=== PATIENT | female | born 1950 | race Caucasian/White ===

== ENCOUNTER 2016-11-19 14:45 | Inpatient (IN) ==
[2016-11-19 16:55] LABS: Basophils % 0.1 %; Eosinophils # 0.1 K/mcL (0.0-0.6); Eosinophils % 0.4 %; Hematocrit 26.4 % (35.3-44.9); Hemoglobin 8.8 g/dL (11.5-15.4); Immature Granulocytes % 0.5 % (0-4); Lymphocytes # 0.4 K/mcL (0.6-4.6); Lymphocytes % 2.2 %; Mean Corpuscular HGB Conc 33.3 g/dL (31.6-35.5); Mean Corpuscular Hemoglobin 26.6 pg (28.0-33.3); Mean Corpuscular Volume 79.8 fL (83.0-100.0); Mean Platelet Volume 9.3 fL (9.4-12.4); Monocytes # 0.6 K/mcL (0.0-1.3); Monocytes % 3.8 %; Platelet Count 163 K/mcL (140-400); Red Blood Count 3.31 M/mcL (3.82-4.97); Red Cell Distribution Width 14.1 % (11.5-14.5)
[2016-11-19 17:07] LABS: Albumin 3.2 g/dL (3.5-5.0); Albumin/Globulin Ratio 0.9 (1.1-2.2); Bilirubin,Direct 0.5 mg/dL (0.0-0.5); Bilirubin,Indirect 0.3 mg/dL (0.0-1.2); Bilirubin,Total 0.8 mg/dL (0.2-1.2); Calcium 9.2 mg/dL (8.6-10.8); Globulin 3.6 g/dL (2.4-3.5); Potassium 5.1 mEq/L (3.5-4.5); Total Protein 6.8 g/dL (6.0-8.3)
[2016-11-19] MEDS ORDERED: 0.9 % Sodium Chloride 1,000 ML IVC ONE (17:43)
[2016-11-19] MEDS ORDERED: Azithromycin 500 MG in D5% in Water 250 ML IVPB ONE (18:18)
--- NOTE | 2016-11-19 18:22 | Emergency Department Note ---
Disposition Clinical Impression: Community acquired pneumonia Qualifiers: Laterality: left Lung location: upper lobe of lung Qualified Code(s): J18.1 - Lobar pneumonia, unspecified organism Disposition: Admitted As Inpatient Condition: Good Referrals: Man Eubanks MD [Primary Care Provider] - Forms: ED Satisfaction Letter, Work/School Release General Adult HPI - General Chief complaint: ED Abdominal Pain Stated complaint: LLQ pain Time Seen by Provider: 11/19/16 16:48 Source: patient, EMS Mode of arrival: EMS Limitations: no limitations Nursing Notes Reviewed: Yes Vital Signs Reviewed: Yes - History of Present Illness HPI Narrative: 66-year-old female was asked to the ER with a chief complaint of cough, shortness of breath and abdominal pain. Patient states she has not felt well for the last 3 days. She states that she called her primary care provider but they were unable to call anything in for her. She states that she has had a cough without productive sputum during this time. States that she also started having left-sided abdominal pain during this time. She has had nausea but no vomiting or diarrhea. Reports a history of one bowel obstruction in the past from adhesions. No fevers at home. Has had left-sided chest pain worse with coughing. No other complaints. Pt Subjective Complaint: Abdominal pain, cough, shortness of breath Onset (ago): day(s) Location: chest, abdomen Radiation: non-radiation Pain Severity: moderate Pain Scale: 5 Quality: aching Consistency: intermittent Improves with: nothing Worsens with: other Associated symptoms: Reports: chest pain, cough, nausea/vomiting, shortness of breath. Denies: fever/chills Treatments Prior to Arrival: none - Related Data Home Medications Medication Instructions Recorded Confirmed Folic Acid 1 mg PO DAILY 09/24/14 11/19/16 Insulin ASPART [Novolog Flexpen] 0 unit SQ ACHS PRN 09/24/14 11/19/16 Lisinopril [Zestril] 20 mg PO DAILY PRN 09/24/14 11/19/16 Loratadine [Claritin] 10 mg PO DAILY 09/24/14 11/19/16 Nitroglycerin [Nitrostat] 0.4 mg SL Q5M PRN 09/24/14 11/19/16 Omeprazole [Prilosec] 40 mg PO BID 09/24/14 11/19/16 Oxycodone HCl 5 - 10 mg PO QID PRN 09/24/14 11/19/16 Oxygen 2 l NS AD 09/24/14 11/19/16 Polyethylene Glycol 3350 [Miralax] 17 gm PO DAILY 09/24/14 11/19/16 Simvastatin [Zocor] 20 mg PO HS 09/24/14 11/19/16 cloNIDine HCl [CloNIDine HCl] 0.1 mg PO HS 08/19/15 11/19/16 Albuterol Sulfate [Albuterol 2 puff IH QID PRN 08/20/15 11/19/16 Inhaler] Cholecalciferol (Vitamin D3) 10,000 unit PO QWEEK 08/20/15 11/19/16 [Vitamin D3] Cyclobenzaprine [Flexeril] 10 mg PO QID PRN 08/20/15 11/19/16 Fenofibrate [Lofibra] 160 mg PO DAILY 08/20/15 11/19/16 Insulin Glargine,Hum.rec.anlog 25 unit SQ BID 08/20/15 11/19/16 [Lantus Solostar] Levothyroxine [Synthroid] 25 mcg PO QAM 08/20/15 11/19/16 Mometasone Furoate [Asmanex] 220 mcg IH QPM 08/20/15 11/19/16 Montelukast [Singulair] 10 mg PO QPM 08/20/15 11/19/16 Temazepam [Restoril] 15 mg PO HS 08/20/15 11/19/16 Calcium Carbonate [Tums] 1,000 mg PO BID 06/11/16 11/19/16 Guaifenesin [Mucinex] 600 mg PO BID PRN 06/11/16 11/19/16 Albuterol Neb [Proventil Neb] 2.5 mg IH Q6H PRN 11/19/16 11/19/16 Ascorbic Acid [Vitamin C] 500 mg PO DAILY 11/19/16 11/19/16 Carvedilol [Coreg] 6.25 mg PO BIDWM 11/19/16 11/19/16 Cyanocobalamin (Vitamin B-12) 1,000 mcg PO DAILY 11/19/16 11/19/16 [Vitamin B12] EPINEPHrine [Epipen] 0.3 mg IM ONCE PRN 11/19/16 11/19/16 Ipratropium/Albuterol Sulfate 2 puff IH QID 11/19/16 11/19/16 [Combivent Respimat Inhal [place]] Allergies Allergy/AdvReac Type Severity Reaction Status Date / Time baclofen Allergy Hallucinati Verified 11/19/16 14:55 ng cilostazol [From Pletal] Allergy Hallucinati Verified 11/19/16 14:55 ng All systems ED: reviewed and negative except as stated. Constitutional: Reports: weakness. Denies: fever Cardiovascular: Reports: chest pain (With coughing) Respiratory: Reports: cough, dyspnea. Denies: wheezes Gastrointestinal: Reports: abdominal pain, nausea. Denies: vomiting, diarrhea Past Medical History - Past Medical History Attestation: Yes The following information was validated with the patient. Source: patient Medical history: Reports: asthma, COPD, coronary artery disease, CVA, GERD, hepatitis, hypertension, liver disease, myocardial infarction, renal disease, other Surgical history: Reports: appendectomy, , cholecystectomy, coronary bypass (CABG), hysterectomy, other (heart stent placement x2) Psychiatric history: Reports: no psych history - Social History Smoking Status: Former smoker Smokeless Tobacco Status: No Alcohol use: Reports: none Drug use: Reports: none Physical Exam - General Limitations: no limitations General appearance: alert, in no apparent distress - Head Head exam: atraumatic, normocephalic, normal inspection - Eye Eye exam: Present: normal appearance, EOMI - ENT ENT exam: normal exam - Neck Neck exam: Present: normal inspection, full ROM - Chest Chest inspection: Present: normal inspection, symmetric chest wall rise - Respiratory Respiratory exam: Present: normal lung sounds bilaterally - Cardiovascular Cardiovascular exam: Present: regular rate, normal rhythm, normal heart sounds - Abdominal Exam Abdominal exam: Present: soft, tenderness (Mild left sided abdominal pain in the left upper quadrant without rigidity guarding or distention.). Absent: distention, guarding, rigidity - Extremities Exam Extremities exam: Present: normal inspection, full ROM - Expanded Upper Extremity Exam Shoulder exam: Present: normal inspection, full ROM Arm exam: Present: normal inspection, full ROM Elbow exam: Present: normal inspection, full ROM Forearm/Wrist exam: Present: normal inspection, full ROM Hand exam: Present: normal inspection, full ROM Vascular exam: Normal: radial pulse - Expanded Lower Extremity Exam Hip/Pelvis exam: Present: normal inspection, full ROM Upper leg exam: Present: normal inspection, full ROM Knee exam: Present: normal inspection, full ROM Lower leg exam: Present: normal inspection, full ROM Ankle exam: Present: normal inspection, full ROM Foot/toe exam: Present: normal inspection, full ROM Neurovascular/Tendon exam: Absent: motor deficit, sensory deficit - Neurological Exam Neurological exam: Present: alert, other (GCS 15. Nonfocal neurologic exam.) - Psychiatric Psychiatric exam: Present: normal affect, normal mood - Skin Skin exam: Present: warm, dry, intact, normal color Course Course Narrative: Patient seen and examined. We will obtain an EKG, chest x-ray as well as a CT scan of the abdomen and pelvis with labs and urinalysis. - Reevaluation(s) Reevaluation #1: Patient updated of imaging and labs. She will be admitted for community- acquired pneumonia. Vital Signs Temperature 99.4 F 11/19/16 14:52 Pulse Rate 105 11/19/16 14:52 Respiratory Rate 18 11/19/16 14:52 Blood Pressure 107/56 11/19/16 14:52 O2 Sat by Pulse Oximetry 100 11/19/16 14:52 Temperature 99.4 F 11/19/16 14:52 Pulse Rate 99 11/19/16 18:48 Respiratory Rate 20 11/19/16 18:48 Blood Pressure 125/61 11/19/16 18:48 O2 Sat by Pulse Oximetry 99 11/19/16 18:48 Oxygen Delivery Oxygen Delivery Room Air Medical Decision Making - [facility] Narrative Medical decision making narrative: 66-year-old female presents to the ER due to weakness cough shortness of breath and abdominal pain for 3 days. X-ray here shows concern for developing left sided pneumonia. Her white count is 16. Her EKG is nonischemic. She has baseline CK D. Patient given a liter of fluids as well as Rocephin and Zithromax. Lactate normal. Blood cultures obtained. Admitted to the hospitalist service. - Lab Data Lab results reviewed: Yes I reviewed the patient's lab results. Result diagrams: 11/19/16 16:39 11/19/16 16:39 Lab Results 11/19/16 11/19/16 11/19/16 Range/Units 16:39 16:39 16:39 WBC 16.1 H (4.3-11.1) K/mcL RBC 3.31 L (3.82-4.97) M/mcL Hgb 8.8 L (11.5-15.4) g/dL Hct 26.4 L (35.3-44.9) % MCV 79.8 L (83.0-100.0) fL MCH 26.6 L (28.0-33.3) pg MCHC 33.3 (31.6-35.5) g/dL RDW 14.1 (11.5-14.5) % Plt Count 163 (140-400) K/mcL MPV 9.3 L (9.4-12.4) fL Immature Gran % 0.5 (0-4) % Seg Neutrophils % 93.0 % Lymphocytes % 2.2 % Monocytes % 3.8 % Eosinophils % 0.4 % Basophils % 0.1 % Neutrophils # 15.0 H (1.6-8.9) K/mcL Lymphocytes # 0.4 L (0.6-4.6) K/mcL Monocytes # 0.6 (0.0-1.3) K/mcL Eosinophils # 0.1 (0.0-0.6) K/mcL Basophils # 0.0 (0.0-0.2) K/mcL Sodium 127 L (136-145) mEq/L Potassium 5.1 H (3.5-4.5) mEq/L Chloride 92 L (98-109) mEq/L Carbon Dioxide 29 (19-29) mEq/L BUN 28 H (7-20) mg/dL Creatinine 1.39 H (0.57-1.11) mg/dL Est GFR ( Amer) 46 L (> 60) Est GFR (Non-Af Amer) 38 L (> 60) BUN/Creatinine Ratio 20 (6-26) Glucose 144 H (70-99) mg/dL Calculated Osmolality 272 L (280-300) Lactic Acid (0.5-2.2) mmol/L Calcium 9.2 (8.6-10.8) mg/dL Total Bilirubin 0.8 (0.2-1.2) mg/dL Direct Bilirubin 0.5 (0.0-0.5) mg/dL Indirect Bilirubin 0.3 (0.0-1.2) mg/dL AST 28 (5-34) Units/L ALT 16 (0-55) Units/L Alkaline Phosphatase 91 (38-126) Units/L Troponin I 0.01 (0-0.03) ng/mL B-Natriuretic Peptide (0-100) pg/mL Serum Total Protein 6.8 (6.0-8.3) g/dL Albumin 3.2 L (3.5-5.0) g/dL Globulin 3.6 H (2.4-3.5) g/dL Albumin/Globulin Ratio 0.9 L (1.1-2.2) Lipase 34 (8-78) Units/L 11/19/16 11/19/16 Range/Units 16:39 17:56 WBC (4.3-11.1) K/mcL RBC (3.82-4.97) M/mcL Hgb (11.5-15.4) g/dL Hct (35.3-44.9) % MCV (83.0-100.0) fL MCH (28.0-33.3) pg MCHC (31.6-35.5) g/dL RDW (11.5-14.5) % Plt Count (140-400) K/mcL MPV (9.4-12.4) fL Immature Gran % (0-4) % Seg Neutrophils % % Lymphocytes % % Monocytes % % Eosinophils % % Basophils % % Neutrophils # (1.6-8.9) K/mcL Lymphocytes # (0.6-4.6) K/mcL Monocytes # (0.0-1.3) K/mcL Eosinophils # (0.0-0.6) K/mcL Basophils # (0.0-0.2) K/mcL Sodium (136-145) mEq/L Potassium (3.5-4.5) mEq/L Chloride (98-109) mEq/L Carbon Dioxide (19-29) mEq/L BUN (7-20) mg/dL Creatinine (0.57-1.11) mg/dL Est GFR ( Amer) (> 60) Est GFR (Non-Af Amer) (> 60) BUN/Creatinine Ratio (6-26) Glucose (70-99) mg/dL Calculated Osmolality (280-300) Lactic Acid 0.8 (0.5-2.2) mmol/L Calcium (8.6-10.8) mg/dL Total Bilirubin (0.2-1.2) mg/dL Direct Bilirubin (0.0-0.5) mg/dL Indirect Bilirubin (0.0-1.2) mg/dL AST (5-34) Units/L ALT (0-55) Units/L Alkaline Phosphatase (38-126) Units/L Troponin I (0-0.03) ng/mL B-Natriuretic Peptide 138 H (0-100) pg/mL Serum Total Protein (6.0-8.3) g/dL Albumin (3.5-5.0) g/dL Globulin (2.4-3.5) g/dL Albumin/Globulin Ratio (1.1-2.2) Lipase (8-78) Units/L - Radiology Data Radiology results reviewed: Yes I reviewed the patient's radiology results. Abdomen/Pelvis CT 11/19/16 16:49 IMPRESSION: Hepatic cirrhosis with hepatosplenomegaly and mild right upper quadrant lymphadenopathy. Bilateral renal cortical cysts. Severe atherosclerotic disease. Right lower lobe pulmonary micronodule. RECOMMENDATIONS: Fleischner Society guidelines for follow-up and management of pulmonary nodules: Nodule size less than or equal to 4 mm In a low-risk patient, no follow-up needed. In a high-risk patient, follow-up CT at 12 months; if unchanged, no further follow-up. Nodule size equals 4-6 mm In a low-risk patient, follow-up CT at 12 months; if unchanged, no further follow-up. In a high-risk patient, initial follow-up CT at 6-12 months then at 18-24 months if no change. Nodule size equals 6-8 mm In a low-risk patient, initial follow-up CT at 6-12 months then at 18-24 months if no change. In a high-risk patient, initial follow-up CT at 3-6 months then at 9-12 months and 24 months if no change. Nodule size greater than 8 mm In low-risk and high-risk patients follow-up CT at around 3, 9, and 24 months, dynamic contrast-enhanced CT, PET, and/or biopsy. Low risk patients include individuals with minimal or absent history of smoking and other known risk factors. High risk patients include individuals with a history of smoking or other known risk factors. Radiology 2005; [id number] D/ / Kristian Champion MD / Kristian Champion MD Interpreting Provider: Kristian Champion MD Chest X-Ray 11/19/16 16:49 IMPRESSION: Patchy consolidation within the left midlung, suggestive of pneumonia. That must be followed to resolution. D/ / Meir Kirkpatrick MD / Meir Kirkpatrick MD Interpreting Provider: Meir Kirkpatrick MD - EKG Data EKG #1 EKG attestation: Yes I reviewed and interpreted this EKG. EKG results narrative: EKG demonstrates sinus rhythm with a rate of 94 bpm. Normal axis. Normal intervals. Normal R-wave progression. No gross ST elevations or depressions. No acute ischemic findings. S.B.A.R. - S.B.A.R. Situation: Demographics, MOA Background: Presenting Complaint, Relevant PMH, Meds, & Allergies Assessment: Vital Signs, Course and respsone to treatment, Exam Concerns, Patient/Family Expectation, Pertinant Lab Results, Outstanding Labs Recommendation: Barrier(s) to disposition, Recommendation based on pending studies, treatments, or consults S.B.A.R. Report Given to: Dr. Potter Attestation Statement - Attestation Attestation: I examined this patient and my medical decision-making was reviewed with the Resident Physician, Dr. Joseph. I agree with the documented findings, disposition and treatment plan as described except to the extent set forth below. Patient is a 66-year-old white female with a history of COPD on 2 L nasal cannula oxygen at all times he presents to the emergency department with occasional nonproductive cough gradually worsening shortness of breath over the last 3 days and left chest wall pain gets worse with deep breathing. Patient denies any fevers or chills but does complain of generalized fatigue to the point that she has not been able to get around at home due to overwhelming generalized weakness. Patient denies any posttussive emesis or nausea vomiting. Patient denies any chest pain pressure or heaviness. Patient arrives with mild tachycardia but no signs of increased work of breathing or respiratory distress. I agree with patient's physical exam findings as documented. EKG was normal sinus rhythm at 94 bpm with no acute ST or T-wave changes. There is no old EKG for comparison. Patient had a two-view chest x-ray obtained which showed left mid lobe consolidation consistent with pneumonia. Due to the left-sided pain CT abdomen and pelvis was also obtained which is unremarkable. Patient had antibiotics initiated for community-acquired pneumonia and has been on 3 L nasal cannula oxygen with stable room air sats. Patient is currently receiving IV fluids and lactate has been ordered. History was discussed with hospitalist B she will be admitted for community acquired pneumonia mild exacerbation of COPD.
[2016-11-19] MEDS ORDERED: MOM Conc 10 ML UD.LIQ PO PRN (22:37)
[2016-11-19] MEDS ORDERED: *HR* Promethazine 25 MG/ML VIAL IVP PRN (22:37)
[2016-11-19] MEDS ORDERED: Acetaminophen 325 MG TABLET PO PRN (22:37)
[2016-11-19] MEDS ORDERED: Naloxone 0.4 MG/ML INJ IVP PRN (22:37)
[2016-11-19] MEDS ORDERED: Ondansetron 4 MG/2 ML VIAL IVP PRN (22:37)
[2016-11-19] MEDS ORDERED: Nitroglycerin 0.4 MG TAB.SUBL SL PRN (22:39)
[2016-11-19] MEDS ORDERED: Lisinopril 20 MG TABLET PO PRN (22:39)
[2016-11-19] MEDS ORDERED: *HR* Dextrose 50 % in Water (Syg) 50 ML SYRINGE IVP PRN (22:43)
[2016-11-19] MEDS ORDERED: D5% in Water 1,000 ML IVC PRN (22:43)
[2016-11-19] MEDS ORDERED: Dextrose Gel 15 GM PO PRN ×2 (22:43)
--- NOTE | 2016-11-19 22:53 | Internal Med History&Physical ---
Date of Encounter: 11/19/16 Time of Encounter: 21:20 Assessment and Plan (1) SIRS (systemic inflammatory response syndrome) Current visit: Yes Status: Acute Will admit the pt into Med Surg Does meet SIRS criteria with elevated WBC source of inf as PNA Cont empirical abx Rocephin and Zithromycin (2) CAP (community acquired pneumonia) Current visit: Yes Status: Acute Mostly bacterial reviewed CXR by myself - showing infiltrates in LLL, jason bronchial thickening sent for sputum cx Cont empirical abx Rocephin + Azithromycin Duoneb + O2 No need of steroids Qualifiers: Laterality: left Lung location: upper lobe of lung Qualified Code(s): J18.1 - Lobar pneumonia, unspecified organism (3) Hyponatremia Current visit: No Status: Acute Mild hyponatremia Mostly due to dehydration cont gentle IV hydration cont close monitoring (4) CKD (chronic kidney disease), stage III Current visit: No Status: Acute stable (5) Dehydration Current visit: No Status: Acute due to sepsis started on gentle IV hydration (6) CAD (coronary artery disease) Current visit: No Status: Chronic Resumed all home meds Qualifiers: Qualified Code(s): I25.10 - Atherosclerotic heart disease of [place] coronary artery without angina pectoris (7) COPD (chronic obstructive pulmonary disease) Current visit: No Status: Chronic Not in exacerbation cont Duoneb and O2 No need of IV steroids at this point Qualifiers: COPD type: unspecified COPD Qualified Code(s): J44.9 - Chronic obstructive pulmonary disease, unspecified (8) Chronic respiratory failure with hypoxia Current visit: Yes Status: Chronic stable (9) Cirrhosis Current visit: No Status: Chronic Due to Hep C need out pt f/u with Heme Onc Qualifiers: Hepatic cirrhosis type: unspecified hepatic cirrhosis Ascites presence: without ascites Qualified Code(s): K74.60 - Unspecified cirrhosis of liver (10) DM2 (diabetes mellitus, type 2) Current visit: No Status: Chronic Placed her on ISS medium + Levemir 15U BID Qualifiers: Diabetes mellitus complication status: with kidney complications Diabetes mellitus complication detail: with chronic kidney disease Diabetes mellitus terminal operations manager insulin use: with terminal operations manager use Chronic kidney disease stage: stage 3 (moderate) Qualified Code(s): E11.22 - Type 2 diabetes mellitus with diabetic chronic kidney disease; N18.3 - Chronic kidney disease, stage 3 ( moderate); Z79.4 - group home (current) use of insulin Internal Medicine - H&P: HPI Chief complaint: Cough with Expectoration, SOB Admitted From: Emergency Dept Plans for Post Hospital Care: Home History of present illness: Ms. Kimble is a 66 year old female with past medical hx of COPD, Diastolic CHF, CAD, s/p CABG, PR, CVA, cirrhosis of liver due to Hep C, CKD (III), Iron defeciency anemia, DM2, chronic hypoxic resp failure on home O2 dependent at 2 lit presented to ER c/o worsening SOB and Cough since y/d. She does have cough with yellowish expectoration. Aslo c/o generalized body pains, weak and lethargic. Denied any CP . 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 She is alert, awake and Ox 3. Denied any sick contacts at home or recent travel history Past Med Surg Social Fam HX - Past Medical History Medical history: asthma, COPD, coronary artery disease, CVA, GERD, hepatitis, hypertension, liver disease, myocardial infarction, renal disease, other Psychiatric history: no psych history - Past Surgical History Surgical History: appendectomy, , cholecystectomy, coronary bypass ( CABG), hysterectomy, other - Social History Smoking Status: Former smoker Smokeless Tobacco Status: No Alcohol use: none Drug use: none - Family History Mother Living Status: Hx Family Cardiac Disorders: Yes (triple bypass) Hx Family Endocrine Disorder: Yes Father Living Status: Hx Family Cardiac Disorders: Yes Hx Family Endocrine Disorder: Yes Internal Medicine - H&P: Meds Folic Acid 1 mg PO DAILY 09/24/14 [History] Insulin ASPART [Novolog Flexpen] 0 unit SQ ACHS PRN 09/24/14 [History] Lisinopril [Zestril] 20 mg PO DAILY PRN 09/24/14 [History] Loratadine [Claritin] 10 mg PO DAILY 09/24/14 [History] Nitroglycerin [Nitrostat] 0.4 mg SL Q5M PRN 09/24/14 [History] Omeprazole [Prilosec] 40 mg PO BID 09/24/14 [History] Oxycodone HCl 5 - 10 mg PO QID PRN 09/24/14 [History] Oxygen 2 l NS AD 09/24/14 [History] Polyethylene Glycol 3350 [Miralax] 17 gm PO DAILY 09/24/14 [History] Simvastatin [Zocor] 20 mg PO HS 09/24/14 [History] cloNIDine HCl [CloNIDine HCl] 0.1 mg PO HS 08/19/15 [History] Albuterol Sulfate [Albuterol Inhaler] 2 puff IH QID PRN 08/20/15 [History] Cholecalciferol (Vitamin D3) [Vitamin D3] 10,000 unit PO QWEEK 08/20/15 [History ] Cyclobenzaprine [Flexeril] 10 mg PO QID PRN 08/20/15 [History] Fenofibrate [Lofibra] 160 mg PO DAILY 08/20/15 [History] Insulin Glargine,Hum.rec.anlog [Lantus Solostar] 25 unit SQ BID 08/20/15 [ History] Levothyroxine [Synthroid] 25 mcg PO QAM 08/20/15 [History] Mometasone Furoate [Asmanex] 220 mcg IH QPM 08/20/15 [History] Montelukast [Singulair] 10 mg PO QPM 08/20/15 [History] Temazepam [Restoril] 15 mg PO HS 08/20/15 [History] Calcium Carbonate [Tums] 1,000 mg PO BID 06/11/16 [History] Guaifenesin [Mucinex] 600 mg PO BID PRN 06/11/16 [History] Albuterol Neb [Proventil Neb] 2.5 mg IH Q6H PRN 11/19/16 [History] Ascorbic Acid [Vitamin C] 500 mg PO DAILY 11/19/16 [History] Carvedilol [Coreg] 6.25 mg PO BIDWM 11/19/16 [History] Cyanocobalamin (Vitamin B-12) [Vitamin B12] 1,000 mcg PO DAILY 11/19/16 [History ] EPINEPHrine [Epipen] 0.3 mg IM ONCE PRN 11/19/16 [History] Ipratropium/Albuterol Sulfate [Combivent Respimat Inhal [place]] 2 puff IH QID 07/01 [History] 3 Allergy/AdvReac Type Severity Reaction Status Date / Time baclofen Allergy Hallucinati Verified 11/19/16 14:55 ng cilostazol [From Pletal] Allergy Hallucinati Verified 11/19/16 14:55 ng All Systems PM: A 10-system review of systems was performed and is negative for pertinent findings except as documented above in the HPI. Review of systems: All the systems are reviewed everything is benign except the systems and symptoms I mentioned in the history of present illness - Constitutional Vitals: Temp Pulse Resp BP Pulse Ox 98.4 F 88 15 120/71 100 11/19/16 22:45 11/19/16 22:45 11/19/16 22:45 11/19/16 22:45 11/19/16 22:45 General appearance: Present: A&O X 3, no acute distress (able to finish all sentences with out any pause), answers questions appropriately - Head Head exam: Present: atraumatic, normal inspection - Respiratory Respiratory exam: Present: decreased breath sounds, rhonchi (mild rhonchi and corase BS b/l). Absent: rales, respiratory distress, wheezes - Cardiovascular Cardiovascular exam: Present: RRR, +S1, +S2. Absent: systolic murmur - GI/Abdominal GI/Abdominal exam: Present: normal bowel sounds, soft. Absent: distended, rebound, rigid, tenderness - Extremities Exam Extremities exam: Absent: calf tenderness, pedal edema, tenderness - Back Exam Back exam: Absent: CVA tenderness (L), CVA tenderness (R) - Neurological Exam Neurological exam: Present: alert, oriented X3 - Psychiatric Psychiatric exam: Present: normal affect, normal mood Internal Med - H&P Results - Labs CBC & Chem 7: 11/19/16 16:39 11/19/16 16:39
[2016-11-19] MEDS: 0.9 % Sodium Chloride 1,000 ML IVC SCH (23:10)
[2016-11-19] MEDS: cloNIDine HCl 0.1 MG TABLET PO SCH (23:10)
[2016-11-19] MEDS: Insulin LISPRO 300 UNITS/3 ML VIAL SQ SCH (23:11)
[2016-11-19] MEDS: Ipratropium/Albuterol Neb 3 ML IH SCH (23:25)
[2016-11-19] MEDS: *HR* HYDROcodone/Acet 5/325 mg TABLET PO PRN (23:28)
[2016-11-20] MEDS: Ipratropium/Albuterol Neb 3 ML IH SCH ×6 (03:42→23:47)
[2016-11-20 04:42] LABS: Basophils % 0.2 %; Eosinophils # 0.1 K/mcL (0.0-0.6); Eosinophils % 1.2 %; Hematocrit 25.3 % (35.3-44.9); Hemoglobin 8.3 g/dL (11.5-15.4); Immature Granulocytes % 0.2 % (0-4); Lymphocytes # 0.7 K/mcL (0.6-4.6); Lymphocytes % 6.4 %; Mean Corpuscular HGB Conc 32.8 g/dL (31.6-35.5); Mean Corpuscular Hemoglobin 26.8 pg (28.0-33.3); Mean Corpuscular Volume 81.6 fL (83.0-100.0); Mean Platelet Volume 9.7 fL (9.4-12.4); Monocytes # 0.9 K/mcL (0.0-1.3); Monocytes % 8.1 %; Neutrophils # 8.9 K/mcL (1.6-8.9); Platelet Count 162 K/mcL (140-400); Red Cell Distribution Width 14.3 % (11.5-14.5); Segmented Neutrophils % 83.9 %
[2016-11-20 04:49] LABS: Hemoglobin A1C 5.9 %
[2016-11-20 04:54] LABS: Potassium 4.2 mEq/L (3.5-4.5)
[2016-11-20 04:55] LABS: Albumin/Globulin Ratio 0.9 (1.1-2.2); Bilirubin,Total 0.7 mg/dL (0.2-1.2); Calcium 8.8 mg/dL (8.6-10.8); Chol/HDL Ratio 3.3 (0-4.9); Globulin 3.4 g/dL (2.4-3.5); Magnesium 1.6 mg/dL (1.6-2.6); Total Protein 6.4 g/dL (6.0-8.3)
[2016-11-20] MEDS: Levothyroxine 25 MCG TABLET PO SCH (06:37)
[2016-11-20] MEDS: *HR* Heparin 5,000 UNIT/ML VIAL SQ SCH ×2 (06:37→17:01)
[2016-11-20] MEDS: Insulin LISPRO 300 UNITS/3 ML VIAL SQ SCH ×4 (07:43→22:13)
[2016-11-20] MEDS: Cholecalciferol (D-3) 1,000 UNIT TABLET PO SCH (09:13)
[2016-11-20] MEDS: Fenofibrate 54 MG TABLET PO SCH (09:13)
[2016-11-20] MEDS: Cyanocobalamin (B-12) 1,000 MCG TABLET PO SCH (09:13)
[2016-11-20] MEDS: Ascorbic Acid 500 MG TABLET PO SCH (09:14)
[2016-11-20] MEDS: Loratadine 10 MG TABLET PO SCH (09:14)
[2016-11-20] MEDS: 0.9 % Sodium Chloride 1,000 ML IVC SCH ×2 (09:14→21:56)
[2016-11-20] MEDS: *HR* HYDROcodone/Acet 5/325 mg TABLET PO PRN ×3 (09:24→22:01)
[2016-11-20 11:04] LABS: Adenovirus Not Detected (Not Detect); Bordetella Pertussis Not Detected (Not Detect); Chlamydophila pneumoniae Not Detected (Not Detect); Coronavirus 229E Not Detected (Not Detect); Coronavirus HKU1 Not Detected (Not Detect); Coronavirus NL63 Not Detected (Not Detect); Coronavirus OC43 Not Detected (Not Detect); Human Metapneumovirus Not Detected (Not Detect); Human Rhinovirus/Enterovirus Not Detected (Not Detect); Influenza A Subtype 2009 H1 Not Detected (Not Detect); Influenza A Untypeable Not Detected (Not Detect); Influenza B Not Detected (Not Detect); Mycoplasma pneumoniae Not Detected (Not Detect); Parainfluenza Virus 1 Not Detected (Not Detect); Parainfluenza Virus 2 Not Detected (Not Detect); Parainfluenza Virus 3 Not Detected (Not Detect); Parainfluenza Virus 4 Not Detected (Not Detect); Respiratory Syncytial Virus Not Detected (Not Detect)
[2016-11-20] MEDS: Insulin DETEMIR 100 UNIT/ML X5UNITS SQ SCH ×2 (11:35→22:00)
[2016-11-20] MEDS: MethylPREDNISolone 40 MG/ML VIAL IVP SCH ×2 (11:54→17:01)
[2016-11-20] MEDS: *HR* Morphine 2 MG/ML SYRINGE IVP PRN (11:54)
[2016-11-20] MEDS: Azithromycin 500 MG in D5% in Water 250 ML IVPB SCH (11:54)
--- NOTE | 2016-11-20 16:49 | Internal Med Progress Note ---
Date of Encounter: 11/20/16 Time of Encounter: 16:47 - Assessment and plan (1) CAP (community acquired pneumonia) Current Visit: Yes Status: Acute Assessment and plan: Mounika Kimble is a 66-year-old female with past medical history COPD on home O2 , CAD, diabetes and hypothyroidism who presented to [facility] 11/19/2016 with complaints of worsening shortness of breath and cough. She was placed in observation status for suspected pneumonia. 1. Community-acquired pneumonia: Presented with worsening shortness of breath and cough. Chest x-ray with left mid lung consolidation, concerning for pneumonia. Cont IV azithromycin, Rocephin started in ED. Urinary antigens, sputum culture, respiratory PCR pending. 2. Acute COPD exacerbation: Wears O2 at at bedtime at home. Now requiring oxygen [id number] and with diffuse wheezing on exam. Start steroids, scheduled nebs, continue O2. 3. SIRS: With elevated WBC and suspected pneumonia. Lactic acid normal. Continue treating pneumonia and COPD exacerbation as noted above 4. Hyponatremia: Na 127 on arrival. Suspect prerenal with dehydration. Na improved with IV fluids. Intermittently monitor. 5. CKD: per hx. Cr 1.12 which appears improved from baseline. Avoid nephrotoxic agents as able. Intermittently monitor renal function. 6. CAD: per hx. asymptomatic, denies chest pain. Not on ASA or any other antiplatelet therapy due to previous history of bleeding. Continue BB, statin 7. DVT prophylaxis: Heparin Qualifiers: Laterality: left Lung location: upper lobe of lung Qualified Code(s): J18.1 - Lobar pneumonia, unspecified organism (2) Chronic respiratory failure with hypoxia Current Visit: Yes Status: Chronic (3) COPD (chronic obstructive pulmonary disease) Current Visit: No Status: Chronic Qualifiers: COPD type: unspecified COPD Qualified Code(s): J44.9 - Chronic obstructive pulmonary disease, unspecified (4) DM2 (diabetes mellitus, type 2) Current Visit: No Status: Chronic Qualifiers: Diabetes mellitus complication status: with kidney complications Diabetes mellitus complication detail: with chronic kidney disease Diabetes mellitus manager terminal insulin use: with manager terminal use Chronic kidney disease stage: stage 3 (moderate) Qualified Code(s): E11.22 - Type 2 diabetes mellitus with diabetic chronic kidney disease; N18.3 - Chronic kidney disease, stage 3 ( moderate); Z79.4 - retirement (current) use of insulin (5) SIRS (systemic inflammatory response syndrome) Current Visit: Yes Status: Acute (6) DVT prophylaxis Current Visit: Yes Status: Acute - Subjective Interval history: Eczema bedside, patient is new to me. Information obtained from chart review and patient report. Patient says she feels a little better but still short of breath. No chest pain. She does have a cough that is productive at times. Patient says she wears oxygen at at bedtime at home occasionally during the day if she does strenuous activity, has been wearing oxygen [id number] for the last week prior to admission due to increased shortness of breath. - Constitutional Vitals: Temp Pulse Resp BP Pulse Ox 98.2 F 93 16 137/65 98 11/20/16 15:34 11/20/16 15:34 11/20/16 15:34 11/20/16 15:34 11/20/16 15:34 General appearance: Present: mild distress (Just returned from bathroom and mildly dyspneic), A&O X 3, answers questions appropriately - Head Head exam: Present: atraumatic, normocephalic - Eye Eye exam: Present: PERRL, conjuntiva pink, sclera anicteric Pupils: Present: PERRL - Neck Neck exam general surgery: Present: supple, trachea midline. Absent: lymphadenopathy - Respiratory Respiratory exam: Present: wheezes. Absent: accessory muscle use, rales, rhonchi - Cardiovascular Cardiovascular exam: Present: RRR, +S1, +S2. Absent: diastolic murmur, gallop, rubs, systolic murmur - GI/Abdominal GI/Abdominal exam: Present: normal bowel sounds, soft, no peritoneal signs. Absent: distended, tenderness - Extremities Exam Extremities exam: Present: warm, radial pulses palpable and symmetrical. Absent : calf tenderness, cyanotic, pedal edema - Neurological Exam Neurological exam: Present: CN II-XII intact, oriented X3, no focal deficits. Absent: pronater drift, facial droop, speech deficit - Skin Skin exam: Present: dry, intact Internal Medicine: Result - Labs CBC & Chem 7: 11/20/16 03:58 11/20/16 03:58 Labs: Short CBC 11/20/16 Range/Units 03:58 WBC 10.6 (4.3-11.1) K/mcL Hgb 8.3 L (11.5-15.4) g/dL Hct 25.3 L (35.3-44.9) % Plt Count 162 (140-400) K/mcL Neutrophils # 8.9 (1.6-8.9) K/mcL BMP 11/20/16 03:58 Sodium 131 L Potassium 4.2 Chloride 97 L Carbon Dioxide 29 BUN 25 H Creatinine 1.12 H Glucose 59 L Calcium 8.8 Liver Function 11/20/16 Range/Units 03:58 Total Bilirubin 0.7 (0.2-1.2) mg/dL AST 26 (5-34) Units/L ALT 16 (0-55) Units/L Alkaline Phosphatase 83 (38-126) Units/L Albumin 3.0 L (3.5-5.0) g/dL Consult Discharge Plan - Plan Referrals: Man Eubanks MD [Primary Care Provider] -
[2016-11-20] MEDS ORDERED: Albuterol 2.5 MG/3 ML NEBULIZER IH PRN (17:00)
[2016-11-20] MEDS ORDERED: Beclomethasone 80mcg MDI IH SCH (18:00)
--- NOTE | 2016-11-20 19:07 | Electrocardiograph Report ---
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
[2016-11-20] MEDS: cloNIDine HCl 0.1 MG TABLET PO SCH (22:02)
[2016-11-20] MEDS: Temazepam 15 MG CAPSULE PO SCH (22:02)
[2016-11-21] MEDS: MethylPREDNISolone 40 MG/ML VIAL IVP SCH ×5 (00:39→22:27)
[2016-11-21] MEDS: Ipratropium/Albuterol Neb 3 ML IH SCH ×6 (04:36→23:52)
[2016-11-21] MEDS: Levothyroxine 25 MCG TABLET PO SCH (05:40)
[2016-11-21] MEDS: *HR* Heparin 5,000 UNIT/ML VIAL SQ SCH (05:41)
[2016-11-21] MEDS: *HR* HYDROcodone/Acet 5/325 mg TABLET PO PRN (05:48)
[2016-11-21] MEDS: Insulin LISPRO 300 UNITS/3 ML VIAL SQ SCH ×4 (07:53→21:22)
[2016-11-21] MEDS: Fenofibrate 54 MG TABLET PO SCH (09:31)
[2016-11-21] MEDS: Ascorbic Acid 500 MG TABLET PO SCH (09:32)
[2016-11-21] MEDS: Cholecalciferol (D-3) 1,000 UNIT TABLET PO SCH (09:32)
[2016-11-21] MEDS: Cyanocobalamin (B-12) 1,000 MCG TABLET PO SCH (09:32)
[2016-11-21] MEDS: Loratadine 10 MG TABLET PO SCH (09:32)
[2016-11-21] MEDS: Insulin DETEMIR 100 UNIT/ML X5UNITS SQ SCH ×2 (09:33→21:30)
[2016-11-21] MEDS: Azithromycin 500 MG in D5% in Water 250 ML IVPB SCH (09:40)
[2016-11-21 10:04] LABS: Hematocrit 23.6 % (35.3-44.9); Hemoglobin 7.7 g/dL (11.5-15.4); Mean Corpuscular HGB Conc 32.6 g/dL (31.6-35.5); Mean Corpuscular Hemoglobin 26.5 pg (28.0-33.3); Mean Corpuscular Volume 81.1 fL (83.0-100.0); Mean Platelet Volume 9.7 fL (9.4-12.4); Platelet Count 109 K/mcL (140-400); Red Blood Count 2.91 M/mcL (3.82-4.97); Red Cell Distribution Width 13.6 % (11.5-14.5)
[2016-11-21 10:22] LABS: Albumin 2.8 g/dL (3.5-5.0); Albumin/Globulin Ratio 0.7 (1.1-2.2); Bilirubin,Total 0.4 mg/dL (0.2-1.2); Calcium 8.9 mg/dL (8.6-10.8); Globulin 3.8 g/dL (2.4-3.5); Potassium 4.3 mEq/L (3.5-4.5); Total Protein 6.6 g/dL (6.0-8.3)
[2016-11-21] MEDS: *HR* OxyCODONE Immed Rel 5 MG TABLET PO PRN ×2 (12:52→19:50)
--- NOTE | 2016-11-21 16:43 | Internal Med Progress Note ---
Date of Encounter: 11/21/16 Time of Encounter: 16:48 - Assessment and plan (1) CAP (community acquired pneumonia) Current Visit: Yes Status: Acute Assessment and plan: Mounika Kimble is a 66-year-old female with past medical history COPD on home O2 , CAD, diabetes and hypothyroidism who presented to [facility] 11/19/2016 with complaints of worsening shortness of breath and cough. She was placed in observation status for suspected pneumonia. 1. Community-acquired pneumonia: Presented with worsening shortness of breath and cough. Chest x-ray with left mid lung consolidation, concerning for pneumonia. Cont IV azithromycin, Rocephin started in ED. Urinary antigens and respiratory PCR negative. De-escalate ATB as cultures finalize and/or clinically improves. 2. Chronic iron deficiency anemia: Per history. Has seen GI and Hematology in the past. Hgb dropped to 7.7 on 11/21. Transfuse 1 unit PRBC, check occult stool. If positive will need GI consult. 3. Acute COPD exacerbation: Wears O2 at at bedtime at home. Now requiring oxygen [id number] and with diffuse wheezing on exam. Start steroids, scheduled nebs, continue O2. 4. SIRS: With elevated WBC and suspected pneumonia. Lactic acid normal. Continue treating pneumonia and COPD exacerbation as noted above 5. Hyponatremia: Na 127 on arrival. Chronic per chart review. Neurologically intact. Motor daily CMP's 6. CKD: per hx. Cr 1.12 which appears improved from baseline. Avoid nephrotoxic agents as able. Intermittently monitor renal function. 7. CAD: per hx. asymptomatic, denies chest pain. Not on ASA or any other antiplatelet therapy due to previous history of bleeding. Continue BB, statin 8. Cirrhosis: per hx. ABD CT with hepatic cirrhosis with hepatosplenomegaly. Liver ultrasound without evidence of ascites. LFTs normal. 9. DVT prophylaxis: SCDs with anemia Qualifiers: Laterality: left Lung location: upper lobe of lung Qualified Code(s): J18.1 - Lobar pneumonia, unspecified organism (2) Chronic respiratory failure with hypoxia Current Visit: Yes Status: Chronic (3) COPD (chronic obstructive pulmonary disease) Current Visit: No Status: Chronic Qualifiers: COPD type: unspecified COPD Qualified Code(s): J44.9 - Chronic obstructive pulmonary disease, unspecified (4) DM2 (diabetes mellitus, type 2) Current Visit: No Status: Chronic Qualifiers: Diabetes mellitus complication status: with kidney complications Diabetes mellitus complication detail: with chronic kidney disease Diabetes mellitus shelter insulin use: with manager long term care use Chronic kidney disease stage: stage 3 (moderate) Qualified Code(s): E11.22 - Type 2 diabetes mellitus with diabetic chronic kidney disease; N18.3 - Chronic kidney disease, stage 3 ( moderate); 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 Patient says she feels better and would like to go home if possible. She does complain of abdominal pain and feeling bloated after eating. Still with some shortness of breath but overall improved. Denies chest pain. - Constitutional Vitals: Temp Pulse Resp BP Pulse Ox 98.1 F 99 16 145/69 95 11/21/16 16:12 11/21/16 16:12 11/21/16 16:12 11/21/16 16:12 11/21/16 16:12 General appearance: Present: A&O X 3, answers questions appropriately - Head Head exam: Present: atraumatic, normocephalic - Eye Eye exam: Present: PERRL, conjuntiva pink, sclera anicteric Pupils: Present: PERRL - Neck Neck exam general surgery: Present: supple, trachea midline. Absent: lymphadenopathy - Respiratory Respiratory exam: Present: CTAB. Absent: accessory muscle use, rales, rhonchi, wheezes - Cardiovascular Cardiovascular exam: Present: RRR, +S1, +S2. Absent: diastolic murmur, gallop, rubs, systolic murmur - GI/Abdominal GI/Abdominal exam: Present: normal bowel sounds, soft, no peritoneal signs. Absent: distended, tenderness - Extremities Exam Extremities exam: Present: warm, radial pulses palpable and symmetrical. Absent : calf tenderness, cyanotic, pedal edema - Neurological Exam Neurological exam: Present: CN II-XII intact, oriented X3, no focal deficits. Absent: pronater drift, facial droop, speech deficit - Skin Skin exam: Present: dry, intact, pallor Internal Medicine: Result - Labs CBC & Chem 7: 11/21/16 09:58 11/21/16 09:58 Labs: Short CBC 11/21/16 Range/Units 09:58 WBC 2.4 L D (4.3-11.1) K/mcL Hgb 7.7 L (11.5-15.4) g/dL Hct 23.6 L (35.3-44.9) % Plt Count 109 L (140-400) K/mcL BMP 11/21/16 09:58 Sodium 129 L Potassium 4.3 Chloride 96 L Carbon Dioxide 24 BUN 19 Creatinine 1.11 Glucose 274 H Calcium 8.9 Liver Function 11/21/16 Range/Units 09:58 Total Bilirubin 0.4 (0.2-1.2) mg/dL AST 17 (5-34) Units/L ALT 14 (0-55) Units/L Alkaline Phosphatase 78 (38-126) Units/L Albumin 2.8 L (3.5-5.0) g/dL - Impressions Impressions Liver Ultrasound 11/21/16 14:00 IMPRESSION: Cirrhotic sonographic appearance of the liver. Prominence of the common duct status post cholecystectomy. D/ / Josi Ga Cha, MD / Josi Ga Cha, MD Interpreting Provider: Josi Ga Cha, MD Consult Discharge Plan - Plan Referrals: Man Eubanks MD [Primary Care Provider] -
[2016-11-21] MEDS: 0.9 % Sodium Chloride 1,000 ML IVC SCH (17:30)
[2016-11-21 18:26] LABS: Bilirubin,Urine Negative (Negative); Blood,Urine Negative (Negative); Clarity,Urine Clear (Clear); Color,Urine Yellow (Yellow); Glucose,Urine (UA) 100 mg/dL (Normal); Ketones,Urine Negative (Negative); Leukocyte Esterase,Urine Negative (Negative); Nitrite,Urine Negative (Negative); PH,Urine 6.5 pH Units (5.0-8.0); Protein,Urine 100 mg/dL (Neg-Trace); Specific Gravity,Urine 1.009 (1.010-1.025); Urobilinogen,Urine Normal (Normal)
[2016-11-21 18:27] LABS: Bacteria,Urine None Seen per hpf (None-Few); Hyaline Casts,Urine None Seen per lpf (None-Few); RBC,Urine 0-3 per hpf (0-3); Squamous Epithelial Cell,Urine None Seen per lpf (None-Few); WBC,Urine 0-3 per hpf (0-3)
[2016-11-21] MEDS ORDERED: 0.9 % Sodium Chloride 250 ML ONE (19:32)
[2016-11-21] MEDS: cloNIDine HCl 0.1 MG TABLET PO SCH (19:51)
[2016-11-21] MEDS: Beclomethasone 80mcg MDI IH SCH (21:15)
[2016-11-21] MEDS: Temazepam 15 MG CAPSULE PO SCH (22:27)
[2016-11-22] MEDS: Ipratropium/Albuterol Neb 3 ML IH SCH ×5 (04:54→20:21)
[2016-11-22] MEDS: Levothyroxine 25 MCG TABLET PO SCH (04:57)
[2016-11-22] MEDS: *HR* OxyCODONE Immed Rel 5 MG TABLET PO PRN ×2 (04:57→20:31)
[2016-11-22] MEDS: MethylPREDNISolone 40 MG/ML VIAL IVP SCH ×4 (04:58→23:42)
[2016-11-22 05:51] LABS: Hematocrit 29.3 % (35.3-44.9); Mean Corpuscular HGB Conc 32.8 g/dL (31.6-35.5); Mean Corpuscular Volume 82.5 fL (83.0-100.0); Mean Platelet Volume 9.6 fL (9.4-12.4); Platelet Count 136 K/mcL (140-400); Red Blood Count 3.55 M/mcL (3.82-4.97); Red Cell Distribution Width 13.6 % (11.5-14.5)
[2016-11-22 06:06] LABS: Hemoglobin 9.6 g/dL (11.5-15.4)
[2016-11-22 06:27] LABS: Alanine Aminotransferase 18 Units/L (0-55); Albumin 3.1 g/dL (3.5-5.0); Albumin/Globulin Ratio 0.9 (1.1-2.2); Alkaline Phosphatase 80 Units/L (38-126); Aspartate Amino Transferase 17 Units/L (5-34); BUN/Creatinine Ratio 18 (6-26); Bilirubin,Total 0.5 mg/dL (0.2-1.2); Blood Urea Nitrogen 18 mg/dL (7-20); Calcium 9.2 mg/dL (8.6-10.8); Carbon Dioxide 33 mEq/L (19-29); Chloride 96 mEq/L (98-109); Globulin 3.6 g/dL (2.4-3.5); Glucose 222 mg/dL (70-99); Osmolality,Calculated 285 (280-300); Potassium 4.1 mEq/L (3.5-4.5); Sodium 133 mEq/L (136-145); Total Protein 6.7 g/dL (6.0-8.3); eGFR For African Americans > 60 (> 60); eGFR For Non-African Americans 57 (> 60)
[2016-11-22] MEDS: Ascorbic Acid 500 MG TABLET PO SCH (08:13)
[2016-11-22] MEDS: Fenofibrate 54 MG TABLET PO SCH (08:13)
[2016-11-22] MEDS: Loratadine 10 MG TABLET PO SCH (08:13)
[2016-11-22] MEDS: Cholecalciferol (D-3) 1,000 UNIT TABLET PO SCH (08:14)
[2016-11-22] MEDS: Cyanocobalamin (B-12) 1,000 MCG TABLET PO SCH (08:14)
[2016-11-22] MEDS: Insulin LISPRO 300 UNITS/3 ML VIAL SQ SCH ×4 (08:30→21:15)
[2016-11-22] MEDS: *HR* Morphine 2 MG/ML SYRINGE IVP PRN (10:00)
[2016-11-22] MEDS: Insulin DETEMIR 100 UNIT/ML X5UNITS SQ SCH ×2 (10:04→21:48)
[2016-11-22] MEDS: Azithromycin 500 MG in D5% in Water 250 ML IVPB SCH (10:09)
--- NOTE | 2016-11-22 15:07 | Internal Med Progress Note ---
Date of Encounter: 11/22/16 Time of Encounter: 15:01 - Assessment and plan (1) CAP (community acquired pneumonia) Current Visit: Yes Status: Acute Assessment and plan: Mounika Kimble is a 66-year-old female with past medical history COPD on home O2 , CAD, diabetes and hypothyroidism who presented to [facility] 11/19/2016 with complaints of worsening shortness of breath and cough. She was placed in observation status for suspected pneumonia. 1. Community-acquired pneumonia: Presented with worsening shortness of breath and cough. Chest x-ray with left mid lung consolidation, concerning for pneumonia. Cont IV azithromycin, Rocephin started in ED. Urinary antigens and respiratory PCR negative. De-escalate ATB as cultures finalize and/or clinically improves. 2. Chronic iron deficiency anemia: Per history. Has seen GI and Hematology in the past. Hgb dropped to 7.7 on 11/21. S/p 1 unit PRBC with improvement of Hgb to 9.6. Occult stool positive. Monitor Hgb, transfuse for Hgb less than 8. GI consulted 3. Abdominal pain: Presented with left-sided abdominal pain. History of prior cholecystectomy. With persistent APD pain on exam. Abdominal CT shows questionable filling defect in the distal common duct, possibly retained common duct stone. Lipase normal, LFTs normal. Discussed with Dr. Guzmán. Clear liquids after midnight, may need ERCP. 4. Acute COPD exacerbation: Wears O2 at at bedtime at home. Now requiring oxygen [id number] and with diffuse wheezing on exam. Start steroids, scheduled nebs, continue O2. 5. SIRS: With elevated WBC and suspected pneumonia. Lactic acid normal. Continue treating pneumonia and COPD exacerbation as noted above 6. Hyponatremia: Na 127 on arrival. Chronic per chart review. Neurologically intact. Motor daily CMP's 7. CKD: per hx. Cr 1.12 which appears improved from baseline. Avoid nephrotoxic agents as able. Intermittently monitor renal function. 8. CAD: per hx. asymptomatic, denies chest pain. Not on ASA or any other antiplatelet therapy due to previous history of bleeding. Continue BB, statin 9. Cirrhosis: per hx. ABD CT with hepatic cirrhosis with hepatosplenomegaly. Liver ultrasound without evidence of ascites. LFTs normal. 10. DVT prophylaxis: SCDs with anemia Qualifiers: Laterality: left Lung location: upper lobe of lung Qualified Code(s): J18.1 - Lobar pneumonia, unspecified organism (2) Chronic respiratory failure with hypoxia Current Visit: Yes Status: Chronic (3) COPD (chronic obstructive pulmonary disease) Current Visit: No Status: Chronic Qualifiers: COPD type: unspecified COPD Qualified Code(s): J44.9 - Chronic obstructive pulmonary disease, unspecified (4) DM2 (diabetes mellitus, type 2) Current Visit: No Status: Chronic Qualifiers: Diabetes mellitus complication status: with kidney complications Diabetes mellitus complication detail: with chronic kidney disease Diabetes mellitus director long term care insulin use: with director long term care use Chronic kidney disease stage: stage 3 (moderate) Qualified Code(s): E11.22 - Type 2 diabetes mellitus with diabetic chronic kidney disease; N18.3 - Chronic kidney disease, stage 3 ( moderate); 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 She says breathing is better and feels back to baseline however she now is complaining of left-sided abdominal pain, fullness and bloating. Symptoms worse after eating at times, improved with belching. No loose stool. No chest pain, or shortness of breath. - Constitutional Vitals: Temp Pulse Resp BP Pulse Ox 98.0 F 95 16 175/89 97 11/22/16 11:00 11/22/16 11:00 11/22/16 11:00 11/22/16 11:00 11/22/16 11:00 General appearance: Present: A&O X 3, answers questions appropriately - Head Head exam: Present: atraumatic, normocephalic - Eye Eye exam: Present: PERRL, conjuntiva pink, sclera anicteric Pupils: Present: PERRL - Neck Neck exam general surgery: Present: supple, trachea midline. Absent: lymphadenopathy - Respiratory Respiratory exam: Present: CTAB. Absent: accessory muscle use, rales, rhonchi, wheezes - Cardiovascular Cardiovascular exam: Present: RRR, +S1, +S2. Absent: diastolic murmur, gallop, rubs, systolic murmur - GI/Abdominal GI/Abdominal exam: Present: distended, normal bowel sounds, soft, no peritoneal signs. Absent: tenderness Additional comments: Obese - Extremities Exam Extremities exam: Present: warm, radial pulses palpable and symmetrical. Absent : calf tenderness, cyanotic, pedal edema - Neurological Exam Neurological exam: Present: CN II-XII intact, oriented X3, no focal deficits. Absent: pronater drift, facial droop, speech deficit - Skin Skin exam: Present: dry, intact, pallor Internal Medicine: Result - Labs CBC & Chem 7: 11/22/16 04:55 11/22/16 04:55 Labs: Short CBC 11/22/16 Range/Units 04:55 WBC 2.9 L (4.3-11.1) K/mcL Hgb 9.6 L D (11.5-15.4) g/dL Hct 29.3 L (35.3-44.9) % Plt Count 136 L (140-400) K/mcL BMP 11/22/16 04:55 Sodium 133 L Potassium 4.1 Chloride 96 L Carbon Dioxide 33 H BUN 18 Creatinine 0.98 Glucose 222 H Calcium 9.2 Liver Function 11/22/16 Range/Units 04:55 Total Bilirubin 0.5 (0.2-1.2) mg/dL AST 17 (5-34) Units/L ALT 18 (0-55) Units/L Alkaline Phosphatase 80 (38-126) Units/L Albumin 3.1 L (3.5-5.0) g/dL Urine 11/21/16 Range/Units 18:00 Urine Color Yellow (Yellow) Urine Clarity Clear (Clear) Urine pH 6.5 (5.0-8.0) pH Units Ur Specific Loiza 1.009 L (1.010-1.025) Urine Protein 100 H (Neg-Trace) mg/dL Urine Glucose (UA) 100 H (Normal) mg/dL - Impressions Impressions Abdomen/Pelvis CT 11/22/16 11:30 IMPRESSION: Small pleural effusions with septal thickening at the lung bases, suggesting developing edema -fluid overload Cirrhosis and splenomegaly Questionable filling defect seen in the distal common duct, possibly retained common duct stone D/ / Giacomo Dickerson MD / Giacomo Dickerson MD Interpreting Provider: Giacomo Dickerson MD Consult Discharge Plan - Plan Referrals: Man Eubanks MD [Primary Care Provider] -
[2016-11-22] MEDS: Beclomethasone 80mcg MDI IH SCH (20:21)
[2016-11-22] MEDS: cloNIDine HCl 0.1 MG TABLET PO SCH (20:32)
[2016-11-22] MEDS: Temazepam 15 MG CAPSULE PO SCH (21:48)
[2016-11-23] MEDS: Ipratropium/Albuterol Neb 3 ML IH SCH ×7 (00:43→23:34)
[2016-11-23] MEDS: 0.9 % Sodium Chloride 1,000 ML IVC SCH (00:51)
[2016-11-23 05:10] LABS: Hematocrit 30.7 % (35.3-44.9); Hemoglobin 9.7 g/dL (11.5-15.4); Mean Corpuscular HGB Conc 31.6 g/dL (31.6-35.5); Mean Corpuscular Hemoglobin 25.9 pg (28.0-33.3); Mean Corpuscular Volume 82.1 fL (83.0-100.0); Mean Platelet Volume 9.3 fL (9.4-12.4); Platelet Count 145 K/mcL (140-400); Red Blood Count 3.74 M/mcL (3.82-4.97); Red Cell Distribution Width 13.3 % (11.5-14.5)
[2016-11-23 05:27] LABS: Alanine Aminotransferase 20 Units/L (0-55); Albumin 3.1 g/dL (3.5-5.0); Albumin/Globulin Ratio 0.8 (1.1-2.2); Alkaline Phosphatase 77 Units/L (38-126); Aspartate Amino Transferase 24 Units/L (5-34); BUN/Creatinine Ratio 22 (6-26); Bilirubin,Total 0.4 mg/dL (0.2-1.2); Blood Urea Nitrogen 21 mg/dL (7-20); Calcium 9.5 mg/dL (8.6-10.8); Carbon Dioxide 35 mEq/L (19-29); Chloride 92 mEq/L (98-109); Globulin 3.8 g/dL (2.4-3.5); Glucose 95 mg/dL (70-99); Osmolality,Calculated 277 (280-300); Potassium 4.3 mEq/L (3.5-4.5); Sodium 132 mEq/L (136-145); Total Protein 6.9 g/dL (6.0-8.3); eGFR For African Americans > 60 (> 60); eGFR For Non-African Americans 59 (> 60)
[2016-11-23] MEDS: Levothyroxine 25 MCG TABLET PO SCH (06:02)
[2016-11-23] MEDS: MethylPREDNISolone 40 MG/ML VIAL IVP SCH ×4 (06:03→23:50)
[2016-11-23] MEDS: Furosemide 20 MG/2 ML VIAL IVP SCH ×2 (08:20→17:54)
[2016-11-23 09:12] LABS: INR 1.3; Prothrombin Time 14.5 Seconds (9.4-12.1)
[2016-11-23] MEDS: Azithromycin 500 MG in D5% in Water 250 ML IVPB SCH (10:08)
[2016-11-23] MEDS: Loratadine 10 MG TABLET PO SCH (10:39)
[2016-11-23] MEDS: Insulin DETEMIR 100 UNIT/ML X5UNITS SQ SCH ×2 (10:39→20:18)
[2016-11-23] MEDS: Insulin LISPRO 300 UNITS/3 ML VIAL SQ SCH ×4 (10:39→20:12)
[2016-11-23] MEDS: Cholecalciferol (D-3) 1,000 UNIT TABLET PO SCH (10:41)
[2016-11-23] MEDS: Ascorbic Acid 500 MG TABLET PO SCH (10:41)
[2016-11-23] MEDS: Cyanocobalamin (B-12) 1,000 MCG TABLET PO SCH (10:41)
[2016-11-23] MEDS: Fenofibrate 54 MG TABLET PO SCH (10:41)
[2016-11-23] MEDS: *HR* OxyCODONE Immed Rel 5 MG TABLET PO PRN ×2 (11:00→19:08)
--- NOTE | 2016-11-23 12:21 | Gastroenterology Consult Note ---
<Magy Guzmán - Last Filed: 11/23/16 15:00> Date of Encounter: 11/23/16 Time of Encounter: 14:00 - Time Spent With Patient Total time spent is greater than 50% in coordination of care (as documented) at patient's floor/unit and/or counseling patient: GI History of Present Illness - Data of Consult Requesting Physician: Lindsey Treviño CNP - Consult Narrative History of present illness: Ms. Kimble is a 66 year old female - Constitutional Vitals: Temp Pulse Resp BP Pulse Ox 98.3 F 82 16 176/86 100 11/23/16 14:04 11/23/16 14:04 11/23/16 14:04 11/23/16 14:04 11/23/16 14:04 Results - Labs CBC & Chem 7: 11/23/16 04:18 11/23/16 04:18 Labs: Last Result Calcium 9.5 mg/dL (8.6-10.8) 11/23/16 04:18 Troponin I 0.01 ng/mL (0-0.03) 11/19/16 16:39 Triglycerides 111 mg/dL (< 150) 11/20/16 03:58 Stool Occult Blood Positive (Negative) A 11/22/16 13:20 Entire Visit Hgb 9.7 g/dL (11.5-15.4) L 11/23/16 04:18 Hct 30.7 % (35.3-44.9) L 11/23/16 04:18 PT 14.5 Seconds (9.4-12.1) H 11/23/16 09:00 Total Bilirubin 0.4 mg/dL (0.2-1.2) 11/23/16 04:18 AST 24 Units/L (5-34) 11/23/16 04:18 ALT 20 Units/L (0-55) 11/23/16 04:18 Lipase 34 Units/L (8-78) 11/19/16 16:39 - ABG ABG results: PT/INR, D-dimer PT 14.5 Seconds (9.4-12.1) H 11/23/16 09:00 Consult Discharge Plan - Plan Referrals: Man Eubanks MD [Primary Care Provider] - - Attending Attestation I examined this patient and my medical decision-making was reviewed with the Resident Physician. I agree with the documented findings, disposition and treatment plan as described except to the extent set forth below. !: Pt with cirrhosis, now with anemia. Rec: EGD/colon to rule out esophageal varices/gastric etiologies for her anemia and also for her left upper quadrant abd she will also have a colon today. 2: possible filling defect in the common bile ranjit but her LFTs are normal. Watch for now no need for ERCP <[place] - Last Filed: 11/23/16 15:53> Date of Encounter: 11/23/16 Time of Encounter: 10:15 - Assessment and plan (1) Dilated cbd, acquired Current Visit: Yes Status: Acute Assessment and plan: Pt is having LUQ and LLQ pain not typical for CBD obstruction. CT chest shows possible filling defect of CBD. She may need EUS/ERCP if pain is persistant or worsens. (2) Anemia Current Visit: Yes Status: Chronic Assessment and plan: Pt has chronic iron deficiency anemia. Stool was positive for occult blood. She had anemia with a Hgb 7.7 and was transfused 1 unit PRBCs, will proceed with EGD /colonoscopy tomorrow to evaluate for abdomninal pain and anemia. Qualifiers: Anemia type: iron deficiency Iron deficiency anemia type: unspecified iron deficiency Qualified Code(s): D50.9 - Iron deficiency anemia, unspecified (3) Hepatitis C Current Visit: Yes Status: Acute Assessment and plan: Treated with harvoni, finished 05/31. Labs 09/30 Hep C quant not detected. Qualifiers: Viral hepatitis chronicity: chronic Hepatic coma status: without hepatic coma Qualified Code(s): B18.2 - Chronic viral hepatitis C - Time Spent With Patient Total time spent is greater than 50% in coordination of care (as documented) at patient's floor/unit and/or counseling patient: GI History of Present Illness - Data of Consult Patient: known to practice within the last 3 years Consult date: 11/23/16 Requesting Physician: Lindsey Treviño CNP - Consult Narrative Reason for consult: abdominal pain, possible CBD stone History of present illness: Ms. Kimble is a 66 year old female who presented with COPD exacerbation. 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 Ultrasound of the liver showed nodular and echotexture coarsened compatible with cirrhosis. Common bile duct caliber 1.4 cm, no other abnormalities. CT abdomen showed small pleural effusions with septal thickening at the bases, cirrhosis and splenomegaly, question of filling defect in the distal common duct possibly retained common duct stone. Labs show a hemoglobin of 9.7. WBC 2.7, sodium 132, BUN of 21, creatinine 0.95, platelet count 145, total bilirubin 0.4, AST 24, a LT 20, albumin 3.1, lipase 34. She was anemic with HGB 7.7 and was transfused 1 unit, HGB now 9.7. She complains of paint to left flank radiating around to epigastric area. She denies nausea or vomiting but complains of poor appetite. She reports soft BM this morning, denies any melena , hematochezia or black stools. She denies epigastric or RUQ pain. MELD NA: 15 Colonoscopy: 2008 EGD: 09/30 gastropathy NSAIDS: none Anticoagulants:none Past Med Surg Social Fam HX - Past Medical History Medical history: asthma, COPD, coronary artery disease, CVA, GERD, hepatitis, hypertension, liver disease, myocardial infarction, renal disease, other Psychiatric history: no psych history - Past Surgical History Surgical History: appendectomy, , cholecystectomy, coronary bypass ( CABG), hysterectomy, other - Social History Smoking Status: Former smoker Smokeless Tobacco Status: No Alcohol use: none Drug use: none - Family History Mother Living Status: Hx Family Cardiac Disorders: Yes (triple bypass) Hx Family Endocrine Disorder: Yes Father Living Status: Hx Family Cardiac Disorders: Yes Hx Family Endocrine Disorder: Yes Review of Systems: GI: as per [place] GENERAL: denies fever, has some chills EYES: denies yellow discoloration ENT: denies pain with swallowing or difficulty swallowing CARDIO: denies chest pain, palpitations RESP: chronic Shortness of breath with exertion : denies change in color of urine NEURO: denies any weakness HEME: chronic bruising MS: chronic back and joint pain. DERM: denies rash or itching PSYCH: history of anxiety and depression - Constitutional Vitals: Temp Pulse Resp BP Pulse Ox 98.8 F 85 16 148/85 89 10/09/17 10:47 11/23/16 10:47 11/23/16 10:47 11/23/16 10:47 11/23/16 10:47 Exam: CONSTITUTIONAL:~alert, no acute distress.~HEAD:~normocephalic.~EYES:~no jaundice.~NECK:~no obvious swelling.~HEART:~regular rate and rhythm, no murmurs. ~LUNGS:~fair air exchange bilaterally with occasional wheezes, ~ABDOMEN:~non distended, soft, mild tenderness RUQ, more tender to left upper and lower quadrants, no masses pulpable, no organomegaly.~RECTAL EXAM:~Deferred.~ EXTREMITIES:~no clubbing, cyanosis or edema.~SKIN:~pallor noted, no stigmata of chronic liver disease.~NEUROLOGIC:~no obvious focal defect.~~~~ Results - Labs CBC & Chem 7: 11/23/16 04:18 11/23/16 04:18 Labs: Last Result Calcium 9.5 mg/dL (8.6-10.8) 11/23/16 04:18 Troponin I 0.01 ng/mL (0-0.03) 11/19/16 16:39 Triglycerides 111 mg/dL (< 150) 11/20/16 03:58 Stool Occult Blood Positive (Negative) A 11/22/16 13:20 Entire Visit Hgb 9.7 g/dL (11.5-15.4) L 11/23/16 04:18 Hct 30.7 % (35.3-44.9) L 11/23/16 04:18 PT 14.5 Seconds (9.4-12.1) H 11/23/16 09:00 Total Bilirubin 0.4 mg/dL (0.2-1.2) 11/23/16 04:18 AST 24 Units/L (5-34) 11/23/16 04:18 ALT 20 Units/L (0-55) 11/23/16 04:18 Lipase 34 Units/L (8-78) 11/19/16 16:39 - ABG ABG results: PT/INR, D-dimer PT 14.5 Seconds (9.4-12.1) H 11/23/16 09:00 - Impressions Impressions Abdomen/Pelvis CT 11/22/16 11:30 IMPRESSION: Small pleural effusions with septal thickening at the lung bases, suggesting developing edema -fluid overload Cirrhosis and splenomegaly Questionable filling defect seen in the distal common duct, possibly retained common duct stone D/ / Giacomo Dickerson MD / Giacomo Dickerson MD Interpreting Provider: Giacomo Dickerson MD
--- NOTE | 2016-11-23 16:12 | Internal Med Progress Note ---
Date of Encounter: 11/23/16 Time of Encounter: 16:09 - Assessment and plan (1) CAP (community acquired pneumonia) Current Visit: Yes Status: Acute Assessment and plan: Mounika Kimble is a 66-year-old female with past medical history COPD on home O2 , CAD, diabetes and hypothyroidism who presented to [facility] 11/19/2016 with complaints of worsening shortness of breath and cough. She was placed in observation status for suspected pneumonia. 1. Community-acquired pneumonia: Presented with worsening shortness of breath and cough. Chest x-ray with left mid lung consolidation, concerning for pneumonia. Cont IV azithromycin, Rocephin started in ED. Urinary antigens and respiratory PCR negative. De-escalate ATB as cultures finalize and/or clinically improves. 2. Chronic iron deficiency anemia: Per history. Has seen GI and Hematology in the past. Hgb dropped to 7.7 on 11/21. S/p 1 unit PRBC with improvement of Hgb to 9.6. Occult stool positive. Monitor Hgb, transfuse for Hgb less than 8. GI consulted 3. Abdominal pain: Presented with left-sided abdominal pain. History of prior cholecystectomy. With persistent ABD pain on 11/[address] shows questionable filling defect in the distal common duct, possibly retained common duct stone. Lipase normal, LFTs normal. Evaluated by GI who is recommending and EGD, C scope to rule out esophageal varices/gastric etiologies. 4. Acute COPD exacerbation: Wears O2 at at bedtime at home. Now requiring oxygen [id number] and with diffuse wheezing on exam. Start steroids, scheduled nebs, continue O2. Hypertension: per hx. BP uncontrolled with SBP's in 170s. Increase BB, monitor blood pressure titrate when necessary 5. SIRS: With elevated WBC and suspected pneumonia. Lactic acid normal. Continue treating pneumonia and COPD exacerbation as noted above 6. Hyponatremia: Na 127 on arrival. Chronic per chart review. Neurologically intact. Motor daily CMP's 7. CKD: per hx. Cr 1.12 which appears improved from baseline. Avoid nephrotoxic agents as able. Intermittently monitor renal function 8. CAD: per hx. asymptomatic, denies chest pain. Not on ASA or any other antiplatelet therapy due to previous history of bleeding. Continue BB, statin 9. Cirrhosis: per hx. ABD CT with hepatic cirrhosis with hepatosplenomegaly. Liver ultrasound without evidence of ascites. LFTs normal. 10. DVT prophylaxis: SCDs with anemia Qualifiers: Laterality: left Lung location: upper lobe of lung Qualified Code(s): J18.1 - Lobar pneumonia, unspecified organism (2) Chronic respiratory failure with hypoxia Current Visit: Yes Status: Chronic (3) COPD (chronic obstructive pulmonary disease) Current Visit: No Status: Chronic Qualifiers: COPD type: unspecified COPD Qualified Code(s): J44.9 - Chronic obstructive pulmonary disease, unspecified (4) DM2 (diabetes mellitus, type 2) Current Visit: No Status: Chronic Qualifiers: Diabetes mellitus complication status: with kidney complications Diabetes mellitus complication detail: with chronic kidney disease 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 She says she is feeling about the same. Still with left abdominal pain, bloating, gas. Says breathing is better. No chest pain. - Constitutional Vitals: Temp Pulse Resp BP Pulse Ox 98.3 F 82 16 176/86 98 11/23/16 14:04 11/23/16 14:04 11/23/16 16:02 11/23/16 14:04 11/23/16 16:02 General appearance: Present: A&O X 3, answers questions appropriately - Head Head exam: Present: atraumatic, normocephalic - Eye Eye exam: Present: PERRL, conjuntiva pink, sclera anicteric Pupils: Present: PERRL - Neck Neck exam general surgery: Present: supple, trachea midline. Absent: lymphadenopathy - Respiratory Respiratory exam: Present: CTAB. Absent: accessory muscle use, rales, rhonchi, wheezes - Cardiovascular Cardiovascular exam: Present: RRR, +S1, +S2. Absent: diastolic murmur, gallop, rubs, systolic murmur - GI/Abdominal GI/Abdominal exam: Present: normal bowel sounds, soft, no peritoneal signs. Absent: distended, tenderness - Extremities Exam Extremities exam: Present: warm, radial pulses palpable and symmetrical. Absent : calf tenderness, cyanotic, pedal edema - Neurological Exam Neurological exam: Present: CN II-XII intact, oriented X3, no focal deficits. Absent: pronater drift, facial droop, speech deficit - Skin Skin exam: Present: dry, intact, pallor Internal Medicine: Result - Labs CBC & Chem 7: 11/23/16 04:18 11/23/16 04:18 Labs: Short CBC 11/23/16 Range/Units 04:18 WBC 2.7 L (4.3-11.1) K/mcL Hgb 9.7 L (11.5-15.4) g/dL Hct 30.7 L (35.3-44.9) % Plt Count 145 (140-400) K/mcL BMP 11/23/16 04:18 Sodium 132 L Potassium 4.3 Chloride 92 L Carbon Dioxide 35 H BUN 21 H Creatinine 0.95 Glucose 95 Calcium 9.5 Liver Function 11/23/16 Range/Units 04:18 Total Bilirubin 0.4 (0.2-1.2) mg/dL AST 24 (5-34) Units/L ALT 20 (0-55) Units/L Alkaline Phosphatase 77 (38-126) Units/L Albumin 3.1 L (3.5-5.0) g/dL - ABG Interpretation ABG results: PT/INR, D-dimer PT 14.5 Seconds (9.4-12.1) H 11/23/16 09:00 - Impressions Impressions Echocardiogram 11/23/16 16:13 Impressions: LVEF 60%. Normal LV chamber size, wall thickness and function. Atypical septal motion consistent with post-operative status. Mild left ventricular diastolic dysfunction. Normal right ventricular structure and function. Mild mitral regurgitation, which was somewhat posteriorly directed. No evidence of pulmonary hypertension. Left Ventricular Wall Motion: Rest Echo Findings All wall segments showed normal motion. Findings: Study Quality * Technically adequate exam. ECG Findings * Normal sinus rhythm. Left Ventricle * LVEF 60%. * Normal LV chamber size, wall thickness and function. * Atypical septal motion consistent with post-operative status. * Mild left ventricular diastolic dysfunction. Right Ventricle * Normal right ventricular structure and function. Left Atrium * Mildly dilated left atrium. Right Atrium * Normal right atrial size. Interatrial Septum * Interatrial septum not well evaluated. Aortic Valve * Aortic valve not well visualized. * Grossly, appears to be mildly sclerotic and trileaflet. * No aortic regurgitation. * No aortic stenosis. Mitral Valve * Normal mitral valve structure. The posterior leaflets appears mildly restricted. * Mild mitral regurgitation, which was somewhat posteriorly directed. * No mitral stenosis. Tricuspid Valve * Normal tricuspid valve structure and function. * Trace tricuspid regurgitation. * No evidence of pulmonary hypertension. Pulmonic Valve * Pulmonic valve not well visualized. Aorta * Normally sized aortic root. Pericardium * The pericardium appears normal. IVC * Normal IVC dimensions and inspiratory collapse. Pulmonary Artery * Normal visualized portions of the main pulmonary artery. Consult Discharge Plan - Plan Referrals: Man Eubanks MD [Primary Care Provider] -
[2016-11-23] MEDS ORDERED: SODIUM CHLORIDE/NAHCO3/KCL/PEG 4,000 ML SOLN.RECON PO ONE (18:00)
[2016-11-23] MEDS ORDERED: Polyethylene Glycol 3350 255 GM POWDER PO ONE (18:00)
[2016-11-23] MEDS: Beclomethasone 80mcg MDI IH SCH (19:39)
[2016-11-23] MEDS: Temazepam 15 MG CAPSULE PO SCH (20:10)
[2016-11-23] MEDS: cloNIDine HCl 0.1 MG TABLET PO SCH (20:10)
[2016-11-24] MEDS: Ipratropium/Albuterol Neb 3 ML IH SCH ×4 (03:48→16:07)
[2016-11-24] MEDS: Levothyroxine 25 MCG TABLET PO SCH (05:13)
[2016-11-24] MEDS: MethylPREDNISolone 40 MG/ML VIAL IVP SCH ×2 (05:13→14:26)
[2016-11-24 05:30] LABS: Hematocrit 33.4 % (35.3-44.9); Hemoglobin 11.2 g/dL (11.5-15.4); Mean Corpuscular HGB Conc 33.5 g/dL (31.6-35.5); Mean Corpuscular Hemoglobin 27.3 pg (28.0-33.3); Mean Corpuscular Volume 81.3 fL (83.0-100.0); Mean Platelet Volume 9.1 fL (9.4-12.4); Platelet Count 170 K/mcL (140-400); Red Blood Count 4.11 M/mcL (3.82-4.97); Red Cell Distribution Width 13.2 % (11.5-14.5)
[2016-11-24 05:49] LABS: Alanine Aminotransferase 19 Units/L (0-55); Albumin 3.3 g/dL (3.5-5.0); Albumin/Globulin Ratio 0.9 (1.1-2.2); Alkaline Phosphatase 83 Units/L (38-126); Aspartate Amino Transferase 21 Units/L (5-34); BUN/Creatinine Ratio 25 (6-26); Bilirubin,Total 0.6 mg/dL (0.2-1.2); Blood Urea Nitrogen 23 mg/dL (7-20); Calcium 9.6 mg/dL (8.6-10.8); Carbon Dioxide 36 mEq/L (19-29); Chloride 87 mEq/L (98-109); Globulin 3.8 g/dL (2.4-3.5); Glucose 181 mg/dL (70-99); Osmolality,Calculated 280 (280-300); Potassium 3.5 mEq/L (3.5-4.5); Sodium 131 mEq/L (136-145); Total Protein 7.1 g/dL (6.0-8.3); eGFR For African Americans > 60 (> 60); eGFR For Non-African Americans > 60 (> 60)
[2016-11-24] MEDS: Insulin LISPRO 300 UNITS/3 ML VIAL SQ SCH ×3 (07:26→16:06)
[2016-11-24] MEDS: Cholecalciferol (D-3) 1,000 UNIT TABLET PO SCH (08:09)
[2016-11-24] MEDS: Loratadine 10 MG TABLET PO SCH (08:09)
[2016-11-24] MEDS: Ascorbic Acid 500 MG TABLET PO SCH (08:09)
[2016-11-24] MEDS: Furosemide 20 MG/2 ML VIAL IVP SCH (08:09)
[2016-11-24] MEDS: Fenofibrate 54 MG TABLET PO SCH (08:10)
[2016-11-24] MEDS: Cyanocobalamin (B-12) 1,000 MCG TABLET PO SCH (08:10)
[2016-11-24] MEDS: Azithromycin 500 MG in D5% in Water 250 ML IVPB SCH (08:10)
[2016-11-24] MEDS: *HR* OxyCODONE Immed Rel 5 MG TABLET PO PRN (08:35)
--- NOTE | 2016-11-24 10:06 | Anesthesia Evaluation PreOp ---
Date of Encounter: 11/24/16 Time of Encounter: 12:53 - Past History Planned Operation: EGD/Colonoscopy Cardiac History: TX (x2), CHF (diastolic dysfunction), HTN, Hyperlipidemia, Cardiac Surgery (CABG 1999), Cardiac Stent (stent x1 2006), Other (chronic iron defic anemia) Pulmonary History: Former smoker (quit x 15yrs), Pack/yr (30), COPD (uses O2), Other (CAP) HR GENERALIST History: CVA (no residual) Other Medical History: Hepatic (cirrhosis, Hep C, Portal HTN), Renal (CKD stage 3), Diabetes Type II, GERD, Other (dilated CBD) Anesthesia History: No Prior Anesthetic Complications, Past Anesthesia (appy, CABG,jared, YURIDIA C/S) : No Alcohol Use: none Drug use: none Medications and Allergies Folic Acid 1 mg PO DAILY 09/24/14 [History] Insulin ASPART [Novolog Flexpen] 0 unit SQ ACHS PRN 09/24/14 [History] Lisinopril [Zestril] 20 mg PO DAILY PRN 09/24/14 [History] Loratadine [Claritin] 10 mg PO DAILY 09/24/14 [History] Nitroglycerin [Nitrostat] 0.4 mg SL Q5M PRN 09/24/14 [History] Omeprazole [Prilosec] 40 mg PO BID 09/24/14 [History] Oxycodone HCl 5 - 10 mg PO QID PRN 09/24/14 [History] Oxygen 2 l NS AD 09/24/14 [History] Polyethylene Glycol 3350 [Miralax] 17 gm PO DAILY 09/24/14 [History] Simvastatin [Zocor] 20 mg PO HS 09/24/14 [History] cloNIDine HCl [CloNIDine HCl] 0.1 mg PO HS 08/19/15 [History] Albuterol Sulfate [Albuterol Inhaler] 2 puff IH QID PRN 08/20/15 [History] Cholecalciferol (Vitamin D3) [Vitamin D3] 10,000 unit PO QWEEK 08/20/15 [History ] Cyclobenzaprine [Flexeril] 10 mg PO QID PRN 08/20/15 [History] Fenofibrate [Lofibra] 160 mg PO DAILY 08/20/15 [History] Insulin Glargine,Hum.rec.anlog [Lantus Solostar] 25 unit SQ BID 08/20/15 [ History] Levothyroxine [Synthroid] 25 mcg PO QAM 08/20/15 [History] Mometasone Furoate [Asmanex] 220 mcg IH QPM 08/20/15 [History] Montelukast [Singulair] 10 mg PO QPM 08/20/15 [History] Temazepam [Restoril] 15 mg PO HS 08/20/15 [History] Calcium Carbonate [Tums] 1,000 mg PO BID 06/11/16 [History] Guaifenesin [Mucinex] 600 mg PO BID PRN 06/11/16 [History] Albuterol Neb [Proventil Neb] 2.5 mg IH Q6H PRN 11/19/16 [History] Ascorbic Acid [Vitamin C] 500 mg PO DAILY 11/19/16 [History] Carvedilol [Coreg] 6.25 mg PO BIDWM 11/19/16 [History] Cyanocobalamin (Vitamin B-12) [Vitamin B12] 1,000 mcg PO DAILY 11/19/16 [History ] EPINEPHrine [Epipen] 0.3 mg IM ONCE PRN 11/19/16 [History] Ipratropium/Albuterol Sulfate [Combivent Respimat Inhal [place]] 2 puff IH QID 07/01 [History] 3 Allergy/AdvReac Type Severity Reaction Status Date / Time baclofen Allergy Hallucinati Verified 11/19/16 14:55 ng cilostazol [From Pletal] Allergy Hallucinati Verified 11/19/16 14:55 ng - Meds/Allergy Pre-op Review Medications Reviewed: Yes Allergies Reviewed: Yes Beta Blockers on Current Med List: Yes If Beta Blockers taken, Date/Time (Last Dose taken): today 809 Anesthesia Results - Labs 11/24/16 04:48 11/24/16 04:48 - Imaging Additional studies: echo: Impressions: LVEF 60%. Normal LV chamber size, wall thickness and function. Atypical septal motion consistent with post-operative status. Mild left ventricular diastolic dysfunction. Normal right ventricular structure and function. Mild mitral regurgitation, which was somewhat posteriorly directed. No evidence of pulmonary hypertension. Anesthesia Exam Selected Entries 11/24/16 07:30 Temperature 98.0 F Pulse Rate 82 Respiratory Rate 16 Blood Pressure 185/73 Blood Pressure Position HOB Elevated O2 Sat by Pulse Oximetry 98 Oxygen Flow Rate (LPM) 2 Weight: 55kg - HEENT Pupil (Motor): EOMI Mallampati: II Teeth: Edentulous Oral Opening: Greater than 3 - HR GENERALIST LOC: Oriented HR GENERALIST Motor: Normal RUE, Normal LUE, Normal RLE, Normal LLE, Normal Face HR GENERALIST Sensory: Deficit: RUE, LUE, RLE, LLE - Cardiac Rhythm: Regular Murmur: None - Pulmonary Breath Sounds: bilateral Clear Respiratory Effort: Symmetrical Anesthesia Assess/Plan ASA Score: 4 Modified Sasha Scale for Level of Consciousness: Cooperative, oriented, and tranquil Anesthetic Plan: MAC Monitoring Plan: Standard Monitors Recovery Plan: Other (Discussed MAC agrees to proceed)
[2016-11-24] MEDS: Insulin DETEMIR 100 UNIT/ML X5UNITS SQ SCH (10:30)
[2016-11-24] MEDS ORDERED: FLUARIX QUAD 2017-18 36MOS UP/PF 0.5 ML SYRINGE IM ONE (15:52)
--- NOTE | 2016-11-24 15:52 | Discharge Summary ---
Date of Encounter: 11/24/16 Time of Encounter: 15:52 - Discharge Diagnosis (1) CAP (community acquired pneumonia) Priority: Primary Status: Acute Comments: Mounika Kimble is a 66-year-old female with past medical history COPD on home O2 , CAD, diabetes and hypothyroidism who presented to [facility] 11/19/2016 with complaints of worsening shortness of breath and cough. She was admitted for IV ATB for treatment of pneumonia. Hospital course plover all due to anemia and required blood transfusion. She was discharged home on 11/24/2016 in stable condition with outpatient follow-up. 1. Community-acquired pneumonia: Presented with worsening shortness of breath and cough. Chest x-ray with left mid lung consolidation, concerning for pneumonia. Cont IV azithromycin, Rocephin started in ED. Urinary antigens and respiratory PCR negative. Discharged home on Levaquin (to complete a total course of 7 days). 2. Chronic iron deficiency anemia: Per history. Has seen GI and Hematology in the past. Hgb dropped to 7.7 on 11/21/16. S/p 1 unit PRBC with improvement of Hgb to 9.6. Occult stool positive. 11/24/2016 EGD with small AVM with evidence of recent bleeding status post cauterization. Hgb 11 at discharge. Recommend repeat CBC within 1 week with PCP. Will need to follow-up with hematology, GI as outpatient within 2 weeks 3. Gastroparesis: Presented with left-sided abdominal pain. History of prior cholecystectomy. With persistent ABD pain on 11/22/[address] shows questionable filling defect in the distal common duct, possibly retained common duct stone. Lipase normal, LFTs normal. EGD with AVM as noted above, also with gastroparesis. Possibly contributing to abdominal bloating and pain. Add Reglan TID at discharge. Will need to follow-up with PCP and GI. 4. Esophagitis: 11/24/2016 EGD with evidence of esophagitis. Cont home PPI twice a day. Add Carafate. Need to follow up with GI in 2 weeks 5. Acute COPD exacerbation: Wears O2 at at bedtime at home. Now requiring oxygen [id number] and with diffuse wheezing on exam. Symptoms improved with steroids and nebulizers. Continue home inhalers at discharge 6. Hypertension: per hx. BP uncontrolled with SBP's in 170s. BP variable but overall improved with increasing BB. Recommend BP recheck with PCP within one week 7. Hyponatremia: Na 127 on arrival. Chronic per chart review. Neurologically intact. Recommend repeat CMP with PCP within one week 8. CKD: per hx. Cr 1.12 which appears improved from baseline. Avoid nephrotoxic agents as able. Intermittently monitor renal function. Creatinine 0.9 at discharge 9. CAD: per hx. asymptomatic, denied chest pain. Not on ASA or other antiplatelet therapy due to previous history of bleeding. Continue BB, statin 10. Cirrhosis: per hx. ABD CT with hepatic cirrhosis with hepatosplenomegaly. Liver ultrasound without evidence of ascites. LFTs normal. Follow-up with GI outpatient within 2 weeks 11. Diabetes: Per history. Hgb A1c 5.9%, blood sugars elevated well and patient due to IV steroids. Continue home medication regimen at discharge. Will need to follow-up with PCP Qualifiers: Laterality: left Lung location: upper lobe of lung Qualified Code(s): J18.1 - Lobar pneumonia, unspecified organism (2) Chronic respiratory failure with hypoxia Priority: Primary Status: Chronic (3) COPD (chronic obstructive pulmonary disease) Priority: Primary Status: Chronic Qualifiers: COPD type: unspecified COPD Qualified Code(s): J44.9 - Chronic obstructive pulmonary disease, unspecified (4) DM2 (diabetes mellitus, type 2) Priority: Primary Status: Chronic Qualifiers: Diabetes mellitus complication status: with kidney complications Diabetes mellitus complication detail: with chronic kidney disease Diabetes mellitus residential insulin use: with residential use Chronic kidney disease stage: stage 3 (moderate) Qualified Code(s): E11.22 - Type 2 diabetes mellitus with diabetic chronic kidney disease; N18.3 - Chronic kidney disease, stage 3 ( moderate); Z79.4 - [facility] (current) use of insulin (5) SIRS (systemic inflammatory response syndrome) Priority: Primary Status: Acute - Discharge Medications Prescriptions: Carvedilol [Coreg] 25 mg PO BID #60 tablet Levofloxacin [Levaquin] 750 mg PO DAILY #2 tablet Lidocaine Patch [Lidoderm 5% patch] 1 each TP DAILY #30 adh..patch Metoclopramide [Reglan] 10 mg PO TID #90 tablet Sucralfate [Carafate] 1 gm PO QIDAC #120 tablet Home Medications: Folic Acid 1 mg PO DAILY 09/24/14 [History] Insulin ASPART [Novolog Flexpen] 0 unit SQ ACHS PRN 09/24/14 [History] Lisinopril [Zestril] 20 mg PO DAILY PRN 09/24/14 [History] Loratadine [Claritin] 10 mg PO DAILY 09/24/14 [History] Nitroglycerin [Nitrostat] 0.4 mg SL Q5M PRN 09/24/14 [History] Omeprazole [Prilosec] 40 mg PO BID 09/24/14 [History] Oxycodone HCl 5 - 10 mg PO QID PRN 09/24/14 [History] Oxygen 2 l NS AD 09/24/14 [History] Polyethylene Glycol 3350 [Miralax] 17 gm PO DAILY 09/24/14 [History] Simvastatin [Zocor] 20 mg PO HS 09/24/14 [History] cloNIDine HCl [CloNIDine HCl] 0.1 mg PO HS 08/19/15 [History] Albuterol Sulfate [Albuterol Inhaler] 2 puff IH QID PRN 08/20/15 [History] Cholecalciferol (Vitamin D3) [Vitamin D3] 10,000 unit PO QWEEK 08/20/15 [History ] Cyclobenzaprine [Flexeril] 10 mg PO QID PRN 08/20/15 [History] Fenofibrate [Lofibra] 160 mg PO DAILY 08/20/15 [History] Insulin Glargine,Hum.rec.anlog [Lantus Solostar] 25 unit SQ BID 08/20/15 [ History] Levothyroxine [Synthroid] 25 mcg PO QAM 08/20/15 [History] Mometasone Furoate [Asmanex] 220 mcg IH QPM 08/20/15 [History] Montelukast [Singulair] 10 mg PO QPM 08/20/15 [History] Temazepam [Restoril] 15 mg PO HS 08/20/15 [History] Calcium Carbonate [Tums] 1,000 mg PO BID 06/11/16 [History] Guaifenesin [Mucinex] 600 mg PO BID PRN 06/11/16 [History] Albuterol Neb [Proventil Neb] 2.5 mg IH Q6H PRN 11/19/16 [History] Ascorbic Acid [Vitamin C] 500 mg PO DAILY 11/19/16 [History] Cyanocobalamin (Vitamin B-12) [Vitamin B12] 1,000 mcg PO DAILY 11/19/16 [History ] EPINEPHrine [Epipen] 0.3 mg IM ONCE PRN 11/19/16 [History] Ipratropium/Albuterol Sulfate [Combivent Respimat Inhal [place]] 2 puff IH QID 07/01 [History] Carvedilol [Coreg] 25 mg PO BID #60 tablet 11/24/16 [Rx] Levofloxacin [Levaquin] 750 mg PO DAILY #2 tablet 11/24/16 [Rx] Lidocaine Patch [Lidoderm 5% patch] 1 each TP DAILY #30 adh..patch 11/24/16 [Rx] Metoclopramide [Reglan] 10 mg PO TID #90 tablet 11/24/16 [Rx] Sucralfate [Carafate] 1 gm PO QIDAC #120 tablet 11/24/16 [Rx] Allergies/Adverse Reactions: 3 Allergy/AdvReac Type Severity Reaction Status Date / Time baclofen Allergy Hallucinati Verified 11/19/16 14:55 ng cilostazol [From Pletal] Allergy Hallucinati Verified 11/19/16 14:55 ng Procedures/tests Complete & Pending: Procedures Performed prior 72 hours Category Date Time Status CT abd pelvis wo no iv no oral [CT] Routine Cat Scan 11/22/16 11:30 Completed EV echocardiogram Routine Y 11/23/16 16:13 Completed Date of admission: 11/19/16 22:37 Primary care physician: Man Eubanks MD Consults: 11/23/16 07:40 Consult to Gastroenterology [CONS] Routine Consulting Provider: Gastroenterology Lorri Reason for Consult: possible retained stone and occult stool positive Call Completed: Yes Discharging clinician: Lindsey Treviño Anticipated date of discharge: 11/24/16 - Patient Status Disposition: Home, Self-Care Overall status at discharge: patient is progressing back to baseline - Discharge Instructions Follow Up With: Man Eubanks MD [Primary Care Provider] - Magy Guzmán MD [Partnered Physician] - Gris Bernard MD [Partnered Physician] - - Diet and Activity Activity: ambulate only with your walker Diet: advance to your usual diet Interval History: Seen and examined at bedside, patient says she feels better. She just returned from EGD. She is tolerating clear liquid diet feels like she wants to go home today. at bedside and updated. Discussed case with and will continue with twice a day PPI, add Carafate for esophagitis. Add low-dose Reglan for possible gastroparesis. Patient was advised to return to ER if she notices any black or tarry stool or bright red blood. Hospital course: Assessment and plan for hospital course - Time Spent with Patient Total time spent providing and/or coordinating discharge services: - Constitutional Vitals: Temp Pulse Resp BP Pulse Ox 98.2 F 77 18 151/83 96 11/24/16 12:40 11/24/16 12:40 11/24/16 12:40 11/24/16 12:40 11/24/16 12:40 General appearance: Present: A&O X 3, answers questions appropriately - Head Head exam: Present: atraumatic, normocephalic - Eye Eye exam: Present: PERRL, conjuntiva pink, sclera anicteric Pupils: Present: PERRL - Neck Neck exam general surgery: Present: supple, trachea midline. Absent: lymphadenopathy - Respiratory Respiratory exam: Present: CTAB. Absent: accessory muscle use, rales, rhonchi, wheezes - Cardiovascular Cardiovascular exam: Present: RRR, +S1, +S2. Absent: diastolic murmur, gallop, rubs, systolic murmur - GI/Abdominal GI/Abdominal exam: Present: normal bowel sounds, soft, no peritoneal signs. Absent: distended, tenderness - Extremities Exam Extremities exam: Present: warm, radial pulses palpable and symmetrical. Absent : calf tenderness, cyanotic, pedal edema - Neurological Exam Neurological exam: Present: CN II-XII intact, oriented X3, no focal deficits. Absent: pronater drift, facial droop, speech deficit - Skin Skin exam: Present: dry, intact, pallor
[2016-11-24 16:06] VITALS: BP 180/68
[2016-11-24] MEDS ORDERED: *HR* Propofol 200 MG/20 ML VIAL IVP ONE (16:59)
[2016-11-24] MEDS ORDERED: Lidocaine -MPF 2% 5 ML VIAL INFILT ONE (16:59)
== END 2016-11-24 17:00 | disposition home or self-care (01) | DRG 140 ==
LOC: 3BNU 14:45 → EMEROO 14:45 → 3BNU 19:27
PROVIDERS: ADMIT Registered Nurse; ATTEND Registered Nurse

== ENCOUNTER 2017-03-03 12:37 | Observation (INO) ==
[2017-03-03] MEDS ORDERED: Piperacillin/Tazobactam 4.5 GM in Water for inj. (sterile) 20 ML IVP ONE (13:50)
[2017-03-03] MEDS ORDERED: Vancomycin 1,000 MG in D5% in Water 250 ML IVPB ONE (13:50)
[2017-03-03] MEDS ORDERED: Piperacillin/Tazobactam 3.375 GM in Water for inj. (sterile) 20 ML IVP ONE (14:01)
[2017-03-03 14:18] LABS: Basophils % 0.8 %; Eosinophils # 0.3 K/mcL (0.0-0.6); Eosinophils % 5.9 %; Hemoglobin 10.7 g/dL (11.5-15.4); Immature Granulocytes % 0.2 % (0-4); Lymphocytes # 0.3 K/mcL (0.6-4.6); Lymphocytes % 5.1 %; Mean Corpuscular HGB Conc 33.4 g/dL (31.6-35.5); Mean Corpuscular Hemoglobin 26.8 pg (28.0-33.3); Mean Corpuscular Volume 80.2 fL (83.0-100.0); Mean Platelet Volume 10.1 fL (9.4-12.4); Monocytes # 0.4 K/mcL (0.0-1.3); Monocytes % 8.2 %; Neutrophils # 4.1 K/mcL (1.6-8.9); Platelet Count 110 K/mcL (140-400); Red Blood Count 3.99 M/mcL (3.82-4.97); Segmented Neutrophils % 79.8 %
[2017-03-03 14:31] LABS: Albumin 3.7 g/dL (3.5-5.7); Albumin/Globulin Ratio 1.4 (1.1-2.2); Bilirubin,Total 0.7 mg/dL (0.3-1.0); Globulin 2.7 g/dL (2.4-3.5); Total Protein 6.4 g/dL (6.4-8.9)
[2017-03-03] MEDS ORDERED: 0.9 % Sodium Chloride 1,000 ML IVC ONE (15:13)
[2017-03-03] MEDS ORDERED: *HR* OxyCODONE/APAP 10/325 TABLET PO ONE (18:07)
--- NOTE | 2017-03-03 18:19 | Emergency Department Note ---
Disposition Clinical Impression: Abscess of skin or subcutaneous tissue Qualifiers: Site of cutaneous abscess: unspecified site Qualified Code(s): L02.91 - Cutaneous abscess, unspecified Disposition: Admitted As Inpatient Referrals: Man Eubanks MD [Primary Care Provider] - Skin/Abscess/FB HPI Chief complaint: ED Skin/Abscess/Foreign Body Stated complaint: Sore on right leg/navel Time Seen by Provider: 03/03/17 13:38 Source: patient Limitations: no limitations HPI Narrative: 67-year-old female presents with an infected ulcer to the right anterior thigh at the level of the knee as well as a infected umbilicus. Her symptoms started several days ago. She met she would have came sooner but she was noted. She has no fever or chills. She wears oxygen at home. She has no dyspnea at this time. She is concerned about her to infected wounds. She is a diabetic. Home Medications Medication Instructions Recorded Confirmed Folic Acid 1 mg PO DAILY 09/24/14 01/18/17 Insulin ASPART [Novolog Flexpen] 0 unit SQ ACHS PRN 09/24/14 01/18/17 Lisinopril [Zestril] 20 mg PO DAILY PRN 09/24/14 01/18/17 Loratadine [Claritin] 10 mg PO DAILY 09/24/14 01/18/17 Nitroglycerin [Nitrostat] 0.4 mg SL Q5M PRN 09/24/14 01/18/17 Omeprazole [Prilosec] 40 mg PO BID 09/24/14 01/18/17 OxyCODONE Immed Rel [Roxicodone 10 5 - 10 mg PO QID PRN 09/24/14 01/18/17 MG] Oxygen 2 l NS AD 09/24/14 01/18/17 Polyethylene Glycol 3350 [Miralax] 17 gm PO DAILY 09/24/14 01/18/17 Simvastatin [Zocor] 20 mg PO HS 09/24/14 01/18/17 cloNIDine HCl [CloNIDine HCl] 0.1 mg PO HS 08/19/15 01/18/17 Albuterol Sulfate [Albuterol 2 puff IH QID PRN 08/20/15 01/18/17 Inhaler] Cholecalciferol (Vitamin D3) 10,000 unit PO QWEEK 08/20/15 01/18/17 [Vitamin D3] Cyclobenzaprine [Flexeril] 10 mg PO QID PRN 08/20/15 01/18/17 Fenofibrate [Lofibra] 160 mg PO DAILY 08/20/15 01/18/17 Insulin Glargine,Hum.rec.anlog 25 unit SQ BID 08/20/15 01/18/17 [Lantus Solostar] Levothyroxine [Synthroid] 25 mcg PO QAM 08/20/15 01/18/17 Mometasone Furoate [Asmanex] 220 mcg IH QPM 08/20/15 01/18/17 Montelukast [Singulair] 10 mg PO QPM 08/20/15 01/18/17 Temazepam [Restoril] 15 mg PO HS 08/20/15 01/18/17 Calcium Carbonate [Tums] 1,000 mg PO BID 06/11/16 01/18/17 Guaifenesin [Mucinex] 600 mg PO BID PRN 06/11/16 01/18/17 Albuterol Neb [Proventil Neb] 2.5 mg IH Q6H PRN 11/19/16 01/18/17 EPINEPHrine [Epipen] 0.3 mg IM ONCE PRN 11/19/16 01/18/17 Ipratropium/Albuterol Sulfate 2 puff IH QID 11/19/16 01/18/17 [Combivent Respimat Inhal [place]] Previous Rx's Medication Instructions Recorded Carvedilol [Coreg] 25 mg PO BID #60 tablet 11/24/16 Lidocaine Patch [Lidoderm 5% patch] 1 each TP DAILY #30 adh..patch 11/24/16 Metoclopramide [Reglan] 10 mg PO TID #90 tablet 11/24/16 Sucralfate [Carafate] 1 gm PO QIDAC #120 tablet 11/24/16 Allergies Allergy/AdvReac Type Severity Reaction Status Date / Time baclofen Allergy Hallucinati Verified 03/03/17 13:08 ng cilostazol [From Pletal] Allergy Hallucinati Verified 03/03/17 13:08 ng All systems ED: reviewed and negative except as stated. Past Medical History - Past Medical History Medical history: Reports: asthma, COPD, coronary artery disease, CVA, GERD, hepatitis, hypertension, liver disease, myocardial infarction, renal disease, other Surgical history: Reports: appendectomy, , cholecystectomy, coronary bypass (CABG), hysterectomy, other Psychiatric history: Reports: no psych history - Social History Smoking Status: Former smoker Smokeless Tobacco Status: No Alcohol use: Reports: none Drug use: Reports: none Physical Exam There is evidence of umbilical drainage as well as a infected ulcer to the right lower extremity at the level of the knee. There are good pulses distally. General: No acute distress HEENT: Pupils equal and reactive to light, extraoccular muscle movement is normal, TMS are clear bilaterally. Heart: RRR, No murmor rub or gallop Lungs: lungs clear, no wheezing, rales or ronchi. ABD: SNT, no focal areas or tenderness, no guarding or rebound tenderness. Extremities: No cyanosis, clubbing or edema Neuro: CN 2-12 in tact, no focal deficit. strength 5/5. - General Limitations: no limitations General appearance: alert, in no apparent distress Course Vital Signs Temperature 97.4 F L 03/03/17 13:05 Pulse Rate 95 03/03/17 13:05 Respiratory Rate 16 03/03/17 13:05 Blood Pressure 109/57 03/03/17 13:05 O2 Sat by Pulse Oximetry 98 03/03/17 13:05 Temperature 97.4 F L 03/03/17 13:05 Pulse Rate 82 03/03/17 15:00 Respiratory Rate 18 03/03/17 15:00 Blood Pressure 137/58 03/03/17 15:00 O2 Sat by Pulse Oximetry 100 03/03/17 15:00 Oxygen Delivery Oxygen Delivery Room Air Skin/Abscess/Foreign Body - MDM Narrative Medical decision making narrative: Findings consistent with infected ulcer. I consulted podiatry and spoke with Dr. Banks. He will evaluate the patient's ulcer. I start empiric antibiotics including vancomycin and Zosyn and sent cultures. CT scan shows no evidence of abscess amenable to drainage. There is evidence of localized inflammation including erythema and drainage from the umbilicus. Patient will be admitted the hospital for IV antibiotic therapy and ongoing management. - Medical Records Medical records reviewed: Yes I reviewed the patient's medical records. - Lab Data Lab results reviewed: Yes I reviewed the patient's lab results. Result diagrams: 03/03/17 14:03 03/03/17 14:03 Lab Results 03/03/17 03/03/17 03/03/17 Range/Units 14:03 14:03 14:03 WBC 5.1 (4.3-11.1) K/mcL RBC 3.99 (3.82-4.97) M/mcL Hgb 10.7 L (11.5-15.4) g/dL Hct 32.0 L (35.3-44.9) % MCV 80.2 L (83.0-100.0) fL MCH 26.8 L (28.0-33.3) pg MCHC 33.4 (31.6-35.5) g/dL RDW 16.0 H (11.5-14.5) % Plt Count 110 L (140-400) K/mcL MPV 10.1 (9.4-12.4) fL Immature Gran % 0.2 (0-4) % Seg Neutrophils % 79.8 % Lymphocytes % 5.1 % Monocytes % 8.2 % Eosinophils % 5.9 % Basophils % 0.8 % Neutrophils # 4.1 (1.6-8.9) K/mcL Lymphocytes # 0.3 L (0.6-4.6) K/mcL Monocytes # 0.4 (0.0-1.3) K/mcL Eosinophils # 0.3 (0.0-0.6) K/mcL Basophils # 0.0 (0.0-0.2) K/mcL ESR 53 H (0-15) mm/hr Sodium 126 L (136-145) mEq/L Potassium 4.0 (3.5-5.1) mEq/L Chloride 93 L (98-107) mEq/L Carbon Dioxide 29 (23-29) mEq/L BUN 15 (8-23) mg/dL Creatinine 1.33 H (0.60-1.20) mg/dL Est GFR ( Amer) 49 L (> 60) Est GFR (Non-Af Amer) 40 L (> 60) BUN/Creatinine Ratio 11 (6-26) Glucose 254 H (70-105) mg/dL Calculated Osmolality 271 L (280-300) Lactic Acid (0.5-2.2) mmol/L Calcium 9.0 (8.6-10.3) mg/dL Total Bilirubin 0.7 (0.3-1.0) mg/dL AST 23 (13-39) Units/L ALT 13 (7-52) Units/L Alkaline Phosphatase 75 (34-104) Units/L C-Reactive Protein 18 H (Less than 10) mg/L Serum Total Protein 6.4 (6.4-8.9) g/dL Albumin 3.7 (3.5-5.7) g/dL Globulin 2.7 (2.4-3.5) g/dL Albumin/Globulin Ratio 1.4 (1.1-2.2) 03/03/17 Range/Units 14:03 WBC (4.3-11.1) K/mcL RBC (3.82-4.97) M/mcL Hgb (11.5-15.4) g/dL Hct (35.3-44.9) % MCV (83.0-100.0) fL MCH (28.0-33.3) pg MCHC (31.6-35.5) g/dL RDW (11.5-14.5) % Plt Count (140-400) K/mcL MPV (9.4-12.4) fL Immature Gran % (0-4) % Seg Neutrophils % % Lymphocytes % % Monocytes % % Eosinophils % % Basophils % % Neutrophils # (1.6-8.9) K/mcL Lymphocytes # (0.6-4.6) K/mcL Monocytes # (0.0-1.3) K/mcL Eosinophils # (0.0-0.6) K/mcL Basophils # (0.0-0.2) K/mcL ESR (0-15) mm/hr Sodium (136-145) mEq/L Potassium (3.5-5.1) mEq/L Chloride (98-107) mEq/L Carbon Dioxide (23-29) mEq/L BUN (8-23) mg/dL Creatinine (0.60-1.20) mg/dL Est GFR ( Amer) (> 60) Est GFR (Non-Af Amer) (> 60) BUN/Creatinine Ratio (6-26) Glucose (70-105) mg/dL Calculated Osmolality (280-300) Lactic Acid 1.1 (0.5-2.2) mmol/L Calcium (8.6-10.3) mg/dL Total Bilirubin (0.3-1.0) mg/dL AST (13-39) Units/L ALT (7-52) Units/L Alkaline Phosphatase (34-104) Units/L C-Reactive Protein (Less than 10) mg/L Serum Total Protein (6.4-8.9) g/dL Albumin (3.5-5.7) g/dL Globulin (2.4-3.5) g/dL Albumin/Globulin Ratio (1.1-2.2)
[2017-03-03] MEDS ORDERED: *HR* Dextrose 50 % in Water (Syg) 50 ML SYRINGE IVP PRN (20:18)
[2017-03-03] MEDS ORDERED: Dextrose Gel 15 GM/37.5 ML TUBE PO PRN ×2 (20:18)
[2017-03-03] MEDS ORDERED: Ondansetron ODT 4 MG TAB.RAPDIS SL PRN (20:18)
[2017-03-03] MEDS ORDERED: Naloxone 0.4 MG/ML INJ IVP PRN (20:18)
[2017-03-03] MEDS ORDERED: D5% in Water 1,000 ML IVC PRN (20:18)
[2017-03-03] MEDS ORDERED: *HR* Digoxin 0.25 MG TABLET PO PRN (20:37)
[2017-03-03] MEDS ORDERED: Temazepam 15 MG CAPSULE PO PRN (20:37)
[2017-03-03] MEDS ORDERED: Albuterol 2.5 MG/3 ML NEBULIZER IH PRN (20:39)
[2017-03-03] MEDS ORDERED: Ipratropium/Albuterol Neb 3 ML IH PRN (20:39)
--- NOTE | 2017-03-03 20:59 | Internal Med History&Physical ---
<Severiano Welsh - Last Filed: 03/03/17 23:33> Date of Encounter: 03/03/17 Time of Encounter: 20:00 Assessment and Plan (1) Abscess of skin or subcutaneous tissue Current visit: Yes Status: Acute Dry Wound to distal medial thigh and umbilicus Normal white count, blood culture pending podiatry to evaluate patient for left lower extremity wound consult wound care for wounded at umbilicus no. Abscess cavity treatment sites and drinking or culture at this time continue to reevaluate for progression IV antibiotics include empiric vancomycin as well as Zosyn Qualifiers: Site of cutaneous abscess: unspecified site Qualified Code(s): L02.91 - Cutaneous abscess, unspecified (2) Hyponatremia Current visit: No Status: Chronic 126 on labs this afternoon chronic and approximately at baseline no acute symptoms consistent with hyponatremia including altered mentation, weakness, or seizures (3) COPD (chronic obstructive pulmonary disease) Current visit: No Status: Chronic No acute exacerbation Baseline supplementary O2 demand of 2 L nasal cannula; will continue this on inpatient basis continuous pulse like [place] as well as cardiac monitoring PRN nebulizer treatments ordered for worsening shortness of air or wheezing Qualifiers: COPD type: unspecified COPD Qualified Code(s): J44.9 - Chronic obstructive pulmonary disease, unspecified (4) DM2 (diabetes mellitus, type 2) Current visit: No Status: Chronic Patient on diabetic diet medium dose SSI with FSBS TID/AC/HS public health educator consult pending Qualifiers: Diabetes mellitus complication status: with kidney complications Diabetes mellitus complication detail: with chronic kidney disease Diabetes mellitus alf insulin use: with alf use Chronic kidney disease stage: stage 3 (moderate) Qualified Code(s): E11.22 - Type 2 diabetes mellitus with diabetic chronic kidney disease; N18.3 - Chronic kidney disease, stage 3 ( moderate); Z79.4 - ferry terminal agent (current) use of insulin (5) Chronic low back pain Current visit: Yes Status: Acute Patient states takes Oxycodone for chronic back pain Checked OARRS; appropriate/non-errant prescribing pattern Will offer PRN Oxycodone during admit Qualifiers: Back pain laterality: unspecified Sciatica presence: unspecified whether sciatica present Qualified Code(s): M54.5 - Low back pain; G89.29 - Other chronic pain; G89.29 - Other chronic pain (6) DVT prophylaxis Current visit: No Status: Acute SCDs and SubQ heparin Internal Medicine - H&P: HPI Chief complaint: multiple wounds Admitted From: Home Plans for Post Hospital Care: Home History of present illness: Ms. Kimble is a 67 year old female with history of type II diabetes who presents and is admitted for further evaluation of multiple skin wounds and IV antibiotics. Patient has one wound is approximately 3 cm x 3 cm in the left lower extremity proximal and medial to the knee as well as another one in her umbilicus. These wounds apparently develop spontaneously and for 1st noticed on Wednesday initially appearing as a thin clear watery blister. CT done in ED demonstrates cellulitis at umbilicus without any apparent fluid collections. H/o COPD with baseline O2 requirement of 2L via NC. Denies other symptoms including fevers, chills, sweats, headache, lightheadedness, worsening shortness of air, chest pain, nausea, vomiting, or lymphangitic streaking associated with stated wounds. Past Med Surg Social Fam HX - Past Medical History Medical history: asthma, COPD, coronary artery disease, CVA, GERD, hepatitis, hypertension, liver disease, myocardial infarction, renal disease, other Psychiatric history: no psych history - Past Surgical History Surgical History: appendectomy, , cholecystectomy, coronary bypass ( CABG), hysterectomy, other - Social History Smoking Status: Former smoker Smokeless Tobacco Status: No Alcohol use: none Drug use: none - Family History Mother Living Status: Hx Family Cardiac Disorders: Yes (triple bypass) Hx Family Endocrine Disorder: Yes Father Living Status: Hx Family Cardiac Disorders: Yes Hx Family Endocrine Disorder: Yes Internal Medicine - H&P: Meds Folic Acid 1 mg PO DAILY 09/24/14 [History] Insulin ASPART [Novolog Flexpen] 0 unit SQ ACHS 09/24/14 [History] Lisinopril [Zestril] 20 mg PO BID 09/24/14 [History] Loratadine [Claritin] 10 mg PO DAILY 09/24/14 [History] Nitroglycerin [Nitrostat] 0.4 mg SL Q5M PRN 09/24/14 [History] Omeprazole [Prilosec] 40 mg PO BID 09/24/14 [History] OxyCODONE Immed Rel [Roxicodone 10 MG] 5 - 10 mg PO QID PRN 09/24/14 [History] Oxygen 2 l NS AD 09/24/14 [History] Polyethylene Glycol 3350 [Miralax] 17 gm PO DAILY PRN MDD c 09/24/14 [History] Simvastatin [Zocor] 20 mg PO HS 09/24/14 [History] cloNIDine HCl [CloNIDine HCl] 0.1 mg PO HS 08/19/15 [History] Albuterol Sulfate [Albuterol Inhaler] 2 puff IH QID PRN 08/20/15 [History] Cholecalciferol (Vitamin D3) [Vitamin D3] 10,000 unit PO QWEEK 08/20/15 [History ] Cyclobenzaprine [Flexeril] 10 mg PO Q6H 08/20/15 [History] Fenofibrate [Lofibra] 160 mg PO HS 08/20/15 [History] Insulin Glargine,Hum.rec.anlog [Lantus Solostar] 25 unit SQ BID 08/20/15 [ History] Levothyroxine [Synthroid] 25 mcg PO QAM 08/20/15 [History] Mometasone Furoate [Asmanex] 220 mcg IH QPM 08/20/15 [History] Montelukast [Singulair] 10 mg PO QPM 08/20/15 [History] Temazepam [Restoril] 15 mg PO HS PRN 08/20/15 [History] Calcium Carbonate [Tums] 1,000 mg PO BID 06/11/16 [History] Guaifenesin [Mucinex] 600 mg PO BID PRN 06/11/16 [History] Albuterol Neb [Proventil Neb] 2.5 mg IH Q6H PRN 11/19/16 [History] EPINEPHrine [Epipen] 0.3 mg IM ONCE PRN 11/19/16 [History] Ipratropium/Albuterol Sulfate [Combivent Respimat Inhal [place]] 2 puff IH QID 07/01 [History] Lidocaine Patch [Lidoderm 5% patch] 1 each TP DAILY #30 adh..patch 11/24/16 [Rx] Metoclopramide [Reglan] 10 mg PO TID #90 tablet 11/24/16 [Rx] Sucralfate [Carafate] 1 gm PO QIDAC #120 tablet 11/24/16 [Rx] Carvedilol [Coreg] 6.25 mg PO BIDWM 03/03/17 [History] Digoxin [Lanoxin] 0.25 mg PO DAILY PRN 03/03/17 [History] Fluticasone Propionate [Flovent Hfa] 1 puff IH BID 03/03/17 [History] 3 Allergy/AdvReac Type Severity Reaction Status Date / Time baclofen Allergy Hallucinati Verified 03/03/17 13:08 ng cilostazol [From Pletal] Allergy Hallucinati Verified 03/03/17 13:08 ng All Systems PM: A 10-system review of systems was performed and is negative for pertinent findings except as documented above in the HPI. Review of systems: see HPI - Constitutional Vitals: Temp Pulse Resp BP Pulse Ox 97.4 F L 82 16 142/61 100 03/03/17 13:05 03/03/17 15:00 03/03/17 18:48 03/03/17 18:48 03/03/17 15:00 Exam: CONSTITUTIONAL: Alert and oriented X3, somewhat undernourished appearance HEAD: Normocephalic; atraumatic. EYES: PERRL, no scleral icterus, no drainage, no conjunctival injection Oropharynx: pink/moist, no tonsillar edema/erythema/exudates RESP: NRD without use of accessory musculature, CTA b/l with no wheezes/rales/ rhonchi CARD: Regular rhythm, without murmurs, rubs, or gallop ABD: small crusted area over umbilicus without any significant erythema or purulent drainage; abdomen otherwise soft, non-tender, no guarding/distention/ rigidity SKIN/EXT: LLE medial/proximal to knee is dry eschared wound round with slightly erythematous surrounding skin about 3x3cm, no fluctuance or apparent drainage -- also has evidence of wound within umbilicus, i.e., crusting around umbilicus without active drainage, no fluctuance Internal Med - H&P Results - Labs CBC & Chem 7: 03/03/17 14:03 03/03/17 14:03 <Chucho Ruiz - Last Filed: 03/04/17 04:39> Date of Encounter: 03/04/17 Internal Medicine - H&P: HPI History of present illness: Ms. Kimble is a 67 year old female All Systems PM: A 10-system review of systems was performed and is negative for pertinent findings except as documented above in the HPI. - Constitutional Vitals: Temp Pulse Resp BP Pulse Ox 97.4 F L 71 15 152/63 100 03/04/17 03:38 03/04/17 03:38 03/04/17 03:38 03/04/17 03:38 03/04/17 03:38 Internal Med - H&P Results - Labs CBC & Chem 7: 03/03/17 14:03 03/03/17 14:03 - Attending Attestation I have seen and examined pt independently, I have discussed with resident physician Dr Welsh regarding the management plan. Agree with the documentation.
[2017-03-03] MEDS ORDERED: Vancomycin 750 MG in D5% in Water 250 ML IVPB SCH (21:00)
[2017-03-03] MEDS ORDERED: NON-FORMULARY MEDICATION 1 EACH EACH (Fluticasone Propionate [Flovent Hfa] 1 PUFF) IH SCH (21:00)
[2017-03-03] MEDS: cloNIDine HCl 0.1 MG TABLET PO SCH (22:02)
[2017-03-03] MEDS: Levothyroxine 25 MCG TABLET PO SCH (22:02)
[2017-03-03] MEDS: Piperacillin/Tazobactam 3.375 GM/200 ML BAG IVPB SCH (22:02)
[2017-03-03] MEDS: Insulin LISPRO 300 UNITS/3 ML VIAL SQ SCH ×2 (22:02→22:03)
[2017-03-03] MEDS: Lisinopril 20 MG TABLET PO SCH (22:02)
[2017-03-03] MEDS: *HR* OxyCODONE Immed Rel 5 MG TABLET PO PRN (23:34)
[2017-03-04] MEDS: Ibuprofen 400 MG TABLET PO PRN ×2 (02:28→18:46)
[2017-03-04 04:47] LABS: Basophils % 1.2 %; Eosinophils # 0.2 K/mcL (0.0-0.6); Eosinophils % 9.2 %; Hematocrit 28.8 % (35.3-44.9); Hemoglobin 9.3 g/dL (11.5-15.4); Immature Granulocytes % 0.4 % (0-4); Lymphocytes # 0.4 K/mcL (0.6-4.6); Lymphocytes % 14.7 %; Mean Corpuscular HGB Conc 32.3 g/dL (31.6-35.5); Mean Corpuscular Hemoglobin 26.1 pg (28.0-33.3); Mean Corpuscular Volume 80.9 fL (83.0-100.0); Mean Platelet Volume 10.2 fL (9.4-12.4); Monocytes # 0.3 K/mcL (0.0-1.3); Monocytes % 12.4 %; Neutrophils # 1.6 K/mcL (1.6-8.9); Nucleated Red Blood Cells 0.8 /100 WBC (0); Platelet Count 106 K/mcL (140-400); Red Blood Count 3.56 M/mcL (3.82-4.97); Red Cell Distribution Width 16.2 % (11.5-14.5); Segmented Neutrophils % 62.1 %
[2017-03-04 05:14] LABS: Albumin 3.1 g/dL (3.5-5.7); Albumin/Globulin Ratio 1.3 (1.1-2.2); Bilirubin,Total 0.6 mg/dL (0.3-1.0); Calcium 8.6 mg/dL (8.6-10.3); Globulin 2.4 g/dL (2.4-3.5); Potassium 4.2 mEq/L (3.5-5.1); Total Protein 5.5 g/dL (6.4-8.9)
[2017-03-04] MEDS: *HR* Heparin 5,000 UNIT/ML VIAL SQ SCH ×2 (05:42→18:46)
[2017-03-04] MEDS: Levothyroxine 25 MCG TABLET PO SCH (05:42)
[2017-03-04] MEDS: Piperacillin/Tazobactam 3.375 GM/200 ML BAG IVPB SCH ×3 (05:42→21:29)
[2017-03-04] MEDS: Beclomethasone 80mcg MDI IH SCH ×2 (08:12→21:33)
[2017-03-04] MEDS: Lisinopril 20 MG TABLET PO SCH ×2 (08:30→21:30)
[2017-03-04] MEDS: Insulin LISPRO 300 UNITS/3 ML VIAL SQ SCH ×4 (08:30→21:32)
[2017-03-04] MEDS: Insulin DETEMIR 100 UNIT/ML X5UNITS SQ SCH ×2 (08:32→21:31)
--- NOTE | 2017-03-04 13:28 | Podiatry Consult Note ---
Date of Encounter: 03/04/17 Time of Encounter: 12:00 Assessment and Plan (1) Wound of right lower extremity Current visit: Yes Status: Acute Examined at bedside Wound is concerning due to sudden appearance of wound concurrent with additional wound and drainage reported to umbilical area - No palpation of fluctuance under wound however patient may benefit from CT scan or ultrasound imaging of area to rule out underlying abscess Patient is currently receiving IV empiric antibiotic therapy WBC 5.1 on admit/2.5 today with possible error reported No fevers or chills At the juncture I spoke with and we recommend consult to Dr. Marin who is fermentation engineer for general surgery due to location of wound above the knee. We typically treat wounds and issues below the knee. Will place consult Adaptic, 4x4 and kerlex applied at bedside for protection Patient tolerated well No issues or concerns Made patient aware of plan at this time. Qualifiers: Encounter type: initial encounter Qualified Code(s): S81.801A - Unspecified open wound, right lower leg, initial encounter History of Present Illness HPI: Ms. Kimble is a 67 year old female who we have been consulted on regarding a wound to the medial aspect of the right upper leg. Patient awake alert and oriented on arrival. Patient has a known medical hx of DM, states she does not seek podiatry care anywhere, CKD stageIII, cirrhosis, COPD and hep C which she states was treated with harvoni. Patient reports that wound to her leg came up suddenly on Wednesday or wednesday this past week. States it started as a small fluid filled blister and then blister became larger and then it hardened. Patient denies any known trauma to area. Patient's umbilicus is also draining, states it started at the same time. patient reports she was a former smoker but has not smoked for many years. Denies any drug use or IVDA, states she has never injected any drugs, states hep c came from a blood transfusion in the 80s. Patient denies any known bugs or spiders within her house. Patient denies any pain to area. Patient states she had an area to her arm several years ago which looked like this and was treated per however I have looked through [facility] charts and I am unable to find any history or microbiology for any wound. Past Med Surg Social Fam HX - Past Medical History Medical history: asthma, COPD, coronary artery disease, CVA, GERD, hepatitis, hypertension, liver disease, myocardial infarction, renal disease, other Psychiatric history: no psych history - Past Surgical History Surgical History: appendectomy, , cholecystectomy, coronary bypass ( CABG), hysterectomy, other - Social History Smoking Status: Former smoker Smokeless Tobacco Status: No Alcohol use: none Drug use: none - Family History Mother Living Status: Hx Family Cardiac Disorders: Yes (triple bypass) Hx Family Endocrine Disorder: Yes Father Living Status: Hx Family Cardiac Disorders: Yes Hx Family Endocrine Disorder: Yes Medications and Allergies Folic Acid 1 mg PO DAILY 09/24/14 [History] Insulin ASPART [Novolog Flexpen] 0 unit SQ ACHS 09/24/14 [History] Lisinopril [Zestril] 20 mg PO BID 09/24/14 [History] Loratadine [Claritin] 10 mg PO DAILY 09/24/14 [History] Nitroglycerin [Nitrostat] 0.4 mg SL Q5M PRN 09/24/14 [History] Omeprazole [Prilosec] 40 mg PO BID 09/24/14 [History] OxyCODONE Immed Rel [Roxicodone 10 MG] 5 - 10 mg PO QID PRN 09/24/14 [History] Oxygen 2 l NS AD 09/24/14 [History] Polyethylene Glycol 3350 [Miralax] 17 gm PO DAILY PRN MDD c 09/24/14 [History] Simvastatin [Zocor] 20 mg PO HS 09/24/14 [History] cloNIDine HCl [CloNIDine HCl] 0.1 mg PO HS 08/19/15 [History] Albuterol Sulfate [Albuterol Inhaler] 2 puff IH QID PRN 08/20/15 [History] Cholecalciferol (Vitamin D3) [Vitamin D3] 10,000 unit PO QWEEK 08/20/15 [History ] Cyclobenzaprine [Flexeril] 10 mg PO Q6H 08/20/15 [History] Fenofibrate [Lofibra] 160 mg PO HS 08/20/15 [History] Insulin Glargine,Hum.rec.anlog [Lantus Solostar] 25 unit SQ BID 08/20/15 [ History] Levothyroxine [Synthroid] 25 mcg PO QAM 08/20/15 [History] Mometasone Furoate [Asmanex] 220 mcg IH QPM 08/20/15 [History] Montelukast [Singulair] 10 mg PO QPM 08/20/15 [History] Temazepam [Restoril] 15 mg PO HS PRN 08/20/15 [History] Calcium Carbonate [Tums] 1,000 mg PO BID 06/11/16 [History] Guaifenesin [Mucinex] 600 mg PO BID PRN 06/11/16 [History] Albuterol Neb [Proventil Neb] 2.5 mg IH Q6H PRN 11/19/16 [History] EPINEPHrine [Epipen] 0.3 mg IM ONCE PRN 11/19/16 [History] Ipratropium/Albuterol Sulfate [Combivent Respimat Inhal [place]] 2 puff IH QID 07/01 [History] Lidocaine Patch [Lidoderm 5% patch] 1 each TP DAILY #30 adh..patch 11/24/16 [Rx] Metoclopramide [Reglan] 10 mg PO TID #90 tablet 11/24/16 [Rx] Sucralfate [Carafate] 1 gm PO QIDAC #120 tablet 11/24/16 [Rx] Carvedilol [Coreg] 6.25 mg PO BIDWM 03/03/17 [History] Digoxin [Lanoxin] 0.25 mg PO DAILY PRN 03/03/17 [History] Fluticasone Propionate [Flovent Hfa] 1 puff IH BID 03/03/17 [History] 3 Allergy/AdvReac Type Severity Reaction Status Date / Time baclofen Allergy Hallucinati Verified 03/03/17 13:08 ng cilostazol [From Pletal] Allergy Hallucinati Verified 03/03/17 13:08 ng All Systems Reviewed: A 10-system review of systems was performed and is negative for pertinent findings except as documented above in the HPI. Physical Exam - Constitutional Vitals: Temp Pulse Resp BP Pulse Ox 98.2 F 78 16 137/64 97 03/04/17 11:00 03/04/17 11:00 03/04/17 11:00 03/04/17 11:00 03/04/17 11:00 Exam: Awake, alert and oriented x3 Popliteal pulse palpable Extremity warm to touch There is a large wound to medial aspect of right thigh just proximal to knee. Open wound measures 2.5cmx2.5cm with defined borders with dry yellow slough tissue covering wound There is surrounding erythema, non blanching, surrounding wound There is no warmth to wound There is no streaking or ascending cellulitis There is no fluctuance noted under wound, hard and dense to palpation There is no drainage to wound or surrounding No odor No pain with palpation Results - Labs Result Diagrams: 03/04/17 04:06 03/04/17 04:06 Labs: Abnormal lab results WBC 2.5 K/mcL (4.3-11.1) L D 03/04/17 04:06 RBC 3.56 M/mcL (3.82-4.97) L 03/04/17 04:06 Hgb 9.3 g/dL (11.5-15.4) L 03/04/17 04:06 Hct 28.8 % (35.3-44.9) L 03/04/17 04:06 MCV 80.9 fL (83.0-100.0) L 03/04/17 04:06 MCH 26.1 pg (28.0-33.3) L 03/04/17 04:06 RDW 16.2 % (11.5-14.5) H 03/04/17 04:06 Plt Count 106 K/mcL (140-400) L 03/04/17 04:06 Lymphocytes # 0.4 K/mcL (0.6-4.6) L 03/04/17 04:06 Nucleated RBCs/100 WBC 0.8 /100 WBC (0) H 03/04/17 04:06 ESR 53 mm/hr (0-15) H 03/03/17 14:03 Sodium 132 mEq/L (136-145) L 03/04/17 04:06 Carbon Dioxide 30 mEq/L (23-29) H 03/04/17 04:06 Creatinine 1.24 mg/dL (0.60-1.20) H 03/04/17 04:06 Est GFR ( Amer) 53 (> 60) L 03/04/17 04:06 Est GFR (Non-Af Amer) 43 (> 60) L 03/04/17 04:06 Glucose 171 mg/dL (70-105) H 03/04/17 04:06 POC Glucose 180 (58-89) H 03/04/17 11:05 Calculated Osmolality 279 (280-300) L 03/04/17 04:06 C-Reactive Protein 18 mg/L (Less than 10) H 03/03/17 14:03 Serum Total Protein 5.5 g/dL (6.4-8.9) L 03/04/17 04:06 Albumin 3.1 g/dL (3.5-5.7) L 03/04/17 04:06 Vancomycin Trough 4.1 mcg/mL (10-20) L 03/04/17 12:36 H & H 03/04/17 Range/Units 04:06 Hgb 9.3 L (11.5-15.4) g/dL Hct 28.8 L (35.3-44.9) % All other labs normal. Consult Discharge Plan - Plan Referrals: Man Eubanks MD [Primary Care Provider] -
[2017-03-04] MEDS: *HR* OxyCODONE Immed Rel 5 MG TABLET PO PRN ×2 (13:49→21:30)
[2017-03-04] MEDS ORDERED: Nitroglycerin 0.4 MG TAB.SUBL SL PRN (15:11)
[2017-03-04] MEDS ORDERED: Vancomycin 1,000 MG in D5% in Water 250 ML IVPB ONE (16:00)
--- NOTE | 2017-03-04 18:07 | Internal Med Progress Note ---
Date of Encounter: 03/04/17 Time of Encounter: 11:00 - Assessment and plan (1) Wound of right lower extremity Current Visit: Yes Status: Acute Assessment and plan: -Patient with large erosive lesion above the medial right knee -Continue IV vancomycin/Zosyn -Will consult general surgery and appreciate recommendations Qualifiers: Encounter type: initial encounter Qualified Code(s): S81.801A - Unspecified open wound, right lower leg, initial encounter (2) Wound, open, abdominal wall, anterior Current Visit: Yes Status: Acute Assessment and plan: -CT of the abdomen showed skin thickening and subcutaneous edema of the umbilicus may reflect cellulitis. No focal fluid collection to suggest abscess. -Gen. surgery consulted as above and will continue above IV antibiotics Qualifiers: Encounter type: initial encounter Qualified Code(s): S31.109A - Unspecified open wound of abdominal wall, unspecified quadrant without penetration into peritoneal cavity, initial encounter (3) CKD (chronic kidney disease), stage III Current Visit: No Status: Acute Assessment and plan: -Stable; creatinine at baseline (4) Hyponatremia Current Visit: No Status: Chronic Assessment and plan: -Hyponatremia is slowly correcting; sodium 126 on admission and is 132 today -Continue to monitor (5) COPD (chronic obstructive pulmonary disease) Current Visit: No Status: Chronic Assessment and plan: -No exacerbation; continue duo nebs Qualifiers: COPD type: unspecified COPD Qualified Code(s): J44.9 - Chronic obstructive pulmonary disease, unspecified (6) DM2 (diabetes mellitus, type 2) Current Visit: No Status: Chronic Assessment and plan: -Controlled; continue Levemir Qualifiers: Diabetes mellitus complication status: with kidney complications Diabetes mellitus complication detail: with chronic kidney disease Diabetes mellitus fci insulin use: with manager terminal use Chronic kidney disease stage: stage 3 (moderate) Qualified Code(s): E11.22 - Type 2 diabetes mellitus with diabetic chronic kidney disease; N18.3 - Chronic kidney disease, stage 3 ( moderate); Z79.4 - [facility] (current) use of insulin (7) CAD (coronary artery disease) Current Visit: No Status: Chronic Assessment and plan: -Stable; continue Coreg, digoxin and lisinopril Qualifiers: [place] vs. transplanted heart: unspecified whether [place] or transplanted heart Qualified Code(s): I25.10 - Atherosclerotic heart disease of [place] coronary artery without angina pectoris (8) Anemia, iron deficiency Current Visit: No Status: Acute Assessment and plan: Stable; hemoglobin at baseline Qualifiers: Iron deficiency anemia type: unspecified iron deficiency Qualified Code(s) : D50.9 - Iron deficiency anemia, unspecified - Subjective Interval history: Patient with large erosive lesion above the medial right knee and jason-umbilical - Constitutional Vitals: Temp Pulse Resp BP Pulse Ox 99.3 F 74 15 133/50 97 03/04/17 15:26 03/04/17 15:26 03/04/17 15:26 03/04/17 15:26 03/04/17 15:26 - Respiratory Respiratory exam: Present: CTAB. Absent: accessory muscle use, rales, rhonchi, wheezes - Cardiovascular Cardiovascular exam: Present: RRR, +S1, +S2. Absent: diastolic murmur, gallop, rubs, systolic murmur - Skin Skin exam: Present: abrasion (Patient with large erosive lesion above the medial right knee and jason-umbilical) Internal Medicine: Result - Labs CBC & Chem 7: 03/04/17 04:06 03/04/17 04:06 Labs: Short CBC 03/04/17 Range/Units 04:06 WBC 2.5 L D (4.3-11.1) K/mcL Hgb 9.3 L (11.5-15.4) g/dL Hct 28.8 L (35.3-44.9) % Plt Count 106 L (140-400) K/mcL Neutrophils # 1.6 (1.6-8.9) K/mcL BMP 03/04/17 04:06 Sodium 132 L Potassium 4.2 Chloride 100 Carbon Dioxide 30 H BUN 16 Creatinine 1.24 H Glucose 171 H Calcium 8.6 Liver Function 03/04/17 Range/Units 04:06 Total Bilirubin 0.6 (0.3-1.0) mg/dL AST 19 (13-39) Units/L ALT 11 (7-52) Units/L Alkaline Phosphatase 61 (34-104) Units/L Albumin 3.1 L (3.5-5.7) g/dL - VTE Documentation of Mechanical Device: Intermittent pneumatic compression device Consult Discharge Plan - Plan Referrals: Man Eubanks MD [Primary Care Provider] -
--- NOTE | 2017-03-04 19:17 | General Surgery Consult Note ---
Date of Encounter: 03/04/17 Time of Encounter: 19:02 History of Present Illness Consult date: 03/04/17 Requesting physician: Opal Bob History of present illness: 67-year-old diabetic female admitted after presenting to the emergency department with multiple skin wounds. One wound medial distal right thigh measures approximately 3 x 3 cm no other measuring approximately 1 cm at the umbilicus. Patient indicates development of these wounds approximately a week ago but due to bad weather, the patient was unable to present to the emergency department sooner than 03/03/16. The patient denies any pain, fevers, chills. White count was normal on presentation at 5.1 but has fallen to 2.5 overnight. The patient is anemic with hemoglobin of 10.7 on presentation, hematocrit 32.2. Repeat today 9.3/28.8 respectively. Platelet count is also diminished at 110, 000 on presentation, repeat today 106,000. Differential is notable for a low lymphocyte count at 0.3% Past medical history: Hepatitis C; hyponatremia described as chronic; COPD; diabetes mellitus type 2; coronary artery disease with prior [place]; anemia possibly due to chronic kidney disease; chronic back pain; history of prior stroke, gastroesophageal reflux disease Surgical history: Appendectomy, cholecystectomy, coronary bypass 3, hysterectomy, Allergies: Baclofen, cilostazol Medications: I will refer to the med rec included in this document On physical examination: Thin woman who appears older than her stated age; she appears to be in no acute distress She is 1.55 m tall, 50.26 kg, BMI 20.9 Maximum temperature 99.3 since admission; pulse 74-78, respirations 15-16 and unlabored, blood pressure stable at 133/50; SPO2 on room air 97- 100% No cervical adenopathy Lungs: Clear Cardiac: Regular rate, no appreciable murmurs Abdomen: Soft, protuberant without obvious tenderness. Firm liver edge approximately 1 cm caudal to the costal margin is palpable. Chronic enlargement was not identified. Umbilicus shows a proximately 1 cm circular dry eschar. No obvious drainage, no surrounding erythema. Well-healed low midline surgical scars without fascial defects. Active bowel sounds. Extremities: No obvious clubbing, cyanosis, or edema. 3 cm circular, dry, nontender eschar medial distal right thigh. No subcutaneous fluid or fluctuance. No obvious lymphangitis or regional adenopathy. Minimal surrounding erythema. Current laboratories: Leukopenia, 2.5; anemia with hemoglobin 9.3 and hematocrit 28.5; thrombocytopenia with platelet count 106,000 Lymphocytes decreased - 0.4% Sodium 132, on admission 126; potassium 4.2, chloride 100, bicarbonate 30, BUN 16, creatinine 1.24; eGFR 43 Impression: A 67-year-old diabetic referred for surgical evaluation 2 ulcerated lesions: Medial distal right thigh and umbilicus. Both wounds are currently clean and dry. There is minimal erythema surrounding the distal right thigh wound. No fluctuance or drainage was elicited. Recommendations: Follow these wounds expectantly Leaving the wounds open to air if possible. The umbilical wound may be related to caput medusae. Patient with history of hepatitis C and clinically appears to have portal hypertension and secondary hypersplenism I will follow along with you. Thank you for this consultation Past Med Surg Social Fam HX - Past Medical History Medical history: asthma, COPD, coronary artery disease, CVA, GERD, hepatitis, hypertension, liver disease, myocardial infarction, renal disease, other Psychiatric history: no psych history - Past Surgical History Surgical History: appendectomy, , cholecystectomy, coronary bypass ( CABG), hysterectomy, other - Social History Smoking Status: Former smoker Smokeless Tobacco Status: No Alcohol use: none Drug use: none - Family History Mother Living Status: Hx Family Cardiac Disorders: Yes (triple bypass) Hx Family Endocrine Disorder: Yes Father Living Status: Hx Family Cardiac Disorders: Yes Hx Family Endocrine Disorder: Yes Medications and Allergies Folic Acid 1 mg PO DAILY 09/24/14 [History] Insulin ASPART [Novolog Flexpen] 0 unit SQ ACHS 09/24/14 [History] Lisinopril [Zestril] 20 mg PO BID 09/24/14 [History] Loratadine [Claritin] 10 mg PO DAILY 09/24/14 [History] Nitroglycerin [Nitrostat] 0.4 mg SL Q5M PRN 09/24/14 [History] Omeprazole [Prilosec] 40 mg PO BID 09/24/14 [History] OxyCODONE Immed Rel [Roxicodone 10 MG] 5 - 10 mg PO QID PRN 09/24/14 [History] Oxygen 2 l NS AD 09/24/14 [History] Polyethylene Glycol 3350 [Miralax] 17 gm PO DAILY PRN MDD c 09/24/14 [History] Simvastatin [Zocor] 20 mg PO HS 09/24/14 [History] cloNIDine HCl [CloNIDine HCl] 0.1 mg PO HS 08/19/15 [History] Albuterol Sulfate [Albuterol Inhaler] 2 puff IH QID PRN 08/20/15 [History] Cholecalciferol (Vitamin D3) [Vitamin D3] 10,000 unit PO QWEEK 08/20/15 [History ] Cyclobenzaprine [Flexeril] 10 mg PO Q6H 08/20/15 [History] Fenofibrate [Lofibra] 160 mg PO HS 08/20/15 [History] Insulin Glargine,Hum.rec.anlog [Lantus Solostar] 25 unit SQ BID 08/20/15 [ History] Levothyroxine [Synthroid] 25 mcg PO QAM 08/20/15 [History] Mometasone Furoate [Asmanex] 220 mcg IH QPM 08/20/15 [History] Montelukast [Singulair] 10 mg PO QPM 08/20/15 [History] Temazepam [Restoril] 15 mg PO HS PRN 08/20/15 [History] Calcium Carbonate [Tums] 1,000 mg PO BID 06/11/16 [History] Guaifenesin [Mucinex] 600 mg PO BID PRN 06/11/16 [History] Albuterol Neb [Proventil Neb] 2.5 mg IH Q6H PRN 11/19/16 [History] EPINEPHrine [Epipen] 0.3 mg IM ONCE PRN 11/19/16 [History] Ipratropium/Albuterol Sulfate [Combivent Respimat Inhal Hinkley] 2 puff IH QID 07/01 [History] Lidocaine Patch [Lidoderm 5% patch] 1 each TP DAILY #30 adh..patch 11/24/16 [Rx] Metoclopramide [Reglan] 10 mg PO TID #90 tablet 11/24/16 [Rx] Sucralfate [Carafate] 1 gm PO QIDAC #120 tablet 11/24/16 [Rx] Carvedilol [Coreg] 6.25 mg PO BIDWM 03/03/17 [History] Digoxin [Lanoxin] 0.25 mg PO DAILY PRN 03/03/17 [History] Fluticasone Propionate [Flovent Hfa] 1 puff IH BID 03/03/17 [History] 3 Allergy/AdvReac Type Severity Reaction Status Date / Time baclofen Allergy Hallucinati Verified 03/03/17 13:08 ng cilostazol [From Pletal] Allergy Hallucinati Verified 03/03/17 13:08 ng Review of Systems All systems PM: A 10-system review of systems was performed and is negative for pertinent findings except as documented above in the HPI. General Surgery Exam Initial Vital Signs Temp Pulse Resp BP Pulse Ox 97.4 F L 95 16 109/57 98 03/03/17 13:05 03/03/17 13:05 03/03/17 13:05 03/03/17 13:05 03/03/17 13:05 Exam Initial Vital Signs Temp Pulse Resp BP Pulse Ox 97.4 F L 95 16 109/57 98 03/03/17 13:05 03/03/17 13:05 03/03/17 13:05 03/03/17 13:05 03/03/17 13:05 Results - Labs 03/04/17 04:06 03/04/17 04:06 Abnormal lab results WBC 2.5 K/mcL (4.3-11.1) L D 03/04/17 04:06 RBC 3.56 M/mcL (3.82-4.97) L 03/04/17 04:06 Hgb 9.3 g/dL (11.5-15.4) L 03/04/17 04:06 Hct 28.8 % (35.3-44.9) L 03/04/17 04:06 MCV 80.9 fL (83.0-100.0) L 03/04/17 04:06 MCH 26.1 pg (28.0-33.3) L 03/04/17 04:06 RDW 16.2 % (11.5-14.5) H 03/04/17 04:06 Plt Count 106 K/mcL (140-400) L 03/04/17 04:06 Lymphocytes # 0.4 K/mcL (0.6-4.6) L 03/04/17 04:06 Nucleated RBCs/100 WBC 0.8 /100 WBC (0) H 03/04/17 04:06 ESR 53 mm/hr (0-15) H 03/03/17 14:03 Sodium 132 mEq/L (136-145) L 03/04/17 04:06 Carbon Dioxide 30 mEq/L (23-29) H 03/04/17 04:06 Creatinine 1.24 mg/dL (0.60-1.20) H 03/04/17 04:06 Est GFR ( Amer) 53 (> 60) L 03/04/17 04:06 Est GFR (Non-Af Amer) 43 (> 60) L 03/04/17 04:06 Glucose 171 mg/dL (70-105) H 03/04/17 04:06 POC Glucose 193 (58-89) H 03/04/17 16:25 Calculated Osmolality 279 (280-300) L 03/04/17 04:06 C-Reactive Protein 18 mg/L (Less than 10) H 03/03/17 14:03 Serum Total Protein 5.5 g/dL (6.4-8.9) L 03/04/17 04:06 Albumin 3.1 g/dL (3.5-5.7) L 03/04/17 04:06 Vancomycin Trough 4.1 mcg/mL (10-20) L 03/04/17 12:36 Diabetes panel 03/04/17 Range/Units 04:06 Sodium 132 L (136-145) mEq/L Potassium 4.2 (3.5-5.1) mEq/L Chloride 100 (98-107) mEq/L Carbon Dioxide 30 H (23-29) mEq/L BUN 16 (8-23) mg/dL Creatinine 1.24 H (0.60-1.20) mg/dL Glucose 171 H (70-105) mg/dL Calcium 8.6 (8.6-10.3) mg/dL AST 19 (13-39) Units/L ALT 11 (7-52) Units/L Alkaline Phosphatase 61 (34-104) Units/L Albumin 3.1 L (3.5-5.7) g/dL Calcium panel 03/04/17 Range/Units 04:06 Calcium 8.6 (8.6-10.3) mg/dL Albumin 3.1 L (3.5-5.7) g/dL Pituitary panel 03/04/17 Range/Units 04:06 Sodium 132 L (136-145) mEq/L Potassium 4.2 (3.5-5.1) mEq/L Chloride 100 (98-107) mEq/L Carbon Dioxide 30 H (23-29) mEq/L BUN 16 (8-23) mg/dL Creatinine 1.24 H (0.60-1.20) mg/dL Glucose 171 H (70-105) mg/dL Calcium 8.6 (8.6-10.3) mg/dL Adrenal panel 03/04/17 Range/Units 04:06 Sodium 132 L (136-145) mEq/L Potassium 4.2 (3.5-5.1) mEq/L Chloride 100 (98-107) mEq/L Carbon Dioxide 30 H (23-29) mEq/L BUN 16 (8-23) mg/dL Creatinine 1.24 H (0.60-1.20) mg/dL Glucose 171 H (70-105) mg/dL Calcium 8.6 (8.6-10.3) mg/dL Total Bilirubin 0.6 (0.3-1.0) mg/dL AST 19 (13-39) Units/L ALT 11 (7-52) Units/L Alkaline Phosphatase 61 (34-104) Units/L Albumin 3.1 L (3.5-5.7) g/dL All other labs normal. Consult Discharge Plan - Plan Referrals: Man Eubanks MD [Primary Care Provider] -
[2017-03-04] MEDS: Miconazole 2% ointment 114 GM TUBE TP SCH (21:31)
[2017-03-04] MEDS: cloNIDine HCl 0.1 MG TABLET PO SCH (21:31)
[2017-03-05] MEDS: *HR* Heparin 5,000 UNIT/ML VIAL SQ SCH ×2 (05:49→16:47)
[2017-03-05] MEDS: Levothyroxine 25 MCG TABLET PO SCH (05:49)
[2017-03-05] MEDS: Piperacillin/Tazobactam 3.375 GM/200 ML BAG IVPB SCH ×3 (05:49→20:35)
[2017-03-05] MEDS: Beclomethasone 80mcg MDI IH SCH ×2 (07:28→23:19)
[2017-03-05] MEDS: Insulin LISPRO 300 UNITS/3 ML VIAL SQ SCH ×4 (09:07→20:37)
[2017-03-05] MEDS: Miconazole 2% ointment 114 GM TUBE TP SCH ×2 (09:07→20:36)
[2017-03-05] MEDS: Insulin DETEMIR 100 UNIT/ML X5UNITS SQ SCH ×2 (09:07→20:35)
[2017-03-05] MEDS: Lisinopril 20 MG TABLET PO SCH ×2 (09:07→20:36)
[2017-03-05 09:34] LABS: Basophils % 0.7 %; Eosinophils # 0.2 K/mcL (0.0-0.6); Hematocrit 31.9 % (35.3-44.9); Hemoglobin 10.4 g/dL (11.5-15.4); Immature Granulocytes % 0.7 % (0-4); Lymphocytes # 0.3 K/mcL (0.6-4.6); Lymphocytes % 10.1 %; Mean Corpuscular HGB Conc 32.6 g/dL (31.6-35.5); Mean Corpuscular Hemoglobin 26.3 pg (28.0-33.3); Mean Corpuscular Volume 80.8 fL (83.0-100.0); Mean Platelet Volume 10.1 fL (9.4-12.4); Monocytes # 0.2 K/mcL (0.0-1.3); Monocytes % 7.1 %; Neutrophils # 1.9 K/mcL (1.6-8.9); Platelet Count 124 K/mcL (140-400); Red Blood Count 3.95 M/mcL (3.82-4.97); Red Cell Distribution Width 16.1 % (11.5-14.5); Segmented Neutrophils % 72.4 %
[2017-03-05 09:47] LABS: Calcium 8.7 mg/dL (8.6-10.3); Potassium 3.7 mEq/L (3.5-5.1)
[2017-03-05] MEDS: *HR* OxyCODONE Immed Rel 5 MG TABLET PO PRN ×2 (10:27→16:45)
--- NOTE | 2017-03-05 14:03 | General Surgery Progress Note ---
Date of Encounter: 03/05/17 Time of Encounter: 13:58 Subjective Narrative: General Surgery - Afeb, hemodynamically stable patient voicing no new complaints. appreciate Maranda Sharp's assistance - wounds appear stable. Medial right thigh wound clean and dry umbilical wound slightly macerated - appears to be due to the anti fungal topical therapy and dressing. Will continue to monitor. If maceration at the umbilicus increases may discontinue the dressing but continue topical application anti fungal. Objective Vital Signs - Last 8 Hours Temp Pulse Resp BP Pulse Ox 03/05/17 11:09 97.7 F 79 15 150/53 98 03/05/17 07:27 16 99 03/05/17 07:17 97.6 F 66 15 132/45 98 Intake and Output 03/04/17 03/05/17 03/05/17 23:59 07:59 15:59 Intake Total 800 / 800 320 / 320 1180 / 1180 Output Total 1600 / 1600 800 / 800 800 / 800 Balance -800 / -800 -480 / -480 380 / 380 Intake: IV Fluids 200 / 200 200 / 200 200 / 200 Zosyn Premix 3.375 GM/200 ML 3. 200 / 200 200 / 200 200 / 200 375 gm In 200 ml @ 50 mls/hr IVPB Q8H [facility] Rx#:[id number] Oral 600 / 600 120 / 120 980 / 980 Output: Urine 1600 / 1600 800 / 800 800 / 800 Other: Meal Dinner Lunch Percent of Meal Consumed 100% 100% Weight 50.26 kg Blood Glucose* 131 149 113 Patient Weight 03/05/17 23:59 Weight 50.26 kg - Labs 03/05/17 09:28 03/05/17 09:28 Diabetes panel 03/05/17 Range/Units 09:28 Sodium 133 L (136-145) mEq/L Potassium 3.7 (3.5-5.1) mEq/L Chloride 98 (98-107) mEq/L Carbon Dioxide 31 H (23-29) mEq/L BUN 12 (8-23) mg/dL Creatinine 1.15 (0.60-1.20) mg/dL Glucose 156 H (70-105) mg/dL Calcium 8.7 (8.6-10.3) mg/dL Calcium panel 03/05/17 Range/Units 09:28 Calcium 8.7 (8.6-10.3) mg/dL Pituitary panel 03/05/17 Range/Units 09:28 Sodium 133 L (136-145) mEq/L Potassium 3.7 (3.5-5.1) mEq/L Chloride 98 (98-107) mEq/L Carbon Dioxide 31 H (23-29) mEq/L BUN 12 (8-23) mg/dL Creatinine 1.15 (0.60-1.20) mg/dL Glucose 156 H (70-105) mg/dL Calcium 8.7 (8.6-10.3) mg/dL Adrenal panel 03/05/17 Range/Units 09:28 Sodium 133 L (136-145) mEq/L Potassium 3.7 (3.5-5.1) mEq/L Chloride 98 (98-107) mEq/L Carbon Dioxide 31 H (23-29) mEq/L BUN 12 (8-23) mg/dL Creatinine 1.15 (0.60-1.20) mg/dL Glucose 156 H (70-105) mg/dL Calcium 8.7 (8.6-10.3) mg/dL - VTE Documentation of Mechanical Device: Intermittent pneumatic compression device Consult Discharge Plan - Plan Referrals: Man Eubanks MD [Primary Care Provider] -
[2017-03-05] MEDS ORDERED: Vancomycin 750 MG in D5% in Water 250 ML IVPB ONE (16:00)
--- NOTE | 2017-03-05 18:39 | Internal Med Progress Note ---
Date of Encounter: 03/05/17 Time of Encounter: 11:00 - Assessment and plan (1) Wound of right lower extremity Current Visit: Yes Status: Acute Assessment and plan: -Patient with large erosive lesion above the medial right knee -Continue IV vancomycin/Zosyn Qualifiers: Encounter type: initial encounter Qualified Code(s): S81.801A - Unspecified open wound, right lower leg, initial encounter (2) Wound, open, abdominal wall, anterior Current Visit: Yes Status: Acute Assessment and plan: -CT of the abdomen showed skin thickening and subcutaneous edema of the umbilicus may reflect cellulitis. No focal fluid collection to suggest abscess. -Continue miconazole for suspected fungal infection Qualifiers: Encounter type: initial encounter Qualified Code(s): S31.109A - Unspecified open wound of abdominal wall, unspecified quadrant without penetration into peritoneal cavity, initial encounter (3) CKD (chronic kidney disease), stage III Current Visit: No Status: Acute Assessment and plan: -Stable; creatinine at baseline (4) Hyponatremia Current Visit: No Status: Chronic Assessment and plan: -Hyponatremia is slowly correcting -Continue to monitor Code(s): E87.1 - Hypo-osmolality and hyponatremia (5) COPD (chronic obstructive pulmonary disease) Current Visit: No Status: Chronic Assessment and plan: -No exacerbation; continue duo nebs Qualifiers: COPD type: unspecified COPD Qualified Code(s): J44.9 - Chronic obstructive pulmonary disease, unspecified (6) DM2 (diabetes mellitus, type 2) Current Visit: No Status: Chronic Assessment and plan: -Controlled; continue Levemir Qualifiers: Diabetes mellitus complication status: with kidney complications Diabetes mellitus complication detail: with chronic kidney disease Diabetes mellitus terminal operations supervisor insulin use: with custodial use Chronic kidney disease stage: stage 3 (moderate) Qualified Code(s): E11.22 - Type 2 diabetes mellitus with diabetic chronic kidney disease; N18.3 - Chronic kidney disease, stage 3 ( moderate); N18.3 - Chronic kidney disease, stage 3 (moderate); Z79.4 - terminal operations manager (current) use of insulin; Z79.4 - terminal operations manager (current) use of insulin; Z79.4 - terminal operations manager (current) use of insulin; Z79.4 - terminal operations manager (current) use of insulin (7) CAD (coronary artery disease) Current Visit: No Status: Chronic Assessment and plan: -Stable; continue Coreg, digoxin and lisinopril Qualifiers: [place] vs. transplanted heart: unspecified whether circle or transplanted heart Qualified Code(s): I25.10 - Atherosclerotic heart disease of circle coronary artery without angina pectoris (8) Anemia, iron deficiency Current Visit: No Status: Acute Assessment and plan: Stable; hemoglobin at baseline Qualifiers: Iron deficiency anemia type: unspecified iron deficiency Qualified Code(s) : D50.9 - Iron deficiency anemia, unspecified - Subjective Interval history: Patient with large erosive lesion above the medial right knee and jason-umbilical - Constitutional Vitals: Temp Pulse Resp BP Pulse Ox 99.1 F 86 15 162/66 99 03/05/17 16:34 03/05/17 16:34 03/05/17 16:34 03/05/17 16:34 03/05/17 16:34 - Respiratory Respiratory exam: Present: CTAB. Absent: accessory muscle use, rales, rhonchi, wheezes - Cardiovascular Cardiovascular exam: Present: RRR, +S1, +S2. Absent: diastolic murmur, gallop, rubs, systolic murmur - Skin Skin exam: Present: dry (Patient with no change or improvement in open erosive lesion of right medial knee) Internal Medicine: Result - Labs CBC & Chem 7: 03/05/17 09:28 03/05/17 09:28 Labs: Short CBC 03/05/17 Range/Units 09:28 WBC 2.7 L (4.3-11.1) K/mcL Hgb 10.4 L (11.5-15.4) g/dL Hct 31.9 L (35.3-44.9) % Plt Count 124 L (140-400) K/mcL Neutrophils # 1.9 (1.6-8.9) K/mcL BMP 03/05/17 09:28 Sodium 133 L Potassium 3.7 Chloride 98 Carbon Dioxide 31 H BUN 12 Creatinine 1.15 Glucose 156 H Calcium 8.7 - VTE Documentation of Mechanical Device: Intermittent pneumatic compression device Consult Discharge Plan - Plan Referrals: Man Eubanks MD [Primary Care Provider] -
[2017-03-05] MEDS: cloNIDine HCl 0.1 MG TABLET PO SCH (20:36)
[2017-03-06] MEDS: Piperacillin/Tazobactam 3.375 GM/200 ML BAG IVPB SCH ×2 (05:38→12:51)
[2017-03-06] MEDS: *HR* Heparin 5,000 UNIT/ML VIAL SQ SCH (05:38)
[2017-03-06] MEDS: Levothyroxine 25 MCG TABLET PO SCH (05:38)
[2017-03-06] MEDS: Lisinopril 20 MG TABLET PO SCH (08:25)
[2017-03-06] MEDS: *HR* OxyCODONE Immed Rel 5 MG TABLET PO PRN ×2 (08:25→14:51)
[2017-03-06] MEDS: Miconazole 2% ointment 114 GM TUBE TP SCH (08:26)
[2017-03-06] MEDS: Insulin DETEMIR 100 UNIT/ML X5UNITS SQ SCH (08:26)
[2017-03-06] MEDS: Insulin LISPRO 300 UNITS/3 ML VIAL SQ SCH ×2 (08:27→12:52)
[2017-03-06 09:09] LABS: Basophils % 0.9 %; Eosinophils # 0.6 K/mcL (0.0-0.6); Eosinophils % 13.2 %; Hematocrit 34.1 % (35.3-44.9); Hemoglobin 10.9 g/dL (11.5-15.4); Immature Granulocytes % 0.9 % (0-4); Lymphocytes # 0.6 K/mcL (0.6-4.6); Mean Corpuscular Hemoglobin 25.8 pg (28.0-33.3); Mean Corpuscular Volume 80.6 fL (83.0-100.0); Monocytes # 0.5 K/mcL (0.0-1.3); Monocytes % 10.1 %; Neutrophils # 2.8 K/mcL (1.6-8.9); Platelet Count 138 K/mcL (140-400); Red Blood Count 4.23 M/mcL (3.82-4.97); Red Cell Distribution Width 16.3 % (11.5-14.5); Segmented Neutrophils % 61.9 %
[2017-03-06 09:23] LABS: Calcium 8.9 mg/dL (8.6-10.3); Potassium 3.9 mEq/L (3.5-5.1)
[2017-03-06] MEDS: Beclomethasone 80mcg MDI IH SCH (09:42)
[2017-03-06 10:21] VITALS: BP 148/72
--- NOTE | 2017-03-06 12:46 | General Surgery Progress Note ---
Date of Encounter: 03/06/17 Time of Encounter: 12:38 Subjective Patient reports: no new complaints Narrative: General surgery- Patient resting comfortably in her hospital bed. Placing a new complaint Afebrile, currently 97.7, pulse 78, respirations 18, blood pressure 148/72. Accu-Cheks ranging 131-193, however, early a.m. 03/05/17, the patient was severely hypoglycemia with accuchecks 48-49 The patient describes significant variation/lability of her blood sugars at home. The umbilical and medial right thigh wounds remain stable. The medial right thigh, remains clean and dry with no significant fluctuation, drainage or surrounding erythema. The umbilical wound is also clean and dry without drainage, however, the antifungal therapy application of skin emollients is causing tissue maceration. Recommendations: Maintain both wounds clean and dry Follow-up with Wound Care shortly after discharge to monitor wounds and progress toward resolution. Objective Vital Signs - Last 8 Hours Temp Pulse Resp BP Pulse Ox 03/06/17 10:15 97.7 F 78 18 148/72 99 03/06/17 09:42 16 99 03/06/17 07:48 98.3 F 73 16 154/67 99 Intake and Output 03/05/17 03/06/17 03/06/17 23:59 07:59 15:59 Intake Total 680 / 680 0 / 0 350 / 350 Output Total 2100 / 2100 450 / 450 1000 / 1000 Balance -1420 / -1420 -450 / -450 -650 / -650 Intake: IV Fluids 200 / 200 Zosyn Premix 3.375 GM/200 ML 3. 200 / 200 375 gm In 200 ml @ 50 mls/hr IVPB Q8H [facility] Rx#:[id number] Oral 480 / 480 0 / 0 350 / 350 Output: Urine 2100 / 2100 450 / 450 1000 / 1000 Other: Stool Size Small Stool Consistency soft Stool Characteristics Normal for Patient Stool Color Brown # Bowel Movements 1 Weight 50.6 kg Blood Glucose* 136 75 221 Patient Weight 03/06/17 23:59 Weight 50.6 kg - Labs 03/06/17 08:41 03/06/17 08:41 Diabetes panel 03/06/17 Range/Units 08:41 Sodium 135 L (136-145) mEq/L Potassium 3.9 (3.5-5.1) mEq/L Chloride 102 (98-107) mEq/L Carbon Dioxide 27 (23-29) mEq/L BUN 12 (8-23) mg/dL Creatinine 1.13 (0.60-1.20) mg/dL Glucose 88 (70-105) mg/dL Calcium 8.9 (8.6-10.3) mg/dL Calcium panel 03/06/17 Range/Units 08:41 Calcium 8.9 (8.6-10.3) mg/dL Pituitary panel 03/06/17 Range/Units 08:41 Sodium 135 L (136-145) mEq/L Potassium 3.9 (3.5-5.1) mEq/L Chloride 102 (98-107) mEq/L Carbon Dioxide 27 (23-29) mEq/L BUN 12 (8-23) mg/dL Creatinine 1.13 (0.60-1.20) mg/dL Glucose 88 (70-105) mg/dL Calcium 8.9 (8.6-10.3) mg/dL Adrenal panel 03/06/17 Range/Units 08:41 Sodium 135 L (136-145) mEq/L Potassium 3.9 (3.5-5.1) mEq/L Chloride 102 (98-107) mEq/L Carbon Dioxide 27 (23-29) mEq/L BUN 12 (8-23) mg/dL Creatinine 1.13 (0.60-1.20) mg/dL Glucose 88 (70-105) mg/dL Calcium 8.9 (8.6-10.3) mg/dL - VTE Documentation of Mechanical Device: Intermittent pneumatic compression device Consult Discharge Plan - Plan Referrals: Man Eubanks MD [Primary Care Provider] -
--- NOTE | 2017-03-06 14:53 | Discharge Summary ---
Date of Encounter: 03/06/17 Time of Encounter: 11:00 - Discharge Diagnosis (1) Wound of right lower extremity Priority: Primary Status: Acute Qualifiers: Encounter type: initial encounter Qualified Code(s): S81.801A - Unspecified open wound, right lower leg, initial encounter (2) Wound, open, abdominal wall, anterior Priority: Primary Status: Acute Qualifiers: Encounter type: initial encounter Qualified Code(s): S31.109A - Unspecified open wound of abdominal wall, unspecified quadrant without penetration into peritoneal cavity, initial encounter (3) CKD (chronic kidney disease), stage III Priority: Primary Status: Acute (4) Hyponatremia Priority: Primary Status: Chronic Code(s): E87.1 - Hypo-osmolality and hyponatremia (5) COPD (chronic obstructive pulmonary disease) Priority: Primary Status: Chronic Qualifiers: COPD type: unspecified COPD Qualified Code(s): J44.9 - Chronic obstructive pulmonary disease, unspecified (6) DM2 (diabetes mellitus, type 2) Priority: Primary Status: Chronic Qualifiers: Diabetes mellitus complication status: with kidney complications Diabetes mellitus complication detail: with chronic kidney disease 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: with snf use Chronic kidney disease stage: stage 3 (moderate) Qualified Code(s): E11.22 - Type 2 diabetes mellitus with diabetic chronic kidney disease; N18.3 - Chronic kidney disease, stage 3 ( moderate); N18.3 - Chronic kidney disease, stage 3 (moderate); Z79.4 - long term care phlebotomist (current) use of insulin; Z79.4 - prison (current) use of insulin; Z79.4 - prison (current) use of insulin; Z79.4 - prison (current) use of insulin (7) Anemia, iron deficiency Priority: Secondary Status: Acute Qualifiers: Iron deficiency anemia type: unspecified iron deficiency Qualified Code(s) : D50.9 - Iron deficiency anemia, unspecified - Discharge Medications Prescriptions: Doxycycline 100 mg PO BID 7 Days #14 capsule Miconazole 2% ointment [Aloe [place] Antifungal Ointment] 1 appl TP BID 14 Days # 1 tube Home Medications: Folic Acid 1 mg PO DAILY 09/24/14 [History] Insulin ASPART [Novolog Flexpen] 0 unit SQ ACHS 09/24/14 [History] Lisinopril [Zestril] 20 mg PO BID 09/24/14 [History] Loratadine [Claritin] 10 mg PO DAILY 09/24/14 [History] Nitroglycerin [Nitrostat] 0.4 mg SL Q5M PRN 09/24/14 [History] Omeprazole [Prilosec] 40 mg PO BID 09/24/14 [History] OxyCODONE Immed Rel [Roxicodone 10 MG] 5 - 10 mg PO QID PRN 09/24/14 [History] Oxygen 2 l NS AD 09/24/14 [History] Polyethylene Glycol 3350 [Miralax] 17 gm PO DAILY PRN MDD c 09/24/14 [History] Simvastatin [Zocor] 20 mg PO HS 09/24/14 [History] cloNIDine HCl [CloNIDine HCl] 0.1 mg PO HS 08/19/15 [History] Albuterol Sulfate [Albuterol Inhaler] 2 puff IH QID PRN 08/20/15 [History] Cholecalciferol (Vitamin D3) [Vitamin D3] 10,000 unit PO QWEEK 08/20/15 [History ] Cyclobenzaprine [Flexeril] 10 mg PO Q6H 08/20/15 [History] Fenofibrate [Lofibra] 160 mg PO HS 08/20/15 [History] Insulin Glargine,Hum.rec.anlog [Lantus Solostar] 25 unit SQ BID 08/20/15 [ History] Levothyroxine [Synthroid] 25 mcg PO QAM 08/20/15 [History] Mometasone Furoate [Asmanex] 220 mcg IH QPM 08/20/15 [History] Montelukast [Singulair] 10 mg PO QPM 08/20/15 [History] Temazepam [Restoril] 15 mg PO HS PRN 08/20/15 [History] Calcium Carbonate [Tums] 1,000 mg PO BID 06/11/16 [History] Guaifenesin [Mucinex] 600 mg PO BID PRN 06/11/16 [History] Albuterol Neb [Proventil Neb] 2.5 mg IH Q6H PRN 11/19/16 [History] EPINEPHrine [Epipen] 0.3 mg IM ONCE PRN 11/19/16 [History] Ipratropium/Albuterol Sulfate [Combivent Respimat Inhal [place]] 2 puff IH QID 07/01 [History] Lidocaine Patch [Lidoderm 5% patch] 1 each TP DAILY #30 adh..patch 11/24/16 [Rx] Metoclopramide [Reglan] 10 mg PO TID #90 tablet 11/24/16 [Rx] Sucralfate [Carafate] 1 gm PO QIDAC #120 tablet 11/24/16 [Rx] Carvedilol [Coreg] 6.25 mg PO BIDWM 03/03/17 [History] Digoxin [Lanoxin] 0.25 mg PO DAILY PRN 03/03/17 [History] Fluticasone Propionate [Flovent Hfa] 1 puff IH BID 03/03/17 [History] Spironolactone [Aldactone] 25 mg PO DAILY 03/05/17 [History] Doxycycline 100 mg PO BID 7 Days #14 capsule 03/06/17 [Rx] Miconazole 2% ointment [Aloe [place] Antifungal Ointment] 1 appl TP BID 14 Days # 1 tube 03/06/17 [Rx] Allergies/Adverse Reactions: 3 Allergy/AdvReac Type Severity Reaction Status Date / Time baclofen Allergy Hallucinati Verified 03/03/17 13:08 ng cilostazol [From Pletal] Allergy Hallucinati Verified 03/03/17 13:08 ng Date of admission: 03/03/17 18:24 Primary care physician: Man Eubanks MD Consults: 03/03/17 20:18 Consult to Carton Making Machine Operator [CONS] Routine Comment: Reason for Consult: diabetic patient on SQ insulin with multiple wounds Consult to Wound Care [CONS] Routine Reason for Consult: umbilical cellulitis; CT done did not demonstrate fluid collection Call Completed: No 03/04/17 14:10 Consult to Surgery [CONS] Routine Consulting Provider: [facility] Reason for Consult: Wound to right upper thigh Time Notified: 14:15 Call Completed: Yes - Patient Status Disposition: Home, Self-Care - Discharge Instructions Follow Up With: Man Eubanks MD [Primary Care Provider] - Hospital course: Patient is a 67-year-old female with past medical history significant for type II diabetes who presents to the ER on 03/03/17 due to skin wounds on abdomen and lower extremity. Patient has one wound is approximately 3 cm x 3 cm in the left lower extremity proximal and medial to the knee as well as another one in her umbilicus. These wounds apparently develop spontaneously and noticed initially appearing as a thin clear watery blister. CT done in ED demonstrates cellulitis at umbilicus without any apparent fluid collections. Patient was admitted to the medical floor for further evaluation and management. During patients hospital stay, patient was treated with a 2 day course of IV vancomycin and Zosyn in addition topical miconazole. Gen. surgery was consulted with recommendations to maintain both wounds clean and dry. Patient will be discharged to continue a seven-day course of doxycycline and a 2 week course of topical miconazole. She will follow up with wound clinic/primary care provider for monitoring. - Time Spent with Patient Total time spent providing and/or coordinating discharge services: Less than 30 minutes - Constitutional Vitals: Temp Pulse Resp BP Pulse Ox 97.7 F 78 18 148/72 99 03/06/17 10:15 03/06/17 10:15 03/06/17 10:15 03/06/17 10:15 03/06/17 10:15 - Respiratory Respiratory exam: Present: CTAB. Absent: accessory muscle use, rales, rhonchi, wheezes - VTE Documentation of Mechanical Device: Intermittent pneumatic compression device
[2017-03-06] MEDS ORDERED: Aminoglycoside Consult 1 EACH MC ONE (15:59)
== END 2017-03-06 16:00 | disposition home or self-care (01) ==
LOC: EMEROO 12:37 → 3ANU 12:37
PROVIDERS: ADMIT Internal Medicine; ATTEND Hospitalist

== ENCOUNTER 2018-02-24 14:07 | Inpatient (IN) ==
[2018-02-24] MEDS ORDERED: Ipratropium/Albuterol Neb 3 ML IH ONE (14:14)
--- NOTE | 2018-02-24 14:22 | Emergency Department Note ---
Disposition Clinical Impression: Dyspnea Qualifiers: Dyspnea type: dyspnea on exertion Qualified Code(s): R06.09 - Other forms of dyspnea Anemia Qualifiers: Anemia type: unspecified type Qualified Code(s): D64.9 - Anemia, unspecified Acute exacerbation of CHF (congestive heart failure) Qualifiers: Heart failure type: diastolic Qualified Code(s): I50.33 - Acute on chronic diastolic (congestive) heart failure GI bleed Qualifiers: Gastritis type: unspecified gastritis Disposition: Admitted As Inpatient Condition: Fair Referrals: Man Eubanks MD [Primary Care Provider] - Forms: ED Satisfaction Letter Time of Disposition: 15:59 SOB HPI - General Chief Complaint: ED Shortness of Breath/Dyspnea Stated Complaint: WILLIAM Time Seen by Provider: 02/24/18 14:11 Source: patient, EMS Limitations: no limitations Nursing Notes Reviewed: Yes Vital Signs Reviewed: Yes - History of Present Illness 68-year-old female presents from home via EMS for evaluation of persistent shortness of breath. Patient was discharged from this hospital 12 February where she was treated for exacerbation COPD and pneumonia. She felt that she is never improved factor her baseline. In his last 2 weeks, she is also noticed increased swelling, worsening shortness of breath. She is on supplemental oxygen of 2.5 L at baseline. Over the last several days, she felt that she is required 3.0 L. Even with this, she has shortness of breath with mild exertion. She does have a cough but this is nonproductive and unchanged from her baseline. No fevers. No chest pain or palpitations though she does have a tight band-like sensation around her lower ribs. 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 Chronic kidney disease stage III. COPD. ROS: Positive: As above, melanotic stools Negative: Fever, chills, nausea, vomiting, chest pains, palpitations, diaphoresis, abdominal pain, change in bowel or bladder habits, trauma, hematoch ezia - Related Data Home Medications Medication Instructions Recorded Confirmed Insulin ASPART [Novolog Flexpen] 2 - 12 unit SQ WMHS 09/24/14 02/07/18 Loratadine [Claritin] 10 mg PO DAILY 09/24/14 02/07/18 OxyCODONE Immed Rel [Roxicodone 10 10 mg PO Q6H PRN 09/24/14 02/07/18 MG] Oxygen 2.5 l NS AD 09/24/14 02/07/18 Albuterol Sulfate [Albuterol 2 puff IH Q4H PRN 08/20/15 02/07/18 Inhaler] Cholecalciferol (Vitamin D3) 10,000 unit PO FR 08/20/15 02/07/18 [Vitamin D3] Insulin Glargine,Hum.rec.anlog 8 - 25 unit SQ AD 08/20/15 02/07/18 [Lantus Solostar] Montelukast [Singulair] 10 mg PO DAILY 08/20/15 02/07/18 Temazepam [Restoril] 15 mg PO HS PRN 08/20/15 02/07/18 Guaifenesin [Mucinex] 600 mg PO BID PRN 06/11/16 02/07/18 EPINEPHrine [Epipen] 0.3 mg IM ONCE PRN 11/19/16 02/07/18 Ipratropium/Albuterol Sulfate 1 puff IH QID 11/19/16 02/07/18 [Combivent Respimat Inhal [place]] Cyanocobalamin (Vitamin B-12) 1,000 mcg PO DAILY 10/21/17 02/07/18 [Vitamin B12] Fenofibrate Nanocrystallized 160 mg PO QPM 10/21/17 02/07/18 [Triglide] Folic Acid 1 mg PO DAILY 10/21/17 02/07/18 Lactobacillus Combination No.8 1 cap PO DAILY 10/21/17 02/07/18 [Adult Probiotic] Levothyroxine Sodium [Levoxyl] 25 mcg PO DAILY 10/21/17 02/07/18 Nitroglycerin [Nitrostat] 0.4 mg SL AD 10/21/17 02/07/18 Omeprazole [PriLOSEC] 40 mg PO BID 10/21/17 02/07/18 Polyethylene Glycol 3350 [MiraLAX] 17 gm PO DAILY PRN 10/21/17 02/07/18 Simvastatin [Zocor] 20 mg PO HS 10/21/17 02/07/18 Ammonium Lactate [Isis-Hydrolac] 1 appl TP BID 02/07/18 02/07/18 Ascorbic Acid [Vitamin C] 500 mg PO DAILY 02/07/18 02/07/18 Calcium Carbonate [Tums] 1,000 mg PO DAILY 02/07/18 02/07/18 Fluticasone Propionate [Flovent 1 puff IN BID 02/07/18 02/07/18 Hfa] Lidocaine Patch [Lidoderm 5% patch] 1 patch TP DAILY 02/07/18 02/07/18 Ondansetron HCl [Zofran] 8 mg PO TID PRN 02/07/18 02/07/18 Tizanidine HCl 2 mg PO Q6H PRN 02/07/18 02/07/18 traZODone [TraZODone] 25 - 50 mg PO HS PRN 02/07/18 02/07/18 Previous Rx's Medication Instructions Recorded Azithromycin [Zithromax] 500 mg PO DAILY #2 tablet 02/12/18 Carvedilol [Coreg] 25 mg PO BIDWM #60 tablet 02/12/18 Cefdinir [Omnicef] 300 mg PO BID #6 capsule 02/12/18 Ferrous Sulfate 325 mg PO BIDWM #60 tablet 02/12/18 Lisinopril [Zestril] 30 mg PO DAILY #30 tablet 02/12/18 Simethicone [Gas-X] 80 mg PO TID PRN #15 tab.chew 02/12/18 Spironolactone [Aldactone] 50 mg PO DAILY #30 tablet 02/12/18 amLODIPine [Norvasc] 10 mg PO DAILY #30 tablet 02/12/18 cloNIDine HCl [CloNIDine HCl] 0.1 mg PO BID #60 tablet 02/12/18 Allergies Allergy/AdvReac Type Severity Reaction Status Date / Time baclofen Allergy Hallucinati Verified 02/07/18 17:03 ng cilostazol [From Pletal] Allergy Hallucinati Verified 02/07/18 17:03 ng All systems ED: reviewed and negative except as stated. Review of Systems: As Per HPI Past Medical History - Past Medical History Medical history: Reports: asthma, CHF, COPD, coronary artery disease, CVA, GERD, hepatitis, hypertension, liver disease, myocardial infarction, renal disease, other Surgical history: Reports: appendectomy, , cholecystectomy, coronary bypass (CABG), hysterectomy, other Psychiatric history: Reports: depression - Social History Smoking Status: Former smoker Smokeless Tobacco Status: No Alcohol use: Reports: none Drug use: Reports: none Physical Exam Vital Signs Reviewed General: Patient is alert, oriented, and in no acute distress. She appears pale in older than stated age. She does have mild accessory muscle usage or rest in bed on 3 L nasal cannula. Head: atraumatic, normocephalic Eye: normal appearance, PERRL, EOMI, no scleral icterus, no conjunctival injection ENT: mucous membranes moist, normal external ear exam Neck: normal inspection, trachea midline, full ROM Chest: normal inspection, symmetric chest rise Respiratory: Good respiratory effort. Bilateral breath sounds have faint scattered wheeze with bibasilar crackles. No rhonchi. Cardiovascular: Regular rate and rhythm. No clicks, rubs, gallops, or murmors. Normal heart sounds. Bilateral radial pulses 2/4 equal. 2+ pitting edema to the level of the mid carmona. Abdomen: Bowel sounds present normoactive. Abdomen is soft, nondistended, and nontender. No guarding or rebound. No organomegaly noted. Rectal exam: Ebd Special Education Teacher present. Brown stool on glove finger tip; no gross blood. Fecal occult test submitted. Musculoskeletal: Spontaneously moving all extremities. Skin: warm, dry, intact. Neuro: GCS 15. Alert and oriented 4. No focal neurologic deficits observed. Psych: Patient's affect is appropriate for situation. - General Limitations: no limitations General appearance: alert, in no apparent distress Course Course Narrative: Cardiac echo 02/08/18: LVEF 55-60%. Normal LV diastolic function. Moderately dilated left atrium. No pulmonary hypertension. Mild mitral regurg. Upper GI endoscopy 02/10/18 gastroenterology impressions: Distal esophagus grade 1 varices. Moderate portal hypertension and gastropathy throughout the entirety of the stomach. Lesser curvature of stomach had 7 mm stigmata of recent bleeding in July dysplastic lesion. Ampulla and first portion and second portion of duodenum were normal. Clinical concern is CAD versus COPD versus pneumonia versus CHF. Higher suspici on at this time for acute exacerbation of CHF. Patient's previous admission, she had a GI bleed for which she received red blood cell transfusion. She does appear pale today. Stools melanotic however, she is on iron supplements. CBC shows worsening anemia from most recent lab value. Fecal occult blood positive. Type and screen ordered, no indication at this time for transfusion. Serum hematology also shows leukocytopenia worsen her baseline. Patient has low oncotic pressure. Suspect this is causing her lower pedal edema. Chest x-ray shows mild bibasilar atelectasis and effusion. I discussed the above with the admitting hospitalist, Dr. Adler, who agrees to accept the patient for continued evaluation and monitoring for acute exacerbation of CHF, GI bleed. Chest X-Ray 02/24/18 14:15 IMPRESSION: 1. Bibasilar atelectasis with small effusions. 2. Status post CABG. D/ / 02/24/2018 14:54:32 Nereyda Shore MD / stan Interpreting Provider: Nereyda Shore MD Vital Signs Temperature 97.9 F 02/24/18 14:11 Pulse Rate 66 02/24/18 14:11 Respiratory Rate 20 02/24/18 14:11 Blood Pressure 115/59 02/24/18 14:11 O2 Sat by Pulse Oximetry 100 02/24/18 14:11 Temperature 97.9 F 02/24/18 14:11 Pulse Rate 65 02/24/18 15:07 Respiratory Rate 16 02/24/18 15:07 Blood Pressure 135/55 02/24/18 15:07 O2 Sat by Pulse Oximetry 100 02/24/18 15:07 Oxygen Delivery Oxygen Delivery Nasal Cannula Shortness of Breath/Dyspnea - Lab Data Result diagrams: 02/24/18 14:15 02/24/18 14:15 Lab Results 02/24/18 02/24/18 02/24/18 Range/Units 14:15 14:15 14:15 WBC 2.6 L (4.3-11.1) K/mcL RBC 2.87 L (3.82-4.97) M/mcL Hgb 8.5 L (11.5-15.4) g/dL Hct 25.1 L (35.3-44.9) % MCV 87.5 (83.0-100.0) fL MCH 29.6 (28.0-33.3) pg MCHC 33.9 (31.6-35.5) g/dL RDW 16.0 H (11.5-14.5) % Plt Count 114 L (140-400) K/mcL MPV 10.6 (9.4-12.4) fL Immature Gran % 0.4 (0-4) % Seg Neutrophils % 80.5 % Lymphocytes % 6.5 % Monocytes % 8.4 % Eosinophils % 3.4 % Basophils % 0.8 % Neutrophils # 2.1 (1.6-8.9) K/mcL Lymphocytes # 0.2 L (0.6-4.6) K/mcL Monocytes # 0.2 (0.0-1.3) K/mcL Eosinophils # 0.1 (0.0-0.6) K/mcL Basophils # 0.0 (0.0-0.2) K/mcL Platelet Estimate Slight Decrease L (Normal) Sodium 131 L (136-145) mEq/L Potassium 4.9 (3.5-5.1) mEq/L Chloride 94 L (98-107) mEq/L Carbon Dioxide 34 H (23-29) mEq/L BUN 11 (8-23) mg/dL Creatinine 1.19 (0.60-1.20) mg/dL Est GFR ( Amer) 55 L (> 60) Est GFR (Non-Af Amer) 45 L (> 60) BUN/Creatinine Ratio 9 (6-26) Glucose 185 H (70-105) mg/dL Calculated Osmolality 276 L (280-300) Calcium 8.8 (8.6-10.3) mg/dL Troponin I < 0.03 (< 0.04) ng/mL Stool Occult Bld Scrn (Negative) Specimen Rejected Hemolyzed 02/24/18 Range/Units 15:15 WBC (4.3-11.1) K/mcL RBC (3.82-4.97) M/mcL Hgb (11.5-15.4) g/dL Hct (35.3-44.9) % MCV (83.0-100.0) fL MCH (28.0-33.3) pg MCHC (31.6-35.5) g/dL RDW (11.5-14.5) % Plt Count (140-400) K/mcL MPV (9.4-12.4) fL Immature Gran % (0-4) % Seg Neutrophils % % Lymphocytes % % Monocytes % % Eosinophils % % Basophils % % Neutrophils # (1.6-8.9) K/mcL Lymphocytes # (0.6-4.6) K/mcL Monocytes # (0.0-1.3) K/mcL Eosinophils # (0.0-0.6) K/mcL Basophils # (0.0-0.2) K/mcL Platelet Estimate (Normal) Sodium (136-145) mEq/L Potassium (3.5-5.1) mEq/L Chloride (98-107) mEq/L Carbon Dioxide (23-29) mEq/L BUN (8-23) mg/dL Creatinine (0.60-1.20) mg/dL Est GFR ( Amer) (> 60) Est GFR (Non-Af Amer) (> 60) BUN/Creatinine Ratio (6-26) Glucose (70-105) mg/dL Calculated Osmolality (280-300) Calcium (8.6-10.3) mg/dL Troponin I (< 0.04) ng/mL Stool Occult Bld Scrn Positive A (Negative) Specimen Rejected
[2018-02-24 14:31] LABS: Basophils % 0.8 %; Eosinophils # 0.1 K/mcL (0.0-0.6); Eosinophils % 3.4 %; Hematocrit 25.1 % (35.3-44.9); Hemoglobin 8.5 g/dL (11.5-15.4); Immature Granulocytes % 0.4 % (0-4); Lymphocytes # 0.2 K/mcL (0.6-4.6); Lymphocytes % 6.5 %; Mean Corpuscular HGB Conc 33.9 g/dL (31.6-35.5); Mean Corpuscular Hemoglobin 29.6 pg (28.0-33.3); Mean Corpuscular Volume 87.5 fL (83.0-100.0); Mean Platelet Volume 10.6 fL (9.4-12.4); Monocytes # 0.2 K/mcL (0.0-1.3); Monocytes % 8.4 %; Neutrophils # 2.1 K/mcL (1.6-8.9); Platelet Count 114 K/mcL (140-400); Red Blood Count 2.87 M/mcL (3.82-4.97); Segmented Neutrophils % 80.5 %
[2018-02-24 14:51] LABS: Platelet Estimate Slight Decrease (Normal)
[2018-02-24 14:54] LABS: BUN/Creatinine Ratio 9 (6-26); Blood Urea Nitrogen 11 mg/dL (8-23); Calcium 8.8 mg/dL (8.6-10.3); Carbon Dioxide 34 mEq/L (23-29); Chloride 94 mEq/L (98-107); Glucose 185 mg/dL (70-105); Osmolality,Calculated 276 (280-300); Potassium 4.9 mEq/L (3.5-5.1); Sodium 131 mEq/L (136-145); eGFR For Non-African Americans 45 (> 60)
[2018-02-24 14:55] LABS: Troponin I < 0.03 ng/mL (< 0.04)
--- NOTE | 2018-02-24 15:16 | Emergency Department Note ---
Disposition Clinical Impression: Dyspnea Qualifiers: Dyspnea type: dyspnea on exertion Qualified Code(s): R06.09 - Other forms of dyspnea Anemia Qualifiers: Anemia type: unspecified type Qualified Code(s): D64.9 - Anemia, unspecified Acute exacerbation of CHF (congestive heart failure) Qualifiers: Heart failure type: diastolic Qualified Code(s): I50.33 - Acute on chronic diastolic (congestive) heart failure GI bleed Qualifiers: Gastritis type: unspecified gastritis Disposition: Admitted As Inpatient Condition: Fair General Adult HPI - General Chief complaint: ED Shortness of Breath/Dyspnea Stated complaint: WILLIAM Time Seen by Provider: 02/24/18 14:11 Source: patient, EMS Limitations: no limitations - History of Present Illness Pain Scale: 7 - Related Data Home Medications Medication Instructions Recorded Confirmed Insulin ASPART [Novolog Flexpen] 2 - 12 unit SQ [facility] 09/24/14 02/07/18 Loratadine [Claritin] 10 mg PO DAILY 09/24/14 02/07/18 OxyCODONE Immed Rel [Roxicodone 10 10 mg PO Q6H PRN 09/24/14 02/07/18 MG] Oxygen 2.5 l NS AD 09/24/14 02/07/18 Albuterol Sulfate [Albuterol 2 puff IH Q4H PRN 08/20/15 02/07/18 Inhaler] Cholecalciferol (Vitamin D3) 10,000 unit PO FR 08/20/15 02/07/18 [Vitamin D3] Insulin Glargine,Hum.rec.anlog 8 - 25 unit SQ AD 08/20/15 02/07/18 [Lantus Solostar] Montelukast [Singulair] 10 mg PO DAILY 08/20/15 02/07/18 Temazepam [Restoril] 15 mg PO HS PRN 08/20/15 02/07/18 Guaifenesin [Mucinex] 600 mg PO BID PRN 06/11/16 02/07/18 EPINEPHrine [Epipen] 0.3 mg IM ONCE PRN 11/19/16 02/07/18 Ipratropium/Albuterol Sulfate 1 puff IH QID 11/19/16 02/07/18 [Combivent Respimat Inhal Rumsey] Cyanocobalamin (Vitamin B-12) 1,000 mcg PO DAILY 10/21/17 02/07/18 [Vitamin B12] Fenofibrate Nanocrystallized 160 mg PO QPM 10/21/17 02/07/18 [Triglide] Folic Acid 1 mg PO DAILY 10/21/17 02/07/18 Lactobacillus Combination No.8 1 cap PO DAILY 10/21/17 02/07/18 [Adult Probiotic] Levothyroxine Sodium [Levoxyl] 25 mcg PO DAILY 10/21/17 02/07/18 Nitroglycerin [Nitrostat] 0.4 mg SL AD 10/21/17 02/07/18 Omeprazole [PriLOSEC] 40 mg PO BID 10/21/17 02/07/18 Polyethylene Glycol 3350 [MiraLAX] 17 gm PO DAILY PRN 10/21/17 02/07/18 Simvastatin [Zocor] 20 mg PO HS 10/21/17 02/07/18 Ammonium Lactate [Isis-Hydrolac] 1 appl TP BID 02/07/18 02/07/18 Ascorbic Acid [Vitamin C] 500 mg PO DAILY 02/07/18 02/07/18 Calcium Carbonate [Tums] 1,000 mg PO DAILY 02/07/18 02/07/18 Fluticasone Propionate [Flovent 1 puff IN BID 02/07/18 02/07/18 Hfa] Lidocaine Patch [Lidoderm 5% patch] 1 patch TP DAILY 02/07/18 02/07/18 Ondansetron HCl [Zofran] 8 mg PO TID PRN 02/07/18 02/07/18 Tizanidine HCl 2 mg PO Q6H PRN 02/07/18 02/07/18 traZODone [TraZODone] 25 - 50 mg PO HS PRN 02/07/18 02/07/18 Previous Rx's Medication Instructions Recorded Azithromycin [Zithromax] 500 mg PO DAILY #2 tablet 02/12/18 Carvedilol [Coreg] 25 mg PO BIDWM #60 tablet 02/12/18 Cefdinir [Omnicef] 300 mg PO BID #6 capsule 02/12/18 Ferrous Sulfate 325 mg PO BIDWM #60 tablet 02/12/18 Lisinopril [Zestril] 30 mg PO DAILY #30 tablet 02/12/18 Simethicone [Gas-X] 80 mg PO TID PRN #15 tab.chew 02/12/18 Spironolactone [Aldactone] 50 mg PO DAILY #30 tablet 02/12/18 amLODIPine [Norvasc] 10 mg PO DAILY #30 tablet 02/12/18 cloNIDine HCl [CloNIDine HCl] 0.1 mg PO BID #60 tablet 02/12/18 Allergies Allergy/AdvReac Type Severity Reaction Status Date / Time baclofen Allergy Hallucinati Verified 02/07/18 17:03 ng cilostazol [From Pletal] Allergy Hallucinati Verified 02/07/18 17:03 ng Past Medical History - Past Medical History Medical history: Reports: asthma, CHF, COPD, coronary artery disease, CVA, GERD, hepatitis, hypertension, liver disease, myocardial infarction, renal disease, other Surgical history: Reports: appendectomy, , cholecystectomy, coronary bypass (CABG), hysterectomy, other Psychiatric history: Reports: depression - Social History Smoking Status: Former smoker Smokeless Tobacco Status: No Alcohol use: Reports: none Drug use: Reports: none Physical Exam - General Limitations: no limitations General appearance: alert, in no apparent distress Course Vital Signs Temperature 97.9 F 02/24/18 14:11 Pulse Rate 66 02/24/18 14:11 Respiratory Rate 20 02/24/18 14:11 Blood Pressure 115/59 02/24/18 14:11 O2 Sat by Pulse Oximetry 100 02/24/18 14:11 Temperature 97.9 F 02/24/18 14:11 Pulse Rate 66 02/24/18 15:53 Respiratory Rate 14 02/24/18 15:53 Blood Pressure 136/54 02/24/18 15:53 O2 Sat by Pulse Oximetry 100 02/24/18 15:53 Oxygen Delivery Oxygen Delivery Nasal Cannula Medical Decision Making - Lab Data Result diagrams: 02/24/18 14:15 02/24/18 14:15 Lab Results 02/24/18 02/24/18 02/24/18 Range/Units 14:15 14:15 14:15 WBC 2.6 L (4.3-11.1) K/mcL RBC 2.87 L (3.82-4.97) M/mcL Hgb 8.5 L (11.5-15.4) g/dL Hct 25.1 L (35.3-44.9) % MCV 87.5 (83.0-100.0) fL MCH 29.6 (28.0-33.3) pg MCHC 33.9 (31.6-35.5) g/dL RDW 16.0 H (11.5-14.5) % Plt Count 114 L (140-400) K/mcL MPV 10.6 (9.4-12.4) fL Immature Gran % 0.4 (0-4) % Seg Neutrophils % 80.5 % Lymphocytes % 6.5 % Monocytes % 8.4 % Eosinophils % 3.4 % Basophils % 0.8 % Neutrophils # 2.1 (1.6-8.9) K/mcL Lymphocytes # 0.2 L (0.6-4.6) K/mcL Monocytes # 0.2 (0.0-1.3) K/mcL Eosinophils # 0.1 (0.0-0.6) K/mcL Basophils # 0.0 (0.0-0.2) K/mcL Platelet Estimate Slight Decrease L (Normal) PT (9.4-12.1) Seconds INR Sodium 131 L (136-145) mEq/L Potassium 4.9 (3.5-5.1) mEq/L Chloride 94 L (98-107) mEq/L Carbon Dioxide 34 H (23-29) mEq/L BUN 11 (8-23) mg/dL Creatinine 1.19 (0.60-1.20) mg/dL Est GFR ( Amer) 55 L (> 60) Est GFR (Non-Af Amer) 45 L (> 60) BUN/Creatinine Ratio 9 (6-26) Glucose 185 H (70-105) mg/dL Calculated Osmolality 276 L (280-300) Calcium 8.8 (8.6-10.3) mg/dL Total Bilirubin 0.8 (0.3-1.0) mg/dL Direct Bilirubin 0.3 H (0.0-0.2) mg/dL Indirect Bilirubin 0.5 (0.0-1.2) mg/dL AST 21 (13-39) Units/L ALT 14 (7-52) Units/L Alkaline Phosphatase 74 (34-104) Units/L Troponin I < 0.03 (< 0.04) ng/mL B-Natriuretic Peptide 288 H (Less than 100) pg/mL Serum Total Protein 5.5 L (6.4-8.9) g/dL Albumin 3.3 L (3.5-5.7) g/dL Globulin 2.2 L (2.4-3.5) g/dL Albumin/Globulin Ratio 1.5 (1.1-2.2) Stool Occult Bld Scrn (Negative) Specimen Rejected Blood Type Antibody Screen 02/24/18 02/24/18 02/24/18 Range/Units 14:15 14:15 15:15 WBC (4.3-11.1) K/mcL RBC (3.82-4.97) M/mcL Hgb (11.5-15.4) g/dL Hct (35.3-44.9) % MCV (83.0-100.0) fL MCH (28.0-33.3) pg MCHC (31.6-35.5) g/dL RDW (11.5-14.5) % Plt Count (140-400) K/mcL MPV (9.4-12.4) fL Immature Gran % (0-4) % Seg Neutrophils % % Lymphocytes % % Monocytes % % Eosinophils % % Basophils % % Neutrophils # (1.6-8.9) K/mcL Lymphocytes # (0.6-4.6) K/mcL Monocytes # (0.0-1.3) K/mcL Eosinophils # (0.0-0.6) K/mcL Basophils # (0.0-0.2) K/mcL Platelet Estimate (Normal) PT 15.2 H (9.4-12.1) Seconds INR 1.4 Sodium (136-145) mEq/L Potassium (3.5-5.1) mEq/L Chloride (98-107) mEq/L Carbon Dioxide (23-29) mEq/L BUN (8-23) mg/dL Creatinine (0.60-1.20) mg/dL Est GFR ( Amer) (> 60) Est GFR (Non-Af Amer) (> 60) BUN/Creatinine Ratio (6-26) Glucose (70-105) mg/dL Calculated Osmolality (280-300) Calcium (8.6-10.3) mg/dL Total Bilirubin (0.3-1.0) mg/dL Direct Bilirubin (0.0-0.2) mg/dL Indirect Bilirubin (0.0-1.2) mg/dL AST (13-39) Units/L ALT (7-52) Units/L Alkaline Phosphatase (34-104) Units/L Troponin I (< 0.04) ng/mL B-Natriuretic Peptide (Less than 100) pg/mL Serum Total Protein (6.4-8.9) g/dL Albumin (3.5-5.7) g/dL Globulin (2.4-3.5) g/dL Albumin/Globulin Ratio (1.1-2.2) Stool Occult Bld Scrn Positive A (Negative) Specimen Rejected Hemolyzed Blood Type Antibody Screen 02/24/18 Range/Units 15:16 WBC (4.3-11.1) K/mcL RBC (3.82-4.97) M/mcL Hgb (11.5-15.4) g/dL Hct (35.3-44.9) % MCV (83.0-100.0) fL MCH (28.0-33.3) pg MCHC (31.6-35.5) g/dL RDW (11.5-14.5) % Plt Count (140-400) K/mcL MPV (9.4-12.4) fL Immature Gran % (0-4) % Seg Neutrophils % % Lymphocytes % % Monocytes % % Eosinophils % % Basophils % % Neutrophils # (1.6-8.9) K/mcL Lymphocytes # (0.6-4.6) K/mcL Monocytes # (0.0-1.3) K/mcL Eosinophils # (0.0-0.6) K/mcL Basophils # (0.0-0.2) K/mcL Platelet Estimate (Normal) PT (9.4-12.1) Seconds INR Sodium (136-145) mEq/L Potassium (3.5-5.1) mEq/L Chloride (98-107) mEq/L Carbon Dioxide (23-29) mEq/L BUN (8-23) mg/dL Creatinine (0.60-1.20) mg/dL Est GFR ( Amer) (> 60) Est GFR (Non-Af Amer) (> 60) BUN/Creatinine Ratio (6-26) Glucose (70-105) mg/dL Calculated Osmolality (280-300) Calcium (8.6-10.3) mg/dL Total Bilirubin (0.3-1.0) mg/dL Direct Bilirubin (0.0-0.2) mg/dL Indirect Bilirubin (0.0-1.2) mg/dL AST (13-39) Units/L ALT (7-52) Units/L Alkaline Phosphatase (34-104) Units/L Troponin I (< 0.04) ng/mL B-Natriuretic Peptide (Less than 100) pg/mL Serum Total Protein (6.4-8.9) g/dL Albumin (3.5-5.7) g/dL Globulin (2.4-3.5) g/dL Albumin/Globulin Ratio (1.1-2.2) Stool Occult Bld Scrn (Negative) Specimen Rejected Blood Type O POSITIVE Antibody Screen POSITIVE Critical Care Time Critical Care Time: No Attestation Statement - Attestation Attestation: I examined this patient and my medical decision-making was reviewed with the Resident Physician. I agree with the documented findings, disposition and treatment plan as described except to the extent set forth below. from last visit: Discharge Diagnosis (1) Shortness of breath Priority: Primary Status: Acute Assessment and Plan: Multifactorial. Symptomatic anemia/cardiac related, pulmonary related. Her shortness of breath is not better after 1 unit of PRC in hemoglobin has been 9.2 almost same on admission. Earlier had concern for COPD exacerbation with the rhonchi. Chest x-ray abnormal therefore consulted cotton gin yard supervisor who advise HRCT with no acute finding and he is stopped steroid as felt no need but will continue antibiotic with concern of underlying pneumonia especially history of cirrhosis-patient is also improving with better white count. Change to oral antibiotic Omnicef for total 7 days and Zithromax for total 5 days. Vascular congestion based on chest x-ray with raised BNP therefore IV Lasix 40 mg 1 given. Resumed Aldactone Better BNP no acute cardiac event suggestive -Troponin 2 has been negative with no acute ST-T wave changes in the EKG, atypical chest discomfort less likely cardiac rel ated but has CAD history-no chest discomfort. Echocardiogram 55-60% EF, mild concentric LVH, moderate LAD. continue beta joellen and a statin. D-dimer negative. Patient is back to her baseline shortness of breath (2) Hydroureter Priority: Primary Status: Acute Assessment and Plan: CT abdomen incidental finding with bilateral hydroureter worse on the left side due to VUR. Joseph catheter inserted with concern of urinary retention and also consulted urologists. Urologist reviewed CT and examined the patient in no active intervention advised. He is okay to discharge patient from urology sta ndpoint with follow-up outpatient to repeat outpatient ultrasound to confirm that the hydronephrosis has resolved or distal present. Would consider outpatient cystoscope the, retrograde pyelogram or ureteroscope be persistent. Discontinue Joseph catheter and patient had successful void trial (3) Chest pain Priority: Primary Status: Acute Assessment and Plan: Atypical chest discomfort no angina equivalent symptom but more likely GI discomfort with belching and lot of abdominal gas. continue beta joellen a statin and nitroglycerin when necessary. In the past, Patient was told to avoid anticoagulation therapy including aspirin due to GI bleed. Echocardiogram report as mentioned above (4) Symptomatic anemia Priority: Primary Status: Acute Assessment and Plan: Chronic anemia. Last hemoglobin 8.3 on 1122 2017 and had 2 unit PRC. Multifactorial, iron deficiency versus CK D. History of blood transfusion and iron infusion in the past. Under care of hermatologist with recent bone marrow biopsy on January 2018 that was unremarkable as per the digester capper note. CGs is still pending from the bone marrow and will be followed on OPD basis. Patient will follow Dr. Bernard on on OPD basis One unit PRC was transfused during this admission. Stable hemoglobin. Repeat the stool occult test positive but no visible active bleeding. Consulted GI specialist. (5) Acute kidney injury superimposed on chronic kidney disease Priority: Primary Status: Acute Assessment and Plan: Normal creatinine level today. Baseline creatinine 1.4. Last creatinine 1.1 on 02/01/2018. History of CK D3. Continue to monitor BMP. Avoid nephrotoxic drug. Patient follows plate maker zinc on OPD basis. (6) Anemia, iron deficiency Priority: Secondary Status: Chronic Assessment and Plan: Had IV iron infusion in the past. Continue oral iron supplement. Qualifiers: Iron deficiency anemia type: unspecified iron deficiency Qualified Code(s): D50.9 - Iron deficiency anemia, unspecified (7) COPD (chronic obstructive pulmonary disease) Priority: Primary Status: Chronic Assessment and Plan: Possible exacerbation as mentioned above. Back to baseline. Patient is on home oxygen 2 L by nasal cannula. Qualifiers: COPD type: unspecified COPD Qualified Code(s): J44.9 - Chronic obstructive pulmonary disease, unspecified (8) Cirrhosis Priority: Secondary Status: Chronic Assessment and Plan: Due to hepatitis C. With portal hypertension. Completed the course of sobosvir in 2016. Has been under care of Dr. Morales. Get intermittent paracentesis but not frequently. Will discharge patient on increased dose of Aldactone 50 mg daily. Patient takes Aldactone 25 mg when necessary. Follow-up GI specialist on OPD basis Qualifiers: Hepatic cirrhosis type: unspecified hepatic cirrhosis Ascites presence: with ascites Qualified Code(s): K74.60 - Unspecified cirrhosis of liver; R18.8 - Other ascites (9) DM2 (diabetes mellitus, type 2) Priority: Secondary Status: Chronic Assessment and Plan: Has been fluctuant lately as patient was not eating and off. Has been taking low-dose or none insulin at home. Better blood glucose level therefore will discharge her on Levemir 14 units subcutaneous daily .Hemoglobin A1c 5.9. Diabetic diet . Qualifiers: Diabetes mellitus intermediate insulin use: with intermediate use Diabetes mellitus complication status: with kidney complications Diabetes mellitus complication detail: with chronic kidney disease Chronic kidney disease stage: stage 3 (moderate) Qualified Code(s): E11.22 - Type 2 diabetes mellitus with diabetic chronic kidney disease; N18.3 - Chronic kidney disease, stage 3 (moderate); Z79.4 - skilled nursing (current) use of insulin (10) CKD (chronic kidney disease), stage III Priority: Secondary Status: Chronic Assessment and Plan: Continue to monitor. Avoid nephrotoxic drug. Patient follow plate maker zinc Dr. Valdovinos outpatient (11) Hypertension Priority: Primary Status: Acute Assessment and Plan: Better controlled blood pressure after adjusting antihypertensive medicine as mentioned. Continue Raised Coreg 25 mg by mouth twice a day and continue amlodipine 10 mg daily. Increased clonidine 0.1 mg twice a day, increased Aldactone 50 mg daily, increased lisinopril 30 mg daily. Close monitoring of BP and further adjustment in medicine as per PCP. Qualifiers: Hypertension type: essential hypertension Qualified Code(s): I10 - Essential (primary) hypertension (12) Generalized weakness Priority: Primary Status: Acute Assessment and Plan: Most likely due to above . Consulted physiotherapist-recommended to go home on home health. pressroom worker on board. (13) Pancytopenia Priority: Primary Status: Acute Assessment and Plan: Resolved. Follow-up with digester capper on OPD basis (14) Abdominal pain Priority: Primary Status: Acute Assessment and Plan: Patient has chronic Epigastric and left upper quadrant pain that was slightly worse during admission. No acute finding and CT scanned and no acute abdomen. Patient has been tolerating oral diet and good bowel movement. Patient has this pain due to scar tissue secondary to previous abdominal surgeries. GI specialist also evaluated and to discharge from gi standpoint. Lipase normal. Hemoccult positive. Consulted GI specialist as patient has multiple GI issues and multiple scope in the past and has been under care of GI specialist Dr. jackson. No acute abdomen finding. Upper GI endoscopy done on January [id number] with finding of grade 1 esophageal varices, portal hypertension gastropathy, single recent bleeding angiodysplastic lesion got treated with monopolar probe-recommended to follow outpatient in 2 weeks. Qualifiers: Abdominal location: generalized Qualified Code(s): R10.84 - Generalized abdominal pain Hospital course: Ms. Kimble is a 68 year old female patient got admitted for shortness of breath and epigastric with left upper quadrant pain. Patient had extensive workup. Please see details in diagnosis section of discharge summary. Patient is being discharged home with home health care. At the time of discharge patient is hemodynamically stable, tolerating oral diet, ambulating with a stable vitals. pt here today for increasing sob, leg swelling. on home O2. Pulm tx's at home. no improvement. no smoking. vss; afebrile CBC shows worsening anemia again. grossly neg rectal exam for blood. will send off to lab for FOBT. anticipate admission again for all the above issues.
[2018-02-24] MEDS ORDERED: Famotidine 20 MG/2 ML VIAL IVP ONE (15:39)
[2018-02-24] MEDS ORDERED: Pantoprazole 40 MG VIAL IVP ONE (15:44)
[2018-02-24 15:56] LABS: Alanine Aminotransferase 14 Units/L (7-52); Albumin 3.3 g/dL (3.5-5.7); Albumin/Globulin Ratio 1.5 (1.1-2.2); Alkaline Phosphatase 74 Units/L (34-104); Aspartate Amino Transferase 21 Units/L (13-39); Bilirubin,Direct 0.3 mg/dL (0.0-0.2); Bilirubin,Indirect 0.5 mg/dL (0.0-1.2); Bilirubin,Total 0.8 mg/dL (0.3-1.0); Globulin 2.2 g/dL (2.4-3.5); Total Protein 5.5 g/dL (6.4-8.9)
[2018-02-24 16:00] LABS: INR 1.4; Prothrombin Time 15.2 Seconds (9.4-12.1)
--- NOTE | 2018-02-24 18:02 | Internal Med History&Physical ---
Date of Encounter: 02/24/18 Time of Encounter: 17:46 Internal Medicine - H&P: HPI Chief complaint: leg swelling Admitted From: Home Plans for Post Hospital Care: Home History of present illness: Ms. Kimble is a 68 year old female with past medical history of HTN, ACS, triple bypass, CAD, HLD, CKD stage III, Liver cirrhosis, Hepatitis C due to blood transfusion (pt states resolved), COPD, dilated CBD acquired, Iron deficiency anemia, recurrent blood transfusions, Hx AVM's ad prior GI bleed. Pt was admitted 02/08/2018 and discharged 02/12/2018 after management for SOB and symptomatic anemia. At that time she had received 2 units of PRBC for hgb of 8.3. Hgb at discharge was 10.9. Pt states she has been having progressive increase in LE edema. She admits to being on Lasix and is also on aldactone. Pt reports dark stools and son, who was also presents, states she has had recurrent blood transfusions. Pt also reports progressive SOB. She is a former smoker with COPD and has chronic respiratory failure. In ED WBC 2.6, Hgb 8.5, hct plt 114. PT 15.2, INR 1.4 Na 131, K 4.9, BUN 11, Cr 1.19. Albumin 3.3. Stool occult positive. Chest x ray XR/XR chest 1V portable IMPRESSION: 1. Bibasilar atelectasis with small effusions. 2. Status post CABG. CODE: FULL Past Med Surg Social Fam HX - Past Medical History Medical history: asthma, CHF, COPD, coronary artery disease, CVA, diabetes, GERD, hepatitis, hypertension, liver disease, myocardial infarction, renal disease Additional medical history: Chronic back pain Psychiatric history: no psych history - Past Surgical History Surgical History: appendectomy, , cholecystectomy, coronary bypass (CABG), hysterectomy, other Additional surgical history: growth removed - Social History Smoking Status: Former smoker Smokeless Tobacco Status: No Alcohol use: none Drug use: none - Family History Mother Living Status: Hx Family Cardiac Disorders: Yes (triple bypass) Hx Family Endocrine Disorder: Yes Father Living Status: Hx Family Cardiac Disorders: Yes Hx Family Endocrine Disorder: Yes Internal Medicine - H&P: Meds Insulin ASPART [Novolog Flexpen] 2 - 12 unit SQ [facility] 09/24/14 [History] Loratadine [Claritin] 10 mg PO DAILY 09/24/14 [History] OxyCODONE Immed Rel [Roxicodone 10 MG] 10 mg PO Q6H PRN 09/24/14 [History] Oxygen 2.5 l NS AD 09/24/14 [History] Albuterol Sulfate [Albuterol Inhaler] 2 puff IH Q4H PRN 08/20/15 [History] Cholecalciferol (Vitamin D3) [Vitamin D3] 10,000 unit PO FR 08/20/15 [History] Montelukast [Singulair] 10 mg PO DAILY 08/20/15 [History] Guaifenesin [Mucinex] 600 mg PO BID PRN 06/11/16 [History] EPINEPHrine [Epipen] 0.3 mg IM ONCE PRN 11/19/16 [History] Ipratropium/Albuterol Sulfate [Combivent Respimat Inhal [place]] 1 puff IH QID 07/01 [History] Cyanocobalamin (Vitamin B-12) [Vitamin B12] 1,000 mcg PO DAILY 10/21/17 [History] Fenofibrate Nanocrystallized [Triglide] 160 mg PO QPM 10/21/17 [History] Folic Acid 1 mg PO DAILY 10/21/17 [History] Lactobacillus Combination No.8 [Adult Probiotic] 1 cap PO DAILY 10/21/17 [History] Levothyroxine Sodium [Levoxyl] 25 mcg PO DAILY 10/21/17 [History] Nitroglycerin [Nitrostat] 0.4 mg SL AD 10/21/17 [History] Omeprazole [PriLOSEC] 40 mg PO BID 10/21/17 [History] Polyethylene Glycol 3350 [MiraLAX] 17 gm PO DAILY PRN 10/21/17 [History] Simvastatin [Zocor] 20 mg PO HS 10/21/17 [History] Ammonium Lactate [Isis-Hydrolac] 1 appl TP BID 02/07/18 [History] Ascorbic Acid [Vitamin C] 500 mg PO DAILY 02/07/18 [History] Calcium Carbonate [Tums] 1,000 mg PO DAILY 02/07/18 [History] Fluticasone Propionate [Flovent Hfa] 1 puff IN BID 02/07/18 [History] Lidocaine Patch [Lidoderm 5% patch] 1 patch TP DAILY 02/07/18 [History] Ondansetron HCl [Zofran] 8 mg PO TID PRN 02/07/18 [History] Tizanidine HCl 2 mg PO Q6H PRN 02/07/18 [History] traZODone [TraZODone] 25 - 50 mg PO HS PRN 02/07/18 [History] Carvedilol [Coreg] 25 mg PO BIDWM #60 tablet 02/12/18 [Rx] Ferrous Sulfate 325 mg PO BIDWM #60 tablet 02/12/18 [Rx] Lisinopril [Zestril] 30 mg PO DAILY #30 tablet 02/12/18 [Rx] Simethicone [Gas-X] 80 mg PO TID PRN #15 tab.chew 02/12/18 [Rx] Spironolactone [Aldactone] 50 mg PO DAILY #30 tablet 02/12/18 [Rx] amLODIPine [Norvasc] 10 mg PO DAILY #30 tablet 02/12/18 [Rx] cloNIDine HCl [CloNIDine HCl] 0.1 mg PO BID #60 tablet 02/12/18 [Rx] Ipratropium/Albuterol Neb [Duoneb] 3 ml IH Q6HR 02/24/18 [History] Ranitidine HCl [Acid [employer]] 150 mg PO QPM 02/24/18 [History] 3 Allergy/AdvReac Type Severity Reaction Status Date / Time baclofen Allergy Hallucinati Verified 02/07/18 17:03 ng cilostazol [From Pletal] Allergy Hallucinati Verified 02/07/18 17:03 ng All Systems PM: A 10-system review of systems was performed and is negative for pertinent findings except as documented above in the HPI. - Constitutional Vitals: Temp Pulse Resp BP Pulse Ox 98.4 F 72 16 147/62 93 02/24/18 16:45 02/24/18 16:45 02/24/18 16:45 02/24/18 16:45 02/24/18 16:45 General appearance: Present: A&O X 3, no acute distress Exam: . - Head Head exam: Present: atraumatic, normocephalic - Eye Eye exam: Present: PERRL, conjuntiva pink, sclera anicteric Pupils: Present: PERRL - Neck Neck exam general surgery: Present: supple, trachea midline. Absent: lymphadenopathy - Respiratory Respiratory exam: Present: wheezes. Absent: accessory muscle use, rales, rhonchi Additional comments: crackles B/L bases - Cardiovascular Cardiovascular exam: Present: RRR, +S1, +S2. Absent: diastolic murmur, gallop, rubs, systolic murmur - GI/Abdominal GI/Abdominal exam: Present: normal bowel sounds, soft, no peritoneal signs. Absent: distended, tenderness - Extremities Exam Extremities exam: Present: pedal edema, warm, radial pulses palpable and symmetrical. Absent: calf tenderness, cyanotic - Neurological Exam Neurological exam: Present: CN II-XII intact, oriented X3, no focal deficits. Absent: pronater drift, facial droop, speech deficit - Skin Skin exam: Present: dry, intact Internal Med - H&P Results - Labs CBC & Chem 7: 02/24/18 14:15 02/24/18 14:15 Labs: Short CBC 02/24/18 Range/Units 14:15 WBC 2.6 L (4.3-11.1) K/mcL Hgb 8.5 L (11.5-15.4) g/dL Hct 25.1 L (35.3-44.9) % Plt Count 114 L (140-400) K/mcL Neutrophils # 2.1 (1.6-8.9) K/mcL BMP 02/24/18 14:15 Sodium 131 L Potassium 4.9 Chloride 94 L Carbon Dioxide 34 H BUN 11 Creatinine 1.19 Glucose 185 H Calcium 8.8 Cardiac Enzymes 02/24/18 Range/Units 14:15 Troponin I < 0.03 (< 0.04) ng/mL Liver Function 02/24/18 Range/Units 14:15 Total Bilirubin 0.8 (0.3-1.0) mg/dL Direct Bilirubin 0.3 H (0.0-0.2) mg/dL AST 21 (13-39) Units/L ALT 14 (7-52) Units/L Alkaline Phosphatase 74 (34-104) Units/L Albumin 3.3 L (3.5-5.7) g/dL - Impressions ITS Impressions Chest X-Ray 02/24/18 14:15 IMPRESSION: 1. Bibasilar atelectasis with small effusions. 2. Status post CABG. D/ / 02/24/2018 14:54:32 Nereyda Shore MD / stan Interpreting Provider: Nereyda Shore MD - Assessment and plan (1) GI bleed Current Visit: Yes Status: Acute Assessment and plan: Pt has hx of AVMs and recurrent transfusions in the past. H/H Q6 and GI consult in am. Protonix IV. Qualifiers: Gastritis type: unspecified gastritis Qualified Code(s): K29.71 - Gastritis, unspecified, with bleeding (2) Anemia Current Visit: Yes Status: Chronic Assessment and plan: Multifactorial due to hx of known iron def anemia, CKD, and liver cirrhosis. Will monitor H/H Q 6H. Pt undergoing workup by oncology out pt. Resumed, Iron, vitamin B12 supplements. Will type and screen but hold off on transfusion for now. Will consult GI in am or sooner if hgb drops Qualifiers: Anemia type: unspecified type Qualified Code(s): D64.9 - Anemia, unspecified (3) Volume overload Current Visit: Yes Status: Acute Assessment and plan: Multi-factorial. Hx of CHF of unknown type and liver cirrhosis. Will give lasix IV and resume home aldactone. Will monitor fluid status, dialy I and O's, weights, and low sodium diet. Qualifiers: Qualified Code(s): E87.70 - Fluid overload, unspecified (4) Chronic respiratory failure with hypoxia Current Visit: No Status: Chronic Assessment and plan: Pt is on 3L NC of oxygen at home. (5) CKD (chronic kidney disease), stage III Current Visit: No Status: Chronic Assessment and plan: Will monitor renal function daily. (6) DM2 (diabetes mellitus, type 2) Current Visit: No Status: Chronic Assessment and plan: SSI and monitor glucose. Qualifiers: Diabetes mellitus watermaster insulin use: with watermaster use Diabetes mahin itus complication status: with kidney complications Diabetes mellitus com plication detail: with chronic kidney disease Chronic kidney disease stage: stage 3 (moderate) Qualified Code(s): E11.22 - Type 2 diabetes mellitus with diabetic chronic kidney disease; N18.3 - Chronic kidney disease, stage 3 (moderate); Z79.4 - halfway (current) use of insulin (7) CAD (coronary artery disease) Current Visit: No Status: Chronic Assessment and plan: s/p triple bypass. On Simvastatin Cannot take any ASA, plavixx or anticoag due to hx of AVM's and GI bleed Qualifiers: [place] vs. transplanted heart: unspecified whether [place] or transplanted heart Qualified Code(s): I25.10 - Atherosclerotic heart disease of [place] coronary artery without angina pectoris - Time Spent With Patient Total time spent is greater than 50% in coordination of care (as documented) at patient's floor/unit and/or counseling patient: 25 - 35 minutes
[2018-02-24] MEDS ORDERED: Naloxone 0.4 MG/ML INJ IVP PRN (18:06)
[2018-02-24] MEDS ORDERED: Acetaminophen 325 MG TABLET PO PRN (18:06)
[2018-02-24] MEDS ORDERED: Ondansetron 4 MG/2 ML VIAL IVP PRN (18:06)
[2018-02-24] MEDS ORDERED: traZODone 50 MG TABLET PO PRN (18:11)
[2018-02-24] MEDS ORDERED: *HR* EPINEPHrine 1 MG/ML AMPUL IM PRN (18:11)
[2018-02-24] MEDS ORDERED: Nitroglycerin 0.4 MG TAB.SUBL SL SCH (18:15)
[2018-02-24] MEDS ORDERED: D5% in Water 1,000 ML IVC PRN (18:18)
[2018-02-24] MEDS ORDERED: *HR* Dextrose 50 % in Water (Syg) 50 ML SYRINGE IVP PRN (18:19)
[2018-02-24] MEDS ORDERED: Dextrose Gel 15 GM/37.5 ML TUBE PO PRN ×2 (18:19)
[2018-02-24 18:41] LABS: Hematocrit 23.7 % (35.3-44.9); Hemoglobin 8.3 g/dL (11.5-15.4)
[2018-02-24] MEDS ORDERED: Nitroglycerin 0.4 MG TAB.SUBL SL PRN (18:53)
[2018-02-24] MEDS ORDERED: Ipratropium/Albuterol Neb 3 ML IH SCH (19:00)
--- NOTE | 2018-02-24 19:37 | Electrocardiograph Report ---
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
[2018-02-24] MEDS: Simethicone 80 MG TAB.CHEW PO PRN (19:57)
[2018-02-24] MEDS: Furosemide 20 MG/2 ML VIAL IVP SCH (19:58)
[2018-02-24] MEDS: tiZANidine 4 MG TABLET PO PRN (19:58)
[2018-02-24] MEDS ORDERED: NON-FORMULARY MEDICATION 1 EACH EACH (Ipratropium/Albuterol Sulfate [Combivent Respimat In IH SCH (21:00)
[2018-02-24] MEDS ORDERED: NON-FORMULARY MEDICATION 1 EACH EACH (Omeprazole [Prilosec] 40 MG) PO SCH (21:00)
[2018-02-24] MEDS: Ipratropium/Albuterol Neb 3 ML IH SCH (21:17)
[2018-02-24] MEDS: cloNIDine HCl 0.1 MG TABLET PO SCH (21:40)
[2018-02-25 00:58] LABS: Calcium 8.8 mg/dL (8.6-10.3); Hematocrit 23.8 % (35.3-44.9); Potassium 4.2 mEq/L (3.5-5.1)
[2018-02-25] MEDS: Ipratropium/Albuterol Neb 3 ML IH SCH ×4 (04:10→21:25)
[2018-02-25] MEDS: Pantoprazole 40 MG VIAL IVP SCH ×2 (05:27→16:53)
[2018-02-25] MEDS: Levothyroxine 25 MCG TABLET PO SCH (05:27)
[2018-02-25] MEDS: tiZANidine 4 MG TABLET PO PRN ×2 (05:29→14:55)
[2018-02-25 07:20] LABS: Hematocrit 24.3 % (35.3-44.9); Hemoglobin 8.3 g/dL (11.5-15.4)
[2018-02-25] MEDS: Insulin LISPRO 300 UNITS/3 ML VIAL SQ SCH ×4 (07:32→16:53)
[2018-02-25] MEDS: Furosemide 20 MG/2 ML VIAL IVP SCH ×2 (07:35→16:53)
[2018-02-25] MEDS: Loratadine 10 MG TABLET PO SCH (07:36)
[2018-02-25] MEDS: Spironolactone 25 MG TABLET PO SCH (07:36)
[2018-02-25] MEDS: cloNIDine HCl 0.1 MG TABLET PO SCH ×2 (07:36→19:53)
[2018-02-25] MEDS: Cholecalciferol (D-3) 1,000 UNIT TABLET PO SCH (07:37)
[2018-02-25] MEDS: Lactobacillus 1 EACH CAP.SPRINK PO SCH (07:37)
[2018-02-25] MEDS: Cyanocobalamin (B-12) 1,000 MCG TABLET PO SCH (07:37)
[2018-02-25] MEDS: Folic Acid 1 MG TABLET PO SCH (07:37)
[2018-02-25] MEDS: amLODIPine 5 MG TABLET PO SCH (07:37)
[2018-02-25] MEDS: Lisinopril 20 MG TABLET PO SCH (07:38)
[2018-02-25] MEDS: MOMETASONE FUROATE 100 mcg Inhaler IH SCH (09:42)
[2018-02-25] MEDS: *HR* OxyCODONE Immed Rel 5 MG TABLET PO PRN (12:25)
[2018-02-25] MEDS: Simethicone 80 MG TAB.CHEW PO PRN ×2 (12:25→20:54)
--- NOTE | 2018-02-25 12:26 | Gastroenterology Consult Note ---
<[place] - Last Filed: 02/25/18 12:24> Date of Encounter: 02/25/18 Time of Encounter: 12:15 - Assessment and plan (1) Anemia Current Visit: Yes Status: Chronic Assessment and plan: 68 -year-old female with a history of chronic anemia. She is status post extensive workup including EGD, colonoscopy, and capsule endoscopy. Last EGD was February 10 that showed a recently bleeding angiodysplastic lesion. rectal exam was performed per Dr. Guzmán , she had dark brown stool in the rectum. No bleeding or tarry stool noted. Hemoglobin is currently stable. Would recommend efeedinghemoglobin at 6 PM today then monitoring H&H daily, transfuse if less than 7. Qualifiers: Anemia type: unspecified type Qualified Code(s): D64.9 - Anemia, unspecified (2) Cirrhosis Current Visit: No Status: Chronic Qualifiers: Hepatic cirrhosis type: unspecified hepatic cirrhosis Ascites presence: with ascites Qualified Code(s): K74.60 - Unspecified cirrhosis of liver; R18.8 - Other ascites - Time Spent With Patient Total time spent is greater than 50% in coordination of care (as documented) at patient's floor/unit and/or counseling patient: GI History of Present Illness - Data of Consult Patient: known to practice within the last 3 years Consult date: 02/25/18 Requesting Physician: Paxton Adler MD - Consult Narrative Reason for consult: anemia History of present illness: Ms. Kimble is a 68 year old female with PMHx of asthma, CHF, COPD, CAD s/p CABG, CVA, GERD, hepatitis C s/p treatment with Harvoni in May 2015, HTN, cirrhosis, [place], and chronic anemia. She presented to the hospital with complaints of increased shortness of breath and bilateral lower extremity edema. Pt was admitted 02/08/2018 and discharged 02/12/2018 after management for SOB and symptomatic anemia. At that time she had received 2 units of PRBC for hgb of 8.3. Hgb at discharge was 10.9. Pt states she has been having progressive increase in LE edema. She admits to being on Lasix and is also on aldactone. Pt reports black and green stools at home. She is on a daily iron supplement. Pt also reports progressive SOB. She is a former smoker with COPD and has chronic respiratory failure. Who presented to the hospital with complains of upper abdominal pain and dark tarry stools. Patient had EGD Oct 2017 which showed 2 recently bleeding AVMs which were treated with APC. On admission Hgb 9.2 and has received 1 unit PRBC. Today Hgb 11.4. Fecal occult blood test was positive. She reports occasional diarrhea, she denies any nausea or vomiting. She denies any hematochezia or hemetemesis. She admits to a recent fall at home. Procedures: EGD 02/10/18 Grade I esophageal varices, portal hypertensive gastropathy, single bleeding angiodysplastic lesion in the stomach, treated with apc, normal duodenum. EGD 10/21/2017 Dr. Guzmán: Four non-bleeding AVMs in stomach, treated with APC. Two recently bleeding AVMs in duodenum, treated with APC. Capsule endoscopy 10/07/2017: 3 AVMs in duodenal bulb. Colonoscopy 11/24/2016 Dr. Mckee: Normal NSAIDs: None Anticoagulation: None Past Med Surg Social Fam HX - Past Medical History Medical history: asthma, CHF, COPD, coronary artery disease, CVA, diabetes, GERD, hepatitis, hypertension, liver disease, myocardial infarction, renal disease Additional medical history: Chronic back pain Psychiatric history: no psych history - Past Surgical History Surgical History: appendectomy, , cholecystectomy, coronary bypass (CABG), hysterectomy, other Additional surgical history: growth removed - Social History Smoking Status: Former smoker Smokeless Tobacco Status: No Alcohol use: none Drug use: none - Family History Father Living Status: Hx Family Cardiac Disorders: Yes Hx Family Endocrine Disorder: Yes Mother Living Status: Hx Family Cardiac Disorders: Yes (triple bypass) Hx Family Endocrine Disorder: Yes Review of Systems: GI: as per [place] GENERAL: denies fever, has some chills EYES: denies yellow discoloration ENT: denies pain with swallowing or difficulty swallowing CARDIO: denies chest pain, palpitations RESP: Increased Shortness of breath with exertion : denies change in color of urine NEURO: increased weakness, recent fall at home HEME: bruising MS: back and joint pain DERM: denies rash or itching PSYCH: Denies history of anxiety or depression - Constitutional Vitals: Temp Pulse Resp BP Pulse Ox 97.7 F 81 18 130/51 93 02/25/18 11:16 02/25/18 11:16 02/25/18 11:16 02/25/18 11:16 02/25/18 11:16 Exam: CONSTITUTIONAL:alert, no acute distress.HEAD:normocephalic.EYES:no jaundice.NECK:no obvious swelling.HEART:regular rate and rhythm, no murmurs.LUNGS:bilateral poor air entry.ABDOMEN:non distended, soft, generalized tenderness, liver is palpable, bruising noted around umbilicus.RECTAL EXAM:Deferred.EXTREMITIES:no clubbing, cyanosis, 1-2+ BLE edema, large bruise noted to right hip.SKIN:no stigmata of chronic liver disease, pallor noted.NEUROLOGIC:no obvious focal defect. Results - Labs CBC & Chem 7: 02/25/18 06:54 02/25/18 00:18 Labs: Last Result Calcium 8.8 mg/dL (8.6-10.3) 02/25/18 00:18 Troponin I < 0.03 ng/mL (< 0.04) 02/24/18 14:15 Entire Visit Hgb 8.3 g/dL (11.5-15.4) L 02/25/18 06:54 Hct 24.3 % (35.3-44.9) L 02/25/18 06:54 PT 15.2 Seconds (9.4-12.1) H 02/24/18 14:15 Total Bilirubin 0.8 mg/dL (0.3-1.0) 02/24/18 14:15 AST 21 Units/L (13-39) 02/24/18 14:15 ALT 14 Units/L (7-52) 02/24/18 14:15 - ABG ABG results: PT/INR, D-dimer PT 15.2 Seconds (9.4-12.1) H 02/24/18 14:15 - Impressions Impressions Chest X-Ray 02/24/18 14:15 IMPRESSION: 1. Bibasilar atelectasis with small effusions. 2. Status post CABG. D/ / 02/24/2018 14:54:32 Nereyda Shore MD / stan Interpreting Provider: Nereyda Shore MD Consult Discharge Plan - Plan Referrals: Man Eubanks MD [Primary Care Provider] - Prescriptions: Furosemide [Lasix] 20 mg PO 3XW 15 Days #15 tablet <Magy Guzmán - Last Filed: 02/28/18 14:58> Date of Encounter: 02/25/18 - Time Spent With Patient Total time spent is greater than 50% in coordination of care (as documented) at patient's floor/unit and/or counseling patient: GI History of Present Illness - Data of Consult Requesting Physician: Paxton Adler MD - Consult Narrative History of present illness: Ms. Kimble is a 68 year old female - Constitutional Vitals: Temp Pulse Resp BP Pulse Ox 98.5 F 82 16 162/66 99 02/28/18 08:16 02/28/18 08:16 02/28/18 10:43 02/28/18 08:16 02/28/18 10:43 Results - Labs CBC & Chem 7: 02/27/18 05:36 02/28/18 05:09 Labs: Last Result Calcium 8.8 mg/dL (8.6-10.3) 02/28/18 05:09 Troponin I < 0.03 ng/mL (< 0.04) 02/24/18 14:15 Entire Visit Hgb 8.7 g/dL (11.5-15.4) L 02/27/18 05:36 Hct 26.0 % (35.3-44.9) L 02/27/18 05:36 PT 15.2 Seconds (9.4-12.1) H 02/24/18 14:15 Total Bilirubin 0.8 mg/dL (0.3-1.0) 02/24/18 14:15 AST 21 Units/L (13-39) 02/24/18 14:15 ALT 14 Units/L (7-52) 02/24/18 14:15 - ABG ABG results: PT/INR, D-dimer PT 15.2 Seconds (9.4-12.1) H 02/24/18 14:15 - Attending Attestation I have personally performed a face to face evaluation on this patient. I have reviewed and agree with the care plan. History and Exam by me shows: Pt seen.patient with a history of blood loss anemia due to AVM in the small bowel and multiple scope done in the past including capsule endoscopy at this point her rectal examination shows brown stool. Hemoglobin is relatively stable. Rec: F/U With GI as an outpatient follow H&H no need for endoscopy at this point
--- NOTE | 2018-02-25 14:22 | Internal Med Progress Note ---
Hospitalist Progress Note - Encounter Date of Encounter: 02/25/18 Time of Encounter: 14:22 - Subjective Interval History: Pt states LE edema improved today. She also states SOB improved. She denies chest pain. She denies fever, chills, N/V or diarrhea. - Exam Vitals: Temp Pulse Resp BP Pulse Ox 97.7 F 81 18 130/51 93 02/25/18 11:16 02/25/18 11:16 02/25/18 11:16 02/25/18 11:16 02/25/18 11:16 Exam: . - Assessment and Plan (1) Volume overload Current Visit: Yes Status: Acute Assessment and Plan: Multi-factorial. Hx of CHF of unknown type and liver cirrhosis. Will continue Lasix 20 mg IV BID and resumed home Aldactone. Slowly improving. Will monitor fluid status, daily I and O's daily weights, and low sodium diet. (2) GI bleed Current Visit: Yes Status: Acute Assessment and Plan: Pt has hx of AVMs and recurrent transfusions in the past. H/H Q6 ordered and last hgb 8.3. Protonix IV BID will switch to PO. GI consulted and per GI, pt is s/p extensive workup including EGD, colonoscopy, and capsule endoscopy. Procedures: EGD 02/10/18 Grade I esophageal varices, portal hypertensive gastropathy, single bleeding angiodysplastic lesion in the stomach, treated with apc, normal duodenum. EGD 10/21/2017 Dr. Guzmán: Four non-bleeding AVMs in stomach, treated with APC. Two recently bleeding AVMs in duodenum, treated with APC. Capsule endoscopy 10/07/2017: 3 AVMs in duodenal bulb. Colonoscopy 11/24/2016 Dr. Mckee: Normal. Continue on PPI No NSAIDs No Anticoagulation (3) Anemia Current Visit: Yes Status: Chronic Assessment and Plan: Multifactorial due to hx of known iron def anemia, CKD, and liver cirrhosis. Will monitor H/H Q 6H. Pt undergoing workup by oncology out pt. Resumed, Iron, vitamin B12 supplements. Will type and screen but hold off on transfusion for now. Will consult GI in am or sooner if hgb drops (4) Chronic respiratory failure with hypoxia Current Visit: No Status: Chronic Assessment and Plan: Pt is on 3L NC of oxygen at home. (5) CKD (chronic kidney disease), stage III Current Visit: No Status: Chronic Assessment and Plan: Will monitor renal function daily. (6) DM2 (diabetes mellitus, type 2) Current Visit: No Status: Chronic Assessment and Plan: SSI and monitor glucose. (7) CAD (coronary artery disease) Current Visit: No Status: Chronic Assessment and Plan: s/p triple bypass. On Simvastatin Cannot take any ASA, plavix or anticoagulation due to hx of AVM's and GI bleed DVT Prophylaxis: SCD - Summary of Assessment and Plan Summary of Assessment and Plan: History of present illness: Dr. 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 Kimble is a 68 year old female with past medical history of HTN, ACS, triple bypass, CAD, HLD, CKD stage III, Liver cirrhosis, Hepatitis C due to blood transfusion (pt states resolved), COPD, dilated CBD acquired, Iron deficiency anemia, recurrent blood transfusions, Hx AVM's ad prior GI bleed. Pt was admitted 02/08/2018 and discharged 02/12/2018 after management for SOB and symptomatic anemia. At that time she had received 2 units of PRBC for hgb of 8.3. Hgb at discharge was 10.9. Pt states she has been having progressive increase in LE edema. She admits to being on Lasix and is also on aldactone. Pt reports dark stools and son, who was also presents, states she has had recurrent blood transfusions. Pt also reports progressive SOB. She is a former smoker with COPD and has chronic respiratory failure. - Time Spent with Patient Total time spent is greater than 50% in coordination of care (as documented) at patient's floor/unit and/or counseling patient: less than 15 minutes Plan of Care Discussed with: patient Internal Medicine: Result - Labs CBC & Chem 7: 02/25/18 06:54 02/25/18 00:18 Labs: Short CBC 02/24/18 02/24/18 02/25/18 Range/Units 14:15 18:30 00:18 WBC 2.6 L (4.3-11.1) K/mcL Hgb 8.5 L 8.3 L 8.0 L (11.5-15.4) g/dL Hct 25.1 L 23.7 L 23.8 L (35.3-44.9) % Plt Count 114 L (140-400) K/mcL Neutrophils # 2.1 (1.6-8.9) K/mcL 02/25/18 Range/Units 06:54 WBC (4.3-11.1) K/mcL Hgb 8.3 L (11.5-15.4) g/dL Hct 24.3 L (35.3-44.9) % Plt Count (140-400) K/mcL Neutrophils # (1.6-8.9) K/mcL BMP 02/24/18 02/25/18 14:15 00:18 Sodium 131 L 132 L Potassium 4.9 4.2 Chloride 94 L 93 L Carbon Dioxide 34 H 33 H BUN 11 13 Creatinine 1.19 1.16 Glucose 185 H 203 H Calcium 8.8 8.8 Cardiac Enzymes 02/24/18 Range/Units 14:15 Troponin I < 0.03 (< 0.04) ng/mL Liver Function 02/24/18 Range/Units 14:15 Total Bilirubin 0.8 (0.3-1.0) mg/dL Direct Bilirubin 0.3 H (0.0-0.2) mg/dL AST 21 (13-39) Units/L ALT 14 (7-52) Units/L Alkaline Phosphatase 74 (34-104) Units/L Albumin 3.3 L (3.5-5.7) g/dL - ABG Interpretation ABG results: PT/INR, D-dimer PT 15.2 Seconds (9.4-12.1) H 02/24/18 14:15 - Impressions Impressions Chest X-Ray 02/24/18 14:15 IMPRESSION: 1. Bibasilar atelectasis with small effusions. 2. Status post CABG. D/ / 02/24/2018 14:54:32 Nereyda Shore MD / bcarter Interpreting Provider: Nereyda Shore MD Consult Discharge Plan - Plan Referrals: Man Eubanks MD [Primary Care Provider] - (1) Volume overload Qualifiers: Qualified Code(s): E87.70 - Fluid overload, unspecified (2) GI bleed Qualifiers: Gastritis type: unspecified gastritis Qualified Code(s): K29.71 - Gastritis, unspecified, with bleeding (3) Anemia Qualifiers: Anemia type: unspecified type Qualified Code(s): D64.9 - Anemia, unspecified (6) DM2 (diabetes mellitus, type 2) Qualifiers: Diabetes mellitus manager long term care insulin use: with manager long term care use Diabetes mellitus complication status: with kidney complications Diabetes mellitus complication detail: with chronic kidney disease Chronic kidney disease stage: stage 3 (moderate) Qualified Code(s): E11.22 - Type 2 diabetes mellitus with diabetic chronic kidney disease; N18.3 - Chronic kidney disease, stage 3 (moderate); Z79.4 - MCFP (current) use of insulin (7) CAD (coronary artery disease) Qualifiers: [place] vs. transplanted heart: unspecified whether [place] or transplanted heart Qualified Code(s): I25.10 - Atherosclerotic heart disease of [place] coron endy artery without angina pectoris
[2018-02-25 17:55] LABS: Hematocrit 26.7 % (35.3-44.9); Hemoglobin 9.1 g/dL (11.5-15.4)
[2018-02-25] MEDS: Fenofibrate 54 MG TABLET PO SCH (17:55)
[2018-02-25] MEDS ORDERED: NON-FORMULARY MEDICATION 1 EACH EACH (Ranitidine Hcl [Acid Reducer] 150 MG) PO SCH (18:00)
[2018-02-26] MEDS: Ipratropium/Albuterol Neb 3 ML IH SCH ×4 (03:43→21:42)
[2018-02-26] MEDS: Levothyroxine 25 MCG TABLET PO SCH (06:43)
[2018-02-26 08:14] LABS: Calcium 9.2 mg/dL (8.6-10.3); Potassium 3.8 mEq/L (3.5-5.1)
[2018-02-26] MEDS: Cholecalciferol (D-3) 1,000 UNIT TABLET PO SCH (08:22)
[2018-02-26] MEDS: amLODIPine 5 MG TABLET PO SCH (08:22)
[2018-02-26] MEDS: Loratadine 10 MG TABLET PO SCH (08:22)
[2018-02-26] MEDS: *HR* OxyCODONE Immed Rel 5 MG TABLET PO PRN ×2 (08:22→17:08)
[2018-02-26] MEDS: Lactobacillus 1 EACH CAP.SPRINK PO SCH (08:22)
[2018-02-26] MEDS: Lisinopril 20 MG TABLET PO SCH (08:23)
[2018-02-26] MEDS: Cyanocobalamin (B-12) 1,000 MCG TABLET PO SCH (08:24)
[2018-02-26] MEDS: cloNIDine HCl 0.1 MG TABLET PO SCH ×2 (08:24→21:53)
[2018-02-26] MEDS: Folic Acid 1 MG TABLET PO SCH (08:24)
[2018-02-26] MEDS: Insulin LISPRO 300 UNITS/3 ML VIAL SQ SCH ×3 (08:24→17:09)
[2018-02-26] MEDS: Furosemide 20 MG/2 ML VIAL IVP SCH (08:24)
[2018-02-26] MEDS: Spironolactone 25 MG TABLET PO SCH (08:27)
[2018-02-26] MEDS: MOMETASONE FUROATE 100 mcg Inhaler IH SCH (09:45)
--- NOTE | 2018-02-26 12:31 | Internal Med Progress Note ---
Hospitalist Progress Note - Encounter Date of Encounter: 02/26/18 Time of Encounter: 12:29 - Subjective Interval History: Pt states LE edema improved today. She also states SOB improved. She denies chest pain. She denies fever, chills, N/V or diarrhea. - Exam Vitals: Temp Pulse Resp BP Pulse Ox 97.9 F 70 22 128/49 97 02/26/18 10:15 02/26/18 10:15 02/26/18 10:15 02/26/18 10:15 02/26/18 10:15 Exam: . - Assessment and Plan (1) Volume overload Current Visit: Yes Status: Acute Assessment and Plan: Multi-factorial. Hx of CHF of unknown type and liver cirrhosis. Will hold Lasix 20 mg IV BID due to JULIA. Once Cr down, will resume home dose lasix and continue home Aldactone. Improved. Will continue to monitor fluid status, daily I and O's daily weights, and low sodium diet. (2) GI bleed Current Visit: Yes Status: Acute Assessment and Plan: Pt has hx of AVMs and recurrent transfusions in the past. H/H Q6 ordered and last hgb 8.3. Protonix IV BID will switch to PO. GI consulted and per GI, pt is s/p extensive workup including EGD, colonoscopy, and capsule endoscopy. Procedures: EGD 02/10/18 Grade I esophageal varices, portal hypertensive pardaise ropathy, single bleeding angiodysplastic lesion in the stomach, treated with apc, normal duodenum. EGD 10/21/2017 Dr. Guzmán: Four non-bleeding AVMs in stomach, treated with APC. Two recently bleeding AVMs in duodenum, treated with APC. Capsule endoscopy 10/07/2017: 3 AVMs in duodenal bulb. Colonoscopy 11/24/2016 Dr. Mckee: Normal. Continue on PPI No NSAIDs No Anticoagulation (3) Anemia Current Visit: Yes Status: Chronic Assessment and Plan: Multifactorial due to hx of known iron def anemia, CKD, and liver cirrhosis. Will monitor H/H Q 6H. Pt undergoing workup by oncology out pt. Resumed, Iron, vitamin B12 supplements. Will type and screen but hold off on transfusion for now. Will consult GI in am or sooner if hgb drops (4) Chronic respiratory failure with hypoxia Current Visit: No Status: Chronic Assessment and Plan: Pt is on 3L NC of oxygen at home. (5) CKD (chronic kidney disease), stage III Current Visit: No Status: Chronic Assessment and Plan: Will hold Lasix due to bump in Cr and check renal function daily. (6) DM2 (diabetes mellitus, type 2) Current Visit: No Status: Chronic Assessment and Plan: SSI and monitor glucose. (7) CAD (coronary artery disease) Current Visit: No Status: Chronic Assessment and Plan: s/p triple bypass. On Simvastatin Cannot take any ASA, plavix or anticoagulation due to hx of AVM's and GI bleed (8) Physical deconditioning Current Visit: Yes Status: Acute Assessment and Plan: Consulting PT/OT to see. DVT Prophylaxis: SCD - Summary of Assessment and Plan Summary of Assessment and Plan: History of present illness: Dr. 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 Kimble is a 68 year old female with past medical history of HTN, ACS, triple bypass, CAD, HLD, CKD stage III, Liver cirrhosis, Hepatitis C due to blood transfusion (pt states resolved), COPD, dilated CBD acquired, Iron deficiency anemia, recurrent blood transfusions, Hx AVM's ad prior GI bleed. Pt was admitted 02/08/2018 and discharged 02/12/2018 after management for SOB and symptomatic anemia. At that time she had received 2 units of PRBC for hgb of 8.3. Hgb at discharge was 10.9. Pt states she has been having progressive increase in LE edema. She admits to being on Lasix and is also on aldactone. Pt reports dark stools and son, who was also presents, states she has had recurrent blood transfusions. Pt also reports progressive SOB. She is a former smoker with COPD and has chronic respiratory failure. - Time Spent with Patient Total time spent is greater than 50% in coordination of care (as documented) at patient's floor/unit and/or counseling patient: less than 15 minutes Plan of Care Discussed with: patient Internal Medicine: Result - Labs CBC & Chem 7: 02/25/18 17:43 02/26/18 06:51 Labs: Short CBC 02/25/18 Range/Units 17:43 Hgb 9.1 L (11.5-15.4) g/dL Hct 26.7 L (35.3-44.9) % BMP 02/26/18 06:51 Sodium 131 L Potassium 3.8 Chloride 91 L Carbon Dioxide 32 H BUN 14 Creatinine 1.28 H Glucose 199 H Calcium 9.2 - ABG Interpretation ABG results: PT/INR, D-dimer PT 15.2 Seconds (9.4-12.1) H 02/24/18 14:15 Consult Discharge Plan - Plan Referrals: Man Eubanks MD [Primary Care Provider] - (1) Volume overload Qualifiers: Qualified Code(s): E87.70 - Fluid overload, unspecified (2) GI bleed Qualifiers: Gastritis type: unspecified gastritis Qualified Code(s): K29.71 - Gastritis, unspecified, with bleeding (3) Anemia Qualifiers: Anemia type: unspecified type Qualified Code(s): D64.9 - Anemia, unspecified (6) DM2 (diabetes mellitus, type 2) Qualifiers: Diabetes mellitus group home insulin use: with group home use Diabetes mellitus complication status: with kidney complications Diabetes mellitus complication detail: with chronic kidney disease Chronic kidney disease stage: stage 3 (moderate) Qualified Code(s): E11.22 - Type 2 diabetes mellitus with diabetic chronic kidney disease; N18.3 - Chronic kidney disease, stage 3 (moderate); Z79.4 - oil heaterman (current) use of insulin (7) CAD (coronary artery disease) Qualifiers: [place] vs. transplanted heart: unspecified whether [place] or transplanted heart Qualified Code(s): I25.10 - Atherosclerotic heart disease of [place] coronary artery without angina pectoris
[2018-02-26] MEDS: Fenofibrate 54 MG TABLET PO SCH (17:08)
[2018-02-27] MEDS: Ipratropium/Albuterol Neb 3 ML IH SCH ×4 (04:17→22:11)
[2018-02-27] MEDS: Levothyroxine 25 MCG TABLET PO SCH (05:22)
[2018-02-27 06:56] LABS: Mean Corpuscular HGB Conc 33.5 g/dL (31.6-35.5)
[2018-02-27 06:57] LABS: Basophils % 0.5 %; Eosinophils # 0.1 K/mcL (0.0-0.6); Eosinophils % 3.1 %; Hemoglobin 8.7 g/dL (11.5-15.4); Lymphocytes % 12.3 %; Mean Corpuscular Hemoglobin 28.8 pg (28.0-33.3); Mean Corpuscular Volume 86.1 fL (83.0-100.0); Mean Platelet Volume 10.1 fL (9.4-12.4); Monocytes # 0.3 K/mcL (0.0-1.3); Monocytes % 13.3 %; Neutrophils # 1.4 K/mcL (1.6-8.9); Platelet Count 110 K/mcL (140-400); Red Blood Count 3.02 M/mcL (3.82-4.97); Red Cell Distribution Width 15.4 % (11.5-14.5); Segmented Neutrophils % 70.8 %
[2018-02-27 07:01] LABS: Lymphocytes # 0.3 K/mcL (0.6-4.6)
[2018-02-27 07:15] LABS: Calcium 8.6 mg/dL (8.6-10.3); Potassium 3.6 mEq/L (3.5-5.1)
[2018-02-27 07:42] LABS: Platelet Estimate Slight Decrease (Normal)
[2018-02-27] MEDS: Insulin LISPRO 300 UNITS/3 ML VIAL SQ SCH ×4 (07:49→21:56)
[2018-02-27] MEDS: Lactobacillus 1 EACH CAP.SPRINK PO SCH (07:50)
[2018-02-27] MEDS: Lisinopril 20 MG TABLET PO SCH (07:51)
[2018-02-27] MEDS: Folic Acid 1 MG TABLET PO SCH (07:51)
[2018-02-27] MEDS: Loratadine 10 MG TABLET PO SCH (07:52)
[2018-02-27] MEDS: Cholecalciferol (D-3) 1,000 UNIT TABLET PO SCH (07:52)
[2018-02-27] MEDS: Cyanocobalamin (B-12) 1,000 MCG TABLET PO SCH (07:52)
[2018-02-27] MEDS: Spironolactone 25 MG TABLET PO SCH (07:52)
[2018-02-27] MEDS: cloNIDine HCl 0.1 MG TABLET PO SCH ×2 (07:52→19:46)
[2018-02-27] MEDS: amLODIPine 5 MG TABLET PO SCH (07:52)
[2018-02-27] MEDS: tiZANidine 4 MG TABLET PO PRN ×2 (08:00→16:53)
[2018-02-27] MEDS: MOMETASONE FUROATE 100 mcg Inhaler IH SCH (09:31)
[2018-02-27] MEDS: *HR* OxyCODONE Immed Rel 5 MG TABLET PO PRN (11:32)
[2018-02-27] MEDS: Fenofibrate 54 MG TABLET PO SCH (16:52)
--- NOTE | 2018-02-27 17:30 | Internal Med Progress Note ---
Hospitalist Progress Note - Encounter Date of Encounter: 02/27/18 Time of Encounter: 17:27 - Subjective Interval History: Pt states LE edema improved today. She also states SOB improved. She denies chest pain. She denies fever, chills, N/V or diarrhea. Reporting tingling sensations in hands and legs - Exam Vitals: Temp Pulse Resp BP Pulse Ox 97.7 F 75 16 122/53 99 02/27/18 14:22 02/27/18 14:22 02/27/18 15:57 02/27/18 14:22 02/27/18 15:57 Exam: General appearance: Present: A&O X 3, no acute distress Exam: - Head Head exam: Present: atraumatic, normocephalic - Eye Eye exam: Present: PERRL, conjuntiva pink, sclera anicteric Pupils: Present: PERRL - Neck Neck exam general surgery: Present: supple, trachea midline. Absent: lymphadenopathy - Respiratory Respiratory exam: Present: wheezes. Absent: accessory muscle use, rales, rhonchi Additional comments: crackles B/L bases - Cardiovascular Cardiovascular exam: Present: RRR, +S1, +S2. Absent: diastolic murmur, gallop, rubs, systolic murmur - GI/Abdominal GI/Abdominal exam: Present: normal bowel sounds, soft, no peritoneal signs. Absent: distended, tenderness - Extremities Exam Extremities exam: Present: pedal edema, warm, radial pulses palpable and symmetrical. Absent: calf tenderness, cyanotic - Neurological Exam Neurological exam: Present: CN II-XII intact, oriented X3, no focal deficits. Absent: pronater drift, facial droop, speech deficit - Skin Skin exam: Present: dry, int - Assessment and Plan (1) Volume overload Current Visit: Yes Status: Acute Assessment and Plan: Improved. Multi-factorial. Hx of CHF of unknown type and liver cirrhosis. Will hold Lasix 20 mg IV BID due to JULIA. Once Cr down, will resume home dose lasix and continue home Aldactone. Will continue to monitor fluid status, daily I and O's daily weights, and low sodium diet. (2) GI bleed Current Visit: Yes Status: Acute Assessment and Plan: Pt has hx of AVMs and recurrent transfusions in the past. H/H Q6 ordered and last hgb 8.3. Protonix IV BID will switch to PO. GI consulted and per GI, pt is s/p extensive workup including EGD, colonoscopy, and capsule endoscopy. Procedures: EGD 02/10/18 Grade I esophageal varices, portal hypertensive gastropathy, single bleeding angiodysplastic lesion in the stomach, treated with apc, normal duodenum. EGD 10/21/2017 Dr. Guzmán: Four non-bleeding AVMs in stomach, treated with APC. Two recently bleeding AVMs in duodenum, treated with APC. Capsule endoscopy 10/07/2017: 3 AVMs in duodenal bulb. Colonoscopy 11/24/2016 Dr. Mckee: Normal. Continue on PPI No NSAIDs No Anticoagulation (3) Anemia Current Visit: Yes Status: Chronic Assessment and Plan: Multifactorial due to hx of known iron def anemia, CKD, and liver cirrhosis. Hemoglobin stable 8.7, Will check CBC in am. Pt undergoing workup by oncology out pt. Resumed, Iron, vitamin B12 supplements. Typed and screen but holding off on transfusion for now. Seen by GI, see above note (4) Chronic respiratory failure with hypoxia Current Visit: No Status: Chronic Assessment and Plan: Pt is on 3L NC of oxygen at home. (5) CKD (chronic kidney disease), stage III Current Visit: No Status: Chronic Assessment and Plan: Will hold Lasix due to bump in Cr and check renal function daily. (6) DM2 (diabetes mellitus, type 2) Current Visit: No Status: Chronic Assessment and Plan: SSI and monitor glucose. (7) CAD (coronary artery disease) Current Visit: No Status: Chronic Assessment and Plan: s/p triple bypass. On Simvastatin Cannot take any ASA, plavix or anticoagulation due to hx of AVM's and GI bleed (8) Physical deconditioning Current Visit: Yes Status: Acute Assessment and Plan: Consulting PT/OT to see. 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 Kimble is a 68 year old female with past medical history of HTN, ACS, triple bypass, CAD, HLD, CKD stage III, Liver cirrhosis, Hepatitis C due to blood transfusion (pt states resolved), COPD, dilated CBD acquired, Iron deficiency anemia, recurrent blood transfusions, Hx AVM's ad prior GI bleed. Pt was admitted 02/08/2018 and discharged 02/12/2018 after management for SOB and symptomatic anemia. At that time she had received 2 units of PRBC for hgb of 8.3. Hgb at discharge was 10.9. Pt states she has been having progressive increase in LE edema. She admits to being on Lasix and is also on aldactone. Pt reports dark stools and son, who was also present, states she has had recurrent blood transfusions. Pt also reports progressive SOB. She is a former smoker with COPD and has chronic respiratory failure. - Time Spent with Patient Total time spent is greater than 50% in coordination of care (as documented) at patient's floor/unit and/or counseling patient: less than 15 minutes Plan of Care Discussed with: patient Internal Medicine: Result - Labs CBC & Chem 7: 02/27/18 05:36 02/27/18 05:36 Labs: Short CBC 02/27/18 Range/Units 05:36 WBC 2.0 L (4.3-11.1) K/mcL Hgb 8.7 L (11.5-15.4) g/dL Hct 26.0 L (35.3-44.9) % Plt Count 110 L (140-400) K/mcL Neutrophils # 1.4 L (1.6-8.9) K/mcL BMP 02/27/18 05:36 Sodium 134 L Potassium 3.6 Chloride 94 L Carbon Dioxide 30 H BUN 17 Creatinine 1.23 H Glucose 209 H Calcium 8.6 - ABG Interpretation ABG results: PT/INR, D-dimer PT 15.2 Seconds (9.4-12.1) H 02/24/18 14:15 Consult Discharge Plan - Plan Referrals: Man Eubanks MD [Primary Care Provider] - (1) Volume overload Qualifiers: Qualified Code(s): E87.70 - Fluid overload, unspecified (2) GI bleed Qualifiers: Gastritis type: unspecified gastritis Qualified Code(s): K29.71 - Gastritis, unspecified, with bleeding (3) Anemia Qualifiers: Anemia type: unspecified type Qualified Code(s): D64.9 - Anemia, unspecified (6) DM2 (diabetes mellitus, type 2) Qualifiers: Diabetes mellitus termite helper insulin use: with senior care use Diabetes mellitus complication status: with kidney complications Diabetes mellitus complication detail: with chronic kidney disease Chronic kidney disease stage: stage 3 (moderate) Qualified Code(s): E11.22 - Type 2 diabetes mellitus with diabetic chronic kidney disease; N18.3 - Chronic kidney disease, stage 3 (moderate); Z79.4 - termite helper (current) use of insulin (7) CAD (coronary artery disease) Qualifiers: [place] vs. transplanted heart: unspecified whether [place] or transplanted heart Qualified Code(s): I25.10 - Atherosclerotic heart disease of [place] coronary artery without angina pectoris
[2018-02-28] MEDS: Ipratropium/Albuterol Neb 3 ML IH SCH ×4 (04:24→22:13)
[2018-02-28] MEDS: tiZANidine 4 MG TABLET PO PRN ×2 (04:57→16:45)
[2018-02-28] MEDS: Levothyroxine 25 MCG TABLET PO SCH (05:04)
[2018-02-28 06:01] LABS: Albumin 3.3 g/dL (3.5-5.7); Calcium 8.8 mg/dL (8.6-10.3); Phosphorous 3.1 mg/dL (2.7-4.5); Potassium 3.8 mEq/L (3.5-5.1)
[2018-02-28] MEDS: Loratadine 10 MG TABLET PO SCH (08:55)
[2018-02-28] MEDS: Lactobacillus 1 EACH CAP.SPRINK PO SCH (08:55)
[2018-02-28] MEDS: Spironolactone 25 MG TABLET PO SCH (08:55)
[2018-02-28] MEDS: Insulin LISPRO 300 UNITS/3 ML VIAL SQ SCH ×4 (08:55→20:59)
[2018-02-28] MEDS: Lisinopril 20 MG TABLET PO SCH (08:56)
[2018-02-28] MEDS: amLODIPine 5 MG TABLET PO SCH (08:56)
[2018-02-28] MEDS: Folic Acid 1 MG TABLET PO SCH (08:56)
[2018-02-28] MEDS: cloNIDine HCl 0.1 MG TABLET PO SCH ×2 (08:56→20:58)
[2018-02-28] MEDS: Cholecalciferol (D-3) 1,000 UNIT TABLET PO SCH (08:56)
[2018-02-28] MEDS: Cyanocobalamin (B-12) 1,000 MCG TABLET PO SCH (08:56)
[2018-02-28] MEDS: MOMETASONE FUROATE 100 mcg Inhaler IH SCH (10:43)
--- NOTE | 2018-02-28 13:20 | Discharge Summary ---
- NOTES TO OUTPATIENT PROVIDER Notes to Outpatient Provider: PCP in 5 to 7 days Orders not resulted at time of discharge: Pending orders 03/01/18 04:00 Renal Function Panel AM 0400 03/02/18 04:00 Renal Function Panel AM 0400 Date of Encounter: 02/28/18 Time of Encounter: 13:18 - Discharge Diagnosis (1) Volume overload Priority: Primary Status: Acute Assessment and Plan: Improved. Multi-factorial. Hx of CHF of unknown type and liver cirrhosis. Monitored fluid status, daily I and O's daily weights, and low sodium diet. Was on Lasix 20 mg IV BID but was held due to JULIA. JULIA resolved. Will DC home on Lasix 20 mg QOD and continue home Aldactone. Qualifiers: Qualified Code(s): E87.70 - Fluid overload, unspecified (2) GI bleed Priority: Secondary Status: Acute Assessment and Plan: Pt has hx of AVMs and recurrent transfusions in the past. H/H Q6 ordered and last hgb 8.3. Protonix IV BID will switch to PO. GI consulted and per GI, pt is s/p extensive workup including EGD, colonoscopy, and capsule endoscopy. Procedures: EGD 02/10/18 Grade I esophageal varices, portal hypertensive gastropathy, single bleeding angiodysplastic lesion in the stomach, treated with apc, normal duodenum. EGD 10/21/2017 Dr. Guzmán: Four non-bleeding AVMs in stomach, treated with APC. Two recently bleeding AVMs in duodenum, treated with APC. Capsule endoscopy 10/07/2017: 3 AVMs in duodenal bulb. Colonoscopy 11/24/2016 Dr. Mckee: Normal. Continue on PPI No NSAIDs No Anticoagulation Qualifiers: Gastritis type: unspecified gastritis Qualified Code(s): K29.71 - Gastritis, unspecified, with bleeding (3) Anemia Priority: Secondary Status: Chronic Assessment and Plan: Multifactorial due to hx of known iron def anemia, CKD, and liver cirrhosis. Hemoglobin stable 8.7 and stable Pt undergoing workup by oncology out pt. Resumed, Iron, vitamin B12 supplements. Typed and screen but did not require transfusion . Seen by GI, see above note Qualifiers: Anemia type: unspecified type Qualified Code(s): D64.9 - Anemia, unspecified (4) Chronic respiratory failure with hypoxia Priority: Secondary Status: Chronic Assessment and Plan: Pt is on 3L NC of oxygen at home. (5) CKD (chronic kidney disease), stage III Priority: Secondary Status: Chronic Assessment and Plan: Held Lasix due to bump in Cr and Cr back at baseline. (6) DM2 (diabetes mellitus, type 2) Priority: Secondary Status: Chronic Assessment and Plan: SSI and monitor glucose. Qualifiers: Diabetes mellitus intermediate manager insulin use: with jail use Diabetes mellitus complication status: with kidney complications Diabetes mellitus complication detail: with chronic kidney disease Chronic kidney disease stage: stage 3 (moderate) Qualified Code(s): E11.22 - Type 2 diabetes mellitus with diabetic chronic kidney disease; N18.3 - Chronic kidney disease, stage 3 (moderate); Z79.4 - skilled nursing (current) use of insulin (7) CAD (coronary artery disease) Priority: Secondary Status: Chronic Assessment and Plan: s/p triple bypass. On Simvastatin Cannot take any ASA, plavix or anticoagulation due to hx of AVM's and GI bleed Qualifiers: [place] vs. transplanted heart: unspecified whether [place] or transplanted heart Qualified Code(s): I25.10 - Atherosclerotic heart disease of [place] coronary artery without angina pectoris (8) Physical deconditioning Priority: Secondary Status: Acute Assessment and Plan: Consulting PT/OT to see. Accepted at rehab Hospital course: History of present illness: Dr. 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 Kimble is a 68 year old female with past medical history of HTN, ACS, triple bypass, CAD, HLD, CKD stage III, Liver cirrhosis, Hepatitis C due to blood transfusion (pt states resolved), COPD, dilated CBD acquired, Iron deficiency anemia, recurrent blood transfusions, Hx AVM's ad prior GI bleed. Pt was admitted 02/08/2018 and discharged 02/12/2018 after management for SOB and symptomatic anemia. At that time she had received 2 units of PRBC for hgb of 8.3. Hgb at discharge was 10.9. Pt states she has been having progressive increase in LE edema. She admits to being on Lasix and is also on aldactone. Pt reports dark stools and son, who was also presents, states she has had recurrent blood transfusions. Pt also reports progressive SOB. She is a former smoker with COPD and has chronic respiratory failure. Discharge discussed with: patient - Time Spent with Patient Total time spent providing and/or coordinating discharge services: Greater than 30 minutes - Discharge Medications Home Medications: Insulin ASPART [Novolog Flexpen] 2 - 12 unit SQ [facility] 09/24/14 [History] Loratadine [Claritin] 10 mg PO DAILY 09/24/14 [History] OxyCODONE Immed Rel [Roxicodone 10 MG] 10 mg PO Q6H PRN 09/24/14 [History] Oxygen 2.5 l NS AD 09/24/14 [History] Albuterol Sulfate [Albuterol Inhaler] 2 puff IH Q4H PRN 08/20/15 [History] Cholecalciferol (Vitamin D3) [Vitamin D3] 10,000 unit PO FR 08/20/15 [History] Montelukast [Singulair] 10 mg PO DAILY 08/20/15 [History] Guaifenesin [Mucinex] 600 mg PO BID PRN 06/11/16 [History] EPINEPHrine [Epipen] 0.3 mg IM ONCE PRN 11/19/16 [History] Ipratropium/Albuterol Sulfate [Combivent Respimat Inhal [place]] 1 puff IH QID 11/19/16 [History] Cyanocobalamin (Vitamin B-12) [Vitamin B12] 1,000 mcg PO DAILY 10/21/17 [History] Fenofibrate Nanocrystallized [Triglide] 160 mg PO QPM 10/21/17 [History] Folic Acid 1 mg PO DAILY 10/21/17 [History] Lactobacillus Combination No.8 [Adult Probiotic] 1 cap PO DAILY 10/21/17 [History] Levothyroxine Sodium [Levoxyl] 25 mcg PO DAILY 10/21/17 [History] Nitroglycerin [Nitrostat] 0.4 mg SL AD 10/21/17 [History] Omeprazole [PriLOSEC] 40 mg PO BID 10/21/17 [History] Polyethylene Glycol 3350 [MiraLAX] 17 gm PO DAILY PRN 10/21/17 [History] Simvastatin [Zocor] 20 mg PO HS 10/21/17 [History] Ammonium Lactate [Isis-Hydrolac] 1 appl TP BID 02/07/18 [History] Ascorbic Acid [Vitamin C] 500 mg PO DAILY 02/07/18 [History] Calcium Carbonate [Tums] 1,000 mg PO DAILY 02/07/18 [History] Fluticasone Propionate [Flovent Hfa] 1 puff IN BID 02/07/18 [History] Lidocaine Patch [Lidoderm 5% patch] 1 patch TP DAILY 02/07/18 [History] Ondansetron HCl [Zofran] 8 mg PO TID PRN 02/07/18 [History] Tizanidine HCl 2 mg PO Q6H PRN 02/07/18 [History] traZODone [TraZODone] 25 - 50 mg PO HS PRN 02/07/18 [History] Carvedilol [Coreg] 25 mg PO BIDWM #60 tablet 02/12/18 [Rx] Ferrous Sulfate 325 mg PO BIDWM #60 tablet 02/12/18 [Rx] Lisinopril [Zestril] 30 mg PO DAILY #30 tablet 02/12/18 [Rx] Simethicone [Gas-X] 80 mg PO TID PRN #15 tab.chew 02/12/18 [Rx] Spironolactone [Aldactone] 50 mg PO DAILY #30 tablet 02/12/18 [Rx] amLODIPine [Norvasc] 10 mg PO DAILY #30 tablet 02/12/18 [Rx] cloNIDine HCl [CloNIDine HCl] 0.1 mg PO BID #60 tablet 02/12/18 [Rx] Ipratropium/Albuterol Neb [Duoneb] 3 ml IH Q6HR 02/24/18 [History] Ranitidine HCl [Acid Equipment Operat0R] 150 mg PO QPM 02/24/18 [History] Furosemide [Lasix] 20 mg PO 3XW 15 Days #15 tablet 02/28/18 [Rx] Allergies/Adverse Reactions: Allergy/AdvReac Type Severity Reaction Status Date / Time baclofen Allergy Hallucinati Verified 02/07/18 17:03 ng cilostazol [From Pletal] Allergy Hallucinati Verified 02/07/18 17:03 ng Date of admission: 02/24/18 18:45 Primary care physician: Man Eubanks MD Consults: 02/25/18 08:07 Consult to Nurse Navigator [CONS] Routine Comment: chf education 02/25/18 11:38 Consult to Gastroenterology [CONS] Routine Consulting Provider: Gastroenterology Lorri Reason for Consult: GI bleed Call Completed: Yes 02/26/18 11:11 PT [Consult to Physical Therapy] [CONS] Routine Comment: Evaluate, develop and implement POC Reason for Consult: weakness Does patient have active BEDREST order?: No Is patient medically & hemodynamically stable?: Yes Patient assessed for mobility or mobilized this visit?: Yes 02/26/18 11:13 OT [Consult to Occupational Therapy] [CONS] Routine Comment: Evaluate, develop and implement POC Reason for Consult: weakness Does patient have active BEDREST order?: No Is patient medically & hemodynamically stable?: Yes Patient assessed for mobility or mobilized this visit?: Yes Discharging clinician: Chela Alexander Anticipated date of discharge: 02/28/18 - Constitutional Vitals: Temp Pulse Resp BP Pulse Ox 98.5 F 82 16 162/66 98 02/28/18 08:16 02/28/18 08:16 02/28/18 08:16 02/28/18 08:16 02/28/18 08:16 General appearance: Present: A&O X 3, no acute distress Exam: General appearance: Present: A&O X 3, no acute distress Exam: - Head Head exam: Present: atraumatic, normocephalic - Eye Eye exam: Present: PERRL, conjuntiva pink, sclera anicteric Pupils: Present: PERRL - Neck Neck exam general surgery: Present: supple, trachea midline. Absent: lymphadenopathy - Respiratory Respiratory exam: Present: wheezes. Absent: accessory muscle use, rales, rhonchi Additional comments: crackles B/L bases - Cardiovascular Cardiovascular exam: Present: RRR, +S1, +S2. Absent: diastolic murmur, gallop, rubs, systolic murmur - GI/Abdominal GI/Abdominal exam: Present: normal bowel sounds, soft, no peritoneal signs. Absent: distended, tenderness - Extremities Exam Extremities exam: Present: pedal edema, warm, radial pulses palpable and symmetrical. Absent: calf tenderness, cyanotic - Neurological Exam Neurological exam: Present: CN II-XII intact, oriented X3, no focal deficits. Absent: pronater drift, facial droop, speech deficit - Skin Skin exam: Present: dry, int - Patient Status Disposition: Transfer SNF Condition: Good Overall status at discharge: patient is back to baseline - Discharge Instructions Follow Up With: Man Eubanks MD [Primary Care Provider] - - Diet and Activity Activity: increase activity as tolerated Diet: diabetic diet, low fat, low cholesterol, low salt diet
--- NOTE | 2018-02-28 13:29 | Physician Discharge Referral ---
ExtendedCare Referral Info Provider in Charge after Transfer: PCP Institutional Level of Care: Skilled - Diagnosis (1) Volume overload Priority: Primary Status: Acute (2) GI bleed Priority: Secondary Status: Acute (3) Anemia Priority: Secondary Status: Chronic (4) Chronic respiratory failure with hypoxia Priority: Secondary Status: Chronic (5) CKD (chronic kidney disease), stage III Priority: Secondary Status: Chronic (6) DM2 (diabetes mellitus, type 2) Priority: Secondary Status: Chronic (7) CAD (coronary artery disease) Priority: Secondary Status: Chronic (8) Physical deconditioning Priority: Secondary Status: Acute - Transfer Medications Prescriptions: Furosemide [Lasix] 20 mg PO 3XW 15 Days #15 tablet Home Medications: Insulin ASPART [Novolog Flexpen] 2 - 12 unit SQ [facility] 09/24/14 [History] Loratadine [Claritin] 10 mg PO DAILY 09/24/14 [History] OxyCODONE Immed Rel [Roxicodone 10 MG] 10 mg PO Q6H PRN 09/24/14 [History] Oxygen 2.5 l NS AD 09/24/14 [History] Albuterol Sulfate [Albuterol Inhaler] 2 puff IH Q4H PRN 08/20/15 [History] Cholecalciferol (Vitamin D3) [Vitamin D3] 10,000 unit PO FR 08/20/15 [History] Montelukast [Singulair] 10 mg PO DAILY 08/20/15 [History] Guaifenesin [Mucinex] 600 mg PO BID PRN 06/11/16 [History] EPINEPHrine [Epipen] 0.3 mg IM ONCE PRN 11/19/16 [History] Ipratropium/Albuterol Sulfate [Combivent Respimat Inhal Calcium] 1 puff IH QID 11/19/16 [History] Cyanocobalamin (Vitamin B-12) [Vitamin B12] 1,000 mcg PO DAILY 10/21/17 [History] Fenofibrate Nanocrystallized [Triglide] 160 mg PO QPM 10/21/17 [History] Folic Acid 1 mg PO DAILY 10/21/17 [History] Lactobacillus Combination No.8 [Adult Probiotic] 1 cap PO DAILY 10/21/17 [History] Levothyroxine Sodium [Levoxyl] 25 mcg PO DAILY 10/21/17 [History] Nitroglycerin [Nitrostat] 0.4 mg SL AD 10/21/17 [History] Omeprazole [PriLOSEC] 40 mg PO BID 10/21/17 [History] Polyethylene Glycol 3350 [MiraLAX] 17 gm PO DAILY PRN 10/21/17 [History] Simvastatin [Zocor] 20 mg PO HS 10/21/17 [History] Ammonium Lactate [Isis-Hydrolac] 1 appl TP BID 02/07/18 [History] Ascorbic Acid [Vitamin C] 500 mg PO DAILY 02/07/18 [History] Calcium Carbonate [Tums] 1,000 mg PO DAILY 02/07/18 [History] Fluticasone Propionate [Flovent Hfa] 1 puff IN BID 02/07/18 [History] Lidocaine Patch [Lidoderm 5% patch] 1 patch TP DAILY 02/07/18 [History] Ondansetron HCl [Zofran] 8 mg PO TID PRN 02/07/18 [History] Tizanidine HCl 2 mg PO Q6H PRN 02/07/18 [History] traZODone [TraZODone] 25 - 50 mg PO HS PRN 02/07/18 [History] Carvedilol [Coreg] 25 mg PO BIDWM #60 tablet 02/12/18 [Rx] Ferrous Sulfate 325 mg PO BIDWM #60 tablet 02/12/18 [Rx] Lisinopril [Zestril] 30 mg PO DAILY #30 tablet 02/12/18 [Rx] Simethicone [Gas-X] 80 mg PO TID PRN #15 tab.chew 02/12/18 [Rx] Spironolactone [Aldactone] 50 mg PO DAILY #30 tablet 02/12/18 [Rx] amLODIPine [Norvasc] 10 mg PO DAILY #30 tablet 02/12/18 [Rx] cloNIDine HCl [CloNIDine HCl] 0.1 mg PO BID #60 tablet 02/12/18 [Rx] Ipratropium/Albuterol Neb [Duoneb] 3 ml IH Q6HR 02/24/18 [History] Ranitidine HCl [Acid Application Support Technician] 150 mg PO QPM 02/24/18 [History] Furosemide [Lasix] 20 mg PO 3XW 15 Days #15 tablet 02/28/18 [Rx] Allergies/Adverse Reactions: Allergy/AdvReac Type Severity Reaction Status Date / Time baclofen Allergy Hallucinati Verified 02/07/18 17:03 ng cilostazol [From Pletal] Allergy Hallucinati Verified 02/07/18 17:03 ng - Respiratory Orders Oxygen / L per min Smoking Cessation: Smoking cessation has been advised. For more information, call the [place] Tobacco Quit Line at 6-995-ZDJO-NOW. - Advance Directives Code Status: Full Code - Rehabiliation Orders Rehab Orders: Evaluation for Physical Therapy, Evaluation for Occupational Therapy - Diet Orders Cardiac CERTIFICATION: I certify that the transfer of the above named patient to an Extended Care Facility is necessary for the continuing treatment of the diagnosis listed. The above information is true and accurate reflection of patient's current condition. Confidential - Redisclosure prohibited without a patient's written consent.
[2018-02-28] MEDS: Fenofibrate 54 MG TABLET PO SCH (16:45)
[2018-02-28] MEDS ORDERED: Insulin DETEMIR 100 UNIT/ML X5UNITS SQ SCH (21:00)
[2018-02-28] MEDS: *HR* OxyCODONE Immed Rel 5 MG TABLET PO PRN (23:01)
[2018-03-01 04:08] LABS: Albumin 3.4 g/dL (3.5-5.7); Calcium 8.8 mg/dL (8.6-10.3); Phosphorous 2.6 mg/dL (2.7-4.5); Potassium 3.6 mEq/L (3.5-5.1)
[2018-03-01] MEDS: Ipratropium/Albuterol Neb 3 ML IH SCH ×3 (04:12→15:28)
[2018-03-01] MEDS: Levothyroxine 25 MCG TABLET PO SCH (06:24)
[2018-03-01] MEDS: Insulin LISPRO 300 UNITS/3 ML VIAL SQ SCH ×2 (07:52→11:30)
[2018-03-01] MEDS: Cholecalciferol (D-3) 1,000 UNIT TABLET PO SCH (08:36)
[2018-03-01] MEDS: *HR* OxyCODONE Immed Rel 5 MG TABLET PO PRN ×2 (08:36→16:12)
[2018-03-01] MEDS: amLODIPine 5 MG TABLET PO SCH (08:36)
[2018-03-01] MEDS: Cyanocobalamin (B-12) 1,000 MCG TABLET PO SCH (08:36)
[2018-03-01] MEDS: cloNIDine HCl 0.1 MG TABLET PO SCH (08:36)
[2018-03-01] MEDS: Lactobacillus 1 EACH CAP.SPRINK PO SCH (08:37)
[2018-03-01] MEDS: Lisinopril 20 MG TABLET PO SCH (08:37)
[2018-03-01] MEDS: Loratadine 10 MG TABLET PO SCH (08:37)
[2018-03-01] MEDS: Folic Acid 1 MG TABLET PO SCH (08:37)
[2018-03-01] MEDS: Spironolactone 25 MG TABLET PO SCH (08:37)
[2018-03-01] MEDS: MOMETASONE FUROATE 100 mcg Inhaler IH SCH (10:23)
[2018-03-01 13:54] VITALS: BP 126/55
[2018-03-01] MEDS: tiZANidine 4 MG TABLET PO PRN (16:12)
== END 2018-03-01 16:46 | DRG 378 ==
LOC: 3ANU 14:07 → EMEROOARM 14:07 → 3ANU 16:31 → SUATTDRO 18:45
PROVIDERS: ADMIT Hospitalist; ATTEND Internal Medicine

== ENCOUNTER 2018-04-16 17:49 | Inpatient (IN) ==
[2018-04-16] MEDS ORDERED: Ipratropium/Albuterol Neb 3 ML IH ONE (18:14)
--- NOTE | 2018-04-16 18:21 | Emergency Department Note ---
Disposition Clinical Impression: CHF exacerbation Qualifiers: Heart failure type: unspecified Qualified Code(s): I50.9 - Heart failure, unspecified Anemia Qualifiers: Anemia type: unspecified type Qualified Code(s): D64.9 - Anemia, unspecified Disposition: Admitted As Inpatient Condition: Fair Time of Disposition: 19:51 General Adult HPI - General Chief complaint: ED Shortness of Breath/Dyspnea Stated complaint: WILLIAM Time Seen by Provider: 04/16/18 17:51 Source: patient, EMS Mode of arrival: EMS Limitations: no limitations Nursing Notes Reviewed: Yes Vital Signs Reviewed: Yes - History of Present Illness HPI Narrative: Patient is a 68-year-old female that presents emergency department with shortness of breath. Patient states that her shortness of breath has progressively been getting worse. Patient states that she also has difficulty laying flat and feels that she is smothering. Patient states that she has to sleep on her side and propped up. Patient states that she has been noticing she is having increased swelling in bilateral lower extremities. Patient also states that she has some chest pressure in the center of her chest that does not radiate. Patient has increased shortness of breath as well as nausea. Patient states that she does have some hot flashes but no sweatiness. Patient states that she does take a water pill and has a history of congestive heart failure. Patient states that she does wear oxygen at home and wears 2 L normally but has had increased to 2 and half liters due to the shortness of breath. Patient also reports that she has been having a cough that has been nonproductive. Patient states that she has not been around anyone else who has been sick recently. Pain Scale: 5 - Related Data Home Medications Medication Instructions Recorded Confirmed RX: Insulin ASPART [Novolog 2 - 12 unit SQ [facility] 09/24/14 02/24/18 Flexpen] RX: Loratadine [Claritin] 10 mg PO DAILY 09/24/14 02/24/18 RX: OxyCODONE Immed Rel 10 mg PO Q6H PRN 09/24/14 02/24/18 [Roxicodone 10 MG] RX: Oxygen 2.5 l NS AD 09/24/14 02/24/18 RX: Albuterol Sulfate [Albuterol 2 puff IH Q4H PRN 08/20/15 02/24/18 Inhaler] RX: Cholecalciferol (Vitamin D3) 10,000 unit PO FR 08/20/15 02/24/18 [Vitamin D3] RX: Montelukast [Singulair] 10 mg PO DAILY 08/20/15 02/24/18 RX: Guaifenesin [Mucinex] 600 mg PO BID PRN 06/11/16 02/24/18 RX: EPINEPHrine [Epipen] 0.3 mg IM ONCE PRN 11/19/16 02/24/18 RX: Ipratropium/Albuterol Sulfate 1 puff IH QID 11/19/16 02/24/18 [Combivent Respimat Inhal [place]] RX: Cyanocobalamin (Vitamin B-12) 1,000 mcg PO DAILY 10/21/17 02/24/18 [Vitamin B12] RX: Fenofibrate Nanocrystallized 160 mg PO QPM 10/21/17 02/24/18 [Triglide] RX: Folic Acid 1 mg PO DAILY 10/21/17 02/24/18 RX: Lactobacillus Combination No.8 1 cap PO DAILY 10/21/17 02/24/18 [Adult Probiotic] RX: Levothyroxine Sodium [Levoxyl] 25 mcg PO DAILY 10/21/17 02/24/18 RX: Nitroglycerin [Nitrostat] 0.4 mg SL AD 10/21/17 02/24/18 RX: Omeprazole [PriLOSEC] 40 mg PO BID 10/21/17 02/24/18 RX: Polyethylene Glycol 3350 17 gm PO DAILY PRN 10/21/17 02/24/18 [MiraLAX] RX: Simvastatin [Zocor] 20 mg PO HS 10/21/17 02/24/18 RX: Ammonium Lactate 1 appl TP BID 02/07/18 02/24/18 [Isis-Hydrolac] RX: Ascorbic Acid [Vitamin C] 500 mg PO DAILY 02/07/18 02/24/18 RX: Calcium Carbonate [Tums] 1,000 mg PO DAILY 02/07/18 02/24/18 RX: Fluticasone Propionate 1 puff IN BID 02/07/18 02/24/18 [Flovent Hfa] RX: Lidocaine Patch [Lidoderm 5% 1 patch TP DAILY 02/07/18 02/24/18 patch] RX: Ondansetron HCl [Zofran] 8 mg PO TID PRN 02/07/18 02/24/18 RX: Tizanidine HCl 2 mg PO Q6H PRN 02/07/18 02/24/18 RX: traZODone [TraZODone] 25 - 50 mg PO HS PRN 02/07/18 02/24/18 RX: Ipratropium/Albuterol Neb 3 ml IH Q6HR 02/24/18 02/24/18 [Duoneb] RX: Ranitidine HCl [Acid Air Export Coordinator] 150 mg PO QPM 02/24/18 02/24/18 Previous Rx's Medication Instructions Recorded RX: Carvedilol [Coreg] 25 mg PO BIDWM #60 tablet 02/12/18 RX: Ferrous Sulfate 325 mg PO BIDWM #60 tablet 02/12/18 RX: Lisinopril [Zestril] 30 mg PO DAILY #30 tablet 02/12/18 RX: Simethicone [Gas-X] 80 mg PO TID PRN #15 tab.chew 02/12/18 RX: Spironolactone [Aldactone] 50 mg PO DAILY #30 tablet 02/12/18 RX: amLODIPine [Norvasc] 10 mg PO DAILY #30 tablet 02/12/18 RX: cloNIDine HCl [CloNIDine HCl] 0.1 mg PO BID #60 tablet 02/12/18 Allergies Allergy/AdvReac Type Severity Reaction Status Date / Time baclofen Allergy Hallucinati Verified 04/16/18 18:00 ng cilostazol [From Pletal] Allergy Hallucinati Verified 04/16/18 18:00 ng All systems ED: reviewed and negative except as stated. Constitutional: Denies: fever Cardiovascular: Reports: chest pain Respiratory: Reports: cough, dyspnea. Denies: sputum production Gastrointestinal: Reports: nausea. Denies: abdominal pain, vomiting Genitourinary: Denies: urgency, dysuria, frequency Musculoskeletal: Denies: back pain, neck pain Neurological: Denies: weakness, numbness, paresthesias Past Medical History - Past Medical History Medical history: Reports: asthma, CHF, COPD, coronary artery disease, CVA, diabetes, GERD, hepatitis, hypertension, liver disease, myocardial infarction, renal disease Surgical history: Reports: appendectomy, , cholecystectomy, coronary bypass (CABG), hysterectomy, other Psychiatric history: Reports: no psych history - Social History Smoking Status: Former smoker Smokeless Tobacco Status: No Alcohol use: Reports: none Drug use: Reports: none Physical Exam - General Limitations: no limitations General appearance: alert, in no apparent distress - Head Head exam: atraumatic, normocephalic - Eye Eye exam: Present: normal appearance, EOMI - Neck Neck exam: Present: normal inspection, full ROM, trachea midline - Respiratory Respiratory exam: Present: other (Patient has crackles bilaterally.) - Cardiovascular Cardiovascular exam: Present: regular rate, normal rhythm, normal heart sounds, +S1, +S2 - Abdominal Exam Abdominal exam: Present: soft, Non-Tender, normal bowel sounds - Extremities Exam Extremities exam: Present: other (Patient has 1+ pitting edema to bilateral lower extremity.) - Neurological Exam Neurological exam: Present: alert, oriented X3 - Psychiatric Psychiatric exam: Present: normal affect, normal mood - Skin Skin exam: Present: warm, dry, intact Course Vital Signs Temperature 98.7 F 04/16/18 17:53 Pulse Rate 79 04/16/18 17:53 Respiratory Rate 20 04/16/18 17:53 Blood Pressure 162/82 04/16/18 17:53 O2 Sat by Pulse Oximetry 95 04/16/18 17:53 Temperature 98.7 F 04/16/18 17:53 Pulse Rate 74 04/16/18 18:54 Respiratory Rate 23 04/16/18 18:54 Blood Pressure 158/73 04/16/18 18:54 O2 Sat by Pulse Oximetry 99 04/16/18 18:54 Oxygen Delivery Oxygen Delivery Aerosol Mask Medical Decision Making - [facility] Narrative Medical decision making narrative: Due the patient is not emergency part with reports of increased respiratory obtain basic laboratory testing as well as chest x-ray and EKG. Patient does have an elevated BNP of 424. Troponin is negative. Patient's white count is 4.2. Been of her laboratory testing is relatively unremarkable other than a hemoglobin of 8.2. However this does appear to be chronic for her and is not an acute drop in her hemoglobin. Patient did not have any active signs of bleeding on exam. Patient has been requiring increased oxygen demand from her baseline 2 L to 2-1/2 L. Patient is a feel the patient is requiring admission to the hospital. I called spoke the admitting hospitals Dr. Atwood and he is accepted the patient to their service. Patient be admitted to the hospital this time for further evaluation and management. - Medical Records Medical records reviewed: Yes I reviewed the patient's medical records. - Lab Data Lab results reviewed: Yes I reviewed the patient's lab results. Result diagrams: 04/16/18 18:08 04/16/18 18:08 Lab Results 04/16/18 04/16/18 04/16/18 Range/Units 18:08 18:08 18:08 WBC 4.2 L (4.3-11.1) K/mcL RBC 2.90 L (3.82-4.97) M/mcL Hgb 8.2 L (11.5-15.4) g/dL Hct 25.1 L (35.3-44.9) % MCV 86.6 (83.0-100.0) fL MCH 28.3 (28.0-33.3) pg MCHC 32.7 (31.6-35.5) g/dL RDW 13.7 (11.5-14.5) % Plt Count 123 L (140-400) K/mcL MPV 10.3 (9.4-12.4) fL Immature Gran % 0.2 (0-4) % Seg Neutrophils % 84.7 % Lymphocytes % 5.5 % Monocytes % 8.4 % Eosinophils % 1.0 % Basophils % 0.2 % Neutrophils # 3.5 (1.6-8.9) K/mcL Lymphocytes # 0.2 L (0.6-4.6) K/mcL Monocytes # 0.4 (0.0-1.3) K/mcL Eosinophils # 0.0 (0.0-0.6) K/mcL Basophils # 0.0 (0.0-0.2) K/mcL Sodium 131 L (136-145) mEq/L Potassium 4.5 (3.5-5.1) mEq/L Chloride 96 L (98-107) mEq/L Carbon Dioxide 30 H (23-29) mEq/L BUN 22 (8-23) mg/dL Creatinine 1.10 (0.60-1.20) mg/dL Est GFR ( Amer) > 60 (> 60) Est GFR (Non-Af Amer) 50 L (> 60) BUN/Creatinine Ratio 20 (6-26) Glucose 150 H (70-105) mg/dL Calculated Osmolality 278 L (280-300) Lactic Acid 0.3 L (0.5-2.2) mmol/L Calcium 9.0 (8.6-10.3) mg/dL Troponin I < 0.03 (< 0.04) ng/mL B-Natriuretic Peptide (Less than 100) pg/mL 04/16/18 Range/Units 18:08 WBC (4.3-11.1) K/mcL RBC (3.82-4.97) M/mcL Hgb (11.5-15.4) g/dL Hct (35.3-44.9) % MCV (83.0-100.0) fL MCH (28.0-33.3) pg MCHC (31.6-35.5) g/dL RDW (11.5-14.5) % Plt Count (140-400) K/mcL MPV (9.4-12.4) fL Immature Gran % (0-4) % Seg Neutrophils % % Lymphocytes % % Monocytes % % Eosinophils % % Basophils % % Neutrophils # (1.6-8.9) K/mcL Lymphocytes # (0.6-4.6) K/mcL Monocytes # (0.0-1.3) K/mcL Eosinophils # (0.0-0.6) K/mcL Basophils # (0.0-0.2) K/mcL Sodium (136-145) mEq/L Potassium (3.5-5.1) mEq/L Chloride (98-107) mEq/L Carbon Dioxide (23-29) mEq/L BUN (8-23) mg/dL Creatinine (0.60-1.20) mg/dL Est GFR ( Amer) (> 60) Est GFR (Non-Af Amer) (> 60) BUN/Creatinine Ratio (6-26) Glucose (70-105) mg/dL Calculated Osmolality (280-300) Lactic Acid (0.5-2.2) mmol/L Calcium (8.6-10.3) mg/dL Troponin I (< 0.04) ng/mL B-Natriuretic Peptide 424 H (Less than 100) pg/mL - Radiology Data Radiology results reviewed: Yes I reviewed the patient's radiology results. Chest X-Ray 04/16/18 17:52 IMPRESSION: 1. Findings typical of congestive heart failure. 2. Calcific atherosclerosis aorta. 3. Cardiomegaly. D/ / Dylan Loredo / Dylan Loredo Interpreting Provider: Dylan Loredo - EKG Data EKG #1 EKG attestation: Yes I reviewed and interpreted this EKG. EKG results narrative: EKG shows a sinus rhythm at a rate of 72 beats from it, [place] interval 145, Qrs duration of 87, QTc of 400. There is no evidence of STEMI and EKG. This is compared to previous EKG on 02/24/18. Attestation Statement - Attestation Attestation: Resident Attestation: I examined this patient and my medical decision making was reviewed with the Resident Physician. I agree with the documented findings, disposition and treatment plan as described except to the extent set forth below. We independently had [id number] contact with the patient. Patient presenting for evaluation of shortness of breath. Worsening over the last several days. Patient has a history of both COPD as well as CHF. Patient's symptoms worsen she lies flat. Patient are going evaluation for CHF as well as COPD. Patient with mild respiratory distress but feeling better with nasal cannula, lungs with out significant wheezing or rhonchi. Awaiting further workup.
[2018-04-16 18:25] LABS: Basophils % 0.2 %; Hematocrit 25.1 % (35.3-44.9); Hemoglobin 8.2 g/dL (11.5-15.4); Immature Granulocytes % 0.2 % (0-4); Lymphocytes # 0.2 K/mcL (0.6-4.6); Lymphocytes % 5.5 %; Mean Corpuscular HGB Conc 32.7 g/dL (31.6-35.5); Mean Corpuscular Hemoglobin 28.3 pg (28.0-33.3); Mean Corpuscular Volume 86.6 fL (83.0-100.0); Mean Platelet Volume 10.3 fL (9.4-12.4); Monocytes # 0.4 K/mcL (0.0-1.3); Monocytes % 8.4 %; Neutrophils # 3.5 K/mcL (1.6-8.9); Platelet Count 123 K/mcL (140-400); Red Cell Distribution Width 13.7 % (11.5-14.5); Segmented Neutrophils % 84.7 %
[2018-04-16 18:48] LABS: BUN/Creatinine Ratio 20 (6-26); Blood Urea Nitrogen 22 mg/dL (8-23); Carbon Dioxide 30 mEq/L (23-29); Chloride 96 mEq/L (98-107); Glucose 150 mg/dL (70-105); Osmolality,Calculated 278 (280-300); Potassium 4.5 mEq/L (3.5-5.1); Sodium 131 mEq/L (136-145); eGFR For Non-African Americans 50 (> 60)
[2018-04-16 18:49] LABS: Troponin I < 0.03 ng/mL (< 0.04)
[2018-04-16] MEDS ORDERED: Furosemide 40 MG/4 ML VIAL IVP ONE (19:14)
[2018-04-16] MEDS ORDERED: Ondansetron ODT 4 MG TAB.RAPDIS PO PRN (20:21)
[2018-04-16] MEDS ORDERED: Ipratropium/Albuterol Neb 3 ML IH PRN (20:21)
[2018-04-16] MEDS ORDERED: Simethicone 80 MG TAB.CHEW PO PRN (20:21)
[2018-04-16] MEDS ORDERED: Dextrose 4 GM Chewable Tablets PO PRN (20:28)
[2018-04-16] MEDS ORDERED: Dextrose Gel 15 GM/37.5 ML TUBE PO PRN (20:28)
[2018-04-16] MEDS ORDERED: NON-FORMULARY MEDICATION 1 EACH EACH (Oxygen [Oxygen] 2.5 L) NS SCH (20:30)
--- NOTE | 2018-04-16 21:15 | Internal Med History&Physical ---
Date of Encounter: 04/16/18 Time of Encounter: 21:11 Internal Medicine - H&P: HPI Chief complaint: SOB Admitted From: Home Plans for Post Hospital Care: Home History of present illness: Mounika Kimble is a 68 year old woman with a history of hepatitis C with resultant liver cirrhosis, hypertension, diabetes, heart failure, COPD on 2L, coronary and cerebrovascular disease as well as multiple bleeding episodes requiring transfusions due to AVMs , esophageal varices and angiodysplastic lesions in her GI tract. She presents to the emergency room complaining of shortness of breath that has progressively worsened over the past week. She reports difficulty laying flat and feels that she is smothering requiring her to sleep on her side or propped up. She reports dyspnea with mild to moderate exertion. She also noticed increasing swelling in her legs. She has a cough that is non-productive. She has had to increase her oxygen requirement at home. She denied associated fever, chills and chest pain however. In the ER she was hemodynamically stable. Labs revealed a BNP at >400 and CXR showing pulmonary va scular congestion. She was given a breathing treatment and 40mg furosemide. She is now admitted for further care. Past Med Surg Social Fam HX - Past Medical History Medical history: asthma, CHF, COPD, coronary artery disease, CVA, diabetes, GERD, hepatitis, hypertension, liver disease, myocardial infarction, renal disea se Additional medical history: Chronic back pain Psychiatric history: no psych history - Past Surgical History Surgical History: appendectomy, , cholecystectomy, coronary bypass (CABG), hysterectomy, other Additional surgical history: growth removed - Social History Smoking Status: Former smoker Smokeless Tobacco Status: No Alcohol use: none Drug use: none - Family History Mother Living Status: Hx Family Cardiac Disorders: Yes (triple bypass) Hx Family Endocrine Disorder: Yes Father Living Status: Hx Family Cardiac Disorders: Yes Hx Family Endocrine Disorder: Yes Internal Medicine - H&P: Meds Insulin ASPART [Novolog Flexpen] 2 - 12 unit SQ [facility] 09/24/14 [History] Loratadine [Claritin] 10 mg PO DAILY 09/24/14 [History] OxyCODONE Immed Rel [Roxicodone 10 MG] 10 mg PO Q6H PRN 09/24/14 [History] Oxygen 2.5 l NS AD 09/24/14 [History] Albuterol Sulfate [Albuterol Inhaler] 2 puff IH Q4H PRN 08/20/15 [History] Cholecalciferol (Vitamin D3) [Vitamin D3] 10,000 unit PO FR 08/20/15 [History] Montelukast [Singulair] 10 mg PO DAILY 08/20/15 [History] Guaifenesin [Mucinex] 600 mg PO BID PRN 06/11/16 [History] EPINEPHrine [Epipen] 0.3 mg IM ONCE PRN 11/19/16 [History] Ipratropium/Albuterol Sulfate [Combivent Respimat Inhal [place]] 1 puff IH QID 11/19/16 [History] Cyanocobalamin (Vitamin B-12) [Vitamin B12] 1,000 mcg PO DAILY 10/21/17 [History] Fenofibrate Nanocrystallized [Triglide] 160 mg PO QPM 10/21/17 [History] Folic Acid 1 mg PO DAILY 10/21/17 [History] Lactobacillus Combination No.8 [Adult Probiotic] 1 cap PO DAILY 10/21/17 [History] Levothyroxine Sodium [Levoxyl] 25 mcg PO DAILY 10/21/17 [History] Nitroglycerin [Nitrostat] 0.4 mg SL AD 10/21/17 [History] Omeprazole [PriLOSEC] 40 mg PO BID 10/21/17 [History] Polyethylene Glycol 3350 [MiraLAX] 17 gm PO DAILY PRN 10/21/17 [History] Simvastatin [Zocor] 20 mg PO HS 10/21/17 [History] Ammonium Lactate [Isis-Hydrolac] 1 appl TP BID 02/07/18 [History] Ascorbic Acid [Vitamin C] 500 mg PO DAILY 02/07/18 [History] Calcium Carbonate [Tums] 1,000 mg PO DAILY 02/07/18 [History] Fluticasone Propionate [Flovent Hfa] 1 puff IN BID 02/07/18 [History] Lidocaine Patch [Lidoderm 5% patch] 1 patch TP DAILY 02/07/18 [History] Ondansetron HCl [Zofran] 8 mg PO TID PRN 02/07/18 [History] Tizanidine HCl 2 mg PO Q6H PRN 02/07/18 [History] traZODone [TraZODone] 25 - 50 mg PO HS PRN 02/07/18 [History] Carvedilol [Coreg] 25 mg PO BIDWM #60 tablet 02/12/18 [Rx] Ferrous Sulfate 325 mg PO BIDWM #60 tablet 02/12/18 [Rx] Lisinopril [Zestril] 30 mg PO DAILY #30 tablet 02/12/18 [Rx] Simethicone [Gas-X] 80 mg PO TID PRN #15 tab.chew 02/12/18 [Rx] Spironolactone [Aldactone] 50 mg PO DAILY #30 tablet 02/12/18 [Rx] amLODIPine [Norvasc] 10 mg PO DAILY #30 tablet 02/12/18 [Rx] cloNIDine HCl [CloNIDine HCl] 0.1 mg PO BID #60 tablet 02/12/18 [Rx] Ipratropium/Albuterol Neb [Duoneb] 3 ml IH Q6HR 02/24/18 [History] Ranitidine HCl [Acid Load Manager] 150 mg PO QPM 02/24/18 [History] Allergy/AdvReac Type Severity Reaction Status Date / Time baclofen Allergy Hallucinati Verified 04/16/18 18:00 ng cilostazol [From Pletal] Allergy Hallucinati Verified 04/16/18 18:00 ng All Systems PM: A 10-system review of systems was performed and is negative for pertinent findings except as documented above in the HPI. - Constitutional Vitals: Temp Pulse Resp BP Pulse Ox 98.7 F 79 20 151/49 98 04/16/18 17:53 04/16/18 19:58 04/16/18 19:58 04/16/18 19:58 04/16/18 19:58 Exam: Vitals: Reviewed General: NAD Skin: Pale, dry. HEENT: Moist mucous membranes. (+) conjunctivae pallor. Neck: No lymphadenopathy. No JVD. No carotid bruits. No palpable thyroid. Chest: Diminished thoracic expansion. Reduced breath sounds in lower lobes. Heart: Normal S1 & S2; rhythmic. No rubs or murmurs. Abdomen: Non-distended, soft and non-tender to palpation. No peritoneal reaction. Extremities: No clubbing, cyanosis. 1-2+ pitting edema of her lower legs. No calf tenderness. Normal distal pulses. Neurological: Awake, alert and oriented to person, place and time. No focal deficits. Psych: Affect appropriate. Internal Med - H&P Results - Labs CBC & Chem 7: 04/16/18 18:08 04/16/18 18:08 Labs: Short CBC 04/16/18 Range/Units 18:08 WBC 4.2 L (4.3-11.1) K/mcL Hgb 8.2 L (11.5-15.4) g/dL Hct 25.1 L (35.3-44.9) % Plt Count 123 L (140-400) K/mcL Neutrophils # 3.5 (1.6-8.9) K/mcL BMP 04/16/18 18:08 Sodium 131 L Potassium 4.5 Chloride 96 L Carbon Dioxide 30 H BUN 22 Creatinine 1.10 Glucose 150 H Calcium 9.0 Cardiac Enzymes 04/16/18 Range/Units 18:08 Troponin I < 0.03 (< 0.04) ng/mL - Impressions ITS Impressions Chest X-Ray 04/16/18 17:52 IMPRESSION: 1. Findings typical of congestive heart failure. 2. Calcific atherosclerosis aorta. 3. Cardiomegaly. D/ / Dylan Loredo / Dylan Loredo Interpreting Provider: Dylan Loredo - Assessment and Plan (1) Acute exacerbation of CHF (congestive heart failure) Current Visit: Yes Status: Acute Assessment and plan: The patient appears to have clinical signs of a mild CHF exacerbation as evidenced by her progressive CREWS, PND and orthopnea with pedal edema and reduced exercise tolerance. No signs of pneumonia present based on her current presentation. She has responded well to diuresis. Will continue with furosemide 20mg BID in conjunction with her daily spironolactone for her hepatic disease. Strict I/O. Monitor on telemetry. Qualifiers: Heart failure type: unspecified Qualified Code(s): I50.9 - Heart failure, unspecified (2) Anemia Current Visit: Yes Status: Chronic Assessment and plan: Stable. Continue FeSO4 supplementation BIDWM. Qualifiers: Anemia type: unspecified type Qualified Code(s): D64.9 - Anemia, unspecified (3) CAD (coronary artery disease) Current Visit: Yes Status: Chronic Assessment and plan: Cannot be on antiplatelet/anticoagulant therapy due to GI bleed issues. Continue BB/ACEI and statin therapy. Qualifiers: [place] vs. transplanted heart: unspecified whether [place] or transplanted heart Qualified Code(s): I25.10 - Atherosclerotic heart disease of [place] coronary artery without angina pectoris (4) CKD (chronic kidney disease), stage III Current Visit: Yes Status: Chronic Assessment and plan: Stable. Avoid nephrotoxic agents. (5) COPD (chronic obstructive pulmonary disease) Current Visit: Yes Status: Chronic Assessment and plan: Does not seem to be in an active COPD exacerbation at this time warranting steroids and standing nebulizer therapy. Will place on nebs prn. Qualifiers: COPD type: unspecified COPD Qualified Code(s): J44.9 - Chronic obstructive pulmonary disease, unspecified (6) Chronic respiratory failure with hypoxia Current Visit: Yes Status: Chronic Assessment and plan: Will continue supplemental oxygen as needed. (7) DM2 (diabetes mellitus, type 2) Current Visit: Yes Status: Chronic Assessment and plan: Low dose insulin sliding scale ordered. Qualifiers: Diabetes mellitus termite technician insulin use: with termite technician use Diabetes mellitus complication status: with kidney complications Diabetes mellitus complication detail: with chronic kidney disease Chronic kidney disease stage: stage 3 (moderate) Qualified Code(s): E11.22 - Type 2 diabetes mellitus with diabetic chronic kidney disease; N18.3 - Chronic kidney disease, stage 3 (moderate); Z79.4 - ferry terminal agent (current) use of insulin - Time Spent With Patient Total time spent is greater than 50% in coordination of care (as documented) at patient's floor/unit and/or counseling patient: Greater than 35 minutes
[2018-04-16] MEDS: FLUTICASONE PROPIONATE IH SCH (22:42)
[2018-04-16] MEDS: Insulin LISPRO 300 UNITS/3 ML VIAL SQ SCH (23:12)
[2018-04-16] MEDS: traZODone 50 MG TABLET PO PRN (23:36)
[2018-04-16] MEDS: tiZANidine 4 MG TABLET PO PRN (23:36)
[2018-04-16] MEDS: cloNIDine HCl 0.1 MG TABLET PO SCH (23:36)
[2018-04-17] MEDS: Levothyroxine 25 MCG TABLET PO SCH (06:26)
[2018-04-17] MEDS: Lisinopril 20 MG TABLET PO SCH (06:26)
[2018-04-17] MEDS: Ipratropium/Albuterol Neb 3 ML IH PRN ×2 (07:42→12:11)
[2018-04-17] MEDS: FLUTICASONE PROPIONATE IH SCH ×2 (07:44→20:17)
[2018-04-17] MEDS: Insulin LISPRO 300 UNITS/3 ML VIAL SQ SCH ×5 (08:19→20:40)
[2018-04-17] MEDS: Spironolactone 25 MG TABLET PO SCH (08:29)
[2018-04-17] MEDS: Cyanocobalamin (B-12) 1,000 MCG TABLET PO SCH (08:29)
[2018-04-17] MEDS: Ascorbic Acid 500 MG TABLET PO SCH (08:29)
[2018-04-17] MEDS: Folic Acid 1 MG TABLET PO SCH (08:29)
[2018-04-17] MEDS: cloNIDine HCl 0.1 MG TABLET PO SCH ×2 (08:30→20:40)
[2018-04-17] MEDS: amLODIPine 5 MG TABLET PO SCH (08:30)
[2018-04-17] MEDS: Furosemide 20 MG/2 ML VIAL IVP SCH ×2 (08:30→20:41)
[2018-04-17 09:02] LABS: Basophils % 0.3 %; Eosinophils % 1.1 %; Hematocrit 26.1 % (35.3-44.9); Hemoglobin 8.6 g/dL (11.5-15.4); Immature Granulocytes % 0.3 % (0-4); Lymphocytes # 0.2 K/mcL (0.6-4.6); Mean Corpuscular Hemoglobin 28.6 pg (28.0-33.3); Mean Corpuscular Volume 86.7 fL (83.0-100.0); Mean Platelet Volume 10.3 fL (9.4-12.4); Monocytes # 0.2 K/mcL (0.0-1.3); Monocytes % 5.8 %; Neutrophils # 3.2 K/mcL (1.6-8.9); Platelet Count 121 K/mcL (140-400); Red Blood Count 3.01 M/mcL (3.82-4.97); Red Cell Distribution Width 13.7 % (11.5-14.5); Segmented Neutrophils % 87.5 %
[2018-04-17 09:26] LABS: Calcium 9.1 mg/dL (8.6-10.3); Potassium 4.5 mEq/L (3.5-5.1)
[2018-04-17 09:44] LABS: Platelet Estimate Normal (Normal)
[2018-04-17] MEDS: tiZANidine 4 MG TABLET PO PRN ×2 (12:31→20:40)
[2018-04-17] MEDS: *HR* OxyCODONE Immed Rel 5 MG TABLET PO PRN (13:51)
[2018-04-17] MEDS: Fenofibrate 54 MG TABLET PO SCH (17:11)
[2018-04-17] MEDS ORDERED: Famotidine 20 MG TABLET PO SCH (18:00)
[2018-04-17] MEDS: Nystatin POWDER 30 GM BOTTLE TP SCH (20:41)
--- NOTE | 2018-04-17 23:40 | Internal Med Progress Note ---
Hospitalist Progress Note - Encounter Date of Encounter: 04/17/18 Time of Encounter: 19:00 - Subjective Interval History: SUBJECTIVE: The patient feels better. Her breathing is not labored anymore. She does have mild cough but not wheezing. She makes good amounts of urineon IV Lasix. Denies chest pain. Denies abdominal pain, nausea and vomiting. OBJECTIVE: Skin: Free of rash and discoloration. ENMT: Oral/pharyngeal mucosa is normal in appearance. Eyes: Sclera is white. There is no discharge from eyes. Respiratory: Normal breath sounds; no crackles or wheezes. CV: Heart is regular; no gallop or murmur. GI: Abdomen is soft and not tender. There is no palpable mass or visceromegaly. Neuro: There is no focal deficits. ADDITIONAL DATA: Echocardiogram from January 2018 showed ejection fraction of 55-60%. With mild concentric left ventricular hypertrophy. There is no evidence of pulmonary hypertension. Chest x-ray from 04/16/18 showed findings typical of congestive heart failure. CBC shows hemoglobin of 8.2 with WBC of four-point thousand and platelet count of 123,000. BMP shows sodium of 131 with potassium 4.5 and bicarb of 30. Creatinine is 1.10 with a GFR of 50. ASSESSMENT AND PLAN: Acute on chronic diastolic heart failure. I will continue twice a day IV Lasix. She will be on fluid restriction of 1800 mL per day. COPD. On 2 L per min nasal cannula oxygen at home. Acute on chronic respiratory failure with hypoxia. Secondary to problems mentioned above. Currently, she takes 3 L/min nasal cannula oxygen. Type 2 diabetes mellitus. With CKD stage III. To continue when necessary Humalog. She was taking insulins at home. - Exam Vitals: Temp Pulse Resp BP Pulse Ox 98.5 F 75 16 170/63 97 04/17/18 19:55 04/17/18 19:55 04/17/18 19:55 04/17/18 19:55 04/17/18 19:55 Exam: xx - Assessment and Plan (1) Acute on chronic diastolic heart failure Current Visit: Yes Status: Acute (2) COPD (chronic obstructive pulmonary disease) Current Visit: Yes Status: Chronic (3) Acute and chronic respiratory failure with hypoxia Current Visit: Yes Status: Acute (4) DM2 (diabetes mellitus, type 2) Current Visit: Yes Status: Chronic (5) Anemia Current Visit: Yes Status: Chronic - Time Spent with Patient Total time spent is greater than 50% in coordination of care (as documented) at patient's floor/unit and/or counseling patient: 25 - 35 minutes Plan of Care Discussed with: patient Internal Medicine: Result - Labs CBC & Chem 7: 04/17/18 08:28 04/17/18 08:28 Labs: Short CBC 04/17/18 Range/Units 08:28 WBC 3.6 L (4.3-11.1) K/mcL Hgb 8.6 L (11.5-15.4) g/dL Hct 26.1 L (35.3-44.9) % Plt Count 121 L (140-400) K/mcL Neutrophils # 3.2 (1.6-8.9) K/mcL BMP 04/17/18 08:28 Sodium 131 L Potassium 4.5 Chloride 94 L Carbon Dioxide 33 H BUN 23 Creatinine 1.16 Glucose 234 H Calcium 9.1 Consult Discharge Plan - Plan Referrals: Man Eubanks MD [Primary Care Provider] - (2) COPD (chronic obstructive pulmonary disease) Qualifiers: COPD type: unspecified COPD Qualified Code(s): J44.9 - Chronic obstructive pulmonary disease, unspecified (4) DM2 (diabetes mellitus, type 2) Qualifiers: Diabetes mellitus tank terminal gauger insulin use: with tank terminal gauger use Diabetes mellitus complication status: with kidney complications Diabetes mellitus complication detail: with chronic kidney disease Chronic kidney disease stage: stage 3 (moderate) Qualified Code(s): E11.22 - Type 2 diabetes mellitus with diabetic chronic kidney disease; N18.3 - Chronic kidney disease, stage 3 (moderate); Z79.4 - termite helper (current) use of insulin (5) Anemia Qualifiers: Anemia type: unspecified type Qualified Code(s): D64.9 - Anemia, unspecified
[2018-04-18] MEDS: *HR* OxyCODONE Immed Rel 5 MG TABLET PO PRN ×2 (00:09→20:15)
[2018-04-18] MEDS: Ipratropium/Albuterol Neb 3 ML IH PRN ×3 (00:51→22:53)
[2018-04-18] MEDS: Levothyroxine 25 MCG TABLET PO SCH (05:13)
[2018-04-18 06:35] LABS: Basophils % 0.3 %; Eosinophils # 0.1 K/mcL (0.0-0.6); Eosinophils % 2.5 %; Hematocrit 23.7 % (35.3-44.9); Hemoglobin 8.1 g/dL (11.5-15.4); Immature Granulocytes % 0.3 % (0-4); Lymphocytes # 0.2 K/mcL (0.6-4.6); Lymphocytes % 7.4 %; Mean Corpuscular HGB Conc 34.2 g/dL (31.6-35.5); Mean Corpuscular Volume 84.9 fL (83.0-100.0); Mean Platelet Volume 9.9 fL (9.4-12.4); Monocytes # 0.3 K/mcL (0.0-1.3); Monocytes % 9.2 %; Neutrophils # 2.6 K/mcL (1.6-8.9); Platelet Count 114 K/mcL (140-400); Red Blood Count 2.79 M/mcL (3.82-4.97); Red Cell Distribution Width 13.6 % (11.5-14.5); Segmented Neutrophils % 80.3 %
[2018-04-18 06:53] LABS: BUN/Creatinine Ratio 21 (6-26); Blood Urea Nitrogen 22 mg/dL (8-23); Calcium 8.7 mg/dL (8.6-10.3); Carbon Dioxide 36 mEq/L (23-29); Chloride 92 mEq/L (98-107); Glucose 202 mg/dL (70-105); Magnesium 1.7 mg/dL (1.6-2.6); Osmolality,Calculated 275 (280-300); Potassium 4.2 mEq/L (3.5-5.1); Sodium 128 mEq/L (136-145); eGFR For Non-African Americans 51 (> 60)
[2018-04-18] MEDS: amLODIPine 5 MG TABLET PO SCH (07:18)
[2018-04-18] MEDS: Ascorbic Acid 500 MG TABLET PO SCH (07:19)
[2018-04-18] MEDS: Spironolactone 25 MG TABLET PO SCH (07:19)
[2018-04-18] MEDS: cloNIDine HCl 0.1 MG TABLET PO SCH ×2 (07:20→20:09)
[2018-04-18] MEDS: Lisinopril 20 MG TABLET PO SCH (07:20)
[2018-04-18] MEDS: tiZANidine 4 MG TABLET PO PRN ×2 (07:20→14:30)
[2018-04-18] MEDS: Furosemide 20 MG/2 ML VIAL IVP SCH ×2 (07:20→20:07)
[2018-04-18] MEDS: Folic Acid 1 MG TABLET PO SCH (07:20)
[2018-04-18] MEDS: Cyanocobalamin (B-12) 1,000 MCG TABLET PO SCH (07:20)
[2018-04-18] MEDS: Nystatin POWDER 30 GM BOTTLE TP SCH ×2 (07:21→20:18)
[2018-04-18] MEDS: FLUTICASONE PROPIONATE IH SCH (07:26)
[2018-04-18] MEDS: Insulin LISPRO 300 UNITS/3 ML VIAL SQ SCH ×4 (07:26→20:10)
[2018-04-18] MEDS: MOMETASONE FUROATE 100 mcg Inhaler IH SCH ×2 (09:31→22:54)
[2018-04-18] MEDS ORDERED: Famotidine 20 MG TABLET PO PRN (14:44)
[2018-04-18] MEDS: Fenofibrate 54 MG TABLET PO SCH (17:05)
--- NOTE | 2018-04-19 03:59 | Internal Med Progress Note ---
Hospitalist Progress Note - Encounter Date of Encounter: 04/18/18 Time of Encounter: 19:00 - Subjective Interval History: SUBJECTIVE: The patient complains of cough with expectoration of fair amounts of sputum. It is not associated with wheezing. She makes good amounts of urine; swelling of her lower legs/feet nearly subsided. Denies chest pain and difficulty breathing. She is on 3 L/min nasal cannula oxygen (her baseline). Denies abdominal pain, nausea and vomiting. OBJECTIVE: Skin: Free of rash and discoloration. ENMT: Oral/pharyngeal mucosa is normal in appearance. Eyes: Sclera is white. There is no discharge from eyes. Respiratory: Normal breath sounds; no crackles or wheezes. CV: Heart is regular; no gallop or murmur. GI: Abdomen is soft and not tender. There is no palpable mass or visceromegaly. Neuro: There is no focal deficits. ADDITIONAL DATA: Echocardiogram from January 2018 showed ejection fraction of 55-60%. With mild concentric left ventricular hypertrophy. There is no evidence of pulmonary hypertension. Chest x-ray from 04/16/18 showed findings typical of congestive heart failure. Hemoglobin is 8.1; 8.2 at admission. With WBC of 3.3 thousand and platelet count of 114,000. Sodium is 128; 131 at admission. Chloride is 92. She has bicarb of 36; 30 at admission. Creatinine is 1.07. ASSESSMENT AND PLAN: Acute on chronic diastolic heart failure. Better. I will substituted IV Lasix with oral Lasix. To continue fluid restriction of 1800 mL per day. COPD. I explained to her that it is normal for COPD to see coughing with expectoration. To continue Mucinex and when necessary nebulizer treatments with DuoNeb. Acute on chronic respiratory failure with hypoxia. Secondary to problems mentioned above. Currently, she takes 3 L/min nasal cannula oxygen. Was using 2 L/min at home. Type 2 diabetes mellitus. With CKD stage III. To continue when necessary Humalog. She was taking insulins at home. Disposition: I would like to discharge her tomorrow, if possible. - Exam Vitals: Temp Pulse Resp BP Pulse Ox 98.0 F 72 17 172/63 96 04/19/18 00:00 04/19/18 00:00 04/19/18 00:00 04/19/18 00:00 04/19/18 00:00 Exam: xx - Assessment and Plan (1) Acute on chronic diastolic heart failure Current Visit: Yes Status: Acute (2) COPD (chronic obstructive pulmonary disease) Current Visit: Yes Status: Chronic (3) Acute and chronic respiratory failure with hypoxia Current Visit: Yes Status: Acute (4) DM2 (diabetes mellitus, type 2) Current Visit: Yes Status: Chronic (5) Anemia Current Visit: Yes Status: Chronic - Time Spent with Patient Total time spent is greater than 50% in coordination of care (as documented) at patient's floor/unit and/or counseling patient: 25 - 35 minutes Plan of Care Discussed with: patient Internal Medicine: Result - Labs CBC & Chem 7: 04/18/18 06:02 04/18/18 06:02 Labs: Short CBC 04/18/18 Range/Units 06:02 WBC 3.3 L (4.3-11.1) K/mcL Hgb 8.1 L (11.5-15.4) g/dL Hct 23.7 L (35.3-44.9) % Plt Count 114 L (140-400) K/mcL Neutrophils # 2.6 (1.6-8.9) K/mcL BMP 04/18/18 06:02 Sodium 128 L Potassium 4.2 Chloride 92 L Carbon Dioxide 36 H BUN 22 Creatinine 1.07 Glucose 202 H Calcium 8.7 Consult Discharge Plan - Plan Referrals: Man Eubanks MD [Primary Care Provider] - (2) COPD (chronic obstructive pulmonary disease) Qualifiers: COPD type: unspecified COPD Qualified Code(s): J44.9 - Chronic obstructive pulmonary disease, unspecified (4) DM2 (diabetes mellitus, type 2) Qualifiers: Diabetes mellitus alf insulin use: with ferry terminal agent use Diabetes mellitus complication status: with kidney complications Diabetes mellitus complication detail: with chronic kidney disease Chronic kidney disease stage: stage 3 (m oderate) Qualified Code(s): E11.22 - Type 2 diabetes mellitus with diabetic chronic kidney disease; N18.3 - Chronic kidney disease, stage 3 (moderate); Z79.4 - care home (current) use of insulin (5) Anemia Qualifiers: Anemia type: unspecified type Qualified Code(s): D64.9 - Anemia, unspecified
[2018-04-19] MEDS: Levothyroxine 25 MCG TABLET PO SCH (06:06)
[2018-04-19 07:05] LABS: BUN/Creatinine Ratio 20 (6-26); Blood Urea Nitrogen 21 mg/dL (8-23); Calcium 8.8 mg/dL (8.6-10.3); Carbon Dioxide 37 mEq/L (23-29); Chloride 88 mEq/L (98-107); Glucose 163 mg/dL (70-105); Osmolality,Calculated 279 (280-300); Potassium 3.9 mEq/L (3.5-5.1); Sodium 131 mEq/L (136-145); eGFR For Non-African Americans 52 (> 60)
[2018-04-19] MEDS: cloNIDine HCl 0.1 MG TABLET PO SCH ×3 (07:37→20:34)
[2018-04-19] MEDS: amLODIPine 5 MG TABLET PO SCH (07:37)
[2018-04-19] MEDS: Folic Acid 1 MG TABLET PO SCH (07:37)
[2018-04-19] MEDS: Ascorbic Acid 500 MG TABLET PO SCH (07:38)
[2018-04-19] MEDS: Loratadine 10 MG TABLET PO SCH (07:38)
[2018-04-19] MEDS: Spironolactone 25 MG TABLET PO SCH (07:38)
[2018-04-19] MEDS: Cyanocobalamin (B-12) 1,000 MCG TABLET PO SCH (07:38)
[2018-04-19] MEDS: Lisinopril 20 MG TABLET PO SCH (07:38)
[2018-04-19] MEDS: Furosemide 40 MG TABLET PO SCH ×2 (07:39→17:35)
[2018-04-19] MEDS: Insulin LISPRO 300 UNITS/3 ML VIAL SQ SCH ×4 (07:39→20:34)
[2018-04-19] MEDS: Nystatin POWDER 30 GM BOTTLE TP SCH ×2 (07:45→20:34)
[2018-04-19] MEDS: MOMETASONE FUROATE 100 mcg Inhaler IH SCH ×2 (09:17→23:09)
[2018-04-19] MEDS: Ipratropium/Albuterol Neb 3 ML IH PRN ×2 (09:17→17:47)
[2018-04-19] MEDS: tiZANidine 4 MG TABLET PO PRN ×2 (13:08→19:00)
[2018-04-19] MEDS: *HR* OxyCODONE Immed Rel 5 MG TABLET PO PRN ×2 (13:08→18:56)
[2018-04-19] MEDS: Fenofibrate 54 MG TABLET PO SCH (17:35)
[2018-04-19] MEDS: traZODone 50 MG TABLET PO PRN (20:34)
--- NOTE | 2018-04-20 04:32 | Internal Med Progress Note ---
Hospitalist Progress Note - Encounter Date of Encounter: 04/19/18 Time of Encounter: 19:00 - Subjective Interval History: SUBJECTIVE: The patient complains of weakness. She gets short of breath easily; when walking. She has relatively mild cough; with expectoration of a fairly large amounts of sputum. She has no wheezing. She makes good amounts of urine; swelling of her lower legs/feet nearly subsided. Denies chest pain and difficulty breathing. She is on 3 L/min nasal cannula oxygen (her baseline). Denies abdominal pain, nausea and vomiting. OBJECTIVE: Skin: Free of rash and discoloration. ENMT: Oral/pharyngeal mucosa is normal in appearance. Eyes: Sclera is white. There is no discharge from eyes. Respiratory: Normal breath sounds; no crackles or wheezes. CV: Heart is regular; no gallop or murmur. GI: Abdomen is soft and not tender. There is no palpable mass or visceromegaly. Neuro: There is no focal deficits. ADDITIONAL DATA: Echocardiogram from January 2018 showed ejection fraction of 55-60%. With mild concentric left ventricular hypertrophy. There is no evidence of pulmonary hypertension. Chest x-ray from today continues to show pulmonary congestion. Hemoglobin is 8.1; 8.2 at admission. With WBC of 3.3 thousand and platelet count of 114,000. Sodium is 131; 128 yesterday. With potassium 3.9 and chloride of 88. Bicarb is 37; 33 at admission. ASSESSMENT AND PLAN: Acute on chronic diastolic heart failure. Better. She is on oral Lasix. She is on fluid restriction of 800 mL per day. COPD. I explained to her that it is normal for COPD to have coughing with expectoration. To continue Mucinex and when necessary nebulizer treatments with DuoNeb. Acute on chronic respiratory failure with hypoxia. Secondary to problems mentioned above. Currently, she takes 3 L/min nasal cannula oxygen. Was using 2 L/min at home. Type 2 diabetes mellitus. With CKD stage III. To continue when necessary Humalog. She was taking insulins at home. Deconditioning. I will consult physical therapy. Disposition: I discussed this case with case management. I hope, that the patient would qualify for short term physical therapy at [facility]. - Exam Vitals: Temp Pulse Resp BP Pulse Ox 99.4 F 74 16 168/65 99 04/20/18 03:53 04/20/18 03:53 03/06/19 03:53 04/20/18 03:53 04/20/18 03:53 Exam: xx - Assessment and Plan (1) Acute on chronic diastolic heart failure Current Visit: Yes Status: Acute (2) COPD (chronic obstructive pulmonary disease) Current Visit: Yes Status: Chronic (3) Acute and chronic respiratory failure with hypoxia Current Visit: Yes Status: Acute (4) DM2 (diabetes mellitus, type 2) Current Visit: Yes Status: Chronic (5) Anemia Current Visit: Yes Status: Chronic - Time Spent with Patient Total time spent is greater than 50% in coordination of care (as documented) at patient's floor/unit and/or counseling patient: 25 - 35 minutes Plan of Care Discussed with: patient Internal Medicine: Result - Labs CBC & Chem 7: 04/18/18 06:02 04/19/18 05:44 Labs: BMP 04/19/18 05:44 Sodium 131 L Potassium 3.9 Chloride 88 L Carbon Dioxide 37 H BUN 21 Creatinine 1.05 Glucose 163 H Calcium 8.8 - Impressions Impressions Chest X-Ray 04/19/18 03:46 IMPRESSION: Congestive heart failure on a pulmonary background of emphysema and sequela related to smoking. Pneumonia is a consideration in areas of pulmonary consolidation and pleural effusion bilateral, right greater than left. Calcific atherosclerotic disease aorta. D/ / Dylan Loredo / Dylan Loredo Interpreting Provider: Dylan Loredo Consult Discharge Plan - Plan Referrals: Man Eubanks MD [Primary Care Provider] - (2) COPD (chronic obstructive pulmonary disease) Qualifiers: COPD type: unspecified COPD Qualified Code(s): J44.9 - Chronic obstructive pulmonary disease, unspecified (4) DM2 (diabetes mellitus, type 2) Qualifiers: Diabetes mellitus terminal operations manager insulin use: with terminal operations manager use Diabetes mellitus complication status: with kidney complications Diabetes mellitus complication detail: with chronic kidney disease Chronic kidney disease stage: stage 3 (moderate) Qualified Code(s): E11.22 - Type 2 diabetes mellitus with diabetic chronic kidney disease; N18.3 - Chronic kidney disease, stage 3 (moderate); Z79.4 - lobsterman (current) use of insulin (5) Anemia Qualifiers: Anemia type: unspecified type Qualified Code(s): D64.9 - Anemia, unspecified
[2018-04-20] MEDS: Levothyroxine 25 MCG TABLET PO SCH (04:37)
[2018-04-20] MEDS: MOMETASONE FUROATE 100 mcg Inhaler IH SCH ×2 (07:46→20:19)
[2018-04-20] MEDS: Spironolactone 25 MG TABLET PO SCH (08:00)
[2018-04-20] MEDS: Insulin LISPRO 300 UNITS/3 ML VIAL SQ SCH ×4 (08:00→21:20)
[2018-04-20] MEDS: amLODIPine 5 MG TABLET PO SCH (08:01)
[2018-04-20] MEDS: Ascorbic Acid 500 MG TABLET PO SCH (08:01)
[2018-04-20] MEDS: Loratadine 10 MG TABLET PO SCH (08:01)
[2018-04-20] MEDS: Furosemide 40 MG TABLET PO SCH ×2 (08:01→16:58)
[2018-04-20] MEDS: Folic Acid 1 MG TABLET PO SCH (08:01)
[2018-04-20] MEDS: Lisinopril 20 MG TABLET PO SCH (08:01)
[2018-04-20] MEDS: Cyanocobalamin (B-12) 1,000 MCG TABLET PO SCH (08:01)
[2018-04-20] MEDS: cloNIDine HCl 0.1 MG TABLET PO SCH ×3 (08:02→21:20)
[2018-04-20] MEDS: Nystatin POWDER 30 GM BOTTLE TP SCH ×2 (08:02→23:05)
[2018-04-20] MEDS: tiZANidine 4 MG TABLET PO PRN ×2 (08:07→14:06)
[2018-04-20] MEDS: Ipratropium/Albuterol Neb 3 ML IH PRN ×2 (10:16→20:20)
--- NOTE | 2018-04-20 12:55 | Electrocardiograph Report ---
[address] [place] [address] Test Date: 2018-04-16 Pat Name: Mounika Kimble Department: EXAM8 Room: 2A38 Gender: F Shirt Sewer: : 1950 Requested By: Chucky Lopez Order Number: [id number] Reading MD: Dorothy Pascual Measurements Intervals [place] Rate: 72 P: 82 VT: 145 QRS: 71 QRSD: 87 T: 35 QT: 365 QTc: 400 Interpretive Statements Sinus rhythm Borderline low voltage, extremity leads Electronically Signed On 04-20-2018 12:53:57 EST by Dorothy Pascual
[2018-04-20] MEDS: Fenofibrate 54 MG TABLET PO SCH (16:51)
[2018-04-20] MEDS: traZODone 50 MG TABLET PO PRN (21:20)
--- NOTE | 2018-04-20 21:56 | Internal Med Progress Note ---
Hospitalist Progress Note - Encounter Date of Encounter: 04/20/18 Time of Encounter: 19:00 - Exam Vitals: Temp Pulse Resp BP Pulse Ox 97.9 F 76 16 147/71 97 04/20/18 19:35 04/20/18 19:35 04/20/18 20:24 04/20/18 19:35 04/20/18 20:24 Exam: xx - Assessment and Plan (1) Acute on chronic diastolic heart failure Current Visit: Yes Status: Acute (2) COPD (chronic obstructive pulmonary disease) Current Visit: Yes Status: Chronic (3) Acute and chronic respiratory failure with hypoxia Current Visit: Yes Status: Acute (4) DM2 (diabetes mellitus, type 2) Current Visit: Yes Status: Chronic (5) Anemia Current Visit: Yes Status: Chronic - Time Spent with Patient Total time spent is greater than 50% in coordination of care (as documented) at patient's floor/unit and/or counseling patient: 25 - 35 minutes Plan of Care Discussed with: patient Internal Medicine: Result - Labs CBC & Chem 7: 04/18/18 06:02 04/19/18 05:44 Consult Discharge Plan - Plan Referrals: Man Eubanks MD [Primary Care Provider] - (2) COPD (chronic obstructive pulmonary disease) Qualifiers: COPD type: unspecified COPD Qualified Code(s): J44.9 - Chronic obstructive pulmonary disease, unspecified (4) DM2 (diabetes mellitus, type 2) Qualifiers: Diabetes mellitus local intermodal truck driver insulin use: with local intermodal truck driver use Diabetes mellitus complication status: with kidney complications Diabetes mellitus complication detail: with chronic kidney disease Chronic kidney disease stage: stage 3 (moderate) Qualified Code(s): E11.22 - Type 2 diabetes mellitus with diabetic chronic kidney disease; N18.3 - Chronic kidney disease, stage 3 (moderate); Z79.4 - assisted (current) use of insulin (5) Anemia Qualifiers: Anemia type: unspecified type Qualified Code(s): D64.9 - Anemia, unspecified
[2018-04-20] MEDS ORDERED: Insulin DETEMIR 100 UNIT/ML X5UNITS SQ SCH (22:00)
[2018-04-21] MEDS: Levothyroxine 25 MCG TABLET PO SCH (05:23)
[2018-04-21] MEDS: Ipratropium/Albuterol Neb 3 ML IH PRN (07:26)
[2018-04-21] MEDS: MOMETASONE FUROATE 100 mcg Inhaler IH SCH (07:26)
[2018-04-21] MEDS: Spironolactone 25 MG TABLET PO SCH (07:50)
[2018-04-21] MEDS: Ascorbic Acid 500 MG TABLET PO SCH (07:51)
[2018-04-21] MEDS: Folic Acid 1 MG TABLET PO SCH (07:51)
[2018-04-21] MEDS: Cyanocobalamin (B-12) 1,000 MCG TABLET PO SCH (07:51)
[2018-04-21] MEDS: Furosemide 40 MG TABLET PO SCH ×2 (07:52→17:39)
[2018-04-21] MEDS: amLODIPine 5 MG TABLET PO SCH (07:52)
[2018-04-21] MEDS: Loratadine 10 MG TABLET PO SCH (07:52)
[2018-04-21] MEDS: Insulin LISPRO 300 UNITS/3 ML VIAL SQ SCH ×3 (07:53→17:42)
[2018-04-21] MEDS: Nystatin POWDER 30 GM BOTTLE TP SCH (08:02)
[2018-04-21] MEDS ORDERED: cloNIDine HCl 0.1 MG TABLET PO SCH (09:00)
[2018-04-21] MEDS ORDERED: Lisinopril 20 MG TABLET PO SCH (09:00)
[2018-04-21] MEDS: *HR* OxyCODONE Immed Rel 5 MG TABLET PO PRN ×2 (12:09→19:33)
[2018-04-21 12:28] LABS: Mean Corpuscular Hemoglobin 28.1 pg (28.0-33.3)
[2018-04-21 12:29] LABS: Hematocrit 21.9 % (35.3-44.9); Hemoglobin 7.2 g/dL (11.5-15.4); Lymphocytes # 0.1 K/mcL (0.6-4.6); Mean Corpuscular HGB Conc 32.9 g/dL (31.6-35.5); Mean Corpuscular Volume 85.5 fL (83.0-100.0); Mean Platelet Volume 10.3 fL (9.4-12.4); Red Blood Count 2.56 M/mcL (3.82-4.97); Red Cell Distribution Width 13.4 % (11.5-14.5)
[2018-04-21 12:40] LABS: Calcium 8.6 mg/dL (8.6-10.3); Magnesium 1.7 mg/dL (1.6-2.6); Platelet Count 97 K/mcL (140-400); Potassium 3.7 mEq/L (3.5-5.1)
[2018-04-21 13:34] LABS: Monocytes # 0.1 K/mcL (0.0-1.3); Neutrophils # 1.7 K/mcL (1.6-8.9)
[2018-04-21 13:35] LABS: Platelet Estimate Decreased (Normal); Polychromasia 1+ (Not Present)
[2018-04-21 15:44] VITALS: BP 147/61
[2018-04-21] MEDS: Fenofibrate 54 MG TABLET PO SCH (17:39)
--- NOTE | 2018-04-21 17:43 | Discharge Summary ---
Date of Encounter: 04/21/18 Time of Encounter: 17:31 - Discharge Diagnosis (1) Acute on chronic diastolic heart failure Priority: Primary Status: Acute (2) COPD (chronic obstructive pulmonary disease) Priority: Secondary Status: Chronic Qualifiers: COPD type: unspecified COPD Qualified Code(s): J44.9 - Chronic obstructive pulmonary disease, unspecified (3) Acute and chronic respiratory failure with hypoxia Priority: Primary Status: Acute (4) DM2 (diabetes mellitus, type 2) Priority: Secondary Status: Chronic Qualifiers: Diabetes mellitus termination clerk insulin use: with group home use Diabetes mellitus complication status: with kidney complications Diabetes mellitus complication detail: with chronic kidney disease Chronic kidney disease stage: stage 3 (moderate) Qualified Code(s): E11.22 - Type 2 diabetes mellitus with diabetic chronic kidney disease; N18.3 - Chronic kidney disease, stage 3 (moderate); Z79.4 - assisted (current) use of insulin (5) Anemia Priority: Secondary Status: Chronic Qualifiers: Anemia type: unspecified type Qualified Code(s): D64.9 - Anemia, unspecified (6) Debility Priority: Primary Status: Acute Hospital course: Ms. Kimble is a 68 year old female Discharge discussed with: patient, nurse - Time Spent with Patient Total time spent providing and/or coordinating discharge services: Time spent: Greater than 30 minutes (45 minutes...) - Discharge Medications Prescriptions: New Ipratropium/Albuterol Neb [Duoneb] 3 ml IH [id number] PRN inhsol PRN Reason: Shortness Of Breath/Wheezing cloNIDine HCl [CloNIDine HCl] 0.2 mg PO BID tablet Furosemide [Lasix] 40 mg PO QAM tablet Continue Oxygen 2.5 l NS AD Loratadine [Claritin] 10 mg PO DAILY Insulin ASPART [Novolog Flexpen] 2 - 7 unit SQ [facility] Montelukast [Singulair] 10 mg PO DAILY Cholecalciferol (Vitamin D3) [Vitamin D3] 10,000 unit PO FR Albuterol Sulfate [Albuterol Inhaler] 2 puff IH Q4H PRN PRN Reason: Shortness Of Breath Guaifenesin [Mucinex] 600 mg PO BID PRN PRN Reason: Congestion EPINEPHrine [Epipen] 0.3 mg IM ONCE PRN PRN Reason: Anaphylaxis Cyanocobalamin (Vitamin B-12) [Vitamin B12] 1,000 mcg PO DAILY Fenofibrate Nanocrystallized [Triglide] 160 mg PO QPM Folic Acid 1 mg PO DAILY Lactobacillus Combination No.8 [Adult Probiotic] 1 cap PO DAILY Levothyroxine Sodium [Levoxyl] 25 mcg PO DAILY Nitroglycerin [Nitrostat] 0.4 mg SL AD Omeprazole [PriLOSEC] 40 mg PO BID Polyethylene Glycol 3350 [MiraLAX] 17 gm PO DAILY PRN PRN Reason: Constipation Simvastatin [Zocor] 20 mg PO HS Ammonium Lactate [Isis-Hydrolac] 1 appl TP BID Ascorbic Acid [Vitamin C] 500 mg PO DAILY Fluticasone Propionate [Flovent Hfa] 1 puff IN BID Lidocaine Patch [Lidoderm 5% patch] 1 patch TP DAILY Ondansetron HCl [Zofran] 8 mg PO TID PRN PRN Reason: NAUSEA/VOMITING Tizanidine HCl 2 mg PO Q6H PRN PRN Reason: MUSCLE SPASMS traZODone [TraZODone] 50 mg PO HS PRN PRN Reason: Sleep Calcium Carbonate [Tums] 1,000 mg PO DAILY Carvedilol [Coreg] 25 mg PO BIDWM #60 tablet Ferrous Sulfate 325 mg PO BIDWM #60 tablet Lisinopril [Zestril] 30 mg PO DAILY #30 tablet Simethicone [Gas-X] 80 mg PO TID PRN #15 tab.chew PRN Reason: Dyspepsia Spironolactone [Aldactone] 50 mg PO DAILY #30 tablet Ranitidine HCl [Acid Grid Maker] 150 mg PO QPM Amlodipine Besylate 10 mg PO DAILY OxyCODONE Immed Rel [Roxicodone 10 MG] 10 mg PO Q6H PRN 3 Days #10 tablet PRN Reason: Pain Changed Insulin Glargine,Hum.rec.anlog [Lantus Solostar] 15 unit SQ QPM #0 Ipratropium/Albuterol Sulfate [Combivent Respimat Inhal [place]] 2 puff IH QID #0 Discontinued cloNIDine HCl [CloNIDine HCl] 0.1 mg PO BID #60 tablet Ipratropium/Albuterol Neb [Duoneb] 3 ml IH Q6HR Home Medications: Insulin ASPART [Novolog Flexpen] 2 - 7 unit SQ [facility] 09/24/14 [History] Loratadine [Claritin] 10 mg PO DAILY 09/24/14 [History] Oxygen 2.5 l NS AD 09/24/14 [History] Albuterol Sulfate [Albuterol Inhaler] 2 puff IH Q4H PRN 08/20/15 [History] Cholecalciferol (Vitamin D3) [Vitamin D3] 10,000 unit PO FR 08/20/15 [History] Montelukast [Singulair] 10 mg PO DAILY 08/20/15 [History] Guaifenesin [Mucinex] 600 mg PO BID PRN 06/11/16 [History] EPINEPHrine [Epipen] 0.3 mg IM ONCE PRN 11/19/16 [History] Cyanocobalamin (Vitamin B-12) [Vitamin B12] 1,000 mcg PO DAILY 10/21/17 [History] Fenofibrate Nanocrystallized [Triglide] 160 mg PO QPM 10/21/17 [History] Folic Acid 1 mg PO DAILY 10/21/17 [History] Lactobacillus Combination No.8 [Adult Probiotic] 1 cap PO DAILY 10/21/17 [History] Levothyroxine Sodium [Levoxyl] 25 mcg PO DAILY 10/21/17 [History] Nitroglycerin [Nitrostat] 0.4 mg SL AD 10/21/17 [History] Omeprazole [PriLOSEC] 40 mg PO BID 10/21/17 [History] Polyethylene Glycol 3350 [MiraLAX] 17 gm PO DAILY PRN 10/21/17 [History] Simvastatin [Zocor] 20 mg PO HS 10/21/17 [History] Ammonium Lactate [Isis-Hydrolac] 1 appl TP BID 02/07/18 [History] Ascorbic Acid [Vitamin C] 500 mg PO DAILY 02/07/18 [History] Calcium Carbonate [Tums] 1,000 mg PO DAILY 02/07/18 [History] Fluticasone Propionate [Flovent Hfa] 1 puff IN BID 02/07/18 [History] Lidocaine Patch [Lidoderm 5% patch] 1 patch TP DAILY 02/07/18 [History] Ondansetron HCl [Zofran] 8 mg PO TID PRN 02/07/18 [History] Tizanidine HCl 2 mg PO Q6H PRN 02/07/18 [History] traZODone [TraZODone] 50 mg PO HS PRN 02/07/18 [History] Carvedilol [Coreg] 25 mg PO BIDWM #60 tablet 02/12/18 [Rx] Ferrous Sulfate 325 mg PO BIDWM #60 tablet 02/12/18 [Rx] Lisinopril [Zestril] 30 mg PO DAILY #30 tablet 02/12/18 [Rx] Simethicone [Gas-X] 80 mg PO TID PRN #15 tab.chew 02/12/18 [Rx] Spironolactone [Aldactone] 50 mg PO DAILY #30 tablet 02/12/18 [Rx] Ranitidine HCl [Acid Grid Maker] 150 mg PO QPM 02/24/18 [History] Amlodipine Besylate 10 mg PO DAILY 04/18/18 [History] Furosemide [Lasix] 40 mg PO QAM tablet 04/21/18 [Rx] Insulin Glargine,Hum.rec.anlog [Lantus Solostar] 15 unit SQ QPM #0 04/21/18 [Rx] Ipratropium/Albuterol Neb [Duoneb] 3 ml IH [id number] PRN inhsol 04/21/18 [Rx] Ipratropium/Albuterol Sulfate [Combivent Respimat Inhal [place]] 2 puff IH QID #0 04/21/18 [Rx] OxyCODONE Immed Rel [Roxicodone 10 MG] 10 mg PO Q6H PRN 3 Days #10 tablet 04/21/18 [Rx] cloNIDine HCl [CloNIDine HCl] 0.2 mg PO BID tablet 04/21/18 [Rx] Allergies/Adverse Reactions: Allergy/AdvReac Type Severity Reaction Status Date / Time baclofen AdvReac Hallucinati Verified 04/18/18 14:28 ng cilostazol [From Pletal] AdvReac Hallucinati Verified 04/18/18 14:28 ng Date of admission: 04/18/18 16:42 Primary care physician: Man Eubanks MD Consults: 04/18/18 08:57 Consult to Nurse Navigator [CONS] Routine Comment: chf 04/20/18 04:21 Consult to Physical Therapy [CONS] Routine Comment: Evaluate, develop and implement POC Reason for Consult: DEBILITY/AC AND CHR DIASTOLIC HEART FAILURE Does patient have active BEDREST order?: No Is patient medically & hemodynamically stable?: Yes 04/20/18 11:01 Consult to Occupational Therapy [CONS] Routine Comment: Evaluate, develop and implement POC Reason for Consult: eval for poss ecf Does patient have active BEDREST order?: No Is patient medically & hemodynamically stable?: Yes Discharging clinician: Greg Holman Anticipated date of discharge: 04/21/18 - Constitutional Vitals: Temp Pulse Resp BP Pulse Ox 98.8 F 78 16 147/61 98 04/21/18 15:39 04/21/18 15:39 04/21/18 15:39 04/21/18 15:39 04/21/18 15:39 General appearance: Present: A&O X 3, no acute distress, answers questions appropriately Exam: xx - Patient Status Disposition: Transfer SNF Condition: Fair Functional capacity at discharge: uses cane/walker (with assist...) Overall status at discharge: patient is progressing back to baseline - Discharge Instructions Follow Up With: Man Eubanks MD [Primary Care Provider] - (Patient is going to [facility]) Additional Instructions: FINGERSTICKS FOR GLUCOSE -- ROUTINE... - Diet and Activity Activity: ambulate only with your walker (assist needed...) Diet: diabetic diet (FLUID RESTRICTION OF 1800 ML PER DAY...) - VTE Reasons for not Prescribing Prophylaxis: Treatment not Indicated - Low risk for VTE Deep Vein Thrombosis/Pulmonary Embolism Present on Admission: No
--- NOTE | 2018-04-21 17:50 | Physician Discharge Referral ---
ExtendedCare Referral Info Transfer To: [facility] Provider in Charge: Fina Holman MD Provider in Charge after Transfer: Other (A SNF physician...) - Diagnosis (1) Acute on chronic diastolic heart failure Priority: Primary Status: Acute (2) COPD (chronic obstructive pulmonary disease) Priority: Secondary Status: Chronic (3) Acute and chronic respiratory failure with hypoxia Priority: Primary Status: Acute (4) DM2 (diabetes mellitus, type 2) Priority: Secondary Status: Chronic (5) Anemia Priority: Secondary Status: Chronic Prognosis: Fair Aware of Diagnosis: Patient Aware of Prognosis: Patient - Transfer Medications Prescriptions: OxyCODONE Immed Rel [Roxicodone 10 MG] 10 mg PO Q6H PRN 3 Days #10 tablet PRN Reason: Pain Home Medications: Insulin ASPART [Novolog Flexpen] 2 - 7 unit SQ [facility] 09/24/14 [History] Loratadine [Claritin] 10 mg PO DAILY 09/24/14 [History] Oxygen 2.5 l NS AD 09/24/14 [History] Albuterol Sulfate [Albuterol Inhaler] 2 puff IH Q4H PRN 08/20/15 [History] Cholecalciferol (Vitamin D3) [Vitamin D3] 10,000 unit PO FR 08/20/15 [History] Montelukast [Singulair] 10 mg PO DAILY 08/20/15 [History] Guaifenesin [Mucinex] 600 mg PO BID PRN 06/11/16 [History] EPINEPHrine [Epipen] 0.3 mg IM ONCE PRN 11/19/16 [History] Cyanocobalamin (Vitamin B-12) [Vitamin B12] 1,000 mcg PO DAILY 10/21/17 [History] Fenofibrate Nanocrystallized [Triglide] 160 mg PO QPM 10/21/17 [History] Folic Acid 1 mg PO DAILY 10/21/17 [History] Lactobacillus Combination No.8 [Adult Probiotic] 1 cap PO DAILY 10/21/17 [History] Levothyroxine Sodium [Levoxyl] 25 mcg PO DAILY 10/21/17 [History] Nitroglycerin [Nitrostat] 0.4 mg SL AD 10/21/17 [History] Omeprazole [PriLOSEC] 40 mg PO BID 10/21/17 [History] Polyethylene Glycol 3350 [MiraLAX] 17 gm PO DAILY PRN 10/21/17 [History] Simvastatin [Zocor] 20 mg PO HS 10/21/17 [History] Ammonium Lactate [Isis-Hydrolac] 1 appl TP BID 02/07/18 [History] Ascorbic Acid [Vitamin C] 500 mg PO DAILY 02/07/18 [History] Calcium Carbonate [Tums] 1,000 mg PO DAILY 02/07/18 [History] Fluticasone Propionate [Flovent Hfa] 1 puff IN BID 02/07/18 [History] Lidocaine Patch [Lidoderm 5% patch] 1 patch TP DAILY 02/07/18 [History] Ondansetron HCl [Zofran] 8 mg PO TID PRN 02/07/18 [History] Tizanidine HCl 2 mg PO Q6H PRN 02/07/18 [History] traZODone [TraZODone] 50 mg PO HS PRN 02/07/18 [History] Carvedilol [Coreg] 25 mg PO BIDWM #60 tablet 02/12/18 [Rx] Ferrous Sulfate 325 mg PO BIDWM #60 tablet 02/12/18 [Rx] Lisinopril [Zestril] 30 mg PO DAILY #30 tablet 02/12/18 [Rx] Simethicone [Gas-X] 80 mg PO TID PRN #15 tab.chew 02/12/18 [Rx] Spironolactone [Aldactone] 50 mg PO DAILY #30 tablet 02/12/18 [Rx] Ranitidine HCl [Acid Policy Loan Calculator] 150 mg PO QPM 02/24/18 [History] Amlodipine Besylate 10 mg PO DAILY 04/18/18 [History] Furosemide [Lasix] 40 mg PO QAM tablet 04/21/18 [Rx] Insulin Glargine,Hum.rec.anlog [Lantus Solostar] 15 unit SQ QPM #0 04/21/18 [Rx] Ipratropium/Albuterol Neb [Duoneb] 3 ml IH [id number] PRN inhsol 04/21/18 [Rx] Ipratropium/Albuterol Sulfate [Combivent Respimat Inhal [place]] 2 puff IH QID #0 04/21/18 [Rx] OxyCODONE Immed Rel [Roxicodone 10 MG] 10 mg PO Q6H PRN 3 Days #10 tablet 04/21/18 [Rx] cloNIDine HCl [CloNIDine HCl] 0.2 mg PO BID tablet 04/21/18 [Rx] Allergies/Adverse Reactions: Allergy/AdvReac Type Severity Reaction Status Date / Time baclofen AdvReac Hallucinati Verified 04/18/18 14:28 ng cilostazol [From Pletal] AdvReac Hallucinati Verified 04/18/18 14:28 ng - Respiratory Orders Oxygen / L per min (2-3 l/min) Smoking Cessation: Smoking cessation has been advised. For more information, call the [place] Tobacco Quit Line at 5-334-YLMJ-NOW. - Advance Directives Code Status: Full Code - Mobility Orders Other (WALKER/ASSIST...) - Rehabiliation Orders Rehab Potential: Good - Diet Orders No Concentrated Sweets CERTIFICATION: I certify that the transfer of the above named patient to an Extended Care Facility is necessary for the continuing treatment of the diagnosis listed. The above information is true and accurate reflection of patient's current condition. Confidential - Redisclosure prohibited without a patient's written consent.
[2018-04-21] MEDS: tiZANidine 4 MG TABLET PO PRN (17:54)
== END 2018-04-21 19:50 | DRG 291 ==
LOC: 2ANU 17:49 → EMEROOARM 17:49 → SUATTDRO 19:56 → 2ANU 20:30
PROVIDERS: ADMIT Internal Medicine; ATTEND Internal Medicine

== ENCOUNTER 2018-08-01 19:50 | Observation (INO) ==
[2018-08-01] MEDS ORDERED: Ipratropium/Albuterol Neb 3 ML IH ONE (20:01)
--- NOTE | 2018-08-01 20:12 | Emergency Department Note ---
Disposition Clinical Impression: Chronic respiratory failure with hypoxia Disposition: Still a Patient Referrals: NONE,PCP [Primary Care Provider] - Time of Disposition: 20:12 General Adult HPI - General Chief complaint: ED Recheck/Abnormal Lab/Rx Time Seen by Provider: 08/01/18 19:56 Source: patient, EMS Limitations: no limitations Nursing Notes Reviewed: Yes Vital Signs Reviewed: Yes - History of Present Illness HPI Narrative: Attestation note: Patient was seen with the emergency medicine resident/nurse practitioner/physician recruiting assistant/transitional resident/medical student: Dr. Yvon Shaikh, I was present for the significant portions of the performance and interpretation of procedures and EKGs. I have personally performed a face to face evaluation on this patient. I have reviewed and agree with history and physical examination patient management and disposition. 68-year-old female from longterm facility history of atrial fibrillation presents to the emergency department by EMS for shortness of rose ath. Patient does have history of COPD she is a little pale no chest pain or recent medication changes patient is neurologically awake and alert. Patient will undergo workup is screening labs chest x-ray breathing treatment urinalysis. Admission anticipated. Disposition pending Pain Scale: 0 - Related Data Home Medications Medication Instructions Recorded Confirmed Insulin ASPART [Novolog Flexpen] 0 - 10 unit SQ TIDWM 09/24/14 07/12/18 Loratadine [Claritin] 10 mg PO DAILY 09/24/14 07/12/18 Oxygen 2.5 l NS AD 09/24/14 07/12/18 Albuterol Sulfate [Albuterol 2 puff IH Q4H PRN 08/20/15 07/12/18 Inhaler] Montelukast [Singulair] 10 mg PO DAILY 08/20/15 07/12/18 Guaifenesin [Mucinex] 600 mg PO BID PRN 06/11/16 07/12/18 Cyanocobalamin (Vitamin B-12) 1,000 mcg PO DAILY 10/21/17 07/12/18 [Vitamin B12] Folic Acid 1 mg PO DAILY 10/21/17 07/12/18 Lactobacillus Combination No.8 1 cap PO DAILY 10/21/17 07/12/18 [Adult Probiotic] Levothyroxine Sodium [Levoxyl] 25 mcg PO DAILY 10/21/17 07/12/18 Nitroglycerin [Nitrostat] 0.4 mg SL AD PRN MDD [id number] 10/21/17 07/12/18 WITHIN 15MINS CALL 911 Omeprazole [PriLOSEC] 40 mg PO BID 10/21/17 07/12/18 Polyethylene Glycol 3350 [MiraLAX] 17 gm PO QAM PRN 10/21/17 07/12/18 Simvastatin [Zocor] 20 mg PO HS 10/21/17 07/12/18 Ascorbic Acid [Vitamin C] 500 mg PO DAILY 02/07/18 07/12/18 Lidocaine Patch [Lidoderm 5% patch] 1 patch TP QAM 02/07/18 07/12/18 traZODone [TraZODone] 50 mg PO HS PRN 02/07/18 07/12/18 Ranitidine HCl [Acid Manufacturing Maintenance Mechanic] 150 mg PO QPM 02/24/18 07/12/18 Amlodipine Besylate 10 mg PO DAILY 04/18/18 07/12/18 Acetaminophen [Tylenol] 650 mg PO BID 06/09/18 07/12/18 Insulin Glargine,Hum.rec.anlog 20 unit SQ HS 06/09/18 07/12/18 [Basaglar Kwikpen U-100] Ipratropium/Albuterol Sulfate 2 puff IH Q4H PRN 06/09/18 07/12/18 [Combivent Respimat Inhal [place]] Calcium Carbonate [Calcium] 500 mg PO DAILY 06/17/18 07/12/18 Cholecalciferol (Vitamin D3) 10,000 unit PO WE 06/17/18 07/12/18 [Dialyvite Vitamin D] Ondansetron HCl 8 mg PO TID PRN 06/17/18 07/12/18 Tizanidine HCl 4 mg PO TID PRN 06/17/18 07/12/18 Fluticasone Propionate [Flovent 2 puff PO BID 07/12/18 07/12/18 Hfa] Glucagon HCl 1 mg IM PRN PRN 07/12/18 07/12/18 Isosorbide MONOnitrate [Isosorbide 10 mg PO BID 07/12/18 07/12/18 Mononitrate] Melatonin [Melatin] 3 mg PO HS PRN 07/12/18 07/12/18 Previous Rx's Medication Instructions Recorded Carvedilol [Coreg] 25 mg PO BIDWM #60 tablet 02/12/18 Ferrous Sulfate 325 mg PO BIDWM #60 tablet 02/12/18 Simethicone [Gas-X] 80 mg PO TID PRN #15 tab.chew 02/12/18 Ipratropium/Albuterol Neb [Duoneb] 3 ml IH [id number] PRN inhsol 04/21/18 Lisinopril [Zestril] 5 mg PO DAILY #0 07/14/18 Mometasone Furoate [Asmanex Hfa] 2 puff IH BIDRESP puff 07/14/18 Spironolactone [Aldactone] 25 mg PO DAILY #0 07/14/18 predniSONE [PredniSONE] 40 mg PO DAILY #2 tablet 07/14/18 Allergies Allergy/AdvReac Type Severity Reaction Status Date / Time baclofen AdvReac Hallucinati Verified 06/17/18 18:42 ng cilostazol [From Pletal] AdvReac Hallucinati Verified 06/17/18 18:42 ng Past Medical History - Past Medical History Medical history: Reports: asthma, cancer, CHF, COPD, coronary artery disease, CVA, diabetes, GERD, hepatitis, hypertension, liver disease, myocardial infarction, renal disease Surgical history: Reports: appendectomy, , cholecystectomy, coronary bypass (CABG), hysterectomy, other Psychiatric history: Reports: no psych history RN CARDIAC history: Reports: no RN CARDIAC history - Social History Smoking Status: Former smoker Smokeless Tobacco Status: No Alcohol use: Reports: none Drug use: Reports: none Physical Exam - General Limitations: no limitations General appearance: alert, in no apparent distress Course Vital Signs Temperature 98.2 F 08/01/18 19:56 Pulse Rate 59 08/01/18 19:56 Respiratory Rate 18 08/01/18 19:56 Blood Pressure 155/61 08/01/18 19:56 O2 Sat by Pulse Oximetry 100 08/01/18 19:56 Temperature 98.2 F 08/01/18 19:56 Pulse Rate 59 08/01/18 19:56 Respiratory Rate 18 08/01/18 19:56 Blood Pressure 155/61 08/01/18 19:56 O2 Sat by Pulse Oximetry 100 08/01/18 19:56 Oxygen Delivery Oxygen Delivery Nasal Cannula
[2018-08-01 20:39] LABS: Hematocrit 26.9 % (35.3-44.9); Hemoglobin 8.4 g/dL (11.5-15.4); Immature Granulocytes % 0.3 % (0-4); Lymphocytes # 0.1 K/mcL (0.6-4.6); Mean Corpuscular HGB Conc 31.2 g/dL (31.6-35.5); Mean Corpuscular Volume 89.7 fL (83.0-100.0); Mean Platelet Volume 10.7 fL (9.4-12.4); Monocytes # 0.2 K/mcL (0.0-1.3); Monocytes % 4.5 %; Red Cell Distribution Width 13.8 % (11.5-14.5); Segmented Neutrophils % 92.2 %; White Blood Count 3.3 K/mcL (4.3-11.1)
[2018-08-01 20:52] LABS: INR 1.1; Prothrombin Time 12.3 Seconds (9.4-12.1)
[2018-08-01 20:56] LABS: Albumin 2.7 g/dL (3.5-5.7); Albumin/Globulin Ratio 1.4 (1.1-2.2); Bilirubin,Direct 0.1 mg/dL (0.0-0.2); Bilirubin,Indirect 0.2 mg/dL (0.0-1.2); Bilirubin,Total 0.3 mg/dL (0.3-1.0); Total Protein 4.7 g/dL (6.4-8.9)
--- NOTE | 2018-08-01 20:58 | Emergency Department Note ---
Disposition Clinical Impression: Chronic respiratory failure with hypoxia, Acute kidney injury superimposed on chronic kidney disease, Hyperkalemia Disposition: Admitted As Inpatient Condition: Fair Referrals: NONE,PCP [Primary Care Provider] - Forms: ED Satisfaction Letter Time of Disposition: 22:06 General Adult HPI - General Chief complaint: ED Recheck/Abnormal Lab/Rx Time Seen by Provider: 08/01/18 19:56 Source: patient, EMS Mode of arrival: ambulatory Limitations: no limitations Nursing Notes Reviewed: Yes Vital Signs Reviewed: Yes - History of Present Illness HPI Narrative: Patient is a 68 her old female with a past medical history of asthma, CHF, COPD, CAD, CVA, hepatitis secondary to 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 The patient was sent here for evaluation from [facility] for abnormal labs with an elevated potassium. Pain Scale: 0 - Related Data Home Medications Medication Instructions Recorded Confirmed Insulin ASPART [Novolog Flexpen] 0 - 10 unit SQ TIDWM 09/24/14 07/12/18 Loratadine [Claritin] 10 mg PO DAILY 09/24/14 07/12/18 Oxygen 2.5 l NS AD 09/24/14 07/12/18 Albuterol Sulfate [Albuterol 2 puff IH Q4H PRN 08/20/15 07/12/18 Inhaler] Montelukast [Singulair] 10 mg PO DAILY 08/20/15 07/12/18 Guaifenesin [Mucinex] 600 mg PO BID PRN 06/11/16 07/12/18 Cyanocobalamin (Vitamin B-12) 1,000 mcg PO DAILY 10/21/17 07/12/18 [Vitamin B12] Folic Acid 1 mg PO DAILY 10/21/17 07/12/18 Lactobacillus Combination No.8 1 cap PO DAILY 10/21/17 07/12/18 [Adult Probiotic] Levothyroxine Sodium [Levoxyl] 25 mcg PO DAILY 10/21/17 07/12/18 Nitroglycerin [Nitrostat] 0.4 mg SL AD PRN MDD [id number] 10/21/17 07/12/18 WITHIN 15MINS CALL 911 Omeprazole [PriLOSEC] 40 mg PO BID 10/21/17 07/12/18 Polyethylene Glycol 3350 [MiraLAX] 17 gm PO QAM PRN 10/21/17 07/12/18 Simvastatin [Zocor] 20 mg PO HS 10/21/17 07/12/18 Ascorbic Acid [Vitamin C] 500 mg PO DAILY 02/07/18 07/12/18 Lidocaine Patch [Lidoderm 5% patch] 1 patch TP QAM 02/07/18 07/12/18 traZODone [TraZODone] 50 mg PO HS PRN 02/07/18 07/12/18 Ranitidine HCl [Acid Piano Assembler] 150 mg PO QPM 02/24/18 07/12/18 Amlodipine Besylate 10 mg PO DAILY 04/18/18 07/12/18 Acetaminophen [Tylenol] 650 mg PO BID 06/09/18 07/12/18 Insulin Glargine,Hum.rec.anlog 20 unit SQ HS 06/09/18 07/12/18 [Basaglar Kwikpen U-100] Ipratropium/Albuterol Sulfate 2 puff IH Q4H PRN 06/09/18 07/12/18 [Combivent Respimat Inhal [place]] Calcium Carbonate [Calcium] 500 mg PO DAILY 06/17/18 07/12/18 Cholecalciferol (Vitamin D3) 10,000 unit PO WE 06/17/18 07/12/18 [Dialyvite Vitamin D] Ondansetron HCl 8 mg PO TID PRN 06/17/18 07/12/18 Tizanidine HCl 4 mg PO TID PRN 06/17/18 07/12/18 Fluticasone Propionate [Flovent 2 puff PO BID 07/12/18 07/12/18 Hfa] Glucagon HCl 1 mg IM PRN PRN 07/12/18 07/12/18 Isosorbide MONOnitrate [Isosorbide 10 mg PO BID 07/12/18 07/12/18 Mononitrate] Melatonin [Melatin] 3 mg PO HS PRN 07/12/18 07/12/18 Previous Rx's Medication Instructions Recorded Carvedilol [Coreg] 25 mg PO BIDWM #60 tablet 02/12/18 Ferrous Sulfate 325 mg PO BIDWM #60 tablet 02/12/18 Simethicone [Gas-X] 80 mg PO TID PRN #15 tab.chew 02/12/18 Ipratropium/Albuterol Neb [Duoneb] 3 ml IH [id number] PRN inhsol 04/21/18 Lisinopril [Zestril] 5 mg PO DAILY #0 07/14/18 Mometasone Furoate [Asmanex Hfa] 2 puff IH BIDRESP puff 07/14/18 Spironolactone [Aldactone] 25 mg PO DAILY #0 07/14/18 predniSONE [PredniSONE] 40 mg PO DAILY #2 tablet 07/14/18 Allergies Allergy/AdvReac Type Severity Reaction Status Date / Time baclofen AdvReac Hallucinati Verified 06/17/18 18:42 ng cilostazol [From Pletal] AdvReac Hallucinati Verified 06/17/18 18:42 ng All systems ED: reviewed and negative except as stated. Review of Systems: As Per HPI Constitutional: Denies: fever, chills Cardiovascular: Reports: edema. Denies: chest pain, palpitations, dyspnea on exertion, syncope, paroxysmal nocturnal dyspnea Respiratory: Reports: dyspnea. Denies: cough, wheezes, hemoptysis Gastrointestinal: Reports: abdominal pain. Denies: nausea, vomiting Genitourinary: Denies: urgency, dysuria Musculoskeletal: Denies: back pain Past Medical History - Past Medical History Attestation: Yes The following information was validated with the patient. Medical history: Reports: asthma, cancer, CHF, COPD, coronary artery disease, CVA, diabetes, GERD, hepatitis, hypertension, liver disease, myocardial infarction, renal disease Surgical history: Reports: appendectomy, , cholecystectomy, coronary bypass (CABG), hysterectomy, other Psychiatric history: Reports: no psych history LEAD PROJECT ENGINEER history: Reports: no LEAD PROJECT ENGINEER history - Social History Smoking Status: Former smoker Smokeless Tobacco Status: No Alcohol use: Reports: none Drug use: Reports: none Physical Exam - General Limitations: no limitations General appearance: alert, in no apparent distress - Head Head exam: atraumatic, normocephalic, normal inspection - Eye Eye exam: Present: normal appearance, PERRL, EOMI - ENT ENT exam: normal exam, normal oropharynx, mucous membranes moist - Neck Neck exam: Present: normal inspection, full ROM, trachea midline - Chest Chest inspection: Present: normal inspection, symmetric chest wall rise. Absent: tenderness - Respiratory Respiratory exam: Present: other (Diminished bilaterally. ). Absent: normal lung sounds bilaterally, respiratory distress, wheezes - Cardiovascular Cardiovascular exam: Present: regular rate, normal rhythm, normal heart sounds, +S1, +S2 - Abdominal Exam Abdominal exam: Present: soft, Non-Tender. Absent: tenderness, distention, guarding, rebound, rigidity - Extremities Exam Extremities exam: Present: normal inspection, full ROM. Absent: tenderness, pedal edema - Back Exam Back exam: Present: normal inspection, full ROM. Absent: tenderness - Neurological Exam Neurological exam: Present: alert, oriented X3 - Psychiatric Psychiatric exam: Present: normal affect, normal mood - Skin Skin exam: Present: warm, dry, intact, pallor Course Course Narrative: The patient's lab work from the outside facility appreciated a sodium of 131 as well as a potassium of 6.8 which appears to be chronically elevated with prior lab showing 5.8 and 5.9 over the past 5 days. Patient also has increase in her creatinine of 1.8 up from 1.4 and GFR of 34 which is decreased. Her hemoglobin was 8.7. Patient is full code. Patient denies any history of dialysis. She is not on any blood thinners according to her paperwork from the retirement. Patient will undergo evaluation for her dyspnea with a cardiac evaluation as well as a chest x-ray and recheck labs to evaluate her electrolytes and kidney function. - Reevaluation(s) Reevaluation #1: 5 by the nurse by sonny elevated potassium 7.1 nonhemolyzed. Using hype rkalemia production protocol of albuterol nebulizer 10 units IV insulin 30 g of Kayexalate. Patient's EKG was reviewed and shows sinus rhythm with no signs of any acute incipient electrocardiographic electrolyte changes. No IV calcium is required at this point. Awaiting for remainder of labs and patient will be admitted for acute on chronic kidney disease. Time: 21:16 Reevaluation #2: Chest x-ray PA and lateral reviewed by radiology shows no acute process. Discussed case with Dr. Rocha. Patient is responding well to the hyper K treatment he asked for calcium gluconate which I wrote for 2 g over 2 hours IV. Patient be admitted in stable condition provided 45 minutes critical care service for this patient Time: 22:05 Vital Signs Temperature 98.2 F 08/01/18 19:56 Pulse Rate 59 08/01/18 19:56 Respiratory Rate 18 08/01/18 19:56 Blood Pressure 155/61 08/01/18 19:56 O2 Sat by Pulse Oximetry 100 08/01/18 19:56 Temperature 98.2 F 08/01/18 19:56 Pulse Rate 59 08/01/18 19:56 Respiratory Rate 18 08/01/18 19:56 Blood Pressure 155/61 08/01/18 19:56 O2 Sat by Pulse Oximetry 100 08/01/18 19:56 Oxygen Delivery Oxygen Delivery Nasal Cannula Medical Decision Making - Medical Records Medical records reviewed: Yes I reviewed the patient's medical records. - Lab Data Lab results reviewed: Yes I reviewed the patient's lab results. Result diagrams: 08/01/18 20:22 08/01/18 20:22 Lab Results 08/01/18 08/01/18 08/01/18 Range/Units 20:22 20:22 20:22 WBC 3.3 L (4.3-11.1) K/mcL RBC 3.00 L (3.82-4.97) M/mcL Hgb 8.4 L (11.5-15.4) g/dL Hct 26.9 L (35.3-44.9) % MCV 89.7 (83.0-100.0) fL MCH 28.0 (28.0-33.3) pg MCHC 31.2 L (31.6-35.5) g/dL RDW 13.8 (11.5-14.5) % Plt Count 77 L (140-400) K/mcL MPV 10.7 (9.4-12.4) fL Immature Gran % 0.3 (0-4) % Seg Neutrophils % 92.2 % Lymphocytes % 3.0 % Monocytes % 4.5 % Eosinophils % 0.0 % Basophils % 0.0 % Neutrophils # 3.0 (1.6-8.9) K/mcL Lymphocytes # 0.1 L (0.6-4.6) K/mcL Monocytes # 0.2 (0.0-1.3) K/mcL Eosinophils # 0.0 (0.0-0.6) K/mcL Basophils # 0.0 (0.0-0.2) K/mcL Platelet Estimate Decreased L (Normal) PT 12.3 H (9.4-12.1) Seconds INR 1.1 Sodium 129 L (136-145) mEq/L Potassium 7.2 H* (3.5-5.1) mEq/L Chloride 100 (98-107) mEq/L Carbon Dioxide 29 (23-29) mEq/L BUN 46 H (8-23) mg/dL Creatinine 1.67 H (0.60-1.20) mg/dL Est GFR ( Amer) 37 L (> 60) Est GFR (Non-Af Amer) 31 L (> 60) BUN/Creatinine Ratio 28 H (6-26) Glucose 241 H (70-105) mg/dL Calculated Osmolality 288 (280-300) Calcium 8.1 L (8.6-10.3) mg/dL Total Bilirubin (0.3-1.0) mg/dL Direct Bilirubin (0.0-0.2) mg/dL Indirect Bilirubin (0.0-1.2) mg/dL AST (13-39) Units/L ALT (7-52) Units/L Alkaline Phosphatase (34-104) Units/L Troponin I < 0.03 (< 0.04) ng/mL Serum Total Protein (6.4-8.9) g/dL Albumin (3.5-5.7) g/dL Globulin (2.4-3.5) g/dL Albumin/Globulin Ratio (1.1-2.2) // Range/Units 20:22 WBC (4.3-11.1) K/mcL RBC (3.82-4.97) M/mcL Hgb (11.5-15.4) g/dL Hct (35.3-44.9) % MCV (83.0-100.0) fL MCH (28.0-33.3) pg MCHC (31.6-35.5) g/dL RDW (11.5-14.5) % Plt Count (140-400) K/mcL MPV (9.4-12.4) fL Immature Gran % (0-4) % Seg Neutrophils % % Lymphocytes % % Monocytes % % Eosinophils % % Basophils % % Neutrophils # (1.6-8.9) K/mcL Lymphocytes # (0.6-4.6) K/mcL Monocytes # (0.0-1.3) K/mcL Eosinophils # (0.0-0.6) K/mcL Basophils # (0.0-0.2) K/mcL Platelet Estimate (Normal) PT (9.4-12.1) Seconds INR Sodium (136-145) mEq/L Potassium (3.5-5.1) mEq/L Chloride (98-107) mEq/L Carbon Dioxide (23-29) mEq/L BUN (8-23) mg/dL Creatinine (0.60-1.20) mg/dL Est GFR ( Amer) (> 60) Est GFR (Non-Af Amer) (> 60) BUN/Creatinine Ratio (6-26) Glucose (70-105) mg/dL Calculated Osmolality (280-300) Calcium (8.6-10.3) mg/dL Total Bilirubin 0.3 (0.3-1.0) mg/dL Direct Bilirubin 0.1 (0.0-0.2) mg/dL Indirect Bilirubin 0.2 (0.0-1.2) mg/dL AST 19 (13-39) Units/L ALT 39 (7-52) Units/L Alkaline Phosphatase 70 (34-104) Units/L Troponin I (< 0.04) ng/mL Serum Total Protein 4.7 L (6.4-8.9) g/dL Albumin 2.7 L (3.5-5.7) g/dL Globulin 2.0 L (2.4-3.5) g/dL Albumin/Globulin Ratio 1.4 (1.1-2.2) - Radiology Data Radiology results reviewed: Yes I reviewed the patient's radiology results. Chest X-Ray 08/01/18 19:59 IMPRESSION: No acute process. D/ / Uriel Reed MD / Uriel Reed MD Interpreting Provider: Uriel Reed MD - EKG Data EKG #1 EKG attestation: Yes I reviewed and interpreted this EKG. EKG results narrative: EKG done at 20:00 shows sinus rhythm at a rate of 58 bpm. Normal axis. Intervals within normal limits. No signs of ST elevation, ST depression or Q waves present.
[2018-08-01 21:12] LABS: BUN/Creatinine Ratio 28 (6-26); Blood Urea Nitrogen 46 mg/dL (8-23); Calcium 8.1 mg/dL (8.6-10.3); Carbon Dioxide 29 mEq/L (23-29); Chloride 100 mEq/L (98-107); Glucose 241 mg/dL (70-105); Osmolality,Calculated 288 (280-300); Potassium 7.2 mEq/L (3.5-5.1); Sodium 129 mEq/L (136-145); Troponin I < 0.03 ng/mL (< 0.04); eGFR For African Americans 37 (> 60); eGFR For Non-African Americans 31 (> 60)
[2018-08-01] MEDS ORDERED: Insulin Human Regular 10 UNIT in 0.9 % Sodium Chloride 10 ML IV ONE (21:14)
[2018-08-01] MEDS ORDERED: Albuterol Neb 1.25 MG/3 ML VIAL IH ONE (21:14)
[2018-08-01 21:24] LABS: Platelet Count 77 K/mcL (140-400)
[2018-08-01] MEDS ORDERED: *HR* Dextrose 50 % in Water (Syg) 50 ML SYRINGE IVP ONE (21:24)
[2018-08-01] MEDS ORDERED: *HR* FentaNYL (PF) 100 MCG/2 ML VIAL IVP ONE (21:26)
[2018-08-01 21:32] LABS: Platelet Estimate Decreased (Normal)
[2018-08-01] MEDS: Calcium Gluconate 1gm/50mL 1 GM/50 ML BAG IVPB SCH ×2 (23:09→23:52)
[2018-08-02 00:56] LABS: Calcium 9.3 mg/dL (8.6-10.3); Potassium 6.7 mEq/L (3.5-5.1)
[2018-08-02] MEDS ORDERED: Melatonin 3 MG TABLET PO PRN (01:12)
[2018-08-02] MEDS ORDERED: Naloxone 0.4 MG/ML INJ IVP PRN (01:17)
[2018-08-02] MEDS ORDERED: *HR* Dextrose 50 % in Water (Syg) 50 ML SYRINGE IVP PRN (01:18)
[2018-08-02] MEDS ORDERED: Dextrose Gel 15 GM/37.5 ML TUBE PO PRN ×2 (01:18)
[2018-08-02] MEDS ORDERED: D5% in Water 1,000 ML IVC PRN (01:18)
[2018-08-02 01:41] LABS: Bilirubin,Urine Negative (Negative); Blood,Urine Moderate (Negative); Clarity,Urine Cloudy (Clear); Color,Urine Yellow (Yellow); Glucose,Urine (UA) 100 mg/dL (Normal); Ketones,Urine Negative (Negative); Leukocyte Esterase,Urine Trace (Negative); Nitrite,Urine Negative (Negative); Protein,Urine >=300 mg/dL (Neg-Trace); Specific Gravity,Urine 1.007 (1.010-1.025); Urobilinogen,Urine Normal (Normal)
[2018-08-02 01:52] LABS: Hyaline Casts,Urine None Seen per lpf (None-Few); Squamous Epithelial Cell,Urine Moderate per lpf (None-Few)
[2018-08-02 01:55] LABS: WBC,Urine 15-30 per hpf (0-3)
[2018-08-02 01:58] LABS: Bacteria,Urine Few per hpf (None-Few)
--- NOTE | 2018-08-02 02:43 | Internal Med History&Physical ---
Date of Encounter: 08/01/18 Time of Encounter: 23:48 Internal Medicine - H&P: HPI Chief complaint: Hyperkalemia Admitted From: Emergency Dept History of present illness: Ms. Kimble is a 68 year old female Patient presented to emergency room with shortness of breath. She is a resident at [facility]. She states that she has a history of GI bleed and gets frequent blood work. Blood work was drawn the day before admission, and it was discovered that the patient had an elevated potassium. They arranged for her to come to the emergency room for further evaluation. In the ER patient's initial vital signs were within normal limits CBC: White count 3.3, hemoglobin 8.4, platelets 77 BMP: Sodium 129, potassium 7.2, BUN 46, creatinine 1.67, GFR 31 glucose 241. Initial troponin undetectable Calcium 8.1 Urinalysis: Greater than 300 protein, moderate blood, trace leukocyte esterase and 15-30 white blood cells. Culture indicated EKG: Normal sinus rhythm no peaked T waves, no ischemic changes Chest x-ray showed no acute process. Patient was given albuterol nebulizer, 10 units of insulin, and 30 g of Kayexalate. She is also given 2 g of calcium gluconate. She was also given breathing treatments. She was admitted to the hospital for further management. Upon my evaluation, patient is resting comfortably in hospital bed in no acute distress. She denies chest pain, abdominal pain, nausea, vomiting, diarrhea and constipation. She states that she has a history of COPD and lower extremity swelling for the last week she feels somewhat short of breath still but this has improved. She has been at the [facility] after being discharged from the hospital on July 14. She had been admitted for respiratory distress COPD and hyperkalemia. At that time her lisinopril and spironolactone medications were held and then at discharge the doses were decreased. She states that she has a history of hepatitis C secondary to blood transfusion in the 80s and has cirrhosis. She has been treated for the cirrhosis but she still has fluid accumulation. She is noticed that her lower extremities as well as her abdomen had become swollen. She is a full code. Past Med Surg Social Fam HX - Past Medical History Medical history: asthma, cancer, CHF, COPD, coronary artery disease, CVA, diabetes, GERD, hepatitis, hypertension, liver disease, myocardial infarction, renal disease Additional medical history: Chronic back pain, anemia,. Hepatitis C Psychiatric history: no psych history - Past Surgical History Surgical History: appendectomy, , cholecystectomy, coronary bypass (CABG), hysterectomy, other Additional surgical history: growth removed - Social History Smoking Status: Former smoker Smokeless Tobacco Status: No Alcohol use: none Drug use: none - Family History Mother Living Status: Hx Family Cardiac Disorders: Yes Hx Family Endocrine Disorder: Yes (DM) Father Living Status: Hx Family Cardiac Disorders: Yes Hx Family Endocrine Disorder: Yes Internal Medicine - H&P: Meds Insulin ASPART [Novolog Flexpen] 0 unit SQ TIDWM 09/24/14 [History] Albuterol Sulfate [Albuterol Inhaler] 2 puff IH Q4H PRN 08/20/15 [History] Montelukast [Singulair] 10 mg PO DAILY 08/20/15 [History] Guaifenesin [Mucinex] 600 mg PO BID PRN 06/11/16 [History] Folic Acid 1 mg PO DAILY 10/21/17 [History] Lactobacillus Combination No.8 [Adult Probiotic] 1 cap PO DAILY 10/21/17 [History] Levothyroxine Sodium [Levoxyl] 25 mcg PO DAILY 10/21/17 [History] Nitroglycerin [Nitrostat] 0.4 mg SL AD PRN MDD [id number] WITHIN 15MINS CALL 911 10/21/17 [History] Omeprazole [PriLOSEC] 40 mg PO DAILY 10/21/17 [History] Polyethylene Glycol 3350 [MiraLAX] 17 gm PO QAM PRN 10/21/17 [History] Simvastatin [Zocor] 20 mg PO HS 10/21/17 [History] Ascorbic Acid [Vitamin C] 500 mg PO DAILY 02/07/18 [History] traZODone [TraZODone] 50 mg PO HS PRN 02/07/18 [History] Carvedilol [Coreg] 25 mg PO BIDWM #60 tablet 02/12/18 [Rx] Ferrous Sulfate 325 mg PO BIDWM #60 tablet 02/12/18 [Rx] Simethicone [Gas-X] 80 mg PO TID PRN #15 tab.chew 02/12/18 [Rx] Ranitidine HCl [Acid Floor Framer] 150 mg PO QPM 02/24/18 [History] Amlodipine Besylate 10 mg PO DAILY 04/18/18 [History] Acetaminophen [Tylenol] 650 mg PO BID 06/09/18 [History] Insulin Glargine,Hum.rec.anlog [Basaglar Kwikpen U-100] 20 unit SQ HS 06/09/18 [History] Ipratropium/Albuterol Sulfate [Combivent Respimat Inhal [place]] 1 puff IH Q6H 06/09/18 [History] Calcium Carbonate [Calcium] 500 mg PO DAILY 06/17/18 [History] Cholecalciferol (Vitamin D3) [Dialyvite Vitamin D] 10,000 unit PO WE 06/17/18 [History] Ondansetron HCl 8 mg PO TID PRN 06/17/18 [History] Tizanidine HCl 4 mg PO TID PRN 06/17/18 [History] Fluticasone Propionate [Flovent Hfa] 2 puff PO BID 07/12/18 [History] Glucagon HCl 1 mg IM PRN PRN 07/12/18 [History] Isosorbide MONOnitrate [Isosorbide Mononitrate] 10 mg PO BID 07/12/18 [History] Melatonin [Melatin] 3 mg PO HS PRN 07/12/18 [History] Lisinopril [Zestril] 5 mg PO DAILY #0 07/14/18 [Rx] Spironolactone [Aldactone] 25 mg PO DAILY #0 07/14/18 [Rx] predniSONE [PredniSONE] 40 mg PO DAILY #2 tablet 07/14/18 [Rx] Cyanocobalamin (Vitamin B-12) [Vitamin B-12] 1,000 mcg PO DAILY 08/01/18 [History] Gabapentin [Neurontin] 100 mg PO 08/01/18 [History] Loratadine [Allergy Relief] 10 mg PO DAILY 08/01/18 [History] Methyl Salicylate/Menthol [Salonpas Patch] 1 each TP DAILY 08/01/18 [History] OxyCODONE Immed Rel [Roxicodone 10 MG] 10 mg PO Q6H PRN 08/01/18 [History] Allergy/AdvReac Type Severity Reaction Status Date / Time baclofen AdvReac Hallucinati Verified 06/17/18 18:42 ng cilostazol [From Pletal] AdvReac Hallucinati Verified 06/17/18 18:42 ng All Systems PM: A 10-system review of systems was performed and is negative for pertinent findings except as documented above in the HPI. - Constitutional Vitals: Temp Pulse Resp BP Pulse Ox 97.6 F 71 18 161/68 100 08/01/18 23:45 08/01/18 23:45 08/01/18 23:45 08/01/18 23:45 08/01/18 23:45 General appearance: Present: cooperative, A&O X 3, pleasant, no acute distress, answers questions appropriately Exam: - - Head Head exam: Present: normal inspection - Eye Eye exam: Present: EOMI, normal appearance - Respiratory Respiratory exam: Present: CTAB. Absent: rales, respiratory distress, rhonchi, wheezes - Cardiovascular Cardiovascular exam: Present: RRR. Absent: diastolic murmur, systolic murmur - GI/Abdominal GI/Abdominal exam: Present: distended, normal bowel sounds, soft. Absent: tenderness - Extremities Exam Extremities exam: Present: pedal edema, warm, radial pulses palpable and symmetrical. Absent: calf tenderness, tenderness Additional comments: 2+ pitting edema bilaterally - Neurological Exam Neurological exam: Present: no focal deficits, strengths equal and symetr throughout. Absent: motor sensory deficit, facial droop, speech deficit - Skin Skin exam: Present: dry, normal color, warm Internal Med - H&P Results - Labs CBC & Chem 7: 08/01/18 20:22 08/02/18 00:21 Labs: Short CBC 08/01/18 Range/Units 20:22 WBC 3.3 L (4.3-11.1) K/mcL Hgb 8.4 L (11.5-15.4) g/dL Hct 26.9 L (35.3-44.9) % Plt Count 77 L (140-400) K/mcL Neutrophils # 3.0 (1.6-8.9) K/mcL BMP 08/01/18 08/02/18 20:22 00:21 Sodium 129 L 132 L Potassium 7.2 H* 6.7 H* Chloride 100 101 Carbon Dioxide 29 30 H BUN 46 H 46 H Creatinine 1.67 H 1.59 H Glucose 241 H 82 Calcium 8.1 L 9.3 Cardiac Enzymes 08/01/18 Range/Units 20:22 Troponin I < 0.03 (< 0.04) ng/mL Liver Function 08/01/18 Range/Units 20:22 Total Bilirubin 0.3 (0.3-1.0) mg/dL Direct Bilirubin 0.1 (0.0-0.2) mg/dL AST 19 (13-39) Units/L ALT 39 (7-52) Units/L Alkaline Phosphatase 70 (34-104) Units/L Albumin 2.7 L (3.5-5.7) g/dL Urine 08/02/18 Range/Units 01:05 Urine Color Yellow (Yellow) Urine Clarity Cloudy A (Clear) Urine pH 6.0 (5.0-8.0) pH Units Ur Specific [place] 1.007 L (1.010-1.025) Urine Protein >=300 H (Neg-Trace) mg/dL Urine Glucose (UA) 100 H (Normal) mg/dL - Impressions ITS Impressions Chest X-Ray 08/01/18 19:59 IMPRESSION: No acute process. D/ / Uriel Reed MD / Uriel Reed MD Interpreting Provider: Uriel Reed MD - Assessment and Plan (1) Hyperkalemia Current Visit: Yes Status: Acute Assessment and plan: Patient was found to have hyperkalemia of 7.2. Started on hyperkalemia protocol in the emergency room. On repeat potassium was 6.7. Continue cardiac monitoring Continue to trend potassium. Repeat hyperkalemia treatment if necessary. Hold offending medications (2) Shortness of breath Current Visit: No Status: Acute Assessment and plan: Chest x-ray negative for abnormalities. Patient had similar symptoms when she was admitted last month. At that time she was noted to have respiratory distress due to severe emphysema. She was started on prednisone at discharge. She has a history of COPD and congestive heart failure, and cirrhosis is likely also contributing with fluid overload. She is on 3 L of oxygen at the [facility]. Continue oxygen supplementation as needed Breathing treatments as needed IV steroids IV azithromycin (3) Acute kidney injury superimposed on chronic kidney disease Current Visit: Yes Status: Acute Assessment and plan: Patient has baseline chronic kidney disease stage III. She has a bump in her cr eatinine of 1.67, which improved to 1.59 on repeat. GFR is at same level where she was at discharge previously. Continue to monitor Repeat morning labs Hold off on IV fluid hydration secondary to fluid overload (4) Hyponatremia Current Visit: No Status: Chronic Assessment and plan: Slightly low sodium in context of high glucose. Uncorrected sodium was 129 emergency room but corrected is 131. On repeat patient's sodium was 132 with a glucose of 82. Continue to monitor Patient has baseline sodium in the low 130s (5) Cirrhosis Current Visit: No Status: Chronic Assessment and plan: Patient has history of cirrhosis. Has abdominal distention with likely ascites. She has required paracentesis before in the past. Obtain abdominal ultrasound to assess fluid status Consider paracentesis Qualifiers: Hepatic cirrhosis type: unspecified hepatic cirrhosis Ascites presence: with ascites Qualified Code(s): K74.60 - Unspecified cirrhosis of liver; R18.8 - Other ascites (6) DM2 (diabetes mellitus, type 2) Current Visit: No Status: Chronic Assessment and plan: Patient is an insulin-dependent diabetic Monitor sugars every 6 hours Nothing by mouth Low dose insulin sliding scale as needed Hold home meds. 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: with halfway use Diabetes mellitus complication status: with kidney complications Diabetes mellitus complication detail: with chronic kidney disease Chronic kidney disease stage: stage 3 (moderate) Qualified Code(s): E11.22 - Type 2 diabetes mellitus with diabetic chronic kidney disease; N18.3 - Chronic kidney disease, stage 3 (moderate); Z79.4 - MCC (current) use of insulin (7) DVT prophylaxis Current Visit: Yes Status: Acute Assessment and plan: SCDs - Time Spent With Patient Total time spent is greater than 50% in coordination of care (as documented) at patient's floor/unit and/or counseling patient: Greater than 35 minutes
[2018-08-02] MEDS ORDERED: Albuterol 2.5 MG/3 ML NEBULIZER IH PRN (02:54)
[2018-08-02] MEDS ORDERED: Azithromycin 500 MG in D5% in Water 250 ML IVPB SCH (03:00)
[2018-08-02] MEDS: Ipratropium/Albuterol Neb 3 ML IH SCH ×4 (04:19→22:55)
[2018-08-02 04:35] LABS: Mean Corpuscular Hemoglobin 27.9 pg (28.0-33.3); Red Cell Distribution Width 13.8 % (11.5-14.5)
[2018-08-02 04:37] LABS: Hematocrit 30.1 % (35.3-44.9); Hemoglobin 9.5 g/dL (11.5-15.4); Immature Platelets 2.1 % (1.1-6.1); Mean Corpuscular HGB Conc 31.6 g/dL (31.6-35.5); Mean Corpuscular Volume 88.3 fL (83.0-100.0); Mean Platelet Volume 10.5 fL (9.4-12.4); Red Blood Count 3.41 M/mcL (3.82-4.97); White Blood Count 4.6 K/mcL (4.3-11.1)
[2018-08-02 05:02] LABS: Albumin 2.8 g/dL (3.5-5.7); Albumin/Globulin Ratio 1.4 (1.1-2.2); Bilirubin,Total 0.4 mg/dL (0.3-1.0); Calcium 8.9 mg/dL (8.6-10.3); Magnesium 2.3 mg/dL (1.6-2.6); Phosphorous 3.1 mg/dL (2.7-4.5); Potassium 6.6 mEq/L (3.5-5.1); Total Protein 4.8 g/dL (6.4-8.9)
[2018-08-02] MEDS: Levothyroxine 25 MCG TABLET PO SCH (05:39)
[2018-08-02] MEDS ORDERED: Insulin Human Regular 10 UNIT in 0.9 % Sodium Chloride 10 ML IV ONE (05:40)
[2018-08-02] MEDS ORDERED: *HR* Dextrose 50 % in Water (Syg) 50 ML SYRINGE IVP ONE (05:41)
[2018-08-02] MEDS ORDERED: MethylPREDNISolone 40 MG/ML VIAL IVP SCH (06:00)
[2018-08-02] MEDS: Insulin LISPRO 300 UNITS/3 ML VIAL SQ SCH ×3 (06:08→18:00)
--- NOTE | 2018-08-02 10:48 | Electrocardiograph Report ---
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
[2018-08-02] MEDS ORDERED: Nitroglycerin 0.4 MG TAB.SUBL SL PRN (11:49)
[2018-08-02] MEDS ORDERED: traZODone 50 MG TABLET PO PRN (11:49)
--- NOTE | 2018-08-02 11:57 | Event Note ---
Date of Encounter: 08/02/18 Time of Encounter: 08:45 H&P reviewed. Patient with history of cirrhosis, oxygen dependent COPD, CKD stage III, HFpEF, chronic LBP, was admitted overnight due to AoCKD and hyperkalemia of 7.2. Improved to 6.6 after insulin/dextrose and kayexalate. Ca gluconate also given. Will continue the treatment for hyperkalemia and repeat BMP at 4pm. She does endorse abdominal distension therefore will check whether she has significant amount of ascites for paracentesis. If not, will start PO Lasix 40mg and monitor.
[2018-08-02] MEDS ORDERED: NON-FORMULARY MEDICATION 1 EACH EACH (Ipratropium/Albuterol Sulfate [Combivent Respimat In IH SCH (12:00)
[2018-08-02] MEDS: amLODIPine 5 MG TABLET PO SCH (12:42)
[2018-08-02] MEDS: Furosemide 40 MG TABLET PO SCH (12:42)
[2018-08-02] MEDS: tiZANidine 4 MG TABLET PO PRN ×2 (12:46→20:09)
[2018-08-02 15:35] LABS: Calcium 8.7 mg/dL (8.6-10.3); Potassium 5.9 mEq/L (3.5-5.1)
[2018-08-02] MEDS: MethylPREDNISolone 40 MG/ML VIAL IVP SCH (17:59)
[2018-08-02] MEDS ORDERED: Famotidine 20 MG TABLET PO SCH (18:00)
[2018-08-02] MEDS: Simethicone 80 MG TAB.CHEW PO PRN (18:05)
[2018-08-02] MEDS: Acetaminophen 325 MG TABLET PO SCH (20:09)
[2018-08-02] MEDS: ISOSORBIDE MONONITRATE PO SCH (22:19)
[2018-08-03] MEDS: *HR* OxyCODONE Immed Rel 5 MG TABLET PO PRN ×2 (00:13→12:24)
[2018-08-03] MEDS: tiZANidine 4 MG TABLET PO PRN (02:33)
[2018-08-03] MEDS: (Fluticasone Propionate [Flovent Hfa] 2 PUFF) PO SCH ×2 (03:20→08:04)
[2018-08-03] MEDS: Simethicone 80 MG TAB.CHEW PO PRN ×2 (03:25→08:19)
[2018-08-03] MEDS: Ipratropium/Albuterol Neb 3 ML IH SCH ×2 (03:36→10:23)
[2018-08-03] MEDS: Levothyroxine 25 MCG TABLET PO SCH (05:45)
[2018-08-03] MEDS: MethylPREDNISolone 40 MG/ML VIAL IVP SCH (05:45)
[2018-08-03 07:11] LABS: Hematocrit 29.3 % (35.3-44.9); Hemoglobin 9.4 g/dL (11.5-15.4); Mean Corpuscular HGB Conc 32.1 g/dL (31.6-35.5); Mean Corpuscular Hemoglobin 28.3 pg (28.0-33.3); Mean Corpuscular Volume 88.3 fL (83.0-100.0); Mean Platelet Volume 10.5 fL (9.4-12.4); Red Blood Count 3.32 M/mcL (3.82-4.97); Red Cell Distribution Width 13.6 % (11.5-14.5)
[2018-08-03 07:16] LABS: Platelet Count 76 K/mcL (140-400)
[2018-08-03 07:28] LABS: Calcium 8.3 mg/dL (8.6-10.3); Magnesium 1.8 mg/dL (1.6-2.6); Potassium 4.9 mEq/L (3.5-5.1)
[2018-08-03] MEDS ORDERED: hydrALAZINE 10 MG TABLET PO SCH (07:41)
[2018-08-03] MEDS: Furosemide 40 MG TABLET PO SCH (08:02)
[2018-08-03] MEDS: Acetaminophen 325 MG TABLET PO SCH (08:02)
[2018-08-03] MEDS: amLODIPine 5 MG TABLET PO SCH (08:03)
[2018-08-03] MEDS: Insulin LISPRO 300 UNITS/3 ML VIAL SQ SCH (08:03)
[2018-08-03] MEDS: ISOSORBIDE MONONITRATE PO SCH (08:04)
--- NOTE | 2018-08-03 09:34 | Discharge Summary ---
- NOTES TO OUTPATIENT PROVIDER Notes to Outpatient Provider: Follow-up with nephrology with repeat BMP in 5 days. Although urinalysis was abnormal, given the lack of symptoms consistent with UTI, fever, leukocytosis, patient is being monitored off antibiotics. Orders not resulted at time of discharge: Pending orders 08/02/18 01:05 Culture,Urine [RM] Stat Date of Encounter: 08/03/18 Time of Encounter: 07:30 - Discharge Diagnosis (1) Acute kidney injury superimposed on chronic kidney disease Priority: Primary Status: Acute (2) Hyperkalemia Priority: Secondary Status: Acute (3) Hyponatremia Priority: Secondary Status: Chronic (4) DM2 (diabetes mellitus, type 2) Priority: Secondary Status: Chronic Qualifiers: Diabetes mellitus intermediate project manager insulin use: with intermediate project manager use Diabetes mellitus complication status: with kidney complications Diabetes mellitus complication detail: with chronic kidney disease Chronic kidney disease stage: stage 3 (moderate) Qualified Code(s): E11.22 - Type 2 diabetes mellitus with diabetic chronic kidney disease; N18.3 - Chronic kidney disease, stage 3 (moderate); Z79.4 - [facility] (current) use of insulin (5) Cirrhosis Priority: Secondary Status: Chronic Qualifiers: Hepatic cirrhosis type: unspecified hepatic cirrhosis Ascites presence: with ascites Qualified Code(s): K74.60 - Unspecified cirrhosis of liver; R18.8 - Other ascites (6) DVT prophylaxis Priority: Secondary Status: Acute Hospital course: Ms. Kimble is a 68 year old female with history of cirrhosis, oxygen dependent COPD, CKD stage III, HFpEF, chronic LBP, who was admitted for AoCKD and hyperkalemia of 7.2. No associated EKG changes noted. She is on Lisinopril and Aldactone as an outpatient. Improved to 4.9 after multiple courses of insulin/dextrose and kayexalate. Ca gluconate was also given. She also had abdominal distension for which US was done -> only showed mild amount of ascites predominantly within the upper abdomen. Therefore, lisinopril/aldactone were discontinued and lasix 40mg QD was started which she tolerated well. Cr continues to improve as well. Given her poorly controlled BP, Hydralazine 10mg Q6 was started and it can be uptitrated at the [facility]. Repeat BMP in 5 days and follow up with Nephro as outpatient. Of note, she did have trace amount of leukocyte esterase on her urinalysis with urine culture growing 2 different GNRs but given the absence of symptoms consistent with UTI, fever, or leukocytosis, the decision was made to monitor her off abx. Discharge discussed with: patient, nurse - Time Spent with Patient Total time spent providing and/or coordinating discharge services: 28 mins - Discharge Medications Prescriptions: New hydrALAZINE [HydrALAZINE] 10 mg PO Q6HR #120 tablet Furosemide [Lasix] 40 mg PO DAILY #30 tablet Continued Insulin ASPART [Novolog Flexpen] 0 unit SQ TIDWM Montelukast [Singulair] 10 mg PO DAILY Albuterol Sulfate [Albuterol Inhaler] 2 puff IH Q4H PRN PRN Reason: Shortness Of Breath Guaifenesin [Mucinex] 600 mg PO BID PRN PRN Reason: Congestion Folic Acid 1 mg PO DAILY Lactobacillus Combination No.8 [Adult Probiotic] 1 cap PO DAILY Levothyroxine Sodium [Levoxyl] 25 mcg PO DAILY Nitroglycerin [Nitrostat] 0.4 mg SL AD PRN MDD [id number] WITHIN 15MINS CALL 911 PRN Reason: Chest Pain Omeprazole [PriLOSEC] 40 mg PO DAILY Polyethylene Glycol 3350 [MiraLAX] 17 gm PO QAM PRN PRN Reason: Constipation Simvastatin [Zocor] 20 mg PO HS Ascorbic Acid [Vitamin C] 500 mg PO DAILY traZODone [TraZODone] 50 mg PO HS PRN PRN Reason: Sleep Carvedilol [Coreg] 25 mg PO BIDWM #60 tablet Ferrous Sulfate 325 mg PO BIDWM #60 tablet Simethicone [Gas-X] 80 mg PO TID PRN #15 tab.chew PRN Reason: Dyspepsia Ranitidine HCl [Acid Editorial Manager] 150 mg PO QPM Amlodipine Besylate 10 mg PO DAILY Acetaminophen [Tylenol] 650 mg PO BID Insulin Glargine,Hum.rec.anlog [Basaglar Kwikpen U-100] 20 unit SQ HS Ipratropium/Albuterol Sulfate [Combivent Respimat Inhal [place]] 1 puff IH Q6H Calcium Carbonate [Calcium] 500 mg PO DAILY Cholecalciferol (Vitamin D3) [Dialyvite Vitamin D] 10,000 unit PO WE Ondansetron HCl 8 mg PO TID PRN PRN Reason: Nausea Tizanidine HCl 4 mg PO TID PRN PRN Reason: Muscle Spasm Fluticasone Propionate [Flovent Hfa] 2 puff PO BID Glucagon HCl 1 mg IM PRN PRN PRN Reason: BS < 60 Isosorbide MONOnitrate [Isosorbide Mononitrate] 10 mg PO BID Melatonin [Melatin] 3 mg PO HS PRN PRN Reason: Insomnia predniSONE [PredniSONE] 40 mg PO DAILY #2 tablet Cyanocobalamin (Vitamin B-12) [Vitamin B-12] 1,000 mcg PO DAILY Gabapentin [Neurontin] 100 mg PO Loratadine [Allergy Relief] 10 mg PO DAILY Methyl Salicylate/Menthol [Salonpas Patch] 1 each TP DAILY OxyCODONE Immed Rel [Roxicodone 10 MG] 10 mg PO Q6H PRN 3 Days #12 tablet PRN Reason: Pain Discontinued Spironolactone [Aldactone] 25 mg PO DAILY #0 Lisinopril [Zestril] 5 mg PO DAILY #0 Home Medications: Insulin ASPART [Novolog Flexpen] 0 unit SQ TIDWM 09/24/14 [History] Albuterol Sulfate [Albuterol Inhaler] 2 puff IH Q4H PRN 08/20/15 [History] Montelukast [Singulair] 10 mg PO DAILY 08/20/15 [History] Guaifenesin [Mucinex] 600 mg PO BID PRN 06/11/16 [History] Folic Acid 1 mg PO DAILY 10/21/17 [History] Lactobacillus Combination No.8 [Adult Probiotic] 1 cap PO DAILY 10/21/17 [History] Levothyroxine Sodium [Levoxyl] 25 mcg PO DAILY 10/21/17 [History] Nitroglycerin [Nitrostat] 0.4 mg SL AD PRN MDD [id number] WITHIN 15MINS CALL 911 10/21/17 [History] Omeprazole [PriLOSEC] 40 mg PO DAILY 10/21/17 [History] Polyethylene Glycol 3350 [MiraLAX] 17 gm PO QAM PRN 10/21/17 [History] Simvastatin [Zocor] 20 mg PO HS 10/21/17 [History] Ascorbic Acid [Vitamin C] 500 mg PO DAILY 02/07/18 [History] traZODone [TraZODone] 50 mg PO HS PRN 02/07/18 [History] Carvedilol [Coreg] 25 mg PO BIDWM #60 tablet 02/12/18 [Rx] Ferrous Sulfate 325 mg PO BIDWM #60 tablet 02/12/18 [Rx] Simethicone [Gas-X] 80 mg PO TID PRN #15 tab.chew 02/12/18 [Rx] Ranitidine HCl [Acid Editorial Manager] 150 mg PO QPM 02/24/18 [History] Amlodipine Besylate 10 mg PO DAILY 04/18/18 [History] Acetaminophen [Tylenol] 650 mg PO BID 06/09/18 [History] Insulin Glargine,Hum.rec.anlog [Basaglar Kwikpen U-100] 20 unit SQ HS 06/09/18 [History] Ipratropium/Albuterol Sulfate [Combivent Respimat Inhal [place]] 1 puff IH Q6H 06/09/18 [History] Calcium Carbonate [Calcium] 500 mg PO DAILY 06/17/18 [History] Cholecalciferol (Vitamin D3) [Dialyvite Vitamin D] 10,000 unit PO WE 06/17/18 [History] Ondansetron HCl 8 mg PO TID PRN 06/17/18 [History] Tizanidine HCl 4 mg PO TID PRN 06/17/18 [History] Fluticasone Propionate [Flovent Hfa] 2 puff PO BID 07/12/18 [History] Glucagon HCl 1 mg IM PRN PRN 07/12/18 [History] Isosorbide MONOnitrate [Isosorbide Mononitrate] 10 mg PO BID 07/12/18 [History] Melatonin [Melatin] 3 mg PO HS PRN 07/12/18 [History] predniSONE [PredniSONE] 40 mg PO DAILY #2 tablet 07/14/18 [Rx] Cyanocobalamin (Vitamin B-12) [Vitamin B-12] 1,000 mcg PO DAILY 08/01/18 [History] Gabapentin [Neurontin] 100 mg PO 08/01/18 [History] Loratadine [Allergy Relief] 10 mg PO DAILY 08/01/18 [History] Methyl Salicylate/Menthol [Salonpas Patch] 1 each TP DAILY 08/01/18 [History] Furosemide [Lasix] 40 mg PO DAILY #30 tablet 08/03/18 [Rx] OxyCODONE Immed Rel [Roxicodone 10 MG] 10 mg PO Q6H PRN 3 Days #12 tablet 08/03/18 [Rx] hydrALAZINE [HydrALAZINE] 10 mg PO Q6HR #120 tablet 08/03/18 [Rx] Allergies/Adverse Reactions: Allergy/AdvReac Type Severity Reaction Status Date / Time baclofen AdvReac Hallucinati Verified 06/17/18 18:42 ng cilostazol [From Pletal] AdvReac Hallucinati Verified 06/17/18 18:42 ng Date of admission: 08/01/18 23:02 Primary care physician: PCP NONE Consults: 08/01/18 23:38 Consult to It Quality Analyst [CONS] Routine Reason for SW Consult: patient from [facility] will need follow up upon D/C 08/02/18 02:54 Consult to Nurse Navigator [CONS] Routine Comment: - Constitutional Vitals: Temp Pulse Resp BP Pulse Ox 97.9 F 90 18 178/70 98 08/03/18 07:24 08/03/18 09:00 08/03/18 09:00 08/03/18 09:00 08/03/18 09:00 General appearance: Present: cooperative, A&O X 3, pleasant, no acute distress, answers questions appropriately Exam: General: Alert and oriented, not in acute distress. Cardiovascular:Normal S1 & S2, No JVD. Pulse regular. Mild pitting edema of LEs Lungs: clear to auscultation, no wheezes/rales Abdomen: Mildly distended but soft, nontender. No rebound/guarding/rigidity. Unable to appreciate thrill Neurological:Normal cognition and motor skills. Non-focal - Patient Status Disposition: Transfer SNF Condition: Fair Overall status at discharge: patient is progressing back to baseline - Discharge Instructions Instructions: Acute Kidney Injury (DC) Follow Up With: NONE,PCP [Primary Care Provider] - Helio Neely MD [Partnered Physician] - - Diet and Activity Activity: as per physical therapy Diet: other (Renal diet)
--- NOTE | 2018-08-03 09:41 | Physician Discharge Referral ---
ExtendedCare Referral Info Institutional Level of Care: Skilled - Diagnosis (1) Acute kidney injury superimposed on chronic kidney disease Priority: Primary Status: Acute (2) Hyperkalemia Priority: Secondary Status: Acute (3) Hyponatremia Priority: Secondary Status: Chronic (4) DM2 (diabetes mellitus, type 2) Priority: Secondary Status: Chronic (5) Cirrhosis Priority: Secondary Status: Chronic (6) DVT prophylaxis Priority: Secondary Status: Acute - Transfer Medications Prescriptions: hydrALAZINE [HydrALAZINE] 10 mg PO Q6HR #120 tablet Furosemide [Lasix] 40 mg PO DAILY #30 tablet OxyCODONE Immed Rel [Roxicodone 10 MG] 10 mg PO Q6H PRN 3 Days #12 tablet PRN Reason: Pain Home Medications: Insulin ASPART [Novolog Flexpen] 0 unit SQ TIDWM 09/24/14 [History] Albuterol Sulfate [Albuterol Inhaler] 2 puff IH Q4H PRN 08/20/15 [History] Montelukast [Singulair] 10 mg PO DAILY 08/20/15 [History] Guaifenesin [Mucinex] 600 mg PO BID PRN 06/11/16 [History] Folic Acid 1 mg PO DAILY 10/21/17 [History] Lactobacillus Combination No.8 [Adult Probiotic] 1 cap PO DAILY 10/21/17 [History] Levothyroxine Sodium [Levoxyl] 25 mcg PO DAILY 10/21/17 [History] Nitroglycerin [Nitrostat] 0.4 mg SL AD PRN MDD [id number] WITHIN 15MINS CALL 911 10/21/17 [History] Omeprazole [PriLOSEC] 40 mg PO DAILY 10/21/17 [History] Polyethylene Glycol 3350 [MiraLAX] 17 gm PO QAM PRN 10/21/17 [History] Simvastatin [Zocor] 20 mg PO HS 10/21/17 [History] Ascorbic Acid [Vitamin C] 500 mg PO DAILY 02/07/18 [History] traZODone [TraZODone] 50 mg PO HS PRN 02/07/18 [History] Carvedilol [Coreg] 25 mg PO BIDWM #60 tablet 02/12/18 [Rx] Ferrous Sulfate 325 mg PO BIDWM #60 tablet 02/12/18 [Rx] Simethicone [Gas-X] 80 mg PO TID PRN #15 tab.chew 02/12/18 [Rx] Ranitidine HCl [Acid Cable Tool Operator] 150 mg PO QPM 02/24/18 [History] Amlodipine Besylate 10 mg PO DAILY 04/18/18 [History] Acetaminophen [Tylenol] 650 mg PO BID 06/09/18 [History] Insulin Glargine,Hum.rec.anlog [Basaglar Kwikpen U-100] 20 unit SQ HS 06/09/18 [History] Ipratropium/Albuterol Sulfate [Combivent Respimat Inhal [place]] 1 puff IH Q6H 06/09/18 [History] Calcium Carbonate [Calcium] 500 mg PO DAILY 06/17/18 [History] Cholecalciferol (Vitamin D3) [Dialyvite Vitamin D] 10,000 unit PO WE 06/17/18 [History] Ondansetron HCl 8 mg PO TID PRN 06/17/18 [History] Tizanidine HCl 4 mg PO TID PRN 06/17/18 [History] Fluticasone Propionate [Flovent Hfa] 2 puff PO BID 07/12/18 [History] Glucagon HCl 1 mg IM PRN PRN 07/12/18 [History] Isosorbide MONOnitrate [Isosorbide Mononitrate] 10 mg PO BID 07/12/18 [History] Melatonin [Melatin] 3 mg PO HS PRN 07/12/18 [History] predniSONE [PredniSONE] 40 mg PO DAILY #2 tablet 07/14/18 [Rx] Cyanocobalamin (Vitamin B-12) [Vitamin B-12] 1,000 mcg PO DAILY 08/01/18 [History] Gabapentin [Neurontin] 100 mg PO 08/01/18 [History] Loratadine [Allergy Relief] 10 mg PO DAILY 08/01/18 [History] Methyl Salicylate/Menthol [Salonpas Patch] 1 each TP DAILY 08/01/18 [History] Furosemide [Lasix] 40 mg PO DAILY #30 tablet 08/03/18 [Rx] OxyCODONE Immed Rel [Roxicodone 10 MG] 10 mg PO Q6H PRN 3 Days #12 tablet 08/03/18 [Rx] hydrALAZINE [HydrALAZINE] 10 mg PO Q6HR #120 tablet 08/03/18 [Rx] Allergies/Adverse Reactions: Allergy/AdvReac Type Severity Reaction Status Date / Time baclofen AdvReac Hallucinati Verified 06/17/18 18:42 ng cilostazol [From Pletal] AdvReac Hallucinati Verified 06/17/18 18:42 ng - Respiratory Orders Oxygen / L per min (3L continuous) Smoking Cessation: Smoking cessation has been advised. For more information, call the [place] Tobacco Quit Line at 3-932-FKRP-NOW. - Rehabiliation Orders Rehab Orders: Evaluation for Physical Therapy, Evaluation for Occupational Therapy - Diet Orders Renal CERTIFICATION: I certify that the transfer of the above named patient to an Extended Care Facility is necessary for the continuing treatment of the diagnosis listed. The above information is true and accurate reflection of patient's current condition. Confidential - Redisclosure prohibited without a patient's written consent.
[2018-08-03 12:33] VITALS: BP 165/68
== END 2018-08-03 14:20 ==
LOC: 2NENU 19:50 → EMEROOARM 19:50 → SUATTDRO 23:02 → 2NENU 23:12
PROVIDERS: ADMIT Family Medicine; ATTEND Internal Medicine